=== PATIENT | female | born 1935 | race Caucasian/White ===

== ENCOUNTER 2024-04-14 11:00 | Outpatient (REF) | payer MEDICARE, OTHER, SELFPAY ==
--- NOTE | ~2024-04-14 | XR_ITS ---
EXAMINATION: XR CHEST CLINICAL INFORMATION: Cough evaluate for infiltrate COMPARISON: None available. TECHNIQUE: 2 views of the chest were obtained. FINDINGS: Slight bibasilar atelectasis. Slight interstitial prominence. No pneumothorax. Trachea is midline. Cardiomediastinal silhouette is not enlarged. Aorta demonstrates atherosclerotic calcifications. No large pleural effusion. Levocurvature of the thoracolumbar spine with multilevel degenerative changes. Soft tissues are unremarkable. XR/XR chest 2V IMPRESSION: 1. Slight bibasilar atelectasis. 2. Slight interstitial prominence.
== END 2024-04-14 11:01 | disposition home or self-care (01) ==
LOC: HO.XRAY 11:00
PROVIDERS: PCP Internal Medicine; Visit Provider Internal Medicine
DX: R05.9 Cough, unspecified (principal)
CPT/HCPCS: 71046

== ENCOUNTER 2024-06-01 09:00 | Outpatient (RCR) | payer MEDICARE, OTHER, SELFPAY | END 2024-08-02 08:38 | disposition home or self-care (01) | LOC: HO.PT 09:00 | PROVIDERS: PCP Nurse Practitioner Family; Visit Provider Internal Medicine | DX: R26.9 Unspecified abnormalities of gait and mobility (principal) | CPT/HCPCS: 97110; 97112; 97162 ==

== ENCOUNTER 2024-07-27 11:12 | Emergency (ER) | payer MEDICARE, OTHER, SELFPAY ==
--- NOTE | ~2024-07-27 | XR_ITS ---
EXAMINATION: XR SACRUM AND COCCYX CLINICAL INFORMATION: pain s/p fall, Pt states she fell out of a chair at her independent living home today. COMPARISON: None available. TECHNIQUE: AP and lateral views of the sacrum and coccyx, 3 images. FINDINGS: There are no fractures. No bone, joint or soft tissue abnormality is demonstrated. No radiopaque foreign body. XR/XR sacrum coccyx min 2V IMPRESSION: No radiographic evidence of acute fracture or malalignment of the sacrum and coccyx. Electronically signed by: Christin Quinn DO 07/27/2024 01:53 PM EDT
--- NOTE | ~2024-07-27 | CT_ITS ---
EXAMINATION: CT head/brain wo IV con (accession [id number]) CT cervical spine wo IV con (accession [id number]) CLINICAL INFORMATION: head strike, fall, neck pain s/p fall COMPARISON: None TECHNIQUE: Separate noncontrast CT examinations of the head and cervical spine were performed. Coronal and sagittal reformats were obtained at the acquisition workstation. This CT examination was performed using dose optimization techniques as appropriate, variously including the following: * Automated exposure control * Adjustment of mA and/or kV according to patient size (this includes techniques or standardized protocols for targeted exams where dose is matched to indication/reason for exam; i.e. extremities or head) * Use of iterative reconstruction technique DLP: 945 mGy-cm FINDINGS: HEAD: There is no evidence of acute intracranial hemorrhage or territorial infarction. Castillo to white matter differentiation is well preserved. No abnormal mass effect or midline shift is seen. No extra-axial fluid collections are identified. No hydrocephalus. Mineralization of the bilateral basal ganglia. Proportional prominence of the ventricles and sulcal spaces is consistent with mild volume loss. Patchy periventricular and deep white matter hypoattenuation is consistent with moderate small vessel ischemic changes. The cerebellar tonsils are well positioned. No acute osseous or soft tissue abnormality. Bilateral lens extraction. Small mucous retention cyst in the posterior right maxillary sinus. The remaining visualized paranasal sinuses and mastoid air cells are well aerated. CERVICAL SPINE: There is loss of the normal cervical lordosis at C5. Multilevel mild anterolisthesis of C2-C3, C3-C4, C4-C5, C7-T1. No evidence of acute fracture or traumatic subluxation of the cervical spine. Vertebral body heights are maintained. There is multilevel degenerative disc disease from C4 to C7 with intervertebral disc space narrowing and endplate osteophyte formation. Moderate atlantodental spondylosis. The atlantoaxial and atlantooccipital articulations are intact. Mild bilateral C6-C7 neural foraminal stenosis. No canal stenosis. No prevertebral soft tissue swelling. There is no cervical lymphadenopathy. The visualized thyroid gland is unremarkable. Diffuse central lobular emphysema in the visualized bilateral lung apices. CT/CT cervical spine wo IV con IMPRESSION: 1. No acute intracranial pathology. Chronic microangiopathy and generalized volume loss. 2. No acute osseous abnormality within the cervical spine. Mild multilevel degenerative changes as described above. Electronically signed by: Christin Quinn DO 07/27/2024 02:09 PM EDT RP
--- NOTE | ~2024-07-27 | US_ITS ---
EXAMINATION: US TRIPLEX LOWER EXTREMITY, RIGHT CLINICAL INFORMATION: Calf pain COMPARISON: None available. TECHNIQUE: Color-flow triplex imaging with spectral analysis and compression Doppler were performed on the right lower extremity. FINDINGS: Respiratory variation, normal compression and augmented flow are noted throughout the right lower extremity. The visualized common femoral vein, superficial femoral vein, profunda femoral vein, popliteal vein and midcalf peroneal and posterior tibial venous segments show no evidence of deep venous thrombosis. There is no Haque's cyst. US/US venous duplex LE RT IMPRESSION: No evidence of deep venous thrombosis involving the right lower extremity. Electronically signed by: Vivian King MD 07/27/2024 12:54 PM EDT
--- NOTE | ~2024-07-27 | CT_ITS ---
EXAMINATION: CT head/brain wo IV con (accession [id number]) CT cervical spine wo IV con (accession [id number]) CLINICAL INFORMATION: head strike, fall, neck pain s/p fall COMPARISON: None TECHNIQUE: Separate noncontrast CT examinations of the head and cervical spine were performed. Coronal and sagittal reformats were obtained at the acquisition workstation. This CT examination was performed using dose optimization techniques as appropriate, variously including the following: * Automated exposure control * Adjustment of mA and/or kV according to patient size (this includes techniques or standardized protocols for targeted exams where dose is matched to indication/reason for exam; i.e. extremities or head) * Use of iterative reconstruction technique DLP: 945 mGy-cm FINDINGS: HEAD: There is no evidence of acute intracranial hemorrhage or territorial infarction. Castillo to white matter differentiation is well preserved. No abnormal mass effect or midline shift is seen. No extra-axial fluid collections are identified. No hydrocephalus. Mineralization of the bilateral basal ganglia. Proportional prominence of the ventricles and sulcal spaces is consistent with mild volume loss. Patchy periventricular and deep white matter hypoattenuation is consistent with moderate small vessel ischemic changes. The cerebellar tonsils are well positioned. No acute osseous or soft tissue abnormality. Bilateral lens extraction. Small mucous retention cyst in the posterior right maxillary sinus. The remaining visualized paranasal sinuses and mastoid air cells are well aerated. CERVICAL SPINE: There is loss of the normal cervical lordosis at C5. Multilevel mild anterolisthesis of C2-C3, C3-C4, C4-C5, C7-T1. No evidence of acute fracture or traumatic subluxation of the cervical spine. Vertebral body heights are maintained. There is multilevel degenerative disc disease from C4 to C7 with intervertebral disc space narrowing and endplate osteophyte formation. Moderate atlantodental spondylosis. The atlantoaxial and atlantooccipital articulations are intact. Mild bilateral C6-C7 neural foraminal stenosis. No canal stenosis. No prevertebral soft tissue swelling. There is no cervical lymphadenopathy. The visualized thyroid gland is unremarkable. Diffuse central lobular emphysema in the visualized bilateral lung apices. CT/CT head/brain wo IV con IMPRESSION: 1. No acute intracranial pathology. Chronic microangiopathy and generalized volume loss. 2. No acute osseous abnormality within the cervical spine. Mild multilevel degenerative changes as described above. Electronically signed by: Christin Quinn DO 07/27/2024 02:09 PM EDT RP
--- NOTE | ~2024-07-27 | XR_ITS ---
EXAMINATION: XR CHEST CLINICAL INFORMATION: chest pain, Pt states she fell out of a chair at her independent living home today. COMPARISON: Chest radiograph 04/14/2024 TECHNIQUE: PA and lateral views of the chest were obtained. FINDINGS: The lungs are well expanded. No focal consolidation, effusion, edema, or pneumothorax. The cardiomediastinal silhouette is within normal limits for technique and unchanged. No acute osseous abnormality. XR/XR chest 2V IMPRESSION: No acute pulmonary disease. Electronically signed by: Christin Quinn DO 07/27/2024 01:56 PM EDT
--- NOTE | 2024-07-27 11:38 | ED_ITS ---
HPI - Fall General Chief Complaint: General Medical Stated Complaint: fall Time Seen by Provider: 07/27/24 12:39 Source: patient Mode of arrival: ambulatory Limitations: no limitations History of Present Illness ED Provider: Aileen ELLIS HPI Narrative: This is a 88-year-old female x htn, hld, hypothyroidism presenting to the emergency department with complaints of body aches and pains particularly to the buttocks, back of head, she reports that she was sitting in a chair, the chair collapsed and she landed on her buttocks, she reports that her buttocks her as well as the back of her head. She reports when she fell the back of the chair hit her in the head. No LOC. She is not on blood thinners. Patient also reports earlier today she had a sharp episode of substernal nonradiating chest pain lasted a few seconds and then went away. Patient also reports right calf pain since yesterday. No shortness of breath, fevers, chills, vision changes, dizziness, weakness, nausea, vomiting abdominal pain Related Data Allergies Allergy/AdvReac Type Severity Reaction Status Date / Time cefuroxime [From Ceftin] Allergy Diarrhea Verified 07/27/24 11:41 Review of Systems 2 Review of Systems: Yes all other systems are reviewed and are negative PMFSH Past Medical History Attestation statement: The following information was validated with the patient. Source: old records reviewed and nursing notes reviewed Medical History Hypothyroid Anxiety, generalized HLD (hyperlipidemia) HTN (hypertension) Dry eye Social History Social History Smoked in Last 30 Days: No Use of substances other than those prescribed or required for medical reasons: No Advance Directives: No Advance Directives Information Provided: No Physical Exam 2 Vital Signs: Vital Signs: Last Vital Signs Temp 98.3 F 07/27/24 12:50 Pulse 62 07/27/24 12:50 Resp 12 07/27/24 12:50 BP 151/55 H 07/27/24 12:50 Pulse Ox 98 07/27/24 12:50 O2 Del Method Room Air 07/27/24 12:50 BMI result Body Mass Index 28.5 vss Appearance: Alert.? Oriented X3.? No acute distress.? Head: Normocephalic, atraumatic, no step-offs or deformities Eyes: Pupils equal, round and reactive to light.? CVS: Normal heart rate and rhythm.? Pulses normal.? Respiratory: No respiratory distress.? Breath sounds normal.? Abdomen: Soft and nontender.? Skin: Skin warm and dry.? Normal skin color.? Normal skin turgor.? Extremities: No lower extremity edema.? No calf ttp. 5/5 strength to bilateral upper and lower extremities 2+ DP, AT pulses equal and b/l. Normal distal sensation Neuro: Oriented X 3.? No motor deficit.? No sensory deficit. CN 2-12 intact Course Course Course Narrative: This is an RME: Additional HPI, ROS, PE not included below will be deferred to primary provider. RME assessment and note performed by: oRberta Lopez PA-C This is a 89-zzlv-[id number]-female, with a hx of HTN, can't think of any others , who presents to the ER with complaints of body aches. Patient states that she was sitting in a chair when suddenly the chair broke from beneath her and landed onto her buttocks. She states that her buttocks hurts as well as the back of her head. She states that she struck the posterior aspect of her head on part of the chair. No LOC. Patient also reports that she had an episode of chest pain, sharp in nature lasted for several seconds and resolved on its own. She had another episode later on yesterday. She also reports some right calf pain which started yesterday. She has no midline spine tenderness. She is not on blood thinners. Plan: Labs, EKG, CT head and neck, chest and sacrum/coccyx xray ordered. Reevaluation(s) Reevaluation #1: CBC no acute findings needing intervention. Sodium 130 will give IV fluids at this time. Troponin negative, EKG nonischemic. Coags unremarkable. UA with no infection. Patient's DVT steady with no clot noted. X-ray of chest, sacrum and coccyx pending. CT head and neck pending. Time: 13:04 Reevaluation #2: X-ray of chest, sacrum and coccyx normal. CT head and neck pending. As long as this is normal patient to be discharged home. Time: 14:05 Reevaluation #3: CT head and neck normal. Educated patient on diagnosis and treatment plan, answered all question, patient verbalizes understanding. At this time patient will be discharged home, advised to return with new or worsening symptoms. Educated on worrisome signs and symptoms and when to return. At this time I feel comfortable discharge home. Time: 14:16 Medical Decision Making Medical Decision Making MDM Narrative: 88-year-old female presents status post fall off chair today. Reporting pain to buttocks, head. Also earlier had episode of chest pain now resolved. Physical examination benign. No midline tenderness to spine. NIH stroke scale 0. Cerebellar intact. History and physical exam concerning for contusion vs bruising to sacrum/ coccyx region and concussion w/o LOC. I do not suspect intracranial hemorrhage, stroke, posterior stroke. Right calf pain likely musculoskeletal, unlikely arterial or venous occlusion no signs of acute threat to limb. No signs of trauma to chest, abdomen or cervical spine. Chest pain likely noncardiac related unlikely ACS, PE, acute respiratory distress. Plan labs, imaging, Differential Diagnosis Differential Diagnoses: The differential diagnosis associated with the presentation includes History and physical exam concerning for contusion vs bruising to sacrum/ coccyx region and concussion w/o LOC. I do not suspect intracranial hemorrhage, stroke, posterior stroke. Right calf pain likely musculoskeletal, unlikely arterial or venous occlusion no signs of acute threat to limb. No signs of trauma to chest, abdomen or cervical spine. Chest pain likely noncardiac related unlikely ACS, PE, acute respiratory distress. Admission/Observation Consideration of admission/observation: Escalation of care including admission/observation considered Possible Lab Data MDM Lab Attestation statement: I reviewed the patient's lab results. 07/27/24 12:17 07/27/24 12:17 Labs: Lab Results 07/27/24 07/27/24 Range/Units 12:17 12:53 WBC 5.4 (4.8-10.8) X10*3/uL RBC 4.01 L (4.20-5.50) X10*6/uL Hgb 12.6 (12.0-16.0) g/dl Hct 36.9 L (37.0-47.0) % MCV 92.0 (80.0-98.0) fL MCH 31.4 (27.0-33.0) pg MCHC 34.1 (31.0-35.0) g/dl RDW 12.8 (11.0-16.0) % Plt Count 258 (160-400) X10*3/uL MPV 9.1 L (9.4-12.3) fL Immature Gran % (Auto) 0.4 (0.0-0.4) % Neut % (Auto) 54.3 (45-73) % Lymph % (Auto) 25.5 (20-40) % Gates % (Auto) 16.1 H (2-11) % Eos % (Auto) 2.4 (0-4) % Baso % (Auto) 1.3 (0-2) % Lymph # (Auto) 1.4 (1.2-4.9) X10*3/uL Gates # (Auto) 0.9 (0.1-1.2) X10*3/uL Eos # (Auto) 0.1 (0.0-0.4) X10*3/uL Baso # (Auto) 0.1 (0.0-0.2) X10*3/uL Abs Immat Gran (auto) 0.02 (0.00-0.03) X10*3/uL Absolute Neuts (auto) 2.9 (2.0-8.3) x10*3/uL Absolute Nucleated RBC 0.000 (0.0-0.012) X10*3/uL Nucleated RBC % (auto) 0.0 (0.0-0.2) /100WBC PT 10.5 L (11.1-13.3) SEC INR 0.9 (0.9-1.1) Sodium 130 L (135-145) mmol/L Potassium 4.3 (3.3-5.1) mmol/L Chloride 97 (96-108) mmol/L Carbon Dioxide 27 (22-29) mmol/L Anion Gap 10 L (12-20) BUN 13 (9-16) mg/dL Creatinine 0.78 (0.5-1.4) mg/dL Estim Creat Clear Calc 45.1 Estimated GFR > 60 Random Glucose 105 (60-115) mg/dL Calcium 8.9 (8.4-10.2) mg/dL Total Bilirubin 0.4 (0.0-1.0) mg/dL Direct Bilirubin 0.2 (0.0-0.5) mg/dL AST 22 (5-31) U/L ALT 26 (0-31) U/L Alkaline Phosphatase 82 (39-117) U/L Troponin I High Sens < 2.7 (<3.5-17.0) ng/L Total Protein 7.0 (6.5-8.0) g/dL Albumin 4.0 (3.5-5.0) g/dL Urine Color Yellow Urine Appearance Clear Urine pH 7.0 (5.0-9.0) Ur Specific [place] <= 1.005 (1.005-1.025) Urine Protein Negative (Neg-Trace) mg/dL Urine Glucose (UA) Negative (Negative) mg/dL Urine Ketones Negative (Negative) mg/dL Urine Blood Negative (Negative) Urine Nitrite Negative (Negative) Ur Leukocyte Esterase Trace H (Negative) Urine RBC 0-2 (0-2) /HPF Urine WBC 0-5 (0-5) /HPF Ur Squamous Epith Cells 0-2 (0-2) /HPF Urine Bacteria None Seen (None Seen) Hyaline Casts 0-2 (0-2) /LPF Independent Interpretation I performed an independent interpretation of an: EKG (Vent. Rate : 061 BPM Atrial Rate : 061 BPM P-R Int : 208 ms QRS Dur : 138 ms QT Int : 466 ms P-R-T Axes : 070 -56 095 degrees QTc Int : 469 ms Normal sinus rhythm Left axis deviation Left bundle branch block Abnormal ECG No previous ECGs available ), Plain X-Ray (XR/XR sacrum coccyx min 2V IMPRESSION: No radiographic evidence of acute fracture or malalignment of the sacrum and coccyx.XR/XR chest 2V IMPRESSION: No acute pulmonary disease.) and Ultrasound ( US/US venous duplex LE RT IMPRESSION: No evidence of deep venous thrombosis involving the right lower extremity.) Radiology Impression Discussion of test interpretation with radiology: I have reviewed the radiologist's reading. External Record Review External record reviewed: Inpatient record, Office record, Outpatient record, Prior outpatient labs, Prior outpatient radiology, Primary care record and Outside ED record Chronic Conditions Patient?s care impacted by: Hypertension and Other (hld, hypothyroids. ) Discharge Plan Discharge Clinical Impression: Fall from chair, Buttock pain, Calf pain, Chest pain Patient Disposition: Home, Self-Care Instructions: Chest Pain (ED), Fall Prevention for Older Adults (ED), Leg Cramps (ED), Fall Prevention (ED), Leg Pain (ED) Additional Instructions: Take your medications as prescribed. If you were prescribed antibiotics today, it is important that you take your medication to their entirety, do not skip any doses, do not finish them early. Follow-up with your primary care provider this week. Return to the emergency department with new or worsening symptoms. Such as fevers, chills, chest pain, shortness of breath, nausea, vomiting, dizziness, headache, vision changes, lethargy In case of emergency call 911 US/US venous duplex LE RT IMPRESSION: No evidence of deep venous thrombosis involving the right lower extremity. XR/XR sacrum coccyx min 2V IMPRESSION: No radiographic evidence of acute fracture or malalignment of the sacrum and coccyx. XR/XR chest 2V IMPRESSION: 1. Slight bibasilar atelectasis. 2. Slight interstitial prominence. CT/CT head/brain wo IV con IMPRESSION: 1. No acute intracranial pathology. Chronic microangiopathy and generalized volume loss. 2. No acute osseous abnormality within the cervical spine. Mild multilevel degenerative changes as described above. Referrals: ED Physician,Generic [Physician] - 2 days Print Language: Estonian
[2024-07-27 11:39] VITALS: BP 101/59; PULSE 60; RESP 18; TEMP 36.6; O2SAT 100; BMI 28.5
--- NOTE | 2024-07-27 11:44 | ECG_ITS ---
Test Reason : chest pain Blood Pressure : / mmHG Vent. Rate : 061 BPM Atrial Rate : 061 BPM P-R Int : 208 ms QRS Dur : 138 ms QT Int : 466 ms P-R-T Axes : 070 -56 095 degrees QTc Int : 469 ms Normal sinus rhythm Left axis deviation Left bundle branch block Abnormal ECG No previous ECGs available Referred By: Roberta Lopez Electronically Signed By:SARAH OATES
--- OUTSIDE RECORDS SUMMARY | 2024-07-27 11:49 | XMS_ITS | Continuity of Care Document ---
Author Organization [facility] Medicine Address [address] [place] [address]- Care Team Providers Care Electrician Substation Name Role Phone Christiano VIDES, Nick Primary Care Physician [place] [facility] [place] - 07/01/[address] [address]- Allergies, Adverse Reactions, Alerts Substance Reaction Severity Status Ceftin ? Active Cleocin T BLOODY DIARRHEA Active Immunizations Given and Recorded Vaccine Date Status Refusal Reason SARS-CoV-2(COVID-19)mRNA-LNP vac([id number]) 01/08/24 Given pneumococcal 20-valent conjugate vaccine 01/08/24 Given influenza virus vaccine, inactivated 09/12/22 Michael rded influenza virus vaccine, inactivated 08/08/21 Michael rded influenza virus vaccine, inactivated 1 11/21/20 Gi cris influenza virus vaccine, inactivated 2 08/22/20 Re corded [id number] 12y+ bivalent booster vax 08/31/22 Recorded SARS-CoV-2 mRNA ([id number]) vax 03/16/22 Recorded SARS-CoV-2 (COVID-19) mRNA BNT-162b2 vac 08/15/21 Recorded SARS-CoV-2 (COVID-19) mRNA BNT-162b2 vac 01/16/21 Given SARS-CoV-2 (COVID-19) mRNA BNT-162b2 vac 12/26/20 Recorded Influenza Virus Vaccine (oldterm) 10/12/19 Recorde d zoster vaccine, inactivated 06/07/19 Recorded zoster vaccine, inactivated 03/14/19 Recorded tetanus-diphtheria toxoids (Td) 3 12/18/17 Recorde d pneumococcal 13-valent vaccine 4 10/02/16 Recorded tetanus/diphtheria/pertussis, acel(Tdap) 03/11/16 Given Zoster Vaccine Live 01/15/09 Recorded pneumococcal 23-valent vaccine 08/20/07 Recorded diphtheria-tetanus toxoids (DT) 02/22/00 Given 1Result Comment: [id number] 2Result Comment: sarabjit SANDHU [facility] primary care 3Result Comment: Unit: Unknown Strategic Alliances Manager: Serveron 4Result Comment: Unit: Unknown Strategic Alliances Manager: Zulahoo Injectables Medications atorvastatin 20 mg oral tablet 1 tablet = 20 mg, By Mouth, Daily, # 30 tablet, 0 Refills, Maintenance, 04/05/24 5:36:00 EDT, Tablet, Partial fill upon patient request if the prescription is for a schedule II opioid drug. Start Date: 04/05/24 Status: Ordered escitalopram 5 mg oral tablet 1 tablet, By Mouth, Daily, # 90 tablet, 1 Refills, Maintenance, 06/01/24 11:03:00 EDT, [facility], 158, cm, 05/19/24 9:35:00 EDT, Height, 73.2, kg, 04/05/24 2:07:00 EDT, Dry Weight Start Date: 06/01/24 Status: Ordered famotidine 20 mg oral tablet 40 mg, 2, tablet, By Mouth, Daily, # 30 tablet, Refills 0, Maintenance, 04/05/24 5:36:00 EDT, Partial fill upon patient request if the prescription is for a schedule II opioid drug. Start Date: 04/05/24 Status: Ordered HydrOXYzine Per patient, taking 12.5mg QD, 0 Refills, Maintenance, 05/19/24 9:39:00 EDT, Partial fill upon patient request if the prescription is for a schedule II opioid drug. Start Date: 05/19/24 Status: Ordered levothyroxine 0.05 mg oral tablet 0.5 tablet, By Mouth, Daily, # 45 tablet, 1 Refills, Maintenance, 06/01/24 11:03:00 EDT, [facility], 158, cm, 05/19/24 9:35:00 EDT, Height, 73.2, kg, 04/05/24 2:07:00 EDT, Dry Weight Start Date: 06/01/24 Status: Ordered metoprolol 50 mg oral tablet 50 mg, By Mouth, 2 times a day, Refills 0, Maintenance, 04/05/24 11:11:00 EDT, Partial fill upon patient request if the prescription is for a schedule II opioid drug. Start Date: 04/05/24 Status: Ordered MiraLax = 17 Gm, By Mouth, Daily, 0 Refills, Maintenance, 05/19/24 9:40:00 EDT, Partial fill upon patient request if the prescription is for a schedule II opioid drug. Start Date: 05/19/24 Status: Ordered Oculin Oculin, Refills 0, Maintenance, 05/19/24 9:41:00 EDT, Supply Start Date: 05/19/24 Status: Ordered olmesartan 20 mg oral tablet 1 tablet, By Mouth, Daily, # 90 tablet, 1 Refills, Maintenance, 06/01/24 11:03:00 EDT, [facility], 158, cm, 05/19/24 9:35:00 EDT, Height, 73.2, kg, 04/05/24 2:07:00 EDT, Dry Weight Start Date: 06/01/24 Status: Ordered PreserVision AREDS 0 Refills, Maintenance, 05/19/24 9:40:00 EDT, Partial fill upon patient request if the prescriptionis for a schedule II opioid drug. Start Date: 05/19/24 Status: Ordered Probiotic Formula By Mouth, Daily, 0 Refills, Maintenance, 05/19/24 9:40:00 EDT, Partial fill upon patient request ifthe prescription is for a schedule II opioid drug. Start Date: 05/19/24 Status: Ordered Restasis Every 12 hours, 0 Refills, Maintenance, 05/19/24 9:41:00 EDT, Partial fill upon patient request if the prescription is for a schedule II opioid drug. Start Date: 05/19/24 Status: Ordered Problem List Condition Confirmation Course Effective Dates Status H ealth Status Informant Acute left-sided thoracic back pain Confirmed Active Adenomatous polyp of colon Confirmed Active Change in bowel movement Confirmed Active Anxiety Confirmed Active Aortic insufficiency Confirmed Active Aortic regurgitation Confirmed Active Atrial tachycardia Confirmed Active BPV (benign positional vertigo) Confirmed Active Bilateral calf pain Confirmed Active Cough variant asthma Confirmed Active Osteoarthritis, generalized Confirmed Active Dental prophylaxis, adult - needed Confirmed Active Difficulty sleeping Confirmed Active Dizziness Confirmed Active Nonspecific dizziness Confirmed Active Elevated blood pressure reading with diagnosis of hypertension Confirmed Active Excessive cerumen in both ear canals Confirmed Active GERD (gastroesophageal reflux disease) Confirmed Active Hx of blood clots Confirmed Active Hx of varicose veins of lower extremity Confirmed Active Headache Confirmed Active Hearing impairment Confirmed Active Hyperlipidemia Confirmed Active Hypertension Confirmed Active Hypothyroidism Confirmed Active Impaired fasting glucose Confirmed Active Irritable bowel syndrome characterized by constipation Confirmed Active Lactose intolerance Confirmed Active Left bundle branch block Confirmed Active Migraine Confirmed Active Mitral valve stenosis Confirmed Active Obstructive sleep apnea Confirmed Active BONNIE on CPAP Confirmed Active Oral phase dysphagia Confirmed Active Osteoporosis Confirmed Active Breast pain, left Confirmed Active Cardiac risk counseling Confirmed Active Peptic ulcer disease Confirmed 1970 Active Peripheral venous insufficiency Confirmed Active Primary insomnia Confirmed Active Prolapse of female pelvic organs Confirmed Active Recurrent varicose veins of leg - h/o procedure Confirmed Active Hearing loss, sensorineural Confirmed Active Social problem Confirmed Active TMJ syndrome Confirmed Active Vaginal discharge Confirmed Active Social History Social History Type Response Tobacco Total pack years: 35 . Started at age: 14 Years. Stopped at age: 49 Years. Sex Patient Care team information Care Team Personnel Name: Pam Floyd RN Position: [facility] RN Member Role: Primary Care Nurse Name: Nick Alvarado NP Position: [facility] PCO Associate Professional Member Role: PCP Address: Address: [address] [place] [id number]- Name: Carrol Ta RN Position: [facility] RN Member Role: Primary Care Nurse Name: Crystal Ceron RN Position: S RN Member Role: Primary Care Nurse Care Team Related Persons Name: RADHA MONTOYA Address: [place], [place] Name: BRANDIE MONTOYA Address: [place] [address] Name: TREASURE MONTOYA Address: [address] [place] [address] Name: JAI REED Address: [address] [place] [address]
--- OUTSIDE RECORDS SUMMARY | 2024-07-27 11:49 | XMS_ITS | Continuity of Care Document ---
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 Active Cleocin T BLOODY DIARRHEA Active Immunizations Given and Recorded Vaccine Date Status Refusal Reason SARS-CoV-2 (COVID-19) mRNA BNT-162b2 vac 08/15/21 Recorded SARS-CoV-2 (COVID-19) mRNA BNT-162b2 vac 01/16/21 Given SARS-CoV-2 (COVID-19) mRNA BNT-162b2 vac 12/26/20 Recorded influenza virus vaccine, inactivated 08/08/21 Michael rded influenza virus vaccine, inactivated 1 11/21/20 Gi cris influenza virus vaccine, inactivated 2 08/22/20 Re corded Influenza Virus Vaccine (oldterm) 10/12/19 Recorde d zoster vaccine, inactivated 06/07/19 Recorded zoster vaccine, inactivated 03/14/19 Recorded tetanus-diphtheria toxoids (Td) 3 11/09/17 Recorde d pneumococcal 13-valent vaccine 4 10/02/16 Recorded tetanus/diphtheria/pertussis, acel(Tdap) 03/11/16 Given Zoster Vaccine Live 01/15/09 Recorded pneumococcal 23-valent vaccine 08/20/07 Recorded diphtheria-tetanus toxoids (DT) 02/22/00 Given 1Result Comment: [id number] 2Result Comment: sarabjit SANDHU [facility] 3Result Comment: Unit: Unknown 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 Start Date: 11/05/20 Status: Ordered Clotrimazole 1% Topical 1 application, Topically, 2 times a day, Toenails, 0 Refills, Maintenance, Cream Start Date: 09/15/22 Status: Ordered Estrace Vaginal Cream 0.1 mg/g = 1 Gm, Vaginally, Every Thursday and , Physician requests stefan lange, # 30 Gm, 1 Refills, Maintenance, 12/18/21 15:56:00 EST[facility] Partial fill upon patient request if the prescription is for a schedule II opioid... Start Date: 12/18/21 Status: Ordered ICaps AREDS 2 0 Refills, Maintenance, 02/06/22 11:05:00 EDT, Partial fill upon patient request if the prescription is for a schedule II opioid drug. Start Date: 02/06/22 Status: Ordered levothyroxine 0.05 mg oral tablet See Instructions, TAKE 1/2 TABLET BY MOUTH EVERY DAY, # 45 tablet, 1 Refills, Maintenance, 09/01/2219:01:00 EDT, [facility], 158, cm, 06/27/22 10:16:00 EDT, Height, 71.9, kg, 06/19/22 18:46:00 EDT, Dry Weight Start Date: 09/01/22 Status: Ordered Losartan 25 mg, Tablet, By Mouth, 09/15/22 9:00:00 EDT Start Date: 09/15/22 Stop Date: 09/15/22 Status: Completed magnesium oxide 500 mg oral tablet 1 tablet = 500 mg, By Mouth, Daily, for 7 days, # 7 tablet, 0 Refills, Acute 09/22/22 12:26:00 EDT,09/15/22 12:26:00 EDT, Tablet, [facility], Partial fill upon patient request if the prescription is for a schedule II opioid drug., 157,... Start Date: 09/15/22 Stop Date: 09/22/22 Status: Ordered Metoprolol IR Tablet 12.5 mg, Tablet, By Mouth, 09/15/22 9:00:00 EDT Start Date: 09/15/22 Stop Date: 09/15/22 Status: Completed Metoprolol Tartrate 25 mg oral tablet 1 tablet, By Mouth, 2 times a day, # 180 tablet, 3 Refills, Maintenance, 12/02/21 11:49:00 EST, [facility] #[id number], 157.48, cm, 11/27/21 12:51:00 EST, Height, 68.8, kg, 09/03/21 11:11:00 EDT, Dry Weight Start Date: 12/02/21 Status: Ordered MiraLax oral powder for reconstitution = 17 Gm, By Mouth, Daily, dissolve in water before taking, # 255 Gm, 0 Refills, Maintenance, 05/09/21 14:12:00 EDT, [facility], Partial fill upon patient request if the prescription is for a scheduleII opioid drug. Start Date: 05/09/21 Status: Ordered Seaforth Tears ophthalmic solution 1 drops, Eyes, Both, 2 times a day, PRN for dry eyes, # 30 each, 0 Refills, Maintenance, 09/15/22 1:54:00 EDT, Solution, Partial fill upon patient request if the prescription is for a schedule II opioid drug. Start Date: 09/15/22 Status: Ordered Seaforth Tears ophthalmic solution 1 drops, Eyes, Both, 3 times a day, PRN for dry eyes, Maintenance, 09/15/22 10:43:00 EDT, Solution,Partial fill upon patient request if the prescription is for a schedule II opioid drug. Start Date: 09/15/22 Status: Ordered olmesartan 20 mg oral tablet 1 tablet, By Mouth, Daily, # 90 tablet, 3 Refills, Maintenance, 12/20/21 13:54:00 EST, [id number], 157.48, cm, 12/19/21 11:37:00 EST, Height, 68.8, kg, 09/03/21 11:11:00 EDT, Dry Weight Start Date: 12/20/21 Status: Ordered Probiotic Formula By Mouth, Daily, 0 Refills, Maintenance, 11/08/21 8:50:00 EST, Partial fill upon patient request ifthe prescription is for a schedule II opioid drug. Start Date: 11/08/21 Status: Ordered Restasis 0.05% ophthalmic emulsion 1 drops, Every 12 hours, 0 Refills, Maintenance, 09/15/22 1:54:00 EDT, Partial fill upon patient request if the prescription is for a schedule II opioid drug. Start Date: 09/15/22 Status: Ordered Restasis 0.05% ophthalmic emulsion 1 drops, Eyes, Both, Every 12 hours, Maintenance, 09/15/22 10:42:00 EDT, Partial fill upon patient request if the prescription is for a schedule II opioid drug. Start Date: 09/15/22 Status: Ordered Problem List Condition Confirmation Course Effective Dates Status H ealth Status Informant Adenomatous polyp of colon Confirmed Active Anxiety Confirmed Active Aortic insufficiency Confirmed Active Atrial tachycardia Confirmed Active Cough variant asthma Confirmed Active Osteoarthritis, generalized Confirmed Active Dental prophylaxis, adult - needed Confirmed Active Difficulty sleeping Confirmed Active Dizziness Confirmed Active Excessive cerumen in both ear canals Confirmed Active Headache Confirmed Active Hyperlipidemia Confirmed Active Hypertension Confirmed Active Hypothyroidism Confirmed Active Impaired fasting glucose Confirmed Active Irritable bowel syndrome characterized by constipation Confirmed Active Lactose intolerance Confirmed Active Left bundle branch block Confirmed Active Migraine Confirmed Active Mitral valve stenosis Confirmed Active Obstructive sleep apnea Confirmed Active BONNIE on CPAP Confirmed Active Oral phase dysphagia Confirmed Active Osteoporosis Confirmed Active Peptic ulcer disease Confirmed 1970 Active Peripheral venous insufficiency Confirmed Active Primary insomnia Confirmed Active Recurrent varicose veins of leg - h/o procedure Confirmed Active Hearing loss, sensorineural Confirmed Active TMJ syndrome Confirmed Active Results Radiology Reports * Exam Date Time Procedure Performing Provider Status 09/14/22 9:29 PM Chest Portable Katty Durbin (Verified) Notes: (Chest Portable) Reason For Exam: Shortness of Breath RESULT: Chest Portable Chest Portable Hx of Present Illness: Pt comes in ED via EMS c o intermittent Afib for a week with increased episodes today with some Chest pain, dizziness and weakness. Pt on Metoprolol; Reason: Shortness of Breath; Clinical Question(s): CHF COMPARISON: 06/19/2022 FINDINGS: LINES AND TUBES: None. LUNGS AND PLEURA: Clear lungs. Normal pulmonary vascularity. No pleural effusion. No pneumothorax. HEART, MEDIASTINUM AND YONAS: Heart is normal in size. Normal mediastinal and hilar contour. BONES AND SOFT TISSUES: No acute abnormality. IMPRESSION: No acute abnormality. WSN: [id number] Ordering Physician: Trevor Perla Dictated By: Hilario Solano MD Dictated Date/Time: 09/14/22 9:40 pm Reviewed By: Hilario Solano MD Signed By: Hilario Solano MD Signed Date/Time: 09/14/22 9:40 pm Transcribed By: [place] Transcribed Date/Time: 09/14/22 9:39 pm Vital Signs Most recent to oldest [Reference Range]: 1 2 3 Height 157 cm (09/15/22 7:19 AM) 157 cm (09/15/22 5:45 AM) 157 cm (09/15/22 1:22 AM) Weight 71.6 kg (09/15/22 1:22 AM) 71 kg (09/14/22 8:54 PM) Oxygen Saturation [94-100 %] 98 % (09/15/22 7:19 AM) 99 % (09/15/22 5:45 AM) 99 % (09/15/22 1:22 AM) Pulse Rate [55-90 bpm] 62 bpm (09/15/22 10:37 AM) 62 bpm (09/15/22 7:19 AM) 61 bpm (09/15/22 5:45 AM) Body Mass Index [18.5-24.99 kg/m2] 29.05 kg/m2 *H* (09/15/22 1:22 AM) Blood Pressure [90-138/55-84 mm Hg] 153/67mm Hg *H* (09/15/22 10:38 AM) 157/63mm Hg *H* (09/15/22 10:37 AM) 157/63mm Hg *H* (09/15/22 7:19 AM) Respiratory Rate [16-30 br/min] 17 br/min (09/15/22 7:19 AM) 18 br/min (09/15/22 5:45 AM) 16 br/min (09/15/22 1:22 AM) Temperature [96.8-100.4 DegF] 97.6 DegF (09/15/22 7:19 AM) 97.6 DegF (09/15/22 5:45 AM) 98.3 DegF (09/15/22:22 AM) Mode of Delivery (Oxygen) Room air (09/15/22 7:19 AM) Room air (09/15/22 5:45 AM) Room air (09/15/22:22 AM) Blood pressure sites Arm, left (09/15/22:19 AM) Arm, left (09/15/22 5:45 AM) Arm, right (09/15/22:22 AM) Temperature Route Oral (09/15/22:19 AM) Oral (09/15/22 5:45 AM) Oral (09/15/22:22 AM) Dry Weight 71.6 kg (09/15/22:22 AM) 71 kg (09/14/22 8:54 PM) Social History Social History Type Response Tobacco Total pack years: 35 . Started at age: 14 Years. Stopped at age: 49 Years. Sex Portable XR Chest Views * BHSPowerscribe , CIS S: TRANSCRIBE Xiomara WEBER, Hilario S: VERIFY Event Display: Result: Authored Date: [id number] Chest Portable Hx of Present Illness: Pt comes in ED via EMS c o intermittent Afib for a week with increased episodes today with some Chest pain, dizziness and weakness. Pt on Metoprolol; Reason: Shortness of Breath; Clinical Question(s): CHF COMPARISON: 06/19/2022 FINDINGS: LINES AND TUBES: None. LUNGS AND PLEURA: Clear lungs. Normal pulmonary vascularity. No pleural effusion. No pneumothorax. HEART, MEDIASTINUM AND YONAS: Heart is normal in size. Normal mediastinal and hilar contour. BONES AND SOFT TISSUES: No acute abnormality. IMPRESSION: No acute abnormality. WSN: [id number] Ordering Physician: Trevor Perla Dictated By: Hilario Solano MD Dictated Date/Time: 09/14/22 9:40 pm Reviewed By: Hilario Solano MD Signed By: Hilario Solano MD Signed Date/Time: 09/14/22 9:40 pm Transcribed By: [place] Transcribed Date/Time: 09/14/22 9:39 pm Patient Care team information Personnel Name: Nick Alvarado NP Address: Address: [address] [place] [id number]
--- OUTSIDE RECORDS SUMMARY | 2024-07-27 11:50 | XMS_ITS | Continuity of Care Document ---
Author Organization [facility] Address [address] [place] [address]- Care Team Providers Care Director Enterprise Systems Name Role Phone Sam WEBER, Zara Jensen Primary Care Physician [phone] Encounter [facility] [place] Date(s): 08/21/20 - 08/28/[address] [address]- [facility] Attending Physician: Sofia Chacon MD Admitting Physician: Sofia Chacon MD Allergies, Adverse Reactions, Alerts Substance Reaction Severity Status clindamycin Active Ceftin ? Active Cipro Active Keflex ? 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: [employer] Injectables Medications Aspirin = 81 mg, By Mouth, Daily, 0 Refills, Maintenance Start Date: 01/09/11 Status: Ordered atorvastatin 20 mg oral tablet 1 tablet = 20 mg, By Mouth, Daily at bedtime, # 30 tablet, 6 Refills, Maintenance, 06/05/20 15:31:00 EDT, Tablet, [id number], 158, cm, 06/05/20 14:54:00 EDT, Height, 70, kg, 05/22/20 13:54:00EDT, Dry Weight Start Date: 06/05/20 Stop Date: 01/01/21 Status: Ordered Caltrate 600 with D 1 tab, By Mouth, 2 times a day, tablet, 0 Refills, Maintenance Start Date: 01/09/11 Status: Ordered Compression Stockings See Instructions, # 1 pair, Maintenance, surgical, calf length 20-30 mm Hg, 02/14/19 15:47:38 EDT, Compound Start Date: 02/14/19 Status: Ordered CPAP Machine See Instructions, # 1 each, Maintenance, Please change to C PAP auto titrate 10- 16 cm H2O dx BONNIE, 08/26/11 15:30:42 Start Date: 08/26/11 Status: Ordered CPAP Machine See Instructions, # 1 each, Maintenance, CPAP 7 cm H2O dx [place]NIE [facility] 3 ramp prn mask and suppliesas needed, 05/27/11 14:05:41 Start Date: 05/27/11 Status: Ordered CPAP Equipment See Instructions, # 1 each, Refills 11, Tot. Refills 11, Maintenance, [facility]:All Pap Supplies: Tubing, Headgear, Chin Strap, CC Line, Full Face/Nasal Mask, Heated Humidifier, Water Chamber, and Filters. DX: BONNIE G47.33Length of Need 99 months ACCESS... Start Date: 09/15/17 Status: Ordered Diflucan 150 mg oral tablet 1 tablet = 150 mg, By Mouth, Every 72 hours, # 2 tablet, 0 Refills, Soft Stop, 08/21/20 11:44:00 EDT, Tablet, [facility] #1095, 158, cm, 08/21/20 11:15:00 EDT, Height, 70, kg, 05/22/20 13:54:00 EDT, Dry Weight Start Date: 08/21/20 Status: Ordered doxycycline hyclate 100 mg oral capsule 1 capsule = 100 mg, By Mouth, 2 times a day, 0 Refills, Maintenance, 08/17/20 9:26:00 EDT Start Date: 08/17/20 Status: Ordered Hydrochlorothiazide = 12.5 mg, By Mouth, Daily, 0 Refills, Maintenance, 08/25/14 15:08:35 Start Date: 08/25/14 Status: Ordered ketoconazole 2% topical cream Topically, Daily, 0 Refills, Maintenance, 05/19/20 22:50:00 EDT Start Date: 05/19/20 Status: Ordered metoprolol 25 mg oral tablet 25 mg, 1, tablet, By Mouth, 2 times a day, # 180 tablet, Refills 0, Maintenance, 08/17/20 9:27:00 EDT Start Date: 08/17/20 Status: Ordered Multivitamin 1, tablet, By Mouth, Daily, 0, 0, 02/21/06 7:36:57, Print CAMILO Number, [id number], Constant Indicator Start Date: 02/21/06 Status: Ordered polyethylene glycol 3350 oral powder for reconstitution = 17 Gm, By Mouth, Daily, 0 Refills, Maintenance, 08/17/20 9:27:00 EDT Start Date: 08/17/20 Status: Ordered Probiotic Formula 1 capsule, By Mouth, Daily, 0 Refills, Maintenance, 12/20/15 15:58:11 Start Date: 12/20/15 Status: Ordered Trimo-Mcclure 0.025% vaginal gel with applicator 0 Refills, Maintenance, 08/17/20 9:26:00 EDT Start Date: 08/17/20 Status: Ordered Problem List Condition Effective Dates Status Health Status Inform ant Adenomatous polyp of colon(Confirmed) Active Aortic insufficiency(Confirmed) Active Atrial tachycardia(Confirmed) Active Cough variant asthma(Confirmed) Active Osteoarthritis, generalized(Confirmed) Active Dental prophylaxis, adult - needed(Confirmed) Active Difficulty sleeping(Confirmed) Active Dizziness(Confirmed) Active Excessive cerumen in both ea r canals(Confirmed) Active Caregiver burden(Confirmed) Active Headache(Confirmed) Active Hypertension(Confirmed) Active Hypothyroidism(Confirmed) Active Hypothyroidism(Confirmed) Active Irritable bowel syndrome rebecca racterized by constipation(Confirmed) Active Lactose intolerance(Confirmed) Active Left bundle branch block(Confirmed) Active Migraine(Confirmed) Active Mitral valve stenosis(Confirmed) Active Obstructive sleep apnea(Confirmed) Active BONNIE on CPAP(Confirmed) Active Oral phase dysphagia(Confirmed) Active Osteoporosis(Confirmed) Active Peptic ulcer disease(Confirmed) 1970 Active Peripheral venous insufficiency(Confirmed) Active Primary insomnia(Confirmed) Active Recurrent varicose veins of leg - h/o procedure(Confirmed) Active TMJ syndrome(Confirmed) Active Vital Signs Most recent to oldest [Reference Range]: 1 Height 158 cm (08/21/20 11:15 AM) Blood Pressure [90-138/55-84 mm Hg] 122/ 60mm Hg (08/21/20 11:15 AM) Blood pressure sites Arm, left (08/21/20 11:15 AM) Weight Obtained Via Standing scale (08/21/20 11:15 AM) Social History Social History Type Response Smoking Status Former smoker; Other : Smoked 1PPD from age 14. Quit 33Y ago.; entered on: 09/15/17 Sex
--- OUTSIDE RECORDS SUMMARY | 2024-07-27 11:50 | XMS_ITS | Continuity of Care Document ---
Author Organization [facility] Address [address] [place] [address]- Care Team Providers Care Ramp Service Man Name Role Phone Christiano VIDES, Nick Primary Care Physician Encounter [facility] [place] Date(s): 01/08/24 - 02/07/[address] [address]- Attending Physician: Silas Duncan Admitting Physician: Silas Duncan Referring Physician: Silas Duncan Allergies, Adverse Reactions, Alerts Substance Reaction Severity Status Ceftin ? Active Cleocin T BLOODY DIARRHEA Active Immunizations Given and Recorded Vaccine Date Status Refusal Reason SARS-CoV-2(COVID-19)mRNA-LNP vac([id number]) 01/08/24 Given pneumococcal 20-valent conjugate vaccine 01/08/24 Given influenza virus vaccine, inactivated 09/12/22 Michael rded influenza virus vaccine, inactivated 08/08/21 Michael rded influenza virus vaccine, inactivated 1 11/21/20 Gi cris influenza virus vaccine, inactivated 2 08/22/20 Re corded [id number] 12y+ bivalent booster vax 08/31/22 Recorded SARS-CoV-2 mRNA ([id number]) vax 03/16/22 Recorded SARS-CoV-2 (COVID-19) mRNA BNT-162b2 [...] diphtheria-tetanus toxoids (DT) 02/22/00 Given 1Result Comment: [id number] 2Result Comment: sarabjit SANDHU 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 Refills 0, Maintenance, surgical, knee high 20-30 mm HgDx: varicose veins with pain, swelling, history of GSV ablation, sclerotherapy, bilateral, 06/26/2311:22:00 EDT, Supply Start Date: 06/26/23 Status: Ordered escitalopram 5 mg oral tablet 1 tablet, By Mouth, Daily, # 90 tablet, 1 Refills, Maintenance, 11/19/23 14:47:00 EST, [facility], 158, cm, 10/20/23 13:46:00 EST, Height, 70, kg, 04/02/23 19:36:00 EDT, Dry Weight Start Date: 11/19/23 Stop Date: 05/17/24 Status: Ordered Estrace Vaginal Cream 0.1 mg/g = 1 Gm, Vaginally, Every Thursday and , Physician requests stefan lange, # 30 Gm, 1 Refills, Maintenance, 02/05/23 15:29:00 EDT, [facility], Partial fill upon patient request if the prescription is for a schedule II opioid drug., 1... Start Date: 02/05/23 Status: Ordered famotidine 20 mg oral tablet 1, tablet, By Mouth, 2 times a day, PRN, # 60 tablet, Refills 5, Maintenance, NEEDED, 08/27/23 21:16:00 EDT, Route to Pharmacy Electronically, [facility], 158, cm, 05/06/23 11:17:00 EDT, Height, 70, kg, 04/02/23 19:36:00 EDT, Dry Weight Start Date: 08/27/23 Status: Ordered fluticasone 50 mcg/inh nasal spray 1 sprays = 50 mcg, Nares, Both, 2 times a day, # 16 Gm, 0 Refills, Maintenance, 01/08/24 11:22:00 EST, [place], [facility], Partial fill upon patient request if the prescription is for a schedule II opioid drug., 1 sprays Nares, Both 2 cam[place]... Start Date: 01/08/24 Status: Ordered hydrocortisone 1% topical cream 1 application, Topically, 2 times a day, # 15 Gm, 0 Refills, Maintenance, 01/08/24 11:30:00 EST, Cream, [facility], Partial fill upon patient request if the prescription is for a schedule II opioid drug., 1 application Topically 2 times... Start Date: 01/08/24 Status: Ordered hydrOXYzine hydrochloride 25 mg oral tablet 1 tablet, By Mouth, Daily at bedtime, # 30 tablet, 0 Refills, Maintenance, 07/21/23 11:20:00 EDT, [facility], 158, cm, 05/06/23 11:17:00 EDT, Height, 70, kg, 04/02/23 19:36:00 EDT, Dry Weight Start Date: 07/21/23 Status: Ordered ICaps AREDS 2 0 Refills, Maintenance, 02/06/22 11:05:00 EDT, Partial fill upon patient request if the prescription is for a schedule II opioid drug. Start Date: 02/06/22 Status: Ordered ipratropium nasal 21 mcg/inh spray 1 sprays = 21 mcg, Nares, Both, Daily at bedtime, # 30 mL, 0 Refills, Maintenance, 10/28/23 17:05:00 EST, [facility], Partial fill upon patient request if the prescription is for a schedule II opioid drug., 1 sprays Nares, Both Daily at... Start Date: 10/28/23 Status: Ordered levothyroxine 0.05 mg oral tablet 0.5 tablet, By Mouth, Daily, # 45 tablet, 1 Refills, Maintenance, 08/27/23 21:17:00 EDT, [facility], 158, cm, 05/06/23 11:17:00 EDT, Height, 70, kg, 04/02/23 19:36:00 EDT, Dry Weight Start Date: 08/27/23 Status: Ordered Metoprolol Tartrate 25 mg oral tablet 2 tablet = 50 mg, By Mouth, 2 times a day, # 360 tablet, 3 Refills, Maintenance, 12/14/23 15:43:00 EST, [facility], 158, cm, 11/24/23 11:30:00 EST, Height, 70, kg, 04/02/23 19:36:00 EDT, Dry Weight Start Date: 12/14/23 Status: Ordered MiraLax oral powder for reconstitution = 17 Gm, By Mouth, Daily, dissolve in water before taking, # 255 Gm, 0 Refills, Maintenance, 05/09/21 14:12:00 EDT, REC Powder, Partial fill upon patient request if the prescription is for a scheduleII opioid drug. Start Date: 05/09/21 Status: Ordered [place] Tears ophthalmic solution 1 drops, Eyes, Both, 3 times a day, PRN for dry eyes, Maintenance, 09/15/22 10:43:00 EDT, Solution,Partial fill upon patient request if the prescription is for a schedule II opioid drug. Start Date: 09/15/22 Status: Ordered olmesartan 20 mg oral tablet 1 tablet, By Mouth, Daily, # 90 tablet, 1 Refills, Maintenance, 11/25/23 6:31:00 EST, [facility], 158, cm, 11/24/23 11:30:00 EST, Height, 70, kg, 04/02/23 19:36:00 EDT, Dry Weight Start Date: 11/25/23 Status: Ordered Probiotic Formula By Mouth, Daily, [...] opioid drug. Start Date: 09/15/22 Status: Ordered spironolactone 25 mg oral tablet 12.5 mg, 0.5, tablet, By Mouth, Daily, # 45 tablet, Refills 3, Tot. Refills 3, Maintenance, 12/09/23 11:40:00 EST, Route to Pharmacy Electronically, [facility], Partial fill upon patient request if the prescription is for a schedule II op... Start Date: 12/09/23 Status: Ordered Problem List Condition Confirmation Course [...] phase dysphagia Confirmed Active Osteoporosis Confirmed Active Cardiac risk counseling Confirmed Active Peptic ulcer disease Confirmed 1970 Active Peripheral venous insufficiency Confirmed Active Primary insomnia Confirmed Active Recurrent varicose veins of leg - h/o procedure Confirmed Active Hearing loss, sensorineural Confirmed Active Social problem Confirmed Active TMJ syndrome Confirmed Active Social History Social History Type Response Tobacco Total pack years: 35 . Started at age: 14 Years. Stopped at age: 49 Years. Sex Patient Care team information Care Team Personnel Name: Nick Alvarado NP Position: [facility] Associate Professional Member Role: PCP Address: Address: [address] [place] [id number]- Name: Carrol Ta RN Position: [facility] SN RN Member Role: Primary Care Nurse Name: Crystal Ceron RN Position: [facility] RN Member Role: Primary Care Nurse Care Team Related Persons Name: RADHA MONTOYA Address: [place], [place] Name: BRANDIE MONTOYA Address: [place] [address] Name: TREASURE MONTOYA Address: home [address] [place] [address] Name: JAI REED Address: home [address] [place] [address]
--- OUTSIDE RECORDS SUMMARY | 2024-07-27 11:50 | XMS_ITS | Continuity of Care Document ---
Author Organization [facility] Medicine Address [address] [place] [address]- Care Team Providers Care Exec. Creative Director Name Role Phone Christiano VIDES, Nick Primary Care Physician [place] [facility] [place] 02/04/23 [facility] Medicine [address] [place] [id number]- Allergies, Adverse Reactions, Alerts Substance Reaction Severity Status Ceftin ? Active Cleocin T BLOODY DIARRHEA Active Immunizations Given and Recorded Vaccine Date Status Refusal Reason influenza virus vaccine, inactivated 09/12/22 Michael rded influenza virus vaccine, inactivated 08/08/21 Michael rded influenza virus vaccine, inactivated 1 11/21/20 Gi cris influenza virus vaccine, inactivated 2 08/22/20 Re corded [id number] 12y+ bivalent booster vax 08/31/22 Recorded SARS-CoV-2 mRNA (eyengof-[id number]) vax 03/16/22 Recorded SARS-CoV-2 (COVID-19) mRNA BNT-162b2 [...] diphtheria-tetanus toxoids (DT) 02/22/00 Given 1Result Comment: [id number] 2Result Comment: sarabjit SANDHU [facility] 3Result Comment: Unit: Unknown 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: [employer] 4Result Comment: Unit: Unknown 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: Pfizer Injectables Medications atorvastatin 20 mg oral tablet 1 tablet, By Mouth, Daily at bedtime, # 90 tablet, 3 Refills, Maintenance, 12/16/22 13:42:00 EST, [facility], 158, cm, 12/11/22 15:03:00 EST, Height, 71, kg, 12/11/22 15:03:00 EST, Dry Weight Start Date: 12/16/22 Status: Ordered Clotrimazole 1% Topical 1 application, Topically, 2 times a day, Toenails, 0 Refills, Maintenance, Cream Start Date: 09/15/22 Status: Ordered escitalopram 5 mg oral tablet 1 tablet = 5 mg, By Mouth, Daily, # 30 tablet, 1 Refills, Maintenance, 12/18/22 10:32:00 EST, Tablet, [facility], Partial fill upon patient request if the prescription is for a schedule II opioid drug., 158, cm, 12/18/22 10:17:00 EST, He... Start Date: 12/18/22 Status: Ordered Estrace Vaginal Cream 0.1 mg/g = 1 Gm, Vaginally, Every Thursday and , Physician requests stefan lange, # 30 Gm, 1 Refills, Maintenance, 12/18/21 15:56:00 EST[facility] Partial fill upon patient request if the prescription is for a schedule II opioid... Start Date: 12/18/21 Status: Ordered famotidine 20 mg oral tablet 20 mg, 1, tablet, By Mouth, 2 times a day, PRN, # 30 tablet, Refills 2, Tot. Refills 2, Maintenance, Pain , Moderate, 01/30/23 10:13:00 EST, Route to Pharmacy Electronically, [facility], Partial fill upon patient request if the prescript... Start Date: 01/30/23 Status: Ordered hydrOXYzine hydrochloride 25 mg oral tablet 1 tablet = 25 mg, By Mouth, Daily at bedtime, for 30 days, # 30 tablet, 0 Refills, Acute 02/20/23 13:53:00 EDT, 01/21/23 13:53:00 EST, Tablet, [facility], Partial fill upon patient request if the prescription is for a schedule II opioid... Start Date: 01/21/23 Stop Date: 02/20/23 Status: Ordered ICaps AREDS 2 0 Refills, [...] Dry Weight Start Date: 09/01/22 Status: Ordered meclizine 25 mg oral tablet 1 tablet = 25 mg, By Mouth, 3 times a day, PRN for dizziness, # 30 tablet, 0 Refills, Maintenance, 11/11/22 11:29:00 EST, Tablet, [facility], Partial fill upon patient request if the prescription is for a schedule II opioid drug., 157, c... Start Date: 11/11/22 Status: Ordered Metoprolol Tartrate 25 mg oral tablet 2 tablet = 50 mg, By Mouth, 2 times a day, # 360 tablet, 3 Refills, Maintenance, 12/16/22 13:42:00 EST, [facility], 158, cm, 12/11/22 15:03:00 EST, Height, 71, kg, 12/11/22 15:03:00EST, Dry Weight Start Date: 12/16/22 Status: Ordered MiraLax oral powder for reconstitution = 17 Gm, By Mouth, Daily, dissolve in water before taking, # 255 Gm, 0 Refills, Maintenance, 05/09/21 14:12:00 EDT, REC Powder, Partial fill upon patient request if the prescription is for a scheduleII opioid drug. Start Date: 05/09/21 Status: Ordered [place] Tears ophthalmic solution 1 drops, Eyes, Both, 2 times a day, PRN for dry eyes, # 30 each, 0 Refills, Maintenance, 09/15/22 1:54:00 EDT, Solution, Partial fill upon patient request if the prescription is for a schedule II opioid drug. Start Date: 09/15/22 Status: Ordered [place] Tears ophthalmic solution 1 drops, Eyes, Both, 3 times a day, PRN for dry eyes, Maintenance, 09/15/22 10:43:00 EDT, Solution,Partial fill upon patient request if the prescription is for a schedule II opioid drug. Start Date: 09/15/22 Status: Ordered olmesartan 20 mg oral tablet 1 tablet, By Mouth, Daily, # 90 tablet, 3 Refills, Maintenance, 12/22/22 11:40:00 EST, [facility], 158, cm, 12/18/22 10:17:00 EST, Height, 71, kg, 12/11/22 15:03:00 EST, Dry Weight Start Date: 12/22/22 Status: Ordered Probiotic Formula By Mouth, Daily, [...] regurgitation Confirmed Active Atrial tachycardia Confirmed Active Cough variant asthma Confirmed Active Osteoarthritis, generalized Confirmed Active Dental prophylaxis, adult - needed Confirmed Active Difficulty sleeping Confirmed Active Dizziness Confirmed Active Nonspecific dizziness Confirmed Active Elevated blood pressure reading with diagnosis of hypertension Confirmed Active Excessive cerumen in both ear canals Confirmed Active GERD (gastroesophageal reflux disease) Confirmed Active Headache Confirmed Active Hearing impairment [...] Team Personnel Name: Nick Alvarado NP Position: [facility] PCO Associate Professional Member Role: PCP Address: Address: [address] [place] [id number] Name: Elvia METZ, Trinh Position: S RN Member Role: Primary Care Nurse Name: Keyon METZ, Carrol Marie Position: S RN Member Role: Primary Care Nurse Name: Crystal Ceron RN Position: S RN Member Role: Primary Care Nurse Care Team Related Persons Name: RADHA MONTOYA Name: BRANDIE MONTOYA Address: [place] [address] Name: TREASURE MONTOYA Address: home [address] [place] [address] Name: JAI REED Address: home [address] [place] [address]
--- OUTSIDE RECORDS SUMMARY | 2024-07-27 11:50 | XMS_ITS | Continuity of Care Document ---
Author Organization [facility] Address [address] [place] [address]- Care Team Providers Care Tip Inserter Name Role Phone Zara Vargas MD Primary Care Physician En[place] [facility] [place] Date(s): 09/18/20 - 09/25/20 [facility] [place] [address] [place] [address]- [place] Encounter Diagnosis Dizziness(Discharge Diagnosis) - 09/19/20 Hypertension(Discharge Diagnosis) - 09/19/20 Chest pain(Discharge Diagnosis) - 09/19/20 Attending Physician: Not on Staff, Attending MD Referring Physician: Zara Vargas MD Allergies, Adverse Reactions, Alerts Substance Reaction [...] (DT) 02/22/00 Given 1Result Comment: Unit: Unknown 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: [employer] 2Result Comment: Unit: Unknown 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: [employer] Injectables Medications Aspirin = 81 mg, By Mouth, Daily before lunch, 0 Refills, Maintenance, 01/09/11 5:04:09 EST Start Date: 01/09/11 Status: Ordered atorvastatin 20 mg oral tablet 1 tablet = 20 mg, By Mouth, Daily at bedtime, # 30 tablet, 6 Refills, Maintenance, 07/14/20 15:31:00 EDT, Tablet, [facility]/pharmacy #[id number], 158, cm, 06/05/20 14:54:00 EDT, Height, 70, kg, 05/22/20 13:54:00EDT, Dry Weight Start Date: 06/05/20 Stop Date: 01/01/21 Status: Ordered Caltrate 600 with D 1 tab, By Mouth, 2 times a day, tablet, 0 Refills, Maintenance Start Date: 01/09/11 Status: Ordered Hydrochlorothiazide = 12.5 mg, By Mouth, Daily, 0 Refills, Maintenance, 08/25/14 15:08:35 Start Date: 08/25/14 Status: Ordered Ketoconazole = 200 mg, Intradermal, Daily, 0 Refills, Maintenance, 09/18/20 15:51:00 EDT Start Date: 09/18/20 Status: Ordered metoprolol 25 mg oral tablet 12.5 mg, 0.5, tablet, By Mouth, 2 times a day, dose change advised by PCP 09-11-20, # 180 tablet, Refills 0, Maintenance, 08/17/20 9:27:00 EDT Start Date: 08/17/20 Status: Ordered Multivitamin 1, tablet, By Mouth, Daily, 0, 0, 02/21/06 7:36:57, Print CAMILO Number, [id number], Constant Indicator Start Date: 02/21/06 Status: Ordered olmesartan 20 mg oral tablet 1 tablet = 20 mg, By Mouth, Daily, Dosage has been reduced to 20mg / day, # 30 tablet, 5 Refills, Maintenance, 09/19/20 14:11:00 EDT, Tablet, [facility]/pharmacy #[id number], 158, cm, 09/18/20 15:50:00 EDT, Height, 69, kg, 09/13/20 5:27:00 EDT, Dry Weight Start Date: 09/19/20 Status: Ordered polyethylene glycol 3350 oral powder for reconstitution = 17 Gm, By Mouth, Daily at bedtime, 0 Refills, Maintenance, 08/17/20 9:27:00 EDT Start Date: 08/17/20 Status: Ordered Trimo-Mcclure 0.025% vaginal gel with applicator Every Thursday, 0 Refills, Maintenance, 08/17/20 9:26:00 EDT Start [...] - h/o procedure(Confirmed) Active TMJ syndrome(Confirmed) Active Diagnosis Diagnosis Type Effective Dates Health Status Cl inical Service Informant Dizziness Discharge Diagnosis 09/19/20 Hypertension Discharge Diagnosis 09/19/20 Chest pain Discharge Diagnosis 09/19/20 Vital Signs Most recent to oldest [Reference Range]: 1 Height 158 cm (09/18/20 3:50 PM) Weight 69 kg (09/18/20 3:50 PM) Oxygen Saturation [94-100 %] 98 % (09/18/20 3:50 PM) Pulse Rate [55-90 bpm] 72 bpm (09/18/20 3:50 PM) Body Mass Index [18.5-24.99] 27.64 *H* (09/18/20 3:50 PM) Blood Pressure [90-138/55-84 mm Hg] 120/ 64mm Hg (09/18/20 3:50 PM) Mode of Delivery (Oxygen) Room air (09/18/20 3:50 PM) Blood pressure sites Arm, left (09/18/20 3:50 PM) Weight Obtained Via Standing scale (09/18/20 3:50 PM) Social History Social History Type Response Smoking Status Former smoker; Other : Smoked 1PPD from age 14. Quit 33Y ago.; entered on: 09/15/17 Sex
--- OUTSIDE RECORDS SUMMARY | 2024-07-27 11:50 | XMS_ITS | Continuity of Care Document ---
Author Organization [facility] Address [address] [place] [address]- Care Team Providers Care Emotional Disabilities Teacher Name Role Phone Christiano VIDES, Nick Primary Care Physician [phone] Encounter [facility] [place] Date(s): 04/14/23 - 05/14/23 [facility] [place] [address] [place] [address]- Attending Physician: Admtr, Silas Admitting Physician: AdmtrSilas Referring Physician: Admtr, Ar8 Allergies, Adverse Reactions, Alerts Substance Reaction Severity Status Ceftin ? Active Cleocin T BLOODY DIARRHEA Active Immunizations Given and Recorded Vaccine Date Status Refusal Reason influenza virus vaccine, inactivated 09/12/22 Michael rded influenza virus vaccine, inactivated 08/08/21 Michael rded influenza virus vaccine, inactivated 1 11/21/20 Gi cris influenza virus vaccine, inactivated 2 08/22/20 Re corded [id number] 12y+ bivalent booster vax 08/31/22 Recorded SARS-CoV-2 mRNA (wekiagb-ugfo-jwktk) vax 03/16/22 Recorded SARS-CoV-2 (COVID-19) mRNA BNT-162b2 vac 08/15/21 Recorded SARS-CoV-2 (COVID-19) mRNA BNT-162b2 vac 01/16/21 Given SARS-CoV-2 (COVID-19) mRNA BNT-162b2 vac 12/26/20 Recorded Influenza Virus Vaccine (oldterm) 10/12/19 Recorde d zoster vaccine, inactivated 06/07/19 Recorded zoster vaccine, inactivated 03/14/19 Recorded tetanus-diphtheria toxoids (Td) 3 11/09/17 Recorde d pneumococcal 13-valent vaccine 4 11/10/16 Recorded tetanus/diphtheria/pertussis, acel(Tdap) 03/11/16 Given Zoster Vaccine Live 01/15/09 Recorded pneumococcal 23-valent vaccine 08/20/07 Recorded diphtheria-tetanus toxoids (DT) 02/22/00 Given 1Result Comment: [id number] 2Result Comment: sarabjit SANDHU [facility] primary care 3Result Comment: Unit: Unknown 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: [employer] 4Result Comment: Unit: Unknown 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: [employer] Injectables Medications atorvastatin 20 mg oral tablet 1 tablet, By Mouth, Daily at bedtime, # 90 tablet, 3 Refills, Maintenance, 12/16/22 13:42:00 EST, [facility], 158, cm, 12/11/22 15:03:00 EST, Height, 71, kg, 12/11/22 15:03:00 EST, Dry Weight Start Date: 12/16/22 Status: Ordered escitalopram 5 mg oral tablet 1 tablet, By Mouth, Daily, # 30 tablet, 2 Refills, Maintenance, 04/28/23 21:41:00 EDT, [facility], 158, cm, 04/15/23 15:03:00 EDT, Height, 70, kg, 04/02/23 19:36:00 EDT, Dry Weight Start Date: 04/28/23 Status: Ordered Estrace Vaginal Cream 0.1 mg/g = 1 Gm, Vaginally, Every Thursday and , Physician requests paraben free, # 30 Gm, 1 Refills, Maintenance, 02/05/23 15:29:00 EDT, [facility], Partial fill upon patient request if the prescription is for a schedule II opioid drug., 1... Start Date: 02/05/23 Status: Ordered famotidine 20 mg oral tablet 20 mg, 1, tablet, By Mouth, 2 times a day, PRN, # 60 tablet, Refills 5, Tot. Refills 5, Maintenance, Pain , Moderate, 03/03/23 15:46:00 EDT, Route to Pharmacy Electronically, [facility], Partial fill upon patient request if the prescript... Start Date: 03/03/23 Status: Ordered hydrOXYzine hydrochloride 25 mg oral tablet 1 tablet, By Mouth, Daily at bedtime, # 30 tablet, 0 Refills, Maintenance, 04/07/23 7:44:00 EDT, [facility], 158, cm, 04/02/23 19:36:00 EDT, Height, 70, kg, 04/02/23 19:36:00 EDT, Dry Weight Start Date: 04/07/23 Status: Ordered ICaps AREDS 2 0 Refills, Maintenance, 02/06/22 11:05:00 EDT, Partial fill upon patient request if the prescription is for a schedule II opioid drug. Start Date: 02/06/22 Status: Ordered levothyroxine 0.05 mg oral tablet See Instructions, TAKE 1/2 TABLET BY MOUTH EVERY DAY, # 45 tablet, 0 Refills, Maintenance, :05:00 EDT, [facility], 157, cm, 03/11/23 16:01:00 EDT, Height, 73, kg, 01/07/2315:13:00 EST, Dry Weight Start Date: 03/12/23 Status: Ordered Metoprolol Tartrate 25 mg oral [...] opioid drug. Start Date: 05/09/21 Status: Ordered [place] Tears ophthalmic solution 1 drops, Eyes, Both, 2 times a day, PRN for dry eyes, # 30 each, 0 Refills, Maintenance, 09/15/22 1:54:00 EDT, Solution, Partial fill upon patient request if the prescription is for a schedule II opioid drug. Start Date: 09/15/22 Status: Ordered [place] Tears ophthalmic solution 1 drops, Eyes, Both, [...] Team Personnel Name: Nick Alvarado NP Position: [facility] PCO Associate Professional Member Role: PCP Address: Address: [address] [place] [address]- Name: Trinh aGn RN Position: [facility] RN Member Role: Primary Care Nurse Name: Carrol Ta RN Position: [facility] RN Member Role: Primary Care Nurse Name: Crystal Ceron RN Position: [facility] RN Member Role: Primary Care Nurse Care Team Related Persons Name: RADHA MONTOYA Address: [place], [place] Name: BRANDIE MONTOYA Address: [place] [address] Name: TREASURE MONTOYA Address: home [address] [place] [id number] Name: JAI REED Address: home [address] [place] [id number]
--- OUTSIDE RECORDS SUMMARY | 2024-07-27 11:50 | XMS_ITS | Continuity of Care Document ---
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 Refills 11, Maintenance, Regional:All Pap Supplies: Tubing, Headgear, Chin Strap, CC Line, Full Face/Nasal Mask, Heated Humidifier, Water Chamber, and Filters. DX: BONNIE G47.33Length of Need 99 months ACCESS... Start Date: 09/15/17 Status: Ordered Hydrochlorothiazide = 12.5 mg, By Mouth, Daily, 0 Refills, Maintenance, 08/25/14 15:08:35 Start Date: 08/25/14 Status: Ordered metoprolol 25 mg oral tablet 12.5 mg, 0.5, tablet, By Mouth, 2 times a day, dose change advised by PCP 09-11-20, # 180 tablet, Refills 0, Maintenance, 08/17/20 9:27:00 EDT Start Date: 08/17/20 Status: Ordered Multivitamin 1, tablet, By Mouth, Daily, 0, 0, 02/21/06 7:36:57, Print CAMILO Number, [id number], Constant Indicator Start Date: 02/21/06 Status: Ordered [...] - h/o procedure(Confirmed) Active TMJ syndrome(Confirmed) Active Results Radiology Reports * Exam Date Time Procedure Performing Provider Status 09/12/20 10:35 AM Chest 2 Views Frontal and Lat Sofia Kahn; Auth (Verified) Notes: (Chest 2 Views Frontal and Lat) Reason For Exam: Angina, chest pressure X2 days, X1 week dull pain throughout chest area RESULT: Chest 2 Views Frontal and Lat Chest 2 Views Frontal and Lat Hx of Present Illness: back pain, chest pressure off and on x 2 days, sharp jabs of pain x 1 week move all around chest area x 1 week, hiccups belching off and on but not now, lightheaded 09-09-20; Reason: Angina, chest pressure X2 days, X1 week dull pain throughout chest area; Clinical Question(s): CHF COMPARISON: 05/19/2020. FINDINGS: LINES AND TUBES: None. LUNGS AND PLEURA: Clear lungs. Normal pulmonary vascularity. No pleural effusion. No pneumothorax. HEART, MEDIASTINUM AND YONAS: Heart is normal in size. Normal mediastinal and hilar contour. BONES AND SOFT TISSUES: Compound thoracolumbar scoliosis. IMPRESSION: No acute cardiopulmonary abnormality. I have personally reviewed the images and I agree with this report. WSN: [id number] Ordering Physician: Whitney Lomax Dictated By: Sangeeta Partida MD Dictated Date/Time: 09/12/20 10:40 a Reviewed By: Nickolas Cruz MD Signed By: Nickolas Cruz MD Signed Date/Time: 09/12/20 10:45 am Transcribed By: [place] Transcribed Date/Time: 09/12/20 10:38 am Vital Signs Most recent to oldest [Reference Range]: 1 2 3 Height 158 cm (09/12/20 9:48 AM) Weight 69.2 kg (09/12/20 9:48 AM) Oxygen Saturation [94-100 %] 98 % (09/12/20 3:16 PM) 99 % (09/12/20 12:09 PM) 100 % (09/12/20 11:11 AM) Pulse Rate [55-90 bpm] 74 bpm (09/12/20 3:16 PM) 70 bpm (09/12/20 1:02 PM) 71 bpm (09/12/20 12:09 PM) Blood Pressure [90-138/55-84 mm Hg] 139/53mm Hg *H* (09/12/20 3:16 PM) 139/89mm Hg *H* (09/12/20 12:09 PM) 158/66mm Hg *H* (09/12/20 11:11 AM) Respiratory Rate [16-30 br/min] 17 br/min (09/12/20 3:16 PM) 17 br/min (09/12/20 12:09 PM) 20 br/min (09/12/20 11:11 AM) Temperature [96.8-100.4 DegF] 97.9 DegF (09/12/20 3:16 PM) 97.3 DegF (09/12/20 12:09 PM) 97.9 DegF (09/12/20 9:48 AM) Mode of Delivery (Oxygen) Room air (09/12/20 3:16 PM) Room air (09/12/20 12:09 PM) Room air (09/12/20 11:11 AM) Temperature Route Oral (09/12/20 3:16 PM) Oral (09/12/20 12:09 PM) Oral (09/12/20 9:48 AM) Dry Weight 69.2 kg (09/12/20 9:48 AM) Social History Social History Type Response Smoking Status Former smoker; Other : Smoked 1PPD from age 14. Quit 33Y ago.; entered on: 09/15/17 Sex
--- OUTSIDE RECORDS SUMMARY | 2024-07-27 11:50 | XMS_ITS | Continuity of Care Document ---
Author Organization [facility] Address [address] [place] [address]- Care Team Providers Care Implementation Lead Name Role Phone Zara Vargas MD Primary Care Physician [phone] [place] [facility] [place] 04[place] [facility] [address] [place] [address]- Attending Physician: Kay Lewis DO Admitting Physician: Kay Lewis DO Allergies, Adverse Reactions, Alerts Substance Reaction Severity Status Ceftin ? Active Cleocin T BLOODY DIARRHEA Active Immunizations Given and Recorded Vaccine Date Status Refusal Reason SARS-CoV-2 (COVID-19) mRNA BNT-162b2 vac 01/16/21 Given influenza virus vaccine, inactivated 1 11/21/20 Gi cris influenza virus vaccine, inactivated 2 08/22/20 Re corded Influenza Virus Vaccine (oldterm) 10/12/19 Recorde d tetanus-diphtheria toxoids (Td) 3 11/09/17 Recorde d pneumococcal 13-valent vaccine 4 10/02/16 Recorded tetanus/diphtheria/pertussis, acel(Tdap) 03/11/16 Given Zoster Vaccine Live 01/15/09 Recorded pneumococcal 23-valent vaccine 08/20/07 Recorded diphtheria-tetanus toxoids (DT) 02/22/00 Given 1Result Comment: [id number] 2Result Comment: asrabjit SANDHU [facility] primary care 3Result Comment: Unit: Unknown Belly Roller: [employer] 4Result Comment: Unit: Unknown Belly Roller: Pfizer Injectables Medications Aspirin = 81 mg, By Mouth, Daily before lunch, 0 Refills, Maintenance, 01/09/11 5:04:09 EST Start Date: 01/09/11 Status: Ordered atorvastatin 20 mg oral tablet 1 tablet = 20 mg, By Mouth, Daily at bedtime, # 90 tablet, 3 Refills, Maintenance, 12/12/20 15:31:00 EST, Tablet, [facility]/pharmacy #[id number], 158, cm, 11/21/20 11:06:00 EST, Height, 69, kg, 09/13/20 5:27:00 EDT, Dry Weight Start Date: 12/12/20 Status: Ordered Caltrate 600 + D By Mouth, 2 times a day, 0 Refills, Maintenance, 11/05/20 10:19:00 EST, Partial fill upon patient request if the prescription is for a schedule II opioid drug. Start Date: 11/05/20 Status: Ordered metoprolol 25 mg oral tablet 25 mg, 1, tablet, By Mouth, 2 times a day, Dose is now 25mg BID, # 180 tablet, Refills 3, Tot. Refills 3, Maintenance, 12/05/20 14:30:00 EST, Route to Pharmacy Electronically, [facility]/pharmacy #[id number], Partial fill upon patient request if the prescription i... Start Date: 12/05/20 Stop Date: 11/30/21 Status: Ordered olmesartan 20 mg oral tablet 1 tablet = 20 mg, By Mouth, Daily, Dosage has been reduced to 20mg / day, # 30 tablet, 5 Refills, Maintenance, 09/19/20 14:11:00 EDT, Tablet, [facility]/pharmacy #1095, 158, cm, 09/18/20 15:50:00 EDT, Height, 69, kg, 09/13/20 5:27:00 EDT, Dry Weight Start Date: 09/19/20 Status: Ordered Problem List Condition Effective Dates Status Health Status Inform ant Adenomatous polyp of colon(Confirmed) Active Anxiety(Confirmed) Active Aortic insufficiency(Confirmed) Active Atrial tachycardia(Confirmed) Active Cough variant asthma(Confirmed) Active Osteoarthritis, generalized(Confirmed) Active Dental prophylaxis, adult - needed(Confirmed) Active Difficulty sleeping(Confirmed) Active Dizziness(Confirmed) Active Excessive cerumen in both ea r canals(Confirmed) Active Headache(Confirmed) Active Hyperlipidemia(Confirmed) Active Hypertension(Confirmed) Active Hypothyroidism(Confirmed) Active Impaired fasting glucose(Confirmed) Active Irritable bowel syndrome rebecca racterized by constipation(Confirmed) Active Lactose intolerance(Confirmed) Active Left bundle branch block(Confirmed) Active Migraine(Confirmed) Active Mitral valve stenosis(Confirmed) Active Obstructive sleep apnea(Confirmed) Active BONNIE on CPAP(Confirmed) Active Oral phase dysphagia(Confirmed) Active Osteoporosis(Confirmed) Active Peptic ulcer disease(Confirmed) 1970 Active Peripheral venous insufficiency(Confirmed) Active Primary insomnia(Confirmed) Active 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 Started at age: 14 Years. Stopped at age: 49 Years. Sex
--- OUTSIDE RECORDS SUMMARY | 2024-07-27 11:50 | XMS_ITS | Continuity of Care Document ---
Author Organization [facility] Address [address] [place] [address]- Care Team Providers Care Financial Institution Vice President Name Role Phone Zara Vargas MD Primary Care Physician Encounter [facility] [place](s): 01/11/21 - 02/10/[address] [address] Attending Physician: Admtr, Ar8 Admitting Physician: Admtr, Ar8 Referring Physician: Admtr, Ar8 Allergies, Adverse Reactions, [...] diphtheria-tetanus toxoids (DT) 02/22/00 Given 1Result Comment: [id number] 2Result Comment: sarabjit SANDHU [facility] primary care 3Result Comment: Unit: Unknown 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: [employer] 4Result Comment: Unit: Unknown 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: [employer] Injectables Medications Aspirin = 81 mg, By Mouth, Daily before lunch, 0 Refills, Maintenance, 01/09/11 5:04:09 EST Start Date: 01/09/11 Status: Ordered atorvastatin 20 mg oral tablet 1 tablet = 20 mg, By Mouth, Daily at bedtime, # 90 tablet, 3 Refills, Maintenance, 12/12/20 15:31:00 EST, Tablet, [id number], 158, cm, 11/21/20 11:06:00 EST, Height, 69, kg, 09/13/20 5:27:00 EDT, Dry Weight Start Date: 12/12/20 Status: Ordered Caltrate 600 + D By Mouth, 2 times a day, 0 Refills, Maintenance, 11/05/20 10:19:00 EST, Partial fill upon patient request if the prescription is for a schedule II opioid drug. Start Date: 11/05/20 Status: Ordered Diflucan 150 mg oral tablet 1 tablet = 150 mg, By Mouth, Every 72 hours, # 2 tablet, 0 Refills, Soft Stop, 12/18/20 16:17:00 EST, [id number], Partial fill upon patient request if the prescription is for a schedule II opioid drug., 158, cm, 11/05/20 10:09:00 EST, Height,... Start Date: 12/18/20 Status: Ordered metoprolol 25 mg oral tablet 25 mg, 1, tablet, By Mouth, 2 times a day, Dose is now 25mg BID, # 180 tablet, Refills 3, Tot. Refills 3, Maintenance, 12/05/20 14:30:00 EST, Route to Pharmacy Electronically, [id number], Partial fill upon patient request if the prescription i... Start Date: 12/05/20 Stop Date: 11/30/21 Status: Ordered olmesartan 20 mg oral tablet 1 tablet = 20 mg, By Mouth, Daily, Dosage has been reduced to 20mg / day, # 30 tablet, 5 Refills, Maintenance, 09/19/20 14:11:00 EDT, Tablet, [id number], 158, cm, 09/18/20 15:50:00 EDT, Height, [...] canals(Confirmed) Active Caregiver burden(Confirmed) Active Headache(Confirmed) Active Hyperlipidemia(Confirmed) Active Hypertension(Confirmed) Active [...] Hearing loss, sensorineural(Confirmed) Active TMJ syndrome(Confirmed) Active Social History Social History Type Response Tobacco Total pack years: 35 . Started at age: 14 Years. Stopped at age: 49 Years. Sex
--- OUTSIDE RECORDS SUMMARY | 2024-07-27 11:50 | XMS_ITS | Continuity of Care Document ---
Author Organization [facility] Address [address] [place] [address]- Care Team Providers Care Instructional Assistant Name Role Phone Christiano VIDES, Nick Primary Care Physician [phone] [place] [facility] [place](s): 06/11/23 - 07/11/23 [facility] [address] [place] [address]- Attending Physician: Silas Duncan Admitting Physician: AdmSilas pierce Referring Physician: AdmtrSilas Allergies, Adverse Reactions, Alerts Substance Reaction Severity Status Ceftin ? Active Cleocin T BLOODY DIARRHEA Active Immunizations Given and Recorded Vaccine Date Status Refusal Reason influenza virus vaccine, inactivated 09/12/22 Michael rded influenza virus vaccine, inactivated 08/08/21 Michael rded influenza virus vaccine, inactivated 1 11/21/20 Gi cris influenza virus vaccine, inactivated 2 08/22/20 Re corded [id number] 12y+ bivalent booster vax 08/31/22 Recorded SARS-CoV-2 mRNA ([id number]) vax 03/16/22 Recorded SARS-CoV-2 (COVID-19) mRNA BNT-162b2 [...] diphtheria-tetanus toxoids (DT) 02/22/00 Given 1Result Comment: [id number] 2Result Comment: sarabjit SANDHU [facility] primary care 3Result Comment: Unit: Unknown 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 Refills 0, Maintenance, surgical, knee high 20-30 mm HgDx: varicose veins with pain, swelling, history of GSV ablation, sclerotherapy, bilateral, 06/26/2311:22:00 EDT, Supply Start Date: 06/26/23 Status: Ordered escitalopram 5 mg oral tablet 1 tablet, By Mouth, Daily, # 30 tablet, 2 Refills, Maintenance, 04/28/23 21:41:00 EDT, [facility], 158, cm, 04/15/23 15:03:00 EDT, [...] 03/03/23 15:46:00 EDT, Route to Pharmacy Electronically, [facility], Partial fill upon patient request if the prescript... Start Date: 03/03/23 Status: Ordered hydrOXYzine hydrochloride 25 mg oral tablet 1 tablet, By Mouth, Daily at bedtime, # 30 tablet, 0 Refills, Maintenance, 04/07/23 7:44:00 EDT, [facility], 158, cm, 04/02/23 19:36:00 EDT, Height, 70, kg, 04/02/23 19:36:00 EDT, Dry Weight Start Date: 04/07/23 Status: Ordered ICaps AREDS 2 0 Refills, Maintenance, 02/06/22 11:05:00 EDT, Partial fill upon patient request if the prescription is for a schedule II opioid drug. Start Date: 02/06/22 Status: Ordered levothyroxine 0.05 mg oral tablet See Instructions, TAKE 1/2 (HALF) A TABLET BY MOUTH ONCE DAILY, # 45 tablet, 1 Refills, Maintenance, 05/29/23 15:49:00 EDT, [facility], 158, cm, 05/06/23 11:17:00 EDT, Height, 70, kg, 04/02/23 19:36:00 EDT, Dry Weight Start Date: 05/29/23 Status: Ordered Metoprolol Tartrate 25 mg oral tablet 2 tablet = 50 mg, By Mouth, 2 times a day, # 360 tablet, 3 Refills, Maintenance, 12/16/22 13:42:00 EST, [facility], 158, cm, 12/11/22 [...] opioid drug. Start Date: 05/09/21 Status: Ordered [place] Tears ophthalmic solution 1 drops, Eyes, Both, 2 times a day, PRN for dry eyes, # 30 each, 0 Refills, Maintenance, 09/15/22 1:54:00 EDT, Solution, Partial fill upon patient request if the prescription is for a schedule II opioid drug. Start Date: 09/15/22 Status: Ordered [place] Tears ophthalmic solution 1 drops, Eyes, Both, [...] By Mouth, Daily, # 45 tablet, Refills 1, Tot. Refills 1, Maintenance, 06/09/23 16:52:00 EDT, Route to Pharmacy Electronically, [facility], Partial fill upon patient request if the prescription is for a schedule II o... Start Date: 06/09/23 Status: Ordered Problem List Condition Confirmation Course [...] Team Personnel Name: Nick Alvarado NP Position: [facility] Associate Professional Member Role: PCP Address: Address: [address] [place] [id number]- Name: Elvia METZ, Trinh Position: [facility] RN Member Role: Primary Care Nurse Name: Carrol Ta RN Position: [facility] RN Member Role: Primary Care Nurse Name: Crystal Ceron RN Position: [facility] RN Member Role: Primary Care Nurse Care Team Related Persons Name: RADHA MONTOYA Address: [place], [place] Name: BRANDIE MONTOYA Address: [place] [address] Name: TREASURE MONTOYA Address: home [address] [place] [id number] Name: JAI REED Address: home [address] [place] [address]
--- OUTSIDE RECORDS SUMMARY | 2024-07-27 11:50 | XMS_ITS | Continuity of Care Document ---
Author Organization [facility] Address [address] [place] [address]- Care Team Providers Care Training And Documentation Specialist Name Role Phone Christiano VIDES, Nick Primary Care Physician [phone] Encounter [facility] [place] Date(s): 01/08/23 - 02/07/23 [facility] [address] [place] [id number]- Allergies, Adverse Reactions, Alerts Substance Reaction Severity Status Ceftin ? Active Cleocin T BLOODY DIARRHEA Active Immunizations Given and Recorded Vaccine Date Status Refusal Reason influenza virus vaccine, inactivated 09/12/22 Michael rded influenza virus vaccine, inactivated 08/08/21 Michael rded influenza virus vaccine, inactivated 1 11/21/20 Gi cris influenza virus vaccine, inactivated 2 08/22/20 Re corded [id number] 12y+ bivalent booster vax 08/31/22 Recorded SARS-CoV-2 mRNA ([id number]) vax 03/16/22 Recorded SARS-CoV-2 (COVID-19) mRNA BNT-162b2 [...] diphtheria-tetanus toxoids (DT) 02/22/00 Given 1Result Comment: [id number] 2Result Comment: sarabjit SANDHU [facility] primary care 3Result Comment: Unit: Unknown Manager Market: [employer] 4Result Comment: Unit: Unknown Manager Market: [employer] Injectables Medications atorvastatin 20 mg oral [...] opioid drug. Start Date: 05/09/21 Status: Ordered [place] Tears ophthalmic solution 1 drops, Eyes, Both, 2 times a day, PRN for dry eyes, # 30 each, 0 Refills, Maintenance, 09/15/22 1:54:00 EDT, Solution, Partial fill upon patient request if the prescription is for a schedule II opioid drug. Start Date: 09/15/22 Status: Ordered [place] Tears ophthalmic solution 1 drops, Eyes, Both, [...] Team Personnel Name: Nick Alvarado NP Position: [facility] Associate Professional Member Role: PCP Address: Address: [address] [place] [id number] Name: Elvia METZ, Trinh Position: S RN Member Role: Primary Care Nurse Name: Keyon METZ, Carrol Marie Position: S RN Member Role: Primary Care Nurse Name: Crystal Ceron RN Position: S RN Member Role: Primary Care Nurse Care Team Related Persons Name: RADHA MONTOYA Name: BRANDIE MONTOYA Address: [place] [address] Name: TREASURE MONTOYA Address: home [address] [place] [address] Name: JAI REED Address: home [address] [place] [id number]
--- OUTSIDE RECORDS SUMMARY | 2024-07-27 11:50 | XMS_ITS | Continuity of Care Document ---
Author Organization [facility] [address] [place] [address]- Care Team Providers Care Field Handyman Name Role Phone Sam WEBER, Zara Jensen Primary Care Physician Encounter [facility] [place] Date(s): 11/06/20 - 12/06/[address] [address]- Allergies, Adverse Reactions, Alerts Substance Reaction Severity Status Ceftin ? Active Cleocin T BLOODY DIARRHEA Active Immunizations Given and Recorded Vaccine Date Status Refusal Reason influenza virus vaccine, inactivated 1 11/21/20 Gi cris influenza virus vaccine, inactivated 2 08/22/20 Re corded Influenza Virus Vaccine (oldterm) 10/12/19 Recorde d tetanus-diphtheria toxoids (Td) 3 11/09/17 Recorde d pneumococcal 13-valent vaccine 4 10/02/16 Recorded tetanus/diphtheria/pertussis, acel(Tdap) 03/11/16 Given Zoster Vaccine Live 01/15/09 Recorded pneumococcal 23-valent vaccine 08/20/07 Recorded diphtheria-tetanus toxoids (DT) 02/22/00 Given 1Result Comment: [id number] 2Result Comment: sarabjit SANDHU [facility] primary care 3Result Comment: Unit: Unknown 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: [employer] 4Result Comment: Unit: Unknown 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: [employer] Injectables Medications Aspirin = 81 mg, By Mouth, Daily before lunch, 0 Refills, Maintenance, 01/09/11 5:04:09 EST Start Date: 01/09/11 Status: Ordered atorvastatin 20 mg oral tablet 1 tablet = 20 mg, By Mouth, Daily at bedtime, # 30 tablet, 6 Refills, Maintenance, 06/05/20 15:31:00 EDT, Tablet, [facility] #1095, 158, cm, 06/05/20 14:54:00 EDT, Height, 70, kg, 05/22/20 13:54:00EDT, Dry Weight Start Date: 06/05/20 Stop Date: 01/01/21 Status: Ordered Caltrate 600 + D By Mouth, 2 times a day, 0 Refills, Maintenance, 11/05/20 10:19:00 EST, Partial fill upon patient request if the prescription is for a schedule II opioid drug. Start Date: 11/05/20 Status: Ordered Hydrochlorothiazide = 12.5 mg, By Mouth, Daily, 0 Refills, Maintenance, 08/25/14 15:08:35 Start Date: 08/25/14 Status: Ordered metoprolol 25 mg oral tablet 25 mg, 1, tablet, By Mouth, 2 times a day, Dose is now 25mg BID, # 180 tablet, Refills 3, Tot. Refills 3, Maintenance, 12/05/20 14:30:00 EST, Route to Pharmacy Electronically, [facility]/pharmacy #[id number], Partial fill upon patient request if the prescription i... Start Date: 12/05/20 Stop Date: 11/30/21 Status: Ordered olmesartan 20 mg oral tablet 1 tablet = 20 mg, By Mouth, Daily, Dosage has been reduced to 20mg / day, # 30 tablet, 5 Refills, Maintenance, 09/19/20 14:11:00 EDT, Tablet, [facility]/pharmacy #1095, 158, cm, 09/18/20 15:50:00 EDT, Height, [...]
--- OUTSIDE RECORDS SUMMARY | 2024-07-27 11:50 | XMS_ITS | Continuity of Care Document ---
Author Organization [facility] Address [address] [place] [address]- Care Team Providers Care Maintenance Job Titles Name Role Phone Christiano VIDES, Nick Primary Care Physician Encounter [facility] [place] Date(s): 11/08/21 - 12/08/21 [facility] [address] [place] [address]- [place] Allergies, Adverse Reactions, Alerts Substance Reaction Severity [...] diphtheria-tetanus toxoids (DT) 02/22/00 Given 1Result Comment: [id number] 2Result Comment: sarabjit SANDHU [facility] primary care 3Result Comment: Unit: Unknown 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: [employer] 4Result Comment: Unit: Unknown 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: [employer] Injectables Medications Aspirin = 81 mg, By Mouth, Daily before lunch, 0 Refills, Maintenance, 01/09/11 5:04:09 EST Start Date: 01/09/11 Status: Ordered atorvastatin 20 mg oral tablet 1 tablet = 20 mg, By Mouth, Daily at bedtime, # 90 tablet, 3 Refills, Maintenance, 12/12/20 15:31:00 EST, Tablet, [facility]/pharm[facility] #1095, 158, cm, 11/21/20 11:06:00 EST, Height, 69, kg, 09/13/20 5:27:00 EDT, Dry Weight Start Date: 12/12/20 Status: Ordered atorvastatin 20 mg oral tablet 1 tablet, By Mouth, Daily at bedtime, # 90 tablet, 3 Refills, Maintenance, 12/02/21 11:48:00 EST, [facility]/pharm[facility] #1095, 157.48, cm, 11/27/21 12:51:00 EST, Height, 68.8, kg, 09/03/21 11:11:00 EDT, Dry Weight Start Date: 12/02/21 Status: Ordered Caltrate 600 + D By Mouth, 2 times a day, 0 Refills, Maintenance, 11/05/20 10:19:00 EST, Partial fill upon patient request if the prescription is for a schedule II opioid drug. Start Date: 11/05/20 Status: Ordered Clotrimazole = 10 mg, By Mouth, 5 times a day, 0 Refills, Maintenance, 11/08/21 8:49:00 EST, Partial fill upon patient request if the prescription is for a schedule II opioid drug. Start Date: 11/08/21 Status: Ordered Estrace Vaginal Cream 0.1 mg/g = 1 Gm, Vaginally, Daily at bedtime, until symptoms improve monitor for first 2 weeks and if no difference, stop medication and call office, # 30 Gm, 0 Refills, Maintenance, 07/24/21 12:46:00 EDT, [facility], Partial fill upon p... Start Date: 07/24/21 Status: Ordered metoprolol 25 mg oral tablet 25 mg, 1, tablet, By Mouth, 2 times a day, Dose is now 25mg BID, # 180 tablet, Refills 3, Tot. Refills 3, Maintenance, 12/05/20 14:30:00 EST, Route to Pharmacy Electronically, [facility]/pharmacy #[id number], Partial fill upon patient request if the prescription i... Start Date: 12/05/20 Stop Date: 11/30/21 Status: Ordered Metoprolol Tartrate 25 mg oral tablet 1 tablet, By Mouth, 2 times a day, # 180 tablet, 3 Refills, Maintenance, 12/02/21 11:49:00 EST, [facility]/pharmacy #1095, 157.48, cm, 11/27/21 12:51:00 EST, Height, 68.8, kg, 09/03/21 11:11:00 EDT, Dry Weight Start Date: 12/02/21 Status: Ordered Misc Rx Refills 0, Maintenance, 11/08/21 8:50:00 EST, Supply Start Date: 11/08/21 Status: Ordered Misc Rx Refills 0, Maintenance, 11/08/21 8:51:00 EST, Supply Start Date: 11/08/21 Status: Ordered Multivitamin Daily, 0 Refills, Maintenance, 11/08/21 8:50:00 EST, Partial fill upon patient request if the prescription is for a schedule II opioid drug. Start Date: 11/08/21 Status: Ordered olmesartan 20 mg oral tablet 1 tablet = 20 mg, By Mouth, Daily, Dosage has been reduced to 20mg / day, # 30 tablet, 5 Refills, Maintenance, 09/19/20 14:11:00 EDT, Tablet, [facility]/pharm[facility] #1095, 158, cm, 09/18/20 15:50:00 EDT, Height, 69, kg, 09/13/20 5:27:00 EDT, Dry Weight Start Date: 09/19/20 Status: Ordered Probiotic Formula By Mouth, Daily, 0 Refills, Maintenance, 11/08/21 8:50:00 EST, Partial fill upon patient request ifthe prescription is for a schedule II opioid drug. Start Date: 11/08/21 Status: Ordered Problem List Condition Effective Dates [...]
--- OUTSIDE RECORDS SUMMARY | 2024-07-27 11:50 | XMS_ITS | Continuity of Care Document ---
Author Organization [facility] Address [address] [place] [address]- Care Team Providers Care Cafeteria Aide Name Role Phone Sam WEBER, Zara Jensen Primary Care Physician Encounter [facility] [place] Date(s): 09/03/21 - 09/03/[address] [address]- Discharge Disposition: A-D/C Home Attending Physician: Justyn Singh MD Admitting Physician: Justyn Singh MD Referring Physician: Justyn Singh MD Allergies, Adverse Reactions, Alerts Substance Reaction [...] diphtheria-tetanus toxoids (DT) 02/22/00 Given 1Result Comment: [id number] 2Result Comment: sarabjit SANDHU [facility] primary care 3Result Comment: Unit: Unknown 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 Start Date: 11/05/20 Status: Ordered Clenpiq oral solution See Instructions, 160 mL By Mouth night before colonoscopy and 160 mL morning of colonoscopy, # 1 each, 0 Refills, Maintenance, 08/30/21 14:16:00 EDT, [facility], Apply Clenpiq Coupon: RxBIN [id number]; RxPCN: [id number]; RxGrp: [id number]; RxID: [id number]... Start Date: 08/30/21 Status: Ordered Estrace Vaginal Cream 0.1 mg/g = 1 Gm, Vaginally, Daily at bedtime, until symptoms improve monitor for first 2 weeks and if no difference, stop medication and call office, # 30 Gm, 0 Refills, Maintenance, 07/24/21 12:46:00 EDT, [facility], Partial fill upon p... Start Date: 07/24/21 Status: Ordered metoprolol 25 mg oral tablet 25 mg, 1, tablet, By Mouth, 2 times a day, Dose is now 25mg BID, # 180 tablet, Refills 3, Tot. Refills 3, Maintenance, 12/05/20 14:30:00 EST, [id number] Partial fill upon patient request if the prescription i... Start Date: 12/05/20 Stop Date: 11/30/21 Status: Ordered olmesartan 20 mg oral tablet 1 tablet = 20 mg, By Mouth, Daily, Dosage has been reduced to 20mg / day, # 30 tablet, 5 Refills, Maintenance, 09/19/20 14:11:00 EDT, Tablet, [facility] #1095, 158, cm, 09/18/20 15:50:00 EDT, Height, 69, kg, 09/13/20 5:27:00 EDT, Dry Weight Start Date: 09/19/20 Status: Ordered Trimo-Mcclure 0.025% vaginal gel with applicator See Instructions, USE DIRECTED, # 113.4 Gm, 3 Refills, Maintenance, [id number], [facility], USE DIRECTED, 158, cm, 05/09/21 14:04:00 EDT, Height, 69, kg, 09/13/20 5:27:00 EDT, Dry Weight Start Date: 06/05/21 Status: Ordered Problem List Condition Effective Dates [...] oldest [Reference Range]: 1 2 3 Height 157.48 cm (09/03/21 11:11 AM) Weight 68.8 kg (09/03/21 11:11 AM) Oxygen Saturation [94-100 %] 99 % (09/03/21 2:30 PM) 99 % (09/03/21 2:15 PM) 100 % (09/03/21 2:05 PM) Pulse Rate [55-90 bpm] 60 bpm (09/03/21 11:11 AM) Body Mass Index [18.5-24.99] 27.74 *H* (09/03/21 11:11 AM) Blood Pressure [90-138/55-84 mm Hg] 135/59mm Hg (09/03/21 2:30 PM) 145/56mm Hg *H* (09/03/21 2:15 PM) 149/69mm Hg *H* (09/03/21 2:05 PM) Respiratory Rate [16-30 br/min] 14 br/min *L* (09/03/21 2:30 PM) 12 br/min *L* (09/03/21 2:15 PM) 14 br/min *L* (09/03/21 2:05 PM) Temperature [96.8-100.4 DegF] 97.6 DegF (09/03/21 11:11 AM) Liters per Minute 6 L/min (09/03/21 2:05 PM) 6 L/min (09/03/21 2:00 PM) Mode of Delivery (Oxygen) Room air (09/03/21 2:30 PM) Room air (09/03/21 2:15 PM) Simple face mask (09/03/21 2:05 PM) Blood pressure sites Arm, right (09/03/21 2:30 PM) Arm, right (09/03/21 2:15 PM) Arm, right (09/03/21 2:05 PM) Temperature Route Temporal (09/03/21 11:11 AM) Dry Weight 68.8 kg (09/03/21 11:11 AM) Weight Obtained Via Standing scale (09/03/21 11:11 AM) Dry Weight Obtained Via Standing scale (09/03/21 11:11 AM) Social History Social History Type Response Tobacco Total pack years: 35 . Started at age: 14 Years. Stopped at age: 49 Years. Sex
--- OUTSIDE RECORDS SUMMARY | 2024-07-27 11:50 | XMS_ITS | Continuity of Care Document ---
Author Organization [facility] Address [address] [place] [address]- Care Team Providers Care Sleeve Sewer Name Role Phone Christiano VIDES, Nick Primary Care Physician [phone] Encounter [facility] [place] Date(s): 03/04/24 - 04/03/[address] [address] Attending Physician: Silas Duncan Admitting Physician: Silas Duncan Referring Physician: AdmtrSilas Allergies, Adverse Reactions, Alerts Substance Reaction Severity Status Ceftin ? Active Cleocin T BLOODY DIARRHEA Active Immunizations Given and Recorded Vaccine Date Status Refusal Reason SARS-CoV-2(COVID-19)mRNA-LNP vac([id number]) 01/08/24 Given pneumococcal 20-valent conjugate vaccine 01/08/24 Given influenza virus vaccine, inactivated 09/12/22 Michael rded influenza virus vaccine, inactivated 08/08/21 Michael rded influenza virus vaccine, inactivated 1 11/21/20 Gi cris influenza virus vaccine, inactivated 2 08/22/20 Re corded [id number] 12y+ bivalent booster vax 08/31/22 Recorded SARS-CoV-2 mRNA ([id number]) vax 03/16/22 Recorded SARS-CoV-2 (COVID-19) mRNA BNT-162b2 [...] diphtheria-tetanus toxoids (DT) 02/22/00 Given 1Result Comment: [id number] 2Result Comment: sarabjit SANDHU [facility] 3Result Comment: Unit: Unknown Curator Zoological Museum: [facility] 4Result Comment: Unit: Unknown Curator Zoological Museum: [employer] Injectables Medications atorvastatin 20 mg oral tablet 1 tablet, By Mouth, Daily at bedtime, # 90 tablet, 3 Refills, Maintenance, 01/05/24 11:50:00 EST, [facility], 158, cm, 11/24/23 11:30:00 EST, [...] Refills, Maintenance, 11/19/23 14:47:00 EST, [facility], 158, cm, 10/20/23 13:46:00 EST, [...] Status: Ordered famotidine 20 mg oral tablet See Instructions, TAKE ONE TABLET BY MOUTH TWICE A DAY NEEDED, # 60 tablet, Refills 5, Maintenance, 04/01/24 10:58:00 EDT, Instructions Replace Required Details, Route to Pharmacy Electronically, [facility], 158, cm, 03/16/24 15:33:00... Start Date: 04/01/24 Status: Ordered fluticasone 50 mcg/inh nasal spray 1 sprays = 50 mcg, Nares, Both, 2 times a day, # 16 Gm, 0 Refills, Maintenance, 01/08/24 11:22:00 EST, Minter, [facility], Partial fill upon patient request if the prescription is for a schedule II opioid drug., 1 sprays Nares, Both 2 [place]... Start Date: 01/08/24 Status: Ordered hydrocortisone 1% topical cream 1 application, Topically, 2 times a day, # 15 Gm, 0 Refills, Maintenance, 01/08/24 11:30:00 EST, Cream, [facility], Partial fill upon patient request if the prescription is for a schedule II opioid drug., 1 application Topically 2 times... Start Date: 01/08/24 Status: Ordered hydrOXYzine hydrochloride 25 mg oral tablet 1 tablet, By Mouth, Daily at bedtime, # 30 tablet, 0 Refills, Maintenance, 07/21/23 11:20:00 EDT, [facility], 158, cm, 05/06/23 11:17:00 EDT, [...] 360 tablet, 3 Refills, Maintenance, 12/14/23 15:43:00 [facility], [facility], 158, cm, 11/24/23 11:30:00 EST, [...] opioid drug. Start Date: 05/09/21 Status: Ordered Brenda Tears ophthalmic solution 1 drops, Eyes, Both, 3 times a day, PRN for dry eyes, Maintenance, 09/15/22 10:43:00 EDT, Solution,Partial fill upon patient request if the prescription is for a schedule II opioid drug. Start Date: 09/15/22 Status: Ordered olmesartan 20 mg oral tablet 1 tablet, By Mouth, Daily, # 90 tablet, 1 Refills, Maintenance, 11/25/23 6:31:00 [facility], [facility], 158, cm, 11/24/23 11:30:00 EST, Height, 70, kg, 04/02/23 19:36:00 EDT, Dry Weight Start Date: 11/25/23 Status: Ordered pelvic floor physical therapy pelvic floor physical therapy, See Instructions, # 1 Unknown, Refills 0, Tot. Refills 0, Maintenance, pelvic floor physical therapy, 03/16/24 15:52:00 EDT, Supply Start Date: 03/16/24 Status: Ordered Probiotic Formula By Mouth, Daily, [...] Team Personnel Name: Nick Alvarado NP Position: [facility] PCO Associate Professional Member Role: PCP Address: Address: [address] [place] [id number]- Name: Keyon METZ, Carrol Marie Position: [facility] SN RN Member Role: Primary Care Nurse Name: Crystal Ceron RN Position: [facility] RN Member Role: Primary Care Nurse Care Team Related Persons Name: RADHA MONTOYA Address: [place], [place] Name: BRANDIE MONTOYA Address: [place] [address] Name: TREASURE MONTOYA Address: [address] [place] [address] Name: JAI REED Address: [address] [place] [address]
--- OUTSIDE RECORDS SUMMARY | 2024-07-27 11:51 | XMS_ITS | Continuity of Care Document ---
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: [email or web address] 4Result Comment: Unit: Unknown 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: [employer] Injectables Medications Aspirin = 81 mg, By Mouth, Daily before lunch, 0 Refills, Maintenance, 01/09/11 5:04:09 EST Start Date: 01/09/11 Status: Ordered atorvastatin 20 mg oral tablet 1 tablet = 20 mg, By Mouth, Daily at bedtime, # 90 tablet, 3 Refills, Maintenance, 12/12/20 15:31:00 EST, Tablet, [facility] #[id number], 158, cm, 11/21/20 11:06:00 EST, Height, 69, kg, 09/13/20 5:27:00 EDT, Dry Weight Start Date: 12/12/20 Status: Ordered atorvastatin 20 mg oral tablet 1 tablet = 20 mg, By Mouth, Daily at bedtime, for 30 days, # 30 tablet, 6 Refills, Hard Stop 01/01/21 15:31:00 EST, 06/05/20 15:31:00 EDT, Tablet, [facility] #[id number], 158, cm, 06/05/20 14:54:00 EDT, Height, 70, kg, 05/22/20 13:54:00 EDT, Dry Weight Start Date: 06/05/20 Stop Date: [...] 12/05/20 14:30:00 EST, Route to Pharmacy Electronically, [facility]/pharmacy #[id number], Partial fill upon patient request if the prescription i... Start Date: 12/05/20 Stop Date: 11/30/21 Status: Ordered olmesartan 20 mg oral tablet 1 tablet = 20 mg, By Mouth, Daily, Dosage has been reduced to 20mg / day, # 30 tablet, 5 Refills, Maintenance, 09/19/20 14:11:00 EDT, Tablet, [facility]/pharmacy #[id number], 158, cm, 09/18/20 15:50:00 EDT, [...]
--- OUTSIDE RECORDS SUMMARY | 2024-07-27 11:51 | XMS_ITS | Continuity of Care Document ---
Author Organization [facility] Address [address] [place] [address]- Care Team Providers Care Personal Development Coach Name Role Phone Zara Vargas MD Primary Care Physician Encounter [facility] Date(s): 11/09/20 - 12/14/[address] [address] [phone] Attending Physician: Kay Lewis DO Admitting Physician: Kay Lewis DO Referring Physician: Kay Lewis DO Allergies, Adverse Reactions, [...] diphtheria-tetanus toxoids (DT) 02/22/00 Given 1Result Comment: [id number] 2Result Comment: sarabjit SANDHU [facility] primary [facility] 3Result Comment: Unit: Unknown 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: [employer] 4Result Comment: Unit: Unknown 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: [employer] Injectables Medications Aspirin = 81 mg, By Mouth, Daily before lunch, 0 Refills, Maintenance, 01/09/11 5:04:09 EST Start Date: 01/09/11 Status: Ordered atorvastatin 20 mg oral tablet 1 tablet = 20 mg, By Mouth, Daily at bedtime, # 90 tablet, 3 Refills, Maintenance, 12/12/20 15:31:00 EST, Tablet, [facility]/pharmacy #[id number], 158, cm, 11/21/20 11:06:00 EST, Height, 69, kg, 09/13/20 5:27:00 EDT, Dry Weight Start Date: 12/12/20 Status: Ordered atorvastatin 20 mg oral tablet 1 tablet = 20 mg, By Mouth, Daily at bedtime, for 30 days, # 30 tablet, 6 Refills, Hard Stop 01/01/21 15:31:00 EST, 06/05/20 15:31:00 EDT, Tablet, [facility]/pharmacy #[id number], 158, cm, 06/05/20 14:54:00 EDT, Height, [...] 12/05/20 14:30:00 EST, Route to Pharmacy Electronically, [facility]/pharmacy #[id number], Partial fill upon patient request if the prescription i... Start Date: 12/05/20 Stop Date: 11/30/21 Status: Ordered olmesartan 20 mg oral tablet 1 tablet = 20 mg, By Mouth, Daily, Dosage has been reduced to 20mg / day, # 30 tablet, 5 Refills, Maintenance, 09/19/20 14:11:00 EDT, Tablet, [facility]/pharmacy #[id number], 158, cm, 09/18/20 15:50:00 [...]
--- OUTSIDE RECORDS SUMMARY | 2024-07-27 11:51 | XMS_ITS | Continuity of Care Document ---
Author Organization [facility] Address [address] [place] [address]- Care Team Providers Care Gis Coordinator Name Role Phone Christiano DISCHARGING MACHINE OPERATOR, Nick Primary Care Physician Encounter [facility] Date(s): 03/04/23 - 04/08/23 [facility] [address] [place] [address]- Attending Physician: Ramila VIDES, Holden Nunez Admitting Physician: Ramila VIDES, Holden Nunez Allergies, Adverse Reactions, Alerts Substance Reaction Severity Status Ceftin ? Active Cleocin T BLOODY DIARRHEA Active Immunizations Given and Recorded Vaccine Date Status Refusal Reason influenza virus vaccine, inactivated 09/12/22 Michael rded influenza virus vaccine, inactivated 08/08/21 Michael rded influenza virus vaccine, inactivated 1 11/21/20 Gi cris influenza virus vaccine, inactivated 2 08/22/20 Re corded [id number] 12y+ bivalent booster vax 08/31/22 Recorded SARS-CoV-2 mRNA (lsshnie-[id number]) vax 03/16/22 Recorded SARS-CoV-2 (COVID-19) mRNA BNT-162b2 [...] diphtheria-tetanus toxoids (DT) 02/22/00 Given 1Result Comment: [id number] 2Result Comment: sarabjit SANDHU [facility] primary [facility] 3Result Comment: Unit: Unknown 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: [employer] 4Result Comment: Unit: Unknown 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: [employer] Injectables Medications atorvastatin 20 mg oral tablet 1 tablet, By Mouth, Daily at bedtime, # 90 tablet, 3 Refills, Maintenance, 12/16/22 13:42:00 EST, [facility], 158, cm, 12/11/22 15:03:00 EST, Height, 71, kg, 12/11/22 15:03:00 EST, Dry Weight Start Date: 12/16/22 Status: Ordered escitalopram 5 mg oral tablet 1 tablet, By Mouth, Daily, # 30 tablet, 2 Refills, Maintenance, 02/11/23 6:37:00 EDT, [facility], 157, cm, 02/05/23 15:27:00 EDT, Height, 73, kg, 01/07/23 15:13:00 EST, Dry Weight Start Date: 02/11/23 Status: Ordered Estrace Vaginal Cream 0.1 mg/g [...] EDT, Route to Pharmacy Electronically, [facility], Partial fill upon patient request if [...] 0 Refills, Maintenance, :05:00 EDT, [facility], 157, cm, 03/11/23 16:01:00 EDT, Height, 73, kg, 01/07/2315:13:00 EST, Dry Weight Start Date: 03/12/23 Status: Ordered meclizine 25 mg oral tablet [...] opioid drug. Start Date: 05/09/21 Status: Ordered [place] Tears ophthalmic solution 1 drops, Eyes, Both, 2 times a day, PRN for dry eyes, # 30 each, 0 Refills, Maintenance, 09/15/22 1:54:00 EDT, Solution, Partial fill upon patient request if the prescription is for a schedule II opioid drug. Start Date: 09/15/22 Status: Ordered [place] Tears ophthalmic solution 1 drops, Eyes, Both, [...] Team Personnel Name: Nick Alvarado NP Position: [facility] PCO Associate Professional Member Role: PCP Address: Address: [address] [place] [address]- Name: Elvia METZ, Trinh Position: S RN Member Role: Primary Care Nurse Name: Carrol Ta RN Position: S RN Member Role: Primary Care Nurse Name: Crystal Ceron RN Position: S RN Member Role: Primary Care Nurse Care Team Related Persons Name: RADHA MONTOYA Name: BRANDIE MONTOYA Address: [place] [address] Name: TREASURE MONTOYA Address: [address] [place] [address] Name: JAI REED Address: [address] [address]
--- OUTSIDE RECORDS SUMMARY | 2024-07-27 11:51 | XMS_ITS | Continuity of Care Document ---
Author Organization [facility] Address [address] [place] [address]- Care Team Providers Care Whipped Topping Finisher Name Role Phone Christiano VIDES, Nick Primary Care Physician [phone] Encounter [place] Date(s): 12/16/22 - 01/15/23 [facility] [address] [place] [address]- [place] Encounter Diagnosis Hypertension(Discharge Diagnosis) - 12/16/22 Atrial tachycardia(Discharge Diagnosis) - 12/16/22 Allergies, Adverse Reactions, Alerts Substance Reaction Severity Status Ceftin ? Active Cleocin T BLOODY DIARRHEA Active Immunizations Given and Recorded Vaccine Date Status Refusal Reason influenza virus vaccine, inactivated 09/12/22 Michael rded influenza virus vaccine, inactivated 08/08/21 Michael rded influenza virus vaccine, inactivated 1 11/21/20 Gi cris influenza virus vaccine, inactivated 2 08/22/20 Re corded [id number] 12y+ bivalent booster vax 08/31/22 Recorded SARS-CoV-2 mRNA (zdbtnyf-bipn-oxksl) vax 03/16/22 Recorded SARS-CoV-2 (COVID-19) mRNA BNT-162b2 [...] diphtheria-tetanus toxoids (DT) 02/22/00 Given 1Result Comment: [id number] 2Result Comment: sarabjit SANDHU [facility] primary care 3Result Comment: Unit: Unknown 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 Start Date: 12/18/21 Status: Ordered famotidine 20 mg oral tablet 20 mg, 1, tablet, By Mouth, 2 times a day, PRN, # 30 tablet, Refills 0, Tot. Refills 0, Maintenance, Pain , Moderate, 12/11/22 18:18:00 EST, Route to Pharmacy Electronically, [facility], Partial fill upon patient request if the prescript... Start Date: 12/11/22 Status: Ordered ICaps AREDS 2 0 Refills, [...] opioid drug. Start Date: 05/09/21 Status: Ordered [place] Tears ophthalmic solution 1 drops, Eyes, Both, 2 times a day, PRN for dry eyes, # 30 each, 0 Refills, Maintenance, 09/15/22 1:54:00 EDT, Solution, Partial fill upon patient request if the prescription is for a schedule II opioid drug. Start Date: 09/15/22 Status: Ordered [place] Tears ophthalmic solution 1 drops, Eyes, Both, [...] Active Adenomatous polyp of colon Confirmed Active Anxiety [...] sensorineural Confirmed Active TMJ syndrome Confirmed Active Diagnosis Diagnosis Type Effective Dates Health Status Clinical Service Informant Hypertension Discharge Diagnosis 12/16/22 Non-Specified Atrial tachycardia Discharge Diagnosis 12/16/22 Non-Specified Social History Social History Type Response Tobacco Total pack years: 35 . Started at age: 14 Years. Stopped at age: 49 Years. Sex Patient Care team information Care Team Personnel Name: Nick Alvarado NP Position: [facility] PCO Associate Professional Member Role: PCP Address: Address: [address] [place] [address] Name: Elvia METZ, Trinh Position: [facility] RN Member Role: Primary Care Nurse Name: Keyon METZ, Carrol Marie Position: [facility] RN Member Role: Primary Care Nurse Name: Crystal Ceron RN Position: S RN Member Role: Primary Care Nurse Care Team Related Persons Name: RADHA MONTOYA Name: BRANDIE MONTOYA Address: [place] [address] Name: TREASURE MONTOYA Address: [address] [place] [address] Name: JAI REED Address: [address] [place] [address]
--- OUTSIDE RECORDS SUMMARY | 2024-07-27 11:51 | XMS_ITS | Continuity of Care Document ---
Author Organization [facility] Address [address] [place] [address]- Care Team Providers Care Restaurant Hospitality Manager Name Role Phone Sam WEBER, Zara Jensen Primary Care Physician [place] [facility] [place] - 09[place]20 [facility] [address] [place] [address]- [facility] Attending Physician: Aureliano Tiwari MD Admitting Physician: Aureliano Tiwari MD Referring Physician: Aureliano Tiwari MD Allergies, Adverse Reactions, Alerts Substance Reaction [...] (DT) 02/22/00 Given 1Result Comment: Unit: Unknown 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: [employer] 2Result Comment: Unit: Unknown 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: [employer] Injectables Medications Aspirin = 81 mg, By Mouth, Daily, 0 Refills, Maintenance Start Date: 01/09/11 Status: Ordered atorvastatin 20 mg oral tablet 1 tablet = 20 mg, By Mouth, Daily at bedtime, # 30 tablet, 6 Refills, Maintenance, 06/05/20 15:31:00 EDT, Tablet, [id number], 158, cm, 07/14/20 14:54:00 EDT, Height, 70, kg, 05/22/20 13:54:00EDT, [...] Maintenance, CPAP 7 cm H2O dx [facility] e[facility] 3 ramp prn mask and suppliesas [...] Refills, Soft Stop, 08/21/20 11:44:00 EDT, Tablet, [facility], 158, cm, 08/21/20 11:15:00 EDT, Height, [...] 0, 0, 02/21/06 7:36:57, Print CAMILO Number, [id number], Constant Indicator Start Date: 02/21/06 Status: Ordered [...] - h/o procedure(Confirmed) Active TMJ syndrome(Confirmed) Active Social History Social History Type Response Smoking Status Former smoker; Other : Smoked 1PPD from age 14. Quit 33Y ago.; entered on: 09/15/17 Sex
--- OUTSIDE RECORDS SUMMARY | 2024-07-27 11:51 | XMS_ITS | Continuity of Care Document ---
Author Organization [facility] Address [address] [place] [address]- Care Team Providers Care Director Integrated Name Role Phone Sam WEBER, Zara Jensen Primary Care Physician [place] [facility] [place](s): 01/30/20 - 04/04/20 [facility] [address] [place] [address]- [place] Attending Physician: Aureliano Tiwari MD Admitting Physician: Aureliano Tiwari MD Referring Physician: Zara Vargas MD Allergies, Adverse Reactions, Alerts Substance Reaction Severity Status clindamycin Active Ceftin ? Active Cipro Active Keflex ? Active Cleocin T BLOODY DIARRHEA Active Immunizations Given and Recorded Vaccine Date Status Refusal Reason tetanus/diphtheria/pertussis, acel(Tdap) 03/11/16 Given diphtheria-tetanus toxoids (DT) 02/22/00 Given Medications Aspirin = 81 mg, By Mouth, Daily, 0 Refills, Maintenance Start Date: 01/09/11 Status: Ordered Caltrate 600 with D 1 [...] Maintenance, CPAP 7 cm H2O dx [facility] e[facility] 3 ramp prn mask and suppliesas needed, 05/27/11 14:05:41 Start Date: 05/27/11 Status: Ordered CPAP Equipment See Instructions, # 1 each, Refills 11, Tot. Refills 11, Maintenance, [facility]:All Pap Supplies: Tubing, Headgear, Chin Strap, CC Line, Full Face/Nasal Mask, Heated Humidifier, Water Chamber, and Filters. DX: [facility] G47.33Length of Need 99 months ACCESS... Start Date: 09/15/17 Status: Ordered Estrace Vaginal Cream 0.1 mg/g Vaginally, Daily at bedtime, 0 Refills, Maintenance, 01/06/17 8:59:59 Start Date: 01/06/17 Status: Ordered Hydrochlorothiazide = 12.5 mg, By Mouth, Daily, 0 Refills, Maintenance, 08/25/14 15:08:35 Start Date: 08/25/14 Status: Ordered Levothroid 0.025 mg oral tablet 0.5 tab, By Mouth, Daily, # 30 tablet, 0 Refills, Maintenance, Tablet Start Date: 01/09/11 Status: Ordered Losartan = 100 mg, By Mouth, Daily, 0 Refills, Maintenance, 01/14/19 10:04:54 EST Start Date: 01/14/19 Status: Ordered Multivitamin 1, tablet, By Mouth, Daily, 0, 0, 02/21/06 7:36:57, Print CAMILO Number, [id number], Constant Indicator Start Date: 02/21/06 Status: Ordered nystatin topical [id number] u/gm powder 1 applicator, Topically, Daily in AM, apply to feet daily, # 60 Gm, 0 Refills, Acute 10/10/20 12:18:00 EST, 10/10/19 12:16:36 EST, 1 applicator Topically Daily in AM,Instr:apply to feet daily Start Date: 10/10/19 Stop Date: 10/10/20 Status: Ordered Probiotic Formula 1 capsule, By Mouth, Daily, 0 Refills, Maintenance, 12/20/15 15:58:11 Start Date: 12/20/15 Status: Ordered Trimo-Mcclure 0.025% vaginal gel with applicator Every Thursday, 0 Refills, Maintenance, 05/09/19 9:53:02 EDT Start Date: 05/09/19 Status: Ordered vaginal estradiol .1mg/gm vaginal estradiol .1mg/gm, 1 Gm, Vaginally, Every Thursday and , # 30 Gm, Refills 3, Tot. Refills 3, Maintenance, pt needs to avoid parabens, 10/29/18 9:13:32 EST, Compound Start Date: 10/29/18 Status: Ordered Problem List Condition Effective Dates Status Health Status Inform ant Adie's pupil(Confirmed) Active Aortic insufficiency(Confirmed) Active Appendectomy(Confirmed) Active Dental prophylaxis, adult - needed(Confirmed) Active H/O: hysterectomy(Confirmed) Active , 3, sab 1(Confirmed) Active Lactose intolerance(Confirmed) Active Migraine(Confirmed) Active Osteopenia(Confirmed) Active Peptic ulcer disease(Confirmed) 1970 Active Recurrent varicose veins of leg - h/o procedure(Confirmed) Active TMJ syndrome(Confirmed) Active Social History Social History Type Response Smoking Status Former smoker; Other : Smoked 1PPD from age 14. Quit 33Y ago.; entered on: 09/15/17 Sex
--- OUTSIDE RECORDS SUMMARY | 2024-07-27 11:51 | XMS_ITS | Continuity of Care Document ---
Author Organization [facility] Address [address] [place] [address]- Care Team Providers Care Information Technology Director Name Role Phone Christiano VIDES, Nick Primary Care Physician [phone] Encounter [facility] [place] Date(s): 08/27/23 - 09/26/23 [facility] [address] [place] [address]- [place] Allergies, Adverse Reactions, Alerts Substance Reaction Severity Status Ceftin ? Active Cleocin T BLOODY DIARRHEA Active Immunizations Given and Recorded Vaccine Date Status Refusal Reason influenza virus vaccine, inactivated 09/12/22 Michael rded influenza virus vaccine, inactivated 08/08/21 Michael rded influenza virus vaccine, inactivated 1 11/21/20 Gi cris influenza virus vaccine, inactivated 2 08/22/20 Re corded [id number] 12y+ bivalent booster vax 08/31/22 Recorded SARS-CoV-2 mRNA (vuodlik-psup-ngyvz) vax 03/16/22 Recorded SARS-CoV-2 (COVID-19) mRNA BNT-162b2 [...] diphtheria-tetanus toxoids (DT) 02/22/00 Given 1Result Comment: [id number] 2Result Comment: sarabjit SANDHU [facility] 3Result Comment: Unit: Unknown 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: [employer] 4Result Comment: Unit: Unknown 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: Pfizer Injectables Medications atorvastatin 20 mg oral [...] Daily, # 30 tablet, 2 Refills, Maintenance, 07/28/23 13:44:00 EDT, [facility], 158, cm, 05/06/23 11:17:00 EDT, Height, 70, kg, 04/02/23 19:36:00 EDT, Dry Weight Start Date: 07/28/23 Status: Ordered Estrace Vaginal Cream 0.1 mg/g [...] 08/27/23 21:16:00 EDT, Route to Pharmacy Electronically, [facility], 158, cm, 05/06/23 11:17:00 EDT, Height, 70, kg, 04/02/23 19:36:00 EDT, Dry Weight Start Date: 08/27/23 Status: Ordered hydrOXYzine hydrochloride 25 mg oral tablet 1 tablet, By Mouth, Daily at bedtime, # 30 tablet, 0 Refills, Maintenance, 07/21/23 11:20:00 EDT, [facility], 158, cm, 05/06/23 11:17:00 EDT, [...] tablet, 1 Refills, Maintenance, 08/27/23 21:17:00 EDT, [facility], 158, cm, 05/06/23 11:17:00 EDT, Height, 70, kg, 04/02/23 19:36:00 EDT, Dry Weight Start Date: 08/27/23 Status: Ordered Metoprolol Tartrate 25 mg oral tablet 2 tablet = 50 mg, By Mouth, 2 times a day, # 360 tablet, 3 Refills, Maintenance, 12/16/22 13:42:00 EST, [facility], 158, cm, 12/11/22 15:03:00 EST, [...] opioid drug. Start Date: 05/09/21 Status: Ordered [place] Tears ophthalmic solution 1 drops, Eyes, Both, 2 times a day, PRN for dry eyes, # 30 each, 0 Refills, Maintenance, 09/15/22 1:54:00 EDT, Solution, Partial fill upon patient request if the prescription is for a schedule II opioid drug. Start Date: 09/15/22 Status: Ordered [place] Tears ophthalmic solution 1 drops, Eyes, Both, [...] Team Personnel Name: Nick Alvarado NP Position: [facility] PCO Associate Professional Member Role: PCP Address: Address: [address] [place] [address] Name: Elvia METZ, Trinh Position: S RN Member Role: Primary Care Nurse Name: Keyon METZ, Carrol Marie Position: [facility] RN Member Role: Primary Care Nurse Name: Crystal Ceron RN Position: S RN Member Role: Primary Care Nurse Care Team Related Persons Name: RADHA MONTOYA Address: [place], [place] Name: BRANDIE MONTOYA Address: [place] [address] Name: TREASURE MONTOYA Address: home [address] [place] [id number] Name: JAI REED Address: home [address] [place] [address]
--- OUTSIDE RECORDS SUMMARY | 2024-07-27 11:51 | XMS_ITS | Continuity of Care Document ---
Author Organization [facility] Address [address] [place] [address]- Care Team Providers Care Supervisor Water Treatment Plant Name Role Phone Christiano VIDES, Nick Primary Care Physician [place] [facility] [place] - 11/06/[address] [address]- Attending Physician: Isamar Sibley MD Admitting Physician: Isamar Sibley MD Allergies, Adverse Reactions, Alerts Substance Reaction [...] diphtheria-tetanus toxoids (DT) 02/22/00 Given 1Result Comment: [id number] 2Result Comment: sarabjit SANDHU [facility] primary [facility] 3Result Comment: Unit: Unknown Insulation Power Unit Tender: [employer] 4Result Comment: Unit: Unknown Insulation Power Unit Tender: Pfizer Injectables Medications Aspirin = 81 mg, [...] EDT, [id number], Apply Clenpiq Coupon: RxBIN [id number]; RxPCN: [id number]; RxGrp: [id number]; RxID: [id number]... Start Date: 08/30/21 Status: Ordered Estrace Vaginal Cream 0.1 mg/g = 1 Gm, Vaginally, Daily at bedtime, until symptoms improve monitor for first 2 weeks and if no difference, stop medication and call office, # 30 Gm, 0 Refills, Maintenance, 07/24/21 12:46:00 EDT, [facility], Partial fill upon p... Start Date: 07/24/21 Status: Ordered metoprolol 25 mg oral tablet 25 mg, 1, tablet, By Mouth, 2 times a day, Dose is now 25mg BID, # 180 tablet, Refills 3, Tot. Refills 3, Maintenance, 12/05/20 14:30:00 EST, Route to Pharmacy Electronically, [facility], Partial fill upon patient request if the prescription i... Start Date: 12/05/20 Stop Date: 11/30/21 Status: Ordered metroNIDAZOLE 500 mg oral tablet 1 tablet = 500 mg, By Mouth, Every 12 hours, for 7 days, do not drink alcohol, # 14 tablet, 0 Refills, Acute 11/08/21 16:36:00 EST, 11/01/21 16:36:00 EST, Tablet[facility], Partial fill upon patient request if the prescription is for a sched... Start Date: 11/01/21 Stop Date: 11/08/21 Status: Ordered olmesartan 20 mg oral tablet 1 tablet = 20 mg, By Mouth, Daily, Dosage has been reduced to 20mg / day, # 30 tablet, 5 Refills, Maintenance, 09/19/20 14:11:00 EDT, Tablet, [facility]1095, 158, cm, 09/18/20 15:50:00 EDT, Height, 69, kg, 09/13/20 5:27:00 EDT, Dry Weight Start Date: 09/19/20 Status: Ordered Trimo-Mcclure 0.025% vaginal gel with applicator See Instructions, USE DIRECTED, # 113.4 Gm, 3 Refills, Maintenance, [id number], [facility], USE DIRECTED, 158, cm, 05/09/21 14:04:00 [...] recent to oldest [Reference Range]: 1 Height 157.48 cm (10/30/21 1:05 PM) Social History Social History Type Response Tobacco Total pack years: 35 . Started at age: 14 Years. Stopped at age: 49 Years. Sex
--- OUTSIDE RECORDS SUMMARY | 2024-07-27 11:51 | XMS_ITS | Continuity of Care Document ---
Author Organization [facility] Address [address] [place] [address]- Care Team Providers Care Asset Protection Detective Name Role Phone Christiano VIDES, Nick Primary Care Physician Encounter [facility] [place] Date(s): 05/31/23 - 07/11/23 [facility] [address] [place] [address]- Attending Physician: Nick Alvarado NP Admitting Physician: Nick Alvarado NP Referring Physician: Nick Alvarado NP Allergies, Adverse Reactions, Alerts Substance Reaction Severity Status Ceftin ? Active Cleocin T BLOODY DIARRHEA Active Immunizations Given and Recorded Vaccine Date Status Refusal Reason influenza virus vaccine, inactivated 09/12/22 Michael rded influenza virus vaccine, inactivated 08/08/21 Michael rded influenza virus vaccine, inactivated 1 11/21/20 Gi cris influenza virus vaccine, inactivated 2 08/22/20 Re corded [id number] 12y+ bivalent booster vax 08/31/22 Recorded SARS-CoV-2 mRNA (yzvazsq-ttrx-ozwzy) vax 03/16/22 Recorded SARS-CoV-2 (COVID-19) mRNA BNT-162b2 [...] diphtheria-tetanus toxoids (DT) 02/22/00 Given 1Result Comment: [id number] 2Result Comment: sarabjit SANDHU [facility] primary care 3Result Comment: Unit: Unknown Semiconductor Wafer Inspector: Zazzy 4Result Comment: Unit: Unknown Semiconductor Wafer Inspector: BrandMaker Injectables Medications atorvastatin 20 mg oral tablet [...] 03/03/23 15:46:00 EDT, Route to Pharmacy Electronically, [facility], Partial fill upon patient request if the prescript... Start Date: 03/03/23 Status: Ordered hydrOXYzine hydrochloride 25 mg oral tablet 1 tablet, By Mouth, Daily at bedtime, # 30 tablet, 0 Refills, Maintenance, 04/07/23 7:44:00 EDT, [facility], 158, cm, 04/02/23 19:36:00 EDT, [...] tablet, 1 Refills, Maintenance, 05/29/23 15:49:00 EDT, [facility], 158, cm, 05/06/23 11:17:00 EDT, Height, 70, kg, 04/02/23 19:36:00 EDT, Dry Weight Start Date: 05/29/23 Status: Ordered Metoprolol Tartrate 25 mg oral tablet 2 tablet = 50 mg, By Mouth, 2 times a day, # 360 tablet, 3 Refills, Maintenance, 12/16/22 13:42:00 EST, [facility], 158, cm, 12/11/22 15:03:00 EST, [...] opioid drug. Start Date: 05/09/21 Status: Ordered [place] Tears ophthalmic solution 1 drops, Eyes, Both, 2 times a day, PRN for dry eyes, # 30 each, 0 Refills, Maintenance, 09/15/22 1:54:00 EDT, Solution, Partial fill upon patient request if the prescription is for a schedule II opioid drug. Start Date: 09/15/22 Status: Ordered [place] Tears ophthalmic solution 1 drops, Eyes, Both, [...] EDT, Route to Pharmacy Electronically, [facility], Partial fill upon patient request [...] Team Personnel Name: Nick Alvarado NP Position: [facility] PCO Associate Professional Member Role: PCP Address: Address: [address] [place] [address]- Name: Elvia METZ, Trinh Position: [facility] RN Member Role: Primary Care Nurse Name: Carrol Ta RN Position: S RN Member Role: Primary Care Nurse Name: Crystal Ceron RN Position: S RN Member Role: Primary Care Nurse Care Team Related Persons Name: RADHA MONTOYA Address: [place], [place] Name: BRANDIE MONTOYA Address: [place] [address] Name: TREASURE MONTOYA Address: home [address] [place] [address] Name: JAI REED Address: home [address] [place] [address]
--- OUTSIDE RECORDS SUMMARY | 2024-07-27 11:51 | XMS_ITS | Continuity of Care Document ---
Author Organization [facility] Address [address] [place] [address]- Care Team Providers Care Control Director Name Role Phone Zara Vargas MD Primary Care Physician [phone] Encounter [facility] [place] Date(s): 07/03/21 - 07/10/[address] [address] Attending Physician: Isamar Sibley MD Admitting Physician: [...] diphtheria-tetanus toxoids (DT) 02/22/00 Given 1Result Comment: [id number] 2Result Comment: sarabjit SANDHU [facility] primary care 3Result Comment: Unit: Unknown Senior Research Manager: [employer] 4Result Comment: Unit: Unknown Senior Research Manager: Pfizer Injectables Medications Aspirin = 81 mg, By Mouth, Daily before lunch, 0 Refills, Maintenance, 01/09/11 5:04:09 EST Start Date: 01/09/11 Status: Ordered atorvastatin 20 mg oral tablet 1 tablet = 20 mg, By Mouth, Daily at bedtime, # 90 tablet, 3 Refills, Maintenance, 12/12/20 15:31:00 EST, Tablet, [facility] #1095, 158, cm, 11/21/20 11:06:00 EST, Height, [...] 72 hours, # 2 tablet, 0 Refills, Maintenance, 06/26/21 10:14:00 EDT, [facility], Partial fill upon patient request if the prescription is for aschedule II opioid drug., 158, cm, 06/10/21 14:04:00 ED... Start Date: 06/26/21 Status: Ordered metoprolol 25 mg oral tablet 25 mg, 1, tablet, By Mouth, 2 times a day, Dose is now 25mg BID, # 180 tablet, Refills 3, Tot. Refills 3, Maintenance, 12/05/20 14:30:00 EST, Route to Pharmacy Electronically, [facility] #1095, Partial fill upon patient request if the prescription i... Start Date: 12/05/20 Stop Date: 11/30/21 Status: Ordered olmesartan 20 mg oral tablet 1 tablet = 20 mg, By Mouth, Daily, Dosage has been reduced to 20mg / day, # 30 tablet, 5 Refills, Maintenance, 09/19/20 14:11:00 EDT, Tablet, [facility] #1095, 158, cm, 09/18/20 15:50:00 EDT, Height, 69, kg, 09/13/20 5:27:00 EDT, Dry Weight Start Date: 09/19/20 Status: Ordered Trimo-Mcclure 0.025% vaginal gel with applicator See Instructions, USE DIRECTED, # 113.4 Gm, 3 Refills, Maintenance, [facility], 30, USE DIRECTED, 158, cm, 05/09/21 14:04:00 [...] oldest [Reference Range]: 1 Height 158 cm (07/03/21 2:00 PM) Weight 71.7 kg (07/03/21 2:00 PM) Body Mass Index [18.5-24.99] 28.72 *H* (07/03/21 2:00 PM) Blood Pressure [90-138/55-84 mm Hg] 110/ 64mm Hg (07/03/21 2:00 PM) Social History Social History Type Response Tobacco Total pack years: 35 . Started at age: 14 Years. Stopped at age: 49 Years. Sex
--- OUTSIDE RECORDS SUMMARY | 2024-07-27 11:51 | XMS_ITS | Continuity of Care Document ---
Author Organization [facility] Address [address] [place] [address]- Care Team Providers Care Manager Field Investigations Name Role Phone Christiano VIDES, Nick Primary Care Physician [phone] Encounter [facility] [place] Date(s): 12/03/21 - 01/02/22 [facility] [address] [place] [address]- Allergies, Adverse Reactions, Alerts Substance Reaction Severity [...] diphtheria-tetanus toxoids (DT) 02/22/00 Given 1Result Comment: [id number] 2Result Comment: sarabjit SANDHU [facility] primary care 3Result Comment: Unit: Unknown Sprayer Insecticide: iFlexMe 4Result Comment: Unit: Unknown Sprayer Insecticide: Pfizer Injectables Medications Aspirin = 81 mg, By Mouth, Daily before lunch, 0 Refills, Maintenance, 01/09/11 5:04:09 EST Start Date: 01/09/11 Status: Ordered atorvastatin 20 mg oral tablet 1 tablet, By Mouth, Daily at bedtime, # 90 tablet, 3 Refills, Maintenance, 12/02/21 11:48:00 EST, [facility]1095, 157.48, cm, 11/27/21 [...] Refills, Maintenance, 12/18/21 15:56:00 EST, [facility], Partial fill upon patient request if the prescription is for a schedule II opioid... Start Date: 12/18/21 Status: Ordered Metoprolol Tartrate 25 mg oral tablet 1 tablet, By Mouth, 2 times a day, # 180 tablet, 3 Refills, Maintenance, 12/02/21 11:49:00 EST, [facility], 157.48, cm, 11/27/21 12:51:00 EST, Height, [...]
--- OUTSIDE RECORDS SUMMARY | 2024-07-27 11:51 | XMS_ITS | Continuity of Care Document ---
Author Organization [facility] Address [address] [address]- Care Team Providers Care Used Car Salesperson Name Role Phone Christiano VIDES, Nick Primary Care Physician Encounter [facility] Date(s): 09/30/23 - 10/30/23 [facility] [address] [address]- Attending Physician: Silas Duncan Admitting Physician: AdmSilas pierce Referring Physician: Admtr ArMo Allergies, Adverse Reactions, Alerts Substance Reaction Severity Status Ceftin ? Active Cleocin T BLOODY DIARRHEA Active Immunizations Given and Recorded Vaccine Date Status Refusal Reason influenza virus vaccine, inactivated 09/12/22 Michael rded influenza virus vaccine, inactivated 08/08/21 Michael rded influenza virus vaccine, inactivated 1 11/21/20 Gi cris influenza virus vaccine, inactivated 2 08/22/20 Re corded [id number] 12y+ bivalent booster vax 08/31/22 Recorded SARS-CoV-2 mRNA (porasmf-hdeg-psbhz) vax 03/16/22 Recorded SARS-CoV-2 (COVID-19) mRNA BNT-162b2 [...] diphtheria-tetanus toxoids (DT) 02/22/00 Given 1Result Comment: [id number] 2Result Comment: sarabjit SANDHU [facility] primary care 3Result Comment: Unit: Unknown 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: [employer] 4Result Comment: Unit: Unknown 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: [email or web address] Injectables Medications atorvastatin 20 mg oral tablet [...] Refills, Maintenance, 07/28/23 13:44:00 EDT, [facility], 158, cm, 05/06/23 11:17:00 EDT, [...] # 60 tablet, Refills 5, Maintenance, NEEDED, 10/05/23 21:16:00 EDT, Route to Pharmacy Electronically, [facility], 158, cm, 05/06/23 11:17:00 EDT, Height, 70, kg, 04/02/23 19:36:00 EDT, Dry Weight Start Date: 08/27/23 Status: Ordered hydrOXYzine hydrochloride 25 mg oral tablet 1 tablet, By Mouth, Daily at bedtime, # 30 tablet, 0 Refills, Maintenance, 07/21/23 11:20:00 EDT, [facility], 158, cm, 05/06/23 11:17:00 EDT, [...] mL, 0 Refills, Maintenance, 10/28/23 17:05:00 EST, [facility], Partial fill upon patient request if the prescription is for a schedule II opioid drug., 1 sprays Nares, Both Daily at... Start Date: 10/28/23 Status: Ordered levothyroxine 0.05 mg oral tablet 0.5 tablet, By Mouth, Daily, # 45 tablet, 1 Refills, Maintenance, 08/27/23 21:17:00 EDT, [facility], 158, cm, 05/06/23 11:17:00 EDT, Height, 70, kg, 04/02/23 19:36:00 EDT, Dry Weight Start Date: 08/27/23 Status: Ordered Metoprolol Tartrate 25 mg oral tablet 2 tablet = 50 mg, By Mouth, 2 times a day, # 360 tablet, 3 Refills, Maintenance, 12/16/22 13:42:00 EST, [facility], 158, cm, 12/11/22 15:03:00 EST, [...] opioid drug. Start Date: 05/09/21 Status: Ordered [place] Tears ophthalmic solution 1 drops, Eyes, Both, 2 times a day, PRN for dry eyes, # 30 each, 0 Refills, Maintenance, 09/15/22 1:54:00 EDT, Solution, Partial fill upon patient request if the prescription is for a schedule II opioid drug. Start Date: 09/15/22 Status: Ordered [place] Tears ophthalmic solution 1 drops, Eyes, Both, [...] Team Personnel Name: Nick Alvarado NP Position: [facility] PCO Associate Professional Member Role: PCP Address: Address: [address] [place] [id number] Name: Elvia METZ, Trinh Position: S RN Member Role: Primary Care Nurse Name: Carrol Ta RN Position: [facility] RN Member Role: Primary Care Nurse Name: Crystal Ceron RN Position: S RN Member Role: Primary Care Nurse Care Team Related Persons Name: RADHA MONTOYA Address: [place], [place] Name: BRANDIE MONTOYA Address: [place] [address] Name: TREASURE MONTOYA Address: home [address] [place] [address] Name: JAI REED Address: [address] [place] [address]
--- OUTSIDE RECORDS SUMMARY | 2024-07-27 11:51 | XMS_ITS | Continuity of Care Document ---
Author Organization [facility] Address [address] [place] [id number]- Care Team Providers Care Export Manager Name Role Phone Christiano VIDES, Nick Primary Care Physician Encounter [facility] Date(s): 12/11/22 - 12/11/[address] [address]- Encounter Diagnosis Chest pain(Final) - 12/11/22 Discharge Disposition: A-D/C Home Attending Physician: Lara Stevens MD Admitting Physician: Lara Stevens MD Referring Physician: Not on Staff, Referring MD Allergies, Adverse Reactions, Alerts Substance Reaction Severity Status Ceftin ? Active Cleocin T BLOODY DIARRHEA Active Immunizations Given and Recorded Vaccine Date Status Refusal Reason influenza virus vaccine, inactivated 09/12/22 Michael rded influenza virus vaccine, inactivated 08/08/21 Michael rded influenza virus vaccine, inactivated 1 11/21/20 Gi cris influenza virus vaccine, inactivated 2 08/22/20 Re corded [id number] 12y+ bivalent booster vax 08/31/22 Recorded SARS-CoV-2 mRNA (jnggwyh-kzod-olqzj) vax 03/16/22 Recorded SARS-CoV-2 (COVID-19) mRNA BNT-162b2 [...] diphtheria-tetanus toxoids (DT) 02/22/00 Given 1Result Comment: [id number] 2Result Comment: sarabjit SANDHU [facility] 3Result Comment: Unit: Unknown Medical Sociologist: CarFin 4Result Comment: Unit: Unknown Medical Sociologist: [employer] Injectables Medications atorvastatin 20 mg oral tablet 1 tablet, By Mouth, Daily at bedtime, # 90 tablet, 3 Refills, Maintenance, 06/09/22 11:18:00 EDT, [facility]/pharmacy #[id number], 157.48, cm, 02/21/22 10:37:00 EDT, Height, [...] Refills, Maintenance, 12/18/21 15:56:00 EST, [facility], Partial fill upon patient request if the [...] By Mouth, 2 times a day, # 120 tablet, 3 Refills, Maintenance, 11/11/22 10:37:00 EST, [facility] #[facility], 157, cm, 11/11/22 9:59:00 EST, Height, 71.1, kg, 10/09/22 11:14:00 EST, Dry Weight Start Date: 11/11/22 Stop Date: 03/11/23 Status: Ordered MiraLax oral powder for reconstitution = 17 Gm, By Mouth, Daily, dissolve in water before taking, # 255 Gm, 0 Refills, Maintenance, 05/09/21 14:12:00 EDT, REC Powder, Partial fill upon patient request if the prescription is for a scheduleII opioid drug. Start Date: 05/09/21 Status: Ordered Big [place] Tears ophthalmic solution 1 drops, Eyes, Both, 2 times a day, PRN for dry eyes, # 30 each, 0 Refills, Maintenance, 09/15/22 1:54:00 EDT, Solution, Partial fill upon patient request if the prescription is for a schedule II opioid drug. Start Date: 09/15/22 Status: Ordered Big [place] Tears ophthalmic solution 1 drops, Eyes, Both, 3 times a day, PRN for dry eyes, Maintenance, 09/15/22 10:43:00 EDT, Solution,Partial fill upon patient request if the prescription is for a schedule II opioid drug. Start Date: 09/15/22 Status: Ordered olmesartan 20 mg oral tablet 1 tablet, By Mouth, Daily, # 90 tablet, 3 Refills, Maintenance, 12/20/21 13:54:00 EST, [facility]/pharmacy#[id number], 157.48, cm, 12/19/21 11:37:00 EST, Height, 68.8, [...] Exam Date Time Procedure Performing Provider Status 12/11/22 4:26 PM Chest 2 Views Frontal and Lat Sol Burroughs Brandi; Auth (Verified) Notes: (Chest 2 Views Frontal and Lat) Reason For Exam: Chest Pain;Other: RESULT: Chest 2 Views Frontal and Lat Chest 2 Views Frontal and Lat HX OF PRESENT ILLNESS: Chest pain x 2 days 5 10 during day (left chest, sometimes radiated to back,made worse w palpation). Resolves at night. Today called pcp to discuss symptoms and was recommended to come here. COMPARISON: 09/14/2022 and multiple priors. Chest CT 09/12/2020. FINDINGS: LINES AND TUBES: None. LUNGS AND PLEURA: Clear lungs. Normal pulmonary vascularity. No pleural effusion. No pneumothorax. HEART, MEDIASTINUM AND YONAS: Heart is normal in size. Aorta is calcified. BONES AND SOFT TISSUES: No acute abnormality. Moderate degenerative changes of the bilateral glenohumeral joints. IMPRESSION: No acute cardiopulmonary process. I have personally reviewed the images and I agree with this report. WSN: [id number] Ordering Physician: Lara Stevens Dictated By: Zunilda Schneider MD Dictated Date/Time: 12/11/22 4:48 pm Reviewed By: Maged Cabello MD Signed By: Maged Cabello MD Signed Date/Time: 12/11/22 4:53 pm Transcribed By: [place] Transcribed Date/Time: 12/11/22 4:29 pm Vital Signs Most recent to oldest [Reference Range]: 1 2 Height 158 cm (12/11/22 3:03 PM) 158 cm (12/11/22 3:00 PM) Weight 71 kg (12/11/22 3:03 PM) 71 kg (12/11/22 3:00 PM) Oxygen Saturation [94-100 %] 100 % (12/11/22 5:07 PM) 100 % (12/11/22 3:00 PM) Pulse Rate [55-90 bpm] 61 bpm (12/11/22 3:00 PM) Body Mass Index [18.5-24.99 kg/m2] 28.44 kg/m2 *H* (12/11/22 3:00 PM) Blood Pressure [90-138/55-84 mm Hg] 144/ 84mm Hg *H* (12/11/22 5:07 PM) 140/64mm Hg *H* (12/11/22 3:00 PM) Respiratory Rate [16-30 br/min] 18 br/mi n (12/11/22 5:07 PM) 16 br/min (12/11/22 3:00 PM) Temperature [96.8-100.4 DegF] 98.7 DegF (12/11/22 3:00 PM) Mode of Delivery (Oxygen) Room air (12/11/22 5:07 PM) Room air (12/11/22 3:00 PM) Blood pressure sites Arm, right (12/11/22 5:07 PM) Arm, right (12/11/22 3:00 PM) Temperature Route Oral (12/11/22 3:00 PM) Dry Weight 71 kg (12/11/22 3:03 PM) 71 kg (12/11/22 3:00 PM) Weight Obtained Via Patient/family state d (12/11/22 3:00 PM) Dry Weight Obtained Via Patient/family s tated (12/11/22 3:00 PM) Social History Social History Type Response Tobacco Total pack years: 35 . Started at age: 14 Years. Stopped at age: 49 Years. Sex EKG study * Event Display: ECG 12-Lead Authored Date: Please click on pdf link to open report * Event Display: ECG 12-Lead Authored Date: Ventricular Rate: 58 BPM Atrial Rate: 58 BPM P-R Interval: 196 ms QRS Duration: 94 ms Q-T Interval: 444 ms QTC Calculation(Bazett): 435 ms P Edgerton: 57 degrees R Edgerton: -8 degrees T Edgerton: 44 degrees Sinus bradycardia Otherwise normal ECG When compared with ECG of 14-SEP-2022 21:07, No significant change was found Confirmed by FLORENCE GARDNER ([id number]) on 12/11/2022 5:27:29 PM Gully: FLORENCE GARDNER Note * Hilda WEBER, Lara E: PERFORM Event Display: Patient Education Leaflets Authored Date: [id number] Noncardiac Chest Pain ?? [id number] Noncardiac Chest Pain In most cases, people who come to the emergency room with chest pain don???t have a problem with their heart. Instead, the pain is caused by other conditions. It's important for the healthcare team to be sure you are not having a life-threatening cause for chest pain such as: ??? Heart attack ??? Blood clot in the lungs ??? Collapsed lung ??? Ruptured esophagus ??? Tearing of the aorta Once these major causes have been ruled out, you may have further evaluation for other causes of chest pain. These may be problems with the lungs, muscles, bones, digestive tract, nerves, or mental health. They include: ??? Inflammation around the lungs (pleurisy) ??? Collapsed lung (pneumothorax) ??? Lung inflammation (pleuritis or pneumonitis) ??? Fluid around the lung (pleural effusion) ??? Lung cancer (rare cause of chest pain) ??? Inflamed cartilage between the ribs (costochondritis) ??? Fibromyalgia ??? Rheumatoid arthritis ??? Chest wall strain ??? Reflux ??? Stomach ulcer ??? Spasms of the esophagus ??? Gall stones ??? Gallbladder inflammation ??? Panic or anxiety attacks ??? Emotional distress Your pain doesn???t seem to be coming from your heart. But sometimes the signs of a serious problemtake more time to appear. Continue to watch for the warning signs listed below. Home care Follow these guidelines when caring for yourself at home: ??? Rest today and don't do any strenuousactivity. ??? Take any prescribed medicine as directed. ?? Follow-up care Follow up with your healthcare provider as advised. ?? Call 911 Call 911 if any of these occur: ??? A change in the type of pain: if it feels different, becomes more severe, lasts longer, or begins to spread into your shoulder, arm, neck, jaw or back ??? Shortness of breath or increased pain with breathing ??? Weakness, dizziness, or fainting ??? Rapid heart beat ??? Crushing sensation in your chest ?? When to seek medical advice Call your healthcare provider right away if any of these occur: ??? Cough with dark colored sputum (phlegm) or blood ??? Fever of 100.4??F (38??C) or higher, or as directed by your healthcare provider ??? Swelling, pain or redness in one leg ?? Last Reviewed Date: 2021 ?? 4386-0475 [employer]. All rights reserved. This information is not intended as a substitute for professional medical care. Always follow your healthcare professional's instructions. ?? * Hilda WEBER, Lara Jensen: PERFORM Event Display: Patient Education Leaflets Authored Date: [id number] Acid Reflux and Gastroesophageal Reflux Disease in Adults ?? 686 Acid Reflux and Gastroesophageal Reflux Disease in Adults ?You must carefully read the ConsumerInformation Use and Disclaimer below in order to understand and correctly use this information??The BasicsWritten by the doctors and editors at [facility] is acid reflux?Acid reflux is whenthe acid that is normally in your stomach backs up into the esophagus. The esophagus is the tube that carries food from your mouth to your stomach (figure 1).When acid reflux causes bothersome symptoms or damage, doctors call it gastroesophageal reflux disease or GERD. ??What are the symptoms ofacid reflux?The most common symptoms are:? Heartburn, which is a burning feeling in thechest ??? Regurgitation, which is when acid and undigested food flow back into your throat or mouth ??Other symptoms might include:? Stomach or chest pain ??? Trouble swallowing ??? Having a raspy voice or a sore throat ??? Unexplained cough ??? Nausea or vomiting ??Is there anything I can do on my own to feel better?Yes. You might feel better if you:? Lose weight (if you are overweight) ??? Raise the head of your bed by 6 to 8 inches ??? You can do this by putting blocks of wood or rubber under 2 legs of the bed or a foam wedge under the mattress. ??? Avoid foods that make your symptoms worse ??? For some people these include coffee, chocolate, alcohol, peppermint, and fatty foods. ??? Stop smoking if you smoke ??? Avoid late meals ??? Lyingdown with a full stomach can make reflux worse. Try to plan meals for at least 2 to 3 hours before bedtime. ??? Avoid tight clothing ??? Some people feel better if they wear comfortable clothing thatdoes not squeeze the stomach area. ??How is acid reflux treated?There are a few main types of medicines that can help with the symptoms of acid reflux. The most common are antacids, histamine blockers, and proton pump inhibitors (table 1). All of these medicines work by reducing or blocking stomach acid. But they each do thatin a different way.? For mild symptoms, antacids can help, but they work only for a short time. Histamine blockers are stronger and last longer than antacids. You can buy antacids and most histamine blockers without a prescription. ??? For frequent and more severe symptoms, proton pump inhibitors are the most effective medicines. Some of these medicines are sold without a prescription. But there are other versions that your doctor can prescribe. ??Sometimes, medicines cost less if you get them with a doctor's prescription. Other times, non-prescription medicines cost less. If you are worried about cost, ask your pharmacist about ways to pay less for your medicines.??Should I see a doctor or nurse about my acid reflux?Some people canmanage their acid reflux on their own by changing their habits or taking non-prescription medicines. But you should see a doctor or nurse if:? Your symptoms are severe or last a long time ??? You cannot seem to control your symptoms ??? You have had symptoms for many years ??You should also see a doctor or nurse??right away??if you:? Have trouble swallowing, or feelas though food gets stuck on the way down ??? Lose weight when you are not trying to ??? Have chest pain ??? Choke when you eat ??? Vomit blood or have bowel movements that are red, black, or look like tar ??What if my child or teenager has acid reflux?If your child or teenager has acid ref lux, take them to see a doctor or nurse. Do not give your child medicines to treat acid reflux without talking to a doctor or nurse.In children, acid reflux can be caused by a number of problems. It's important to have a doctor or nurse check for these problems before trying any treatments.All topics are updated as new evidence becomes available and our??peer review process??is complete.This topic retrieved from [employer] on:??Apr 28, 2022.Topic 58492 Version 12.0Release: 30.2.4 - C30.156?2021??[employer] and/or its affiliates.??All rights reserved.Consumer Information Use and Disclaimer:This generalized information is a limited summary of diagnosis, treatment, and/or medication information. It is not meant to be comprehensive and should be used as a tool to help the user understandand/or assess potential diagnostic and treatment options. It does NOT include all information aboutconditions, treatments, medications, side effects, or risks that may apply to a specific patient. It is not intended to be medical advice or a substitute for the medical advice, diagnosis, or treatment of a health care provider based on the health care provider's examination and assessment of a patient's specific and unique circumstances. Patients must speak with a health care provider for complete information about their health, medical questions, and treatment options, including any risks or benefits regarding use of medications. This information does not endorse any treatments or medications as safe, effective, or approved for treating a specific patient. [employer] and its affiliates disclaim any warranty or liability relating to this information or the use thereof.The use of thisinformation is governed by the Terms of Use, available at??https://www.[employer].com/en/know/cli slazc-pqkzliwesnopj-zmbth?2021 [employer] and its affiliates and/or licensors. All rights reserved.Last Updated 04/30/22? * Hilda WEBER, Lara Jensen: PERFORM Event Display: Patient Education Leaflets Authored Date: [id number] Famotidine Oral Tablet ?? Famotidine Oral Tablet Brands: Pepcid Uses This medicine is used for the following purposes: ??? heartburn ??? inflammation of stomach ??? prevent heartburn ??? prevent indigestion ??? stomach acid ??? stomach acid reflux ??? ulcers in stomach or intestines ??? ulcers in stomach or intestines ?? Instructions This medicine may be taken with or without food. Swallow with a full glass (8 oz) of water unless your doctor gives you different instructions. Keep the medicine at room temperature. Avoid heat and direct light. Keep the medicine away from heat and light. This medicine can reduce the absorption of other medicines. Talk to your doctor or pharmacist aboutthe best times to use this product. It is important that you keep taking each dose of this medicine on time even if you are feeling well. If you forget to take a dose on time, take it as soon as you remember. If it is almost time for thenext dose, do not take the missed dose. Return to your normal dosing schedule. Do not take 2 doses of this medicine at one time. Drug interactions can change how medicines work or increase risk for side effects. Tell your healthcare providers about all medicines taken. Include prescription and gwjy-cwe-gmowlie medicines, vitamins, and herbal medicines. Speak with your doctor or pharmacist before starting or stopping any medicine. Tell your doctor if symptoms do not get better or if they get worse. ?? Cautions Tell your doctor and pharmacist if you ever had an allergic reaction to a medicine. Do not use the medication any more than instructed. Tell the doctor or pharmacist if you are , planning to be , or . Do not share this medicine with anyone who has not been prescribed this medicine. ?? Side Effects The following is a list of some common side effects from this medicine. Please speak with your doctor about what you should do if you experience these or other side effects. ??? constipation or diarrhea ??? headaches Call your doctor or get medical help right away if you notice any of these more serious side effects: ??? bleeding or bruising ??? chest pain ??? confusion ??? dizziness ??? fainting ??? fast or irregular heart beats ??? seizures ??? shortness of breath A few people may have an allergic reaction to this medicine. Symptoms can include difficulty breathing, skin rash, itching, swelling, or severe dizziness. If you notice any of these symptoms, seek medical help quickly. ?? Extra Please speak with your doctor, nurse, or pharmacist if you have any questions about this medicine. ?? https://api.Bizak.[employer]/V2.0/fdbpem/2032 IMPORTANT NOTE: This document tells you briefly how to take your medicine, but it does not tell youall there is to know about it. Your doctor or pharmacist may give you other documents about your medicine. Please talk to them if you have any questions. Always follow their advice. There is a more complete description of this medicine available in Omani. Scan this code on your smartphone or tablet or use the web address below. You can also ask your pharmacist for a printout. If you have any questions, please ask your pharmacist. The display and use of this drug information is subject to Terms of Use. Copyright(c) 2021 [employer]. ?? [employer]. All rights reserved. This information is not intended as a substitute for professional medical care. Always follow your healthcare professional's instructions. ?? * BHSPowerscribe , CIS S: TRANSCRIBE Maged Cabello MD: VERIFY Zunilda Schneider MD: SIGN Event Display: Result: Authored Date: [id number] Chest 2 Views Frontal and Lat HX OF PRESENT ILLNESS: Chest pain x 2 days 5 10 during day (left chest, sometimes radiated to back,made worse w palpation). Resolves at night. Today called pcp to discuss symptoms and was recommended to come here. COMPARISON: 09/14/2022 and multiple priors. Chest CT 09/12/2020. FINDINGS: LINES AND TUBES: None. LUNGS AND PLEURA: Clear lungs. Normal pulmonary vascularity. No pleural effusion. No pneumothorax. HEART, MEDIASTINUM AND YONAS: Heart is normal in size. Aorta is calcified. BONES AND SOFT TISSUES: No acute abnormality. Moderate degenerative changes of the bilateral glenohumeral joints. IMPRESSION: No acute cardiopulmonary process. I have personally reviewed the images and I agree with this report. WSN: [id number] Ordering Physician: Lara Stevens Dictated By: Zunilda Schneider MD Dictated Date/Time: 12/11/22 4:48 pm Reviewed By: Maged Cabello MD Signed By: Maged Cabello MD Signed Date/Time: 12/11/22 4:53 pm Transcribed By: [place] Transcribed Date/Time: 12/11/22 4:29 pm Patient Care team information Care Team Personnel Name: Nick Alvarado NP Position: [facility] PCO Associate Professional Member Role: PCP Address: Address: [address] [place] [address]- Name: Trinh Gan RN Position: [facility] RN Member Role: Primary Care Nurse Name: Keyon RN, Carrol Marie Position: [facility] RN Member Role: Primary Care Nurse Name: Crystal Ceron RN Position: [facility] RN Member Role: Primary Care Nurse Name: Lara Stevens MD Position: [facility] ED Medicine MD Member Role: Admitting Physician Address: Address: [address] [place] [id number]- Name: Angelita Beltran RN Position: [facility] ED RN W/OE and Tasks Member Role: Patient Care Provider Care Team Related Persons Name: RADHA MONTOYA Name: BRANDIE MONTOYA Address: [place] [address] Name: TREASURE MONTOYA Address: home [address] [place] [address] Name: JAI REED Address: [address] [place] [address]
--- OUTSIDE RECORDS SUMMARY | 2024-07-27 11:52 | XMS_ITS | Continuity of Care Document ---
Author Organization [facility] Address [address] [place] [id number]- Care Team Providers Care Long Term Care Administrator Name Role Phone Sam WEBER, Zara Jensen Primary Care Physician [phone] Encounter [facility] R [id number] Date(s): 03/01/20 - 03/08/20 [facility] [address] [place] [address]- [facility] Attending Physician: Aureliano Tiwari MD Admitting Physician: [...] Maintenance, CPAP 7 cm H2O dx [facility] epr 3 ramp prn mask and suppliesas [...] 0, 0, 02/21/06 7:36:57, Print CAMILO Number, [id number], Constant Indicator Start Date: 02/21/06 Status: Ordered nystatin topical [id number] u/gm powder 1 applicator, Topically, Daily in [...]
--- OUTSIDE RECORDS SUMMARY | 2024-07-27 11:52 | XMS_ITS | Continuity of Care Document ---
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 Date(s): 04/04/24 - 04/05/[address] [id number]- Encounter Diagnosis Chest pain(Final) - 04/04/24 Left bundle branch block(Final) - 04/04/24 Discharge Disposition: A-D/C Home Attending Physician: Adry WEBER, [place] Admitting Physician: Mckenna WEBER, [place] Referring Physician: Not on Staff, Referring MD Allergies, Adverse Reactions, Alerts Substance Reaction Severity Status Ceftin ? Active Cleocin T BLOODY DIARRHEA Active Immunizations Given and Recorded Vaccine Date Status Refusal Reason SARS-CoV-2(COVID-19)mRNA-LNP vac([id number]) 01/08/24 Given pneumococcal 20-valent conjugate vaccine 01/08/24 Given influenza virus vaccine, inactivated 09/12/22 Michael rded influenza virus vaccine, inactivated 08/08/21 Michael rded influenza virus vaccine, inactivated 1 11/21/20 Gi cris influenza virus vaccine, inactivated 2 08/22/20 Re corded [id number] 12y+ bivalent booster vax 08/31/22 Recorded SARS-CoV-2 mRNA ([id number]) vax 03/16/22 Recorded SARS-CoV-2 (COVID-19) mRNA BNT-162b2 [...] diphtheria-tetanus toxoids (DT) 02/22/00 Given 1Result Comment: [id number] 2Result Comment: sarabjit SANDHU 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 Start Date: 04/05/24 Status: Ordered famotidine 20 mg oral tablet 20 mg, 1, tablet, By Mouth, Daily, # 30 tablet, Refills 0, Maintenance, 04/05/24 5:36:00 EDT, Partial fill upon patient request if the prescription is for a schedule II opioid drug. Start Date: 04/05/24 Status: Ordered fluticasone 50 mcg/inh nasal spray 1 sprays = 50 mcg, Nares, Both, 2 times a day, # 16 Gm, 0 Refills, Maintenance, 04/05/24 5:37:00 EDT, [place], Partial fill upon patient request if the prescription is for a schedule II opioid drug. Start Date: 04/05/24 Status: Ordered levothyroxine 0.05 mg oral tablet 0.5 tablet = 25 mcg, By Mouth, Daily, # 30 tablet, 0 Refills, Maintenance, 04/05/24 5:36:00 EDT, Tablet, Partial fill upon patient request if the prescription is for a schedule II opioid drug. Start Date: 04/05/24 Status: Ordered metoprolol 50 mg oral tablet 50 mg, By Mouth, 2 times a day, Refills 0, Maintenance, 04/05/24 11:11:00 EDT, Partial fill upon patient request if the prescription is for a schedule II opioid drug. Start Date: 04/05/24 Status: Ordered METOPROLOL TARTRATE 25MG TABS METOPROLOL TARTRATE 25MG TABS, TAKE TWO TABLETS BY MOUTH TWICE A DAY Start Date: 04/05/24 Status: Ordered olmesartan 20 mg oral tablet 1 tablet = 20 mg, By Mouth, Daily, # 30 tablet, 0 Refills, Maintenance, 04/05/24 5:36:00 EDT, Tablet, Partial fill upon patient request if the prescription is for a schedule II opioid drug. Start Date: 04/05/24 Status: Ordered spironolactone 25 mg oral tablet 12.5 mg, 0.5, tablet, By Mouth, Daily, # 15 tablet, Refills 0, Maintenance, 04/05/24 5:36:00 EDT, Partial fill upon patient request if the prescription is for a schedule II opioid drug. Start Date: 04/05/24 Status: Ordered Problem List Condition Confirmation Course [...] problem Confirmed Active TMJ syndrome Confirmed Active Results Radiology Reports * Exam Date Time Procedure Performing Provider Status 04/05/24 12:40 AM Chest 2 Views Frontal and Lat Nicolette Roberts; Neida (Verified) Notes: (Chest 2 Views Frontal and Lat) Reason For Exam: Shortness of Breath RESULT: Chest 2 Views Frontal and Lat Chest 2 Views Frontal and Lat Hx of Present Illness: reportts awoke with left sided upper chest stabbbing burning pain rad to left shoulder off and on all day, called ems as pt constant for 1 hour, relieved w. asa and ntg by ems,no sob, nausea, feve, chills, chest is normal now; Reason: Shortness of Breath; Clinical Question(s): CHF COMPARISON: 12/11/2022 FINDINGS: LINES AND TUBES: None. LUNGS AND PLEURA: Clear lungs. Normal pulmonary vascularity. No pleural effusion. Similar minimal asymmetric juxtaphrenic peaking at the right hemidiaphragm. No pneumothorax. HEART, MEDIASTINUM AND YONAS: Heart is normal in size. Aorta is mildly calcified. BONES AND SOFT TISSUES: No acute abnormality. Diffuse osteopenia. Mild rotary scoliotic curvature of the thoracolumbar spine, as before. IMPRESSION: No acute abnormality. WSN: [id number] Ordering Physician: Usman Rooney Dictated By: Ragini Dumont MD Dictated Date/Time: 04/05/24 6:44 am Reviewed By: Ragini Dumont MD Signed By: Ragini Dumont MD Signed Date/Time: 04/05/24 6:44 am Transcribed By: [place] Transcribed Date/Time: 04/05/24 6:43 am Vital Signs Most recent to oldest [Reference Range]: 1 2 3 Height 158 cm (04/05/24 11:16 AM) 158 cm (04/05/24 7:19 AM) 158 cm (04/05/24 2:07 AM) Weight 73.2 kg (04/05/24 2:07 AM) 73.2 kg (04/05/24 2:04 AM) 73.2 kg (04/05/24 1:35 AM) Oxygen Saturation [94-100 %] 100 % (04/05/24 11:16 AM) 100 % (04/05/24 7:19 AM) 100 % (04/05/24 2:07 AM) Pulse Rate [55-90 bpm] 55 bpm (04/05/24 11:16 AM) 61 bpm (04/05/24 9:04 AM) 55 bpm (04/05/24 7:19 AM) Body Mass Index [18.5-24.99 kg/m2] 29.32 kg/m2 *H* (04/05/24 2:07 AM) 29.32 kg/m2 *H* (04/05/24 2:04 AM) 29.32 kg/m2 *H* (04/05/24 1:35 AM) Blood Pressure [90-138/55-84 mm Hg] 143/56mm Hg *H* (04/05/24 11:16 AM) 146/58mm Hg *H* (04/05/24 9:04 AM) 147/54mm Hg *H* (04/05/24 7:19 AM) Respiratory Rate [16-30 br/min] 16 br/min (04/05/24 11:16 AM) 16 br/min (04/05/24 10:15 AM) 16 br/min (04/05/24 7:19 AM) Temperature [96.8-100.4 DegF] 97.2 DegF (04/05/24 11:16 AM) 97.0 DegF (04/05/24 7:19 AM) 97.4 DegF (04/05/24 2:07 AM) Mode of Delivery (Oxygen) Room air (04/05/24 11:16 AM) Room air (04/05/24 7:19 AM) Room air (04/05/24 2:07 AM) Blood pressure sites Arm, left (04/05/24 11:16 AM) Arm, left (04/05/24 7:19 AM) Arm, left (04/05/24 2:07 AM) Temperature Route Temporal (04/05/24 11:16 AM) Temporal (04/05/24 7:19 AM) Oral (04/05/24 2:07 AM) Dry Weight 73.2 kg (04/05/24 2:07 AM) 73.2 kg (04/05/24 1:35 AM) 73.2 kg (04/04/24 9:54 PM) Weight Obtained Via Bed scale (04/05/24 2:07 AM) Bed scale (04/05/24 2:04 AM) Standing scale (04/04/24 9:54 PM) Dry Weight Obtained Via Standing scale (04/04/24 9:54 PM) Social History Social History Type Response Tobacco Total pack years: 35 . Started at age: 14 Years. Stopped at age: 49 Years. Sex Admission evaluation note * Mckenna WEBER, Collette: PERFORM, MODIFY Event Display: Admission Note Authored Date: [id number] Patient: ??TREASURE REED ? Age:??88 Years?Sex:??Female?:??1935?? Chief Complaint/Reason for Consultation Chest pain ongoing all day - comes and goes when it is present it is a 6/10. describes as a high mid axaillary burning sensation deep in the chest. nothing makes it worse, nothing makes it better. 324 asa. IV20 R ac, 1 tab nitro. immediate relief w nitro. History of Present Illness This is an 88-year-old female with past medical history of hypertension, hyperlipidemia, BONNIE, labile hypertension, SVT/atrial tachycardia, mild AR coming in today with episodes of chest pain. ?? According the patient she has been having intermittent left-sided chest pain which she describes asa sharp stabbing sensation intermittently ongoing for few days.?? He usually comes and goes randomly?? and has no association with physical activity.?? She denies any associated shortness of breath, nausea, diaphoresis, presyncopal symptoms.?? The pain got worse in the evening today which prompted her to come to the ED. ?? EMS did give a nitroglycerin which improved the pain immediately and by the time she arrived to theED she was chest pain-free. ?? On presentation to ED afebrile hemodynamically stable and saturating properly on room air.?? Labworkup showing no leukocytosis, stable electrolytes normal creatinine, troponin not elevated x 2.??EKG showing a left bundle branch block, no acute ischemia.?? Compared to prior EKGs this bundle branch appears new however cardiology note states that she has had a bundle branch block from prior. Review of Systems Full review of systems conducted, negative unless mentioned in the HPI Objective Vital Signs?? Temperature: 97.4 DegF (04/05/24 02:07:00) Temperature Route: Oral (04/05/24 02:07:00) Pulse Rate: 57 bpm (04/05/24 02:07:00) Respiratory Rate: 22 br/min (04/05/24 02:07:00) Systolic Blood Pressure:??141 mm Hg??High (04/05/24 02:07:00) Diastolic Blood Pressure:??48 mm Hg??Low (04/05/24 02:07:00) Blood pressure sites: Arm, left (04/05/24 02:07:00) Mean Arterial Pressure: 79 mm Hg (04/05/24 02:07:00) Pulse Pressure: 93 mm Hg (04/05/24 02:07:00) Oxygen Saturation: 100 % (04/05/24 02:07:00) Mode of Delivery (Oxygen): Room air (04/05/24 02:07:00) Early Warning Score: 5 (04/05/24 02:51:50) ? Physical Exam General Appearance: no acute distress Eyes: BELLA. No scleral icterus. ENT:?? MM moist. Cardiovascular: RRR S1 and S2 heard with no M/R/G. Respiratory: Clear to auscultation, no wheeze or crackles GI: Soft. Nontender and nondistended. Normal bowel sounds present. no guarding, rigidity MSK:?? No edema or erythema in the lower extremities. Skin: No rashes seen?? Neuro:?? No slurred speech. Moving upper and lower extremities independently Psych: oriented x3. Lines: Peripheral IV in place. Assessment/Plan ?? This is an 88-year-old female with past medical history of hypertension, hyperlipidemia, BONNIE, labile hypertension, SVT/atrial tachycardia, mild AR coming in today with episodes of chest pain.?? Resolved??on presentation to ED, EKG with left bundle branch block, troponin??not elevated x 2. ?? Chest pain (R07.9):?? Left bundle branch block (I44.7):?? Coming in with intermittent??sharp/burning chest pain on the left side of the chest. ??Sometimes radiating to her arm. No association with exertion, comes and goes randomly.?? EMS gave nitro and chest pain resolved.?? No chest pain since being in the ED EKG nonischemic however does show a left bundle branch block.?? Looking following her prior EKGs inour system there was no left bundle branch block seen however??per cardiology notes she does have ahistory of left bundle branch block ?? Plan ?No need to further trend troponin unless recurrent symptoms ??? 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 Obtain echocardiogram ? Hypertension (I10):??She has a history of labile hypertension Current medications are metoprolol, spironolactone, olmesartan plan ??? Continue metoprolol ??? Continue spironolactone ??? Olmesartan nonformulary ?? Hyperlipidemia (E78.5):??Continue home atorvastatin ? Atrial tachycardia (I47.19):?has a history of atrial tachycardia Continue home Toprol ?? Hypothyroidism (E03.9):??Continue levothyroxine ? Quality Measures CODE: full DIET:cardiac DVT:low risk, ambulating , hold chemoprophylaxis ?? [place] Andres [id number] ? Histories Allergies Allergies ?(Active and Proposed Allergies Only) Cleocin T? (Severity: Unknown severity, Onset: Unknown) ?Reactions: BLOODY DIARRHEA Ceftin? (Severity: Unknown severity, Onset: Unknown) ?Reactions: ? Past Medical History/Problem List Active Problems(43) Acute left-sided thoracic back pain Adenomatous polyp of colon Anxiety Aortic insufficiency Aortic regurgitation Atrial tachycardia Bilateral calf pain BPV (benign positional vertigo) Cardiac risk counseling Change in bowel movement Cough variant asthma Dental prophylaxis, adult - needed Difficulty sleeping Dizziness Elevated blood pressure reading with diagnosis of hypertension Excessive cerumen in both ear canals GERD (gastroesophageal reflux disease) Headache Hearing impairment Hearing loss, sensorineural Hx of blood clots Hx of varicose veins of lower extremity Hyperlipidemia Hypertension Hypothyroidism Impaired fasting glucose Irritable bowel syndrome characterized by constipation Lactose intolerance Left bundle branch block Migraine Mitral valve stenosis Nonspecific dizziness Obstructive sleep apnea Oral phase dysphagia BONNIE on CPAP Osteoarthritis, generalized Osteoporosis Peptic ulcer disease Peripheral venous insufficiency Primary insomnia Recurrent varicose veins of leg - h/o procedure Social problem TMJ syndrome ? Past Surgical History Varicose vein operation/sclerotherapy, left le01/2020 Colonoscopy: 01/07/17 Colonoscopy: 08/08/09 Cataract extraction, bilateral: 2007 Ligation of varicose vein: 1959 TOÑITO - Total abdominal hysterectomy Appendectomy ? Social History Alcohol Details:??Other: No alcohol since 09/14/22. Employment/School Details:??Status: Retired. Exercise Details:??Other: limited time due to caregiving. ??Regular exercise: No. Home/Environment Details:??Living situation: Home/Independent. Nutrition/Health Details:??Diet: Regular. Sexual Details:??Sexually involved in last 6 months: No. Substance Abuse Details:??Use: Never. Tobacco Details:??Total pack years: 35. ??Started at age: 14 Years. ??Stopped at age: 49 Years. ? Family History Mother??(): Heart attack Brother??(maternal half-brother): Coronary artery disease Mat. Grandfather??(): Heart attack ? Medications Home Medications Atorvastatin (atorvastatin 20 mg oral tablet)?1?tab(s)?20?Milligram?By Mouth?Daily Escitalopram (escitalopram 5 mg oral tablet)?1?tab(s)?5?Milligram?By Mouth?Daily Famotidine (famotidine 20 mg oral tablet)?20?Milligram?1?tablet?By Mouth?Daily Fluticasone Nasal (fluticasone 50 mcg/inh nasal spray)?1?spray(s)?50?Microgram?Nares, Both?2 times a day Levothyroxine (levothyroxine 0.05 mg oral tablet)?0.5?tab(s)?25?Microgram?By Mouth?Daily Miscellaneous Rx (METOPROLOL TARTRATE 25MG TABS)?TAKE TWO TABLETS BY MOUTH TWICE A DAY Olmesartan (olmesartan 20 mg oral tablet)?1?tab(s)?20?Milligram?By Mouth?Daily Spironolactone (spironolactone 25 mg oral tablet)?12.5?Milligram?0.5?tablet?By Mouth?Daily ? Results Recent Labs BLOOD COUNT & DIFF WBC 7.4 k/mm3 ()?? 04/04/2024 22:31 RBC 3.87 m/mm3 (Low)?? 04/04/2024 22:31 Hgb 11.9 Gm/dL ()?? 04/04/2024 22:31 Hct 36.1 % ()?? 04/04/2024 22:31 MCV 93.3 femtoliters ()?? 04/04/2024 22:31 MCH 30.7 pg ()?? 04/04/2024 22:31 MCHC 33.0 g/dL ()?? 04/04/2024 22:31 Platelet Count 217 k/mm3 ()?? 04/04/2024 22:31 RDW-SD 43.9 femtoliters ()?? 04/04/2024 22:31 MPV 9.6 femtoliters ()?? 04/04/2024 22:31 Nucleated RBC (Automated) 0.0 #/100 WBC'S ()?? 04/04/2024 22:31 Abs. NRBC 0.0 k/mm3 ()?? 04/04/2024 22:31 Abs. Neut 3.6 k/mm3 ()?? 04/04/2024 22:31 Abs. Lymph 2.8 k/mm3 ()?? 04/04/2024 22:31 Abs. Ware 0.9 k/mm3 ()?? 04/04/2024 22:31 Abs. Eo 0.1 k/mm3 ()?? 04/04/2024 22:31 Abs. Baso 0.0 k/mm3 ()?? 04/04/2024 22:31 Neut % 48.1 % ()?? 04/04/2024 22:31 Lymph % 37.8 % ()?? 04/04/2024 22:31 Ware % 11.6 % (High)?? 04/04/2024 22:31 Eos % 1.7 % ()?? 04/04/2024 22:31 Baso % 0.4 % ()?? 04/04/2024 22:31 Imm Gran 0.4 % ()?? 04/04/2024 22:31 Abs. Imm Gran 0.0 k/mm3 ()?? 04/04/2024 22:31 ?? CARDIAC High Sensitivity Troponin (HSTnT) 8 ng/L ()?? 04/05/2024 04:10 ?? CHEM GENERAL Sodium 133 mmol/L ()?? 04/04/2024 22:31 Potassium 4.4 mmol/L ()?? 04/04/2024 22:31 Chloride 99 mmol/L ()?? 04/04/2024 22:31 Bicarbonate Level 22 mmol/L ()?? 04/04/2024 22:31 Anion Gap 12 ()?? 04/04/2024 22:31 Glucose Level 103 mg/dL (High)?? 04/04/2024 22:31 BUN 15 mg/dL ()?? 04/04/2024 22:31 Creatinine-Blood 0.75 mg/dL ()?? 04/04/2024 22:31 Estimated GFR Creatinine 76 ML/MIN/1.73 M2 ()?? 04/04/2024 22:31 Calcium 8.7 mg/dL ()?? 04/04/2024 22:31 Protein, Total 6.2 Gm/dL ()?? 04/04/2024 22:31 Albumin 3.9 Gm/dL ()?? 04/04/2024 22:31 AG Ratio 1.7 ()?? 04/04/2024 22:31 Alkaline Phosphatase 119 units/L (High)?? 04/04/2024 22:31 AST (SGOT) 18 units/L ()?? 04/04/2024 22:31 ALT (SGPT) 16 units/L ()?? 04/04/2024 22:31 Bilirubin, Total 0.2 mg/dL ()?? 04/04/2024 22:31 ?? MISC. CHEMISTRY Hold Gel Top SPECIMEN DISCARDED AFTER 1 WEEK ()?? 04/05/2024 04:10 ?? URINE OTHER Est Creatinine Clearance 40.60 mL/min ()?? 04/04/2024 23:21 ? EKG study * Event Display: ECG 12-Lead Authored Date: Please click on pdf link to open report * Event Display: ECG 12-Lead Authored Date: Ventricular Rate: 54 BPM Atrial Rate: 54 BPM P-R Interval: 204 ms QRS Duration: 138 ms Q-T Interval: 512 ms QTC Calculation(Bazett): 485 ms P O[place]phant: 78 degrees R Olyphant: -53 degrees T [place]phant: 78 degrees Sinus bradycardia Left axis deviation Left bundle branch block Abnormal ECG When compared with ECG of 07-JAN-2023 15:32, Left bundle branch block is now Present Confirmed by RAMIN RAYO MD ([id number]) on 04/05/2024 8:09:09 AM [place]: RAMIN RAYO MD US Heart * Event Display: Echocardiogram - Complete Authored Date: [id number] Transthoracic Echocardiography Report (TTE) Patient Demographics Patient Name TREASURE REED Date of Study 04/05/2024 Corporate Gender Female Facility Race Ethnicity Date of 1935 Height: 62.2 inches Age 88 year(s) Weight: 160.94 pounds Accession Number [id number] BSA: 1.75 m2 Room Number [id number] BMI: 29.24 kg/m2 Referring Physician Mckenna Murdock MD Interpreting Ramin Rayo MD Physician Supervisor Stage Carpentry Edwar HERNANDEZ Jackie Indications Chest pain. Clinical History LBBB HTN HLD BONNIE aortic insuffiencey Study Data Type of Study TTE procedure:Echo Complete-(Doppler, Colorflow) with Contrast. Procedure Information:Definity was administered by Installer Molding [employer] Trim . Study Date04/05/2024 Start Time: 07:50 AM Study Location: [facility] Adult Echo Study Status: Bedside Patient Status: Routine Technical Quality: Good Blood Pressure:141/48 mmHg EKG: Normal sinus rhythm HR: 57 bpm Contrast Medium: Definity. Amount - 2 ml 2D Measurements LV Diastolic Dimension: 4.5 cm LV Systolic Dimension: 3 cm LV Septum Diastolic: 1.2 cm LV PW Diastolic: 1.1 cm AO Root Dimension: 3 cm LA Dimension: 4.1 cm LA ESV (BP):46.5 ml LVOT Stroke Volume: 49.98 ml LA ESV Index: 27 ml/m2 Stroke Volume Index28.56 ml/m2 LVOT: 1.5 cm Cardiac Index:1.63 l/min/m2 Ascending Aorta:3.1 cm Doppler Measurements AV Peak Velocity: 144 cm/s MV Peak E-Wave: 74.9 cm/s AV Peak Gradient: 8.29 mmHg MV Peak A-Wave: 83.1 cm/s AV Mean Gradient: 5 mmHg MV E/A Ratio: 0.9 AV VTI:40.9 cm MV P1/2t: 77 msec LVOT Peak Velocity: 101 cm/s LVOT VTI28.3 cm MV Deceleration Time: 262 msec AV Area (Continuity):1.22 cm2 MV Area (PHT): 2.86 cm2 AV P1/2t: 617 msec TR Velocity:195 cm/s TR Gradient:15.21 mmHg Estimated RAP:5 mmHg Estimated RVSP: 20.2 mmHg E' Septal Velocity: 6.42 cm/s E' Lateral Velocity: 5.33 cm/s E/Med E':11.28660 E/Lat E':14.08137 Cardiac Anatomy Left Ventricle/Interventricular Septum The left ventricular size is normal. The left ventricular wall thickness is mildly increased. The LV systolic function is normal. The left ventricular ejection fraction is 55-60%. There is abnormal septal motion consistent with LBBB. There is no doppler evidence of increased filling pressures. Left Atrium/Interatrial Septum The left atrium is mildly dilated. Aortic Valve The aortic valve is probably trileaflet. The aortic valve appears mildly calcified. There is no aortic stenosis. There is mild aortic regurgitation. Mitral Valve There is mild mitral annular calcification. There is trace mitral regurgitation. Aorta The ascending aorta and aortic root are normal in size. Right Ventricle The right ventricle is normal in size and function. Right Atrium The right atrium is normal in size. Pulmonic Valve The pulmonic valve is poorly visualized. There is trace pulmonic regurgitation. Tricuspid Valve The tricuspid valve is grossly normal. There is trace tricuspid valve regurgitation. Pumonary Artery An accurate pulmonary artery pressure could not be obtained. Venous Structures The inferior vena cava appears grossly normal. Pericardium/Extracardiac There is no significant pericardial effusion. Summary 1) The LV systolic function is normal. The left ventricular ejection fraction is 55-60%. There is abnormal septal motion consistent with LBBB. 2) The left ventricular wall thickness is mildly increased. 3) The right ventricle is normal in size and function. 4) The aortic valve is probably trileaflet. The aortic valve appears mildly calcified. There is no aortic stenosis. There is mild aortic regurgitation. 5) The left atrium is mildly dilated. Comparison Comparison is made to the report of the study of September 13, 2020. There is no significant change. Signature * Event Display: Echocardiogram - Complete Authored Date: Hospital Progress note * Yumiko Gaston RN: PERFORM, SIGN, VERIFY Event Display: Progress Note Hospital Authored Date: Patient: TREASURE REED Age: 88 years Sex: Female : 1935 Associated Diagnoses: None Author: Yumiko Gaston RN Findings Problem Related to Alteration in Cardiac Function (new) : Alteration in Cardiac Function/new 04/05/2024 10:00 EDT Alteration in Cardiac Status Related to Other: ACS rule out Goals & Outcomes, Cardiac Status Pt will resume/maintain adequate cardiac output Cardiac Interventions Implemented Assess/monitor cardiac status BH Goals/Interventions, Cardiac Yes Cardiac, Problem Start 04/04/2024 10:17 Reviewed Plan with, Cardiac Status Patient Patient Progression, Cardiac Status Patient progressing according to plan . Evaluation Pt alert and oriented. NSR to sinus myles with LBBB on tele. RA. Independently ambulating. Awaitingresults on ECHO. Pt denies any chest pain. Call mahoney and personal belongings within reach.. Note * Yumiko Gaston RN: PERFORM Event Display: Discharge/Transfer Note Hospital Authored Date: [id number] Nursing Discharge Note Entered On: 04/05/2024 12:34 EDT Performed On: 04/05/2024 12:10 EDT by Yumiko Gaston RN Nursing Discharge Note 2 Discharge Time : 04/05/2024 12:10 EDT Discharge Level of Care at Discharge : Home/[facility] Patient Left Unit Via : Wheelchair Patient Accompanied Off Unit with : Responsible adult DC Instructions Provided & Signed by Pt : Yes Patient Understands D/C Instructions : Yes Patient Instructions Discharge Signed : Yes Did Pt have Specialty Bed or Wound Vac : No Yumiko Gaston RN - 04/05/2024 12:34 EDT * Adry WEBER, [place]: PERFORM Event Display: Discharge/Transfer Note Hospital Authored Date: [id number] Patient: ??TREASURE REED ? Age:??88 Years?Sex:??Female?:??1935?? Patient Information Discharge Location: B Primary Care Physician: Nick Alvarado NP Admit Date/Time: 04/04/24 21:35 Discharge Disposition Discharge Disposition: Home: No Services Discharge Diagnosis Chest pain (R07.9) Left bundle branch block (I44.7) Hypertension (I10) Atrial tachycardia (I47.19) Hyperlipidemia (E78.5) Hypothyroidism (E03.9) _ Discharge Medications Atorvastatin (atorvastatin 20 mg oral tablet)?1?tab(s)?20?Milligram?By Mouth?Daily Escitalopram (escitalopram 5 mg oral tablet)?1?tab(s)?5?Milligram?By Mouth?Daily Famotidine (famotidine 20 mg oral tablet)?20?Milligram?1?tablet?By Mouth?Daily Fluticasone Nasal (fluticasone 50 mcg/inh nasal spray)?1?spray(s)?50?Microgram?Nares, Both?2 times a day Levothyroxine (levothyroxine 0.05 mg oral tablet)?0.5?tab(s)?25?Microgram?By Mouth?Daily Metoprolol (metoprolol 50 mg oral tablet)?50?Milligram?By Mouth?2 times a day Miscellaneous Rx (METOPROLOL TARTRATE 25MG TABS)?TAKE TWO TABLETS BY MOUTH TWICE A DAY Olmesartan (olmesartan 20 mg oral tablet)?1?tab(s)?20?Milligram?By Mouth?Daily Spironolactone (spironolactone 25 mg oral tablet)?12.5?Milligram?0.5?tablet?By Mouth?Daily ? Allergies Allergies ?(Active and Proposed Allergies Only) Cleocin T? (Severity: Unknown severity, Onset: Unknown) ?Reactions: BLOODY DIARRHEA Ceftin? (Severity: Unknown severity, Onset: Unknown) ?Reactions: ? PCP Follow-Up/Heads-Up Please f/u for chest pain, resolved - needs cardiology follow up with Dr. Lima Objective Assessment and Plan This is an 88-year-old female with past medical history of hypertension, hyperlipidemia, BONNIE, labile hypertension, SVT/atrial tachycardia, mild AR coming in today with episodes of chest pain.?? Resolved??on presentation to ED, EKG with left bundle branch block, troponin??not elevated x 2. ?? Chest pain (R07.9):?? Left bundle branch block (I44.7):?? Coming in with intermittent??sharp/burning chest pain on the left side of the chest. ??Sometimes radiating to her arm. No association with exertion, comes and goes randomly.?? EMS gave nitro and chest pain resolved.?? No chest pain since being in the ED, troponins flat EKG nonischemic however does show a left bundle branch block.?? Looking following her prior EKGs inour system there was no left bundle branch block seen however??per cardiology notes she does have ahistory of left bundle branch block ?? Plan ?No need to further trend troponin unless recurrent symptoms 1) The LV systolic function is normal. The left ventricular ejection ??fraction is 55-60%. There is abnormal septal motion consistent with LBBB. ??2) The left ventricular wall thickness is mildly increased. ??3) The right ventricle is normal in size and function. ??4) The aortic valve is probably trileaflet. The aortic valve appears mildly ??calcified. There is no aortic stenosis. There is mild aortic regurgitation. ??5) The left atrium is mildly dilated. ?? She is due for 6 month follow up with Dr. Lima from cardiology, advised that she make an appointment No arrhythmias noted on telemetry PCP follow up after discharge ? Hypertension (I10):??Continue??home medications on discharge ?? Hyperlipidemia (E78.5):??Continue home atorvastatin ? Atrial tachycardia (I47.19):?has a history of atrial tachycardia Continue home Toprol ?? Hypothyroidism (E03.9):??Continue levothyroxine ? Vital Signs?? Temperature: 97 DegF (04/05/24 07:19:00) Temperature Route: Temporal (04/05/24 07:19:00) Pulse Rate: 61 bpm (04/05/24 09:04:00) Respiratory Rate: 16 br/min (04/05/24 10:15:00) Systolic Blood Pressure:??146 mm Hg??High (04/05/24 09:04:00) Diastolic Blood Pressure: 58 mm Hg (04/05/24 09:04:00) Blood pressure sites: Arm, left (04/05/24 07:19:00) Mean Arterial Pressure: 85 mm Hg (04/05/24 07:19:00) Pulse Pressure: 93 mm Hg (04/05/24 07:19:00) Oxygen Saturation: 100 % (04/05/24 07:19:00) Mode of Delivery (Oxygen): Room air (04/05/24 07:19:00) Early Warning Score: 3 (04/05/24 10:16:03) ? Mobility & Ambulation Level Mobility & Ambulation Level?? No qualifying data available. ?? Therapeutic Activity Therapeutic Activities/Mobility/Balance?? No qualifying data available. ?? . Physical Exam Constitutional: Alert, in no distress. Mental Status: Oriented to person, place and time. Head: Normocephalic. Eyes: Pupils are equal, round and reactive to light. Extraocular muscles intact. Ear, Nose and Throat: Oropharynx clear, mucous membranes moist. Ears and nose without masses, lesions or deformities. Trachea midline. Neck: Supple, Full range of motion. Respiratory: Clear to auscultation. No wheezing, rales or rhonchi. Cardiovascular: S1 S2 regular. No murmurs, rubs or gallops. Gastrointestinal: Abdomen soft, non-tender, non-distended. Normal bowel sounds. No pulsatile mass. No hepatosplenomegaly. Genitourinary: No costovertebral angle tenderness. Neurologic: Cranial nerves II-XII grossly intact. No focal neurological deficits. Flexor plantar response. Moves all extremities spontaneously. Sensation intact bilaterally. Skin: No rashes or lesions. No petechiae or purpura.?? Musculoskeletal: No cyanosis or clubbing. No gross deformities. Normal range of motion. Heme/Lymphatics/Immun: Palpation of neck reveals no swelling or tenderness of neck nodes. Palpationof groin reveals no swelling or tenderness of groin nodes. Psychiatric: Normal mood and affect Pending Results No Pending Results Follow-Up Appointments Added Follow Up ?Time Frame ?Comments Christiano VIDES, Nick?1 week: call to discuss follow up visit?hospital follow up with pcp?? Patient Instructions Your echo revealed changes consistent with left bundle branch block as we already discussed You do not need any further inpatient cardiac workup at this time Please follow up with Dr. Lima and your PCP after discharge Post Discharge Care Discharge ?04/05/24 11:10:00 EDT Discharge Prescriptions ?ePrescribed, 04/05/24 11:10:00 EDT Home Health Face to Face ^HomeHealthFTF Results Discharge Labs BLOOD COUNT & DIFF WBC 7.4 k/mm3 ()?? 04/04/2024 22:31 RBC 3.87 m/mm3 (Low)?? 04/04/2024 22:31 Hgb 11.9 Gm/dL ()?? 04/04/2024 22:31 Hct 36.1 % ()?? 04/04/2024 22:31 MCV 93.3 femtoliters ()?? 04/04/2024 22:31 MCH 30.7 pg ()?? 04/04/2024 22:31 MCHC 33.0 g/dL ()?? 04/04/2024 22:31 Platelet Count 217 k/mm3 ()?? 04/04/2024 22:31 RDW-SD 43.9 femtoliters ()?? 04/04/2024 22:31 MPV 9.6 femtoliters ()?? 04/04/2024 22:31 Nucleated RBC (Automated) 0.0 #/100 WBC'S ()?? 04/04/2024 22:31 Abs. NRBC 0.0 k/mm3 ()?? 04/04/2024 22:31 Abs. Neut 3.6 k/mm3 ()?? 04/04/2024 22:31 Abs. Lymph 2.8 k/mm3 ()?? 04/04/2024 22:31 Abs. Ware 0.9 k/mm3 ()?? 04/04/2024 22:31 Abs. Eo 0.1 k/mm3 ()?? 04/04/2024 22:31 Abs. Baso 0.0 k/mm3 ()?? 04/04/2024 22:31 Neut % 48.1 % ()?? 04/04/2024 22:31 Lymph % 37.8 % ()?? 04/04/2024 22:31 Ware % 11.6 % (High)?? 04/04/2024 22:31 Eos % 1.7 % ()?? 04/04/2024 22:31 Baso % 0.4 % ()?? 04/04/2024 22:31 Imm Gran 0.4 % ()?? 04/04/2024 22:31 Abs. Imm Gran 0.0 k/mm3 ()?? 04/04/2024 22:31 ?? CARDIAC High Sensitivity Troponin (HSTnT) 8 ng/L ()?? 04/05/2024 04:10 ? CHEM GENERAL Sodium 133 mmol/L ()?? 04/04/2024 22:31 Potassium 4.4 mmol/L ()?? 04/04/2024 22:31 Chloride 99 mmol/L ()?? 04/04/2024 22:31 Bicarbonate Level 22 mmol/L ()?? 04/04/2024 22:31 Anion Gap 12 ()?? 04/04/2024 22:31 Glucose Level 103 mg/dL (High)?? 04/04/2024 22:31 BUN 15 mg/dL ()?? 04/04/2024 22:31 Creatinine-Blood 0.75 mg/dL ()?? 04/04/2024 22:31 Estimated GFR Creatinine 76 ML/MIN/1.73 M2 ()?? 04/04/2024 22:31 Calcium 8.7 mg/dL ()?? 04/04/2024 22:31 Protein, Total 6.2 Gm/dL ()?? 04/04/2024 22:31 Albumin 3.9 Gm/dL ()?? 04/04/2024 22:31 AG Ratio 1.7 ()?? 04/04/2024 22:31 Alkaline Phosphatase 119 units/L (High)?? 04/04/2024 22:31 AST (SGOT) 18 units/L ()?? 04/04/2024 22:31 ALT (SGPT) 16 units/L ()?? 04/04/2024 22:31 Bilirubin, Total 0.2 mg/dL ()?? 04/04/2024 22:31 ? HEME OTHER Hold Lavender Top SPECIMEN DISCARDED AFTER 24 HOURS. ()?? 04/05/2024 04:10 ? MISC. CHEMISTRY Hold Gel Top SPECIMEN DISCARDED AFTER 1 WEEK ()?? 04/05/2024 04:10 ? URINE OTHER Est Creatinine Clearance 40.60 mL/min ()?? 04/04/2024 23:21 ? Blood Glucose Trend Glucose Level:??103 mg/dL??High (04/04/24 22:31:00) ? 40??minutes spent on discharge * LASHAY Ross , Gia: PERFORM Event Display: Patient Education/Instruction Authored Date: Inpatient Adult Discharge Instructions. [place] [id number] Name: TREASURE REED : 1935?? Visit: 04/04/2024 21:35?? Current Date: 04/05/2024 11:18 ?? Account: [id number]?? Inpatient Adult Discharge Instructions We would like to thank you for allowing us to assist you with your healthcare needs. The following includes patient education materials and information regarding your injury/illness. Our entire staffstrives to provide an excellent experience for our patients and their families. PLEASE ENSURE YOU FOLLOW-UP PER THE INSTRUCTIONS BELOW! ?? YOUR OPINION IS IMPORTANT TO US! Please complete the survey you may receive by mail or email. Your feedback will be used to make improvements to the healthcare experiences of our patients and their families. Surveys are administered by [employer] ?? If further treatment with your primary care physician or another doctor is recommended, it is important for you to keep the appointment. Call your primary care physician or return to the Emergency Department immediately if your condition worsens, fails to improve, or new symptoms develop. If you need to find a doctor, you can call [facility] Link for a referral at [phone] or toll free at [phone] or log in to [email or web address].. ?? [facility], in keeping with [facility] guidance, no longer requires face masks for staff, patientsor visitors in most situations. Similiar to time spent indoors at other locations, there is the chance that you were exposed to repiratory viruses during your time with us (such as flu or COVID-19). If you develop symptoms concerning for a viral respiratory infection, please seek testing (and treatment if indicated) from your medical provider or home test kit. ?? You can view and manage your care through the patient portal or by using a health care yaima of your choosing. [employer] is a website that allows you to securely view your medical information including your hospital discharge summary, office visit summaries, medications and follow-up visits. You can also request appointments, renew medications, and request access to your medical information using a health care yaima of your choosing, or just ask a question. You can enroll at [email or web address] or register during your next office visit. You have been discharged from [facility], Patient Care Unit: D3B??. If you have any questions regarding these instructions, including results of studies pending, afteryou leave, please call us and we will be happy to assist you 15/06. [facility] Your Care Team Attending Physician Gilmar Rider MD?? Consulting Providers Gilmar Rider MD?? Discharging Providers Gilmar Rider MD Reason for Your Visit Chest pain ongoing all day - comes and goes when it is present it is a 6/10. describes as a high mid axaillary burning sensation deep in the chest. nothing makes it worse, nothing makes it better. 324 asa. IV20 R ac, 1 tab nitro. immediate relief w nitro.?? Your Diagnosis Atrial tachycardia General medical Hyperlipidemia Hypertension Hypothyroidism Tests Performed Below is a partial list of the tests performed during your hospitalization. You may have had other tests and procedures not included in this list. Please discuss all test results with your provider. CBC w/ Differential Comprehensive Metabolic Panel High??Sensitivity??Troponin T HOLD GEL TUBE HOLD LAVENDER TUBE Troponin T, High Sensitivity XR Chest 2 Views Frontal and Lat No tests performed during this visit.?? Primary Care Provider Nick Alvarado NP? Advance Directive Health Care Proxy on File Yes - Health Care Proxy Yes - MOLST Discharge Vitals Temperature: 97 DegF Height: 158 cm Pulse Rate: 61 bpm Weight: 73.2 kg Respiratory Rate: 16 br/min Body Mass Index:??29.32 kg/m2??High Systolic Blood Pressure:??146 mm Hg??High Body surface area: 1.79 Diastolic Blood Pressure: 58 mm Hg ?? Oxygen Saturation: 100 % ?? Studies Pending All studies ordered during this hospital stay have been completed unless listed below. Please discuss all pending results with your provider listed above in these instructions. ?? No incomplete studies found?? What to do next Instructions From Your Doctor Your echo revealed changes consistent with left bundle branch block as we already discussed You do not need any further inpatient cardiac workup at this time Please follow up with Dr. Lima and your PCP after discharge ?? Orders? 04/05/24 11:10:00 EDT?? Prescriptions??, ??04/05/24 11:10:00 EDT?? You Need to Schedule the Following Appointments Follow Up with??Nick Alvarado NP When:??Within 1 week: call to discuss follow up visit Why: hospital follow up with pcp?? Where: [address] [place] [phone]- Discharge Medications TREASURE REED :1935 Visit Date:04/04/2024 Medications: Please continue your medications until treatment is completed or stopped by your provider. Medications not listed below should be discontinued. Discuss any questions related to medications with your provider. What How Much When Instructions Next Dose Changed Atorvastatin (atorvastatin 20 mg oral tablet) 1 tab(s) Oral Daily 04/06?? 8 am Changed Escitalopram (escitalopram 5 mg oral tablet) 1 tab(s) Oral Daily 04/06 8 am Changed Famotidine (famotidine 20 mg oral tablet) 1 tab(s) Oral Daily 04/06?? 8 am Changed Fluticasone Nasal (fluticasone 50 mcg/ inh nasal spray) 1 spray(s) Nares, Both Twice a day 04/05 8pm Changed Levothyroxine (levothyroxine 0.05 mg oral tablet) 0.5 tab(s) Oral Daily 04/06 7am Changed Metoprolol (metoprolol 50 mg oral tablet) 50 Milligram Oral Twice a day 04/05 8pm Changed Miscellaneous Rx (METOPROLOL TARTRATE 25MG TABS) TAKE TWO TABLETS BY MOUTH TWICE A DAY ?? Changed Olmesartan (olmesartan 20 mg oral tablet) 1 tab(s) Oral Daily 04/06 8am Changed Spironolactone (spironolactone 25 mg oral tablet) 0.5 tab(s) Oral Daily 04/06 8am ?? What How Much When Comments Stop Taking bifidobacterium-lactobacillus (Probiotic Formula) Oral Daily Stop Taking Cyclosporine Ophthalmic (Restasis 0.05% ophthalmic emulsion) 1 Drops Both eyes Every 12 hours Stop Taking Durable Medical Equipment (Compression Stockings) See instructions surgical, knee high 20-30 mm Hg Dx: varicose veins with pain, swelling, history of GSV ablation, sclerotherapy, bilateral ?? Stop Taking Estradiol Topical (Estrace Vaginal Cream 0.1 mg/ g) 1 gram Vaginally Every Thursday and Physician requests paraben free ?? Stop Taking Hydrocortisone Topical (hydrocortisone 1% topical cream) 1 yaima Topically Twice a day Stop Taking HydrOXYzine (hydrOXYzine hydrochloride 25 mg oral tablet) 1 tab(s) Oral Daily at Bedtime Stop Taking Ipratropium Nasal (ipratropium nasal 21 mcg/ inh spray) 1 spray(s) Nares, Both Daily at Bedtime Stop Taking Multivitamin With Minerals (ICaps AREDS 2) Stop Taking Ocular Lubricant ([place] Tears ophthalmic solution) 1 Drops Both eyes 3 times a day as needed for for dry eyes Stop Taking Polyethylene Glycol 3350 (MiraLax oral powder for reconstitution) 17 gram Oral Daily dissolve in water before taking ?? Prescription Given During Visit No new medications prescribed at time of discharge.?? Laboratory Results Below is a partial list of the most recent Laboratory test results done prior to this discharge. You may have had other tests and procedures not included in this list. Please discuss all test resultswith your provider. Est Creatinine Clearance - 40.60 mL/min (04/04/2024) CBC w/ Differential (04/04/2024) ???WBC - 7.4 k/mm3???RBC - 3.87 m/mm3???Hgb - 11.9 Gm/dL???Hct - 36.1 %???MCV - 93.3 femtoliters???MCH - 30.7 pg???MCHC - 33.0 g/dL???Platelet Count - 217 k/mm3???RDW-SD - 43.9 femtoliters???MPV - 9.6 femtoliters???Nucleated RBC (Automated) - 0.0 #/100 WBC'S???Abs. NRBC - 0.0 k/mm3???Abs. Neut - 3.6 k/mm3???Abs. Lymph - 2.8 k/mm3???Abs. Ware - 0.9 k/mm3???Abs. Eo - 0.1 k/mm3???Abs. Baso - 0.0 k/mm3???Neut % - 48.1 %???Lymph % - 37.8 %???Ware % - 11.6 %???Eos % - 1.7 %???Baso % - 0.4 %???Imm Gran - 0.4 %???Abs. Imm Gran - 0.0 k/mm3 Comprehensive Metabolic Panel (04/04/2024) ???Sodium - 133 mmol/L???Potassium - 4.4 mmol/L???Chloride - 99 mmol/L???Bicarbonate Level - 22 mmol/L???Anion Gap - 12???Glucose Level - 103 mg/dL???BUN - 15 mg/dL???Creatinine-Blood - 0.75 mg/dL???Estimated GFR Creatinine - 76 ML/MIN/1.73 M2???Calcium - 8.7 mg/dL???Protein, Total - 6.2 Gm/dL???Albumin - 3.9 Gm/dL???AG Ratio - 1.7???Alkaline Phosphatase - 119 units/L???AST (SGOT) - 18 units/L???ALT (SGPT) - 16 units/L???Bilirubin, Total - 0.2 mg/dL High??Sensitivity??Troponin T (04/05/2024) ???High Sensitivity Troponin (HSTnT) - 8 ng/L HOLD GEL TUBE (04/05/2024) ???Hold Gel Top - SPECIMEN DISCARDED AFTER 1 WEEK HOLD LAVENDER TUBE (04/05/2024) ???Hold Lavender Top - SPECIMEN DISCARDED AFTER 24 HOURS. Troponin T, High Sensitivity (04/05/2024) ???High Sensitivity Troponin (HSTnT) - 8 ng/L Allergies (NKA means No Known Allergies) Ceftin??(?) Cleocin T??(BLOODY DIARRHEA) Problems Active Problems??(45) Acute left-sided thoracic back pain?? Adenomatous polyp of colon?? Anxiety?? Aortic insufficiency?? Aortic regurgitation?? Apnea, sleep?? Atrial tachycardia?? Bilateral calf pain?? BPV (benign positional vertigo)?? Cardiac risk counseling?? Change in bowel movement?? Cough variant asthma?? Dental prophylaxis, adult - needed?? Difficulty sleeping?? Dizziness?? Elevated blood pressure reading with diagnosis of hypertension?? Excessive cerumen in both ear canals?? GERD (gastroesophageal reflux disease)?? Headache?? Hearing impairment?? Hearing loss, sensorineural?? Hx of blood clots?? Hx of varicose veins of lower extremity?? Hyperlipidemia?? Hypertension?? Hypothyroidism?? Impaired fasting glucose?? Irritable bowel syndrome characterized by constipation?? Lactose intolerance?? Left bundle branch block?? Migraine?? Mitral valve stenosis?? Nonspecific dizziness?? Obstructive sleep apnea?? Oral phase dysphagia?? BONNIE on CPAP?? Osteoarthritis, generalized?? Osteoporosis?? Peptic ulcer disease?? Peripheral venous insufficiency?? Primary insomnia?? Recurrent varicose veins of leg - h/o procedure?? Social history?? Social problem?? TMJ syndrome?? Education Materials Below is the list of Educational Leaflet Providered with your Discharge Instructions. [employer] Patient Education - Uncertain Causes of Chest Pain?? Valuables and Belongings I fully understand and agree that [facility] accepts no responsibility for all my personal property including clothing, toilet articles, radios, jewelry, dentures, hearing aids, rings, money, or any other property that is in my possession or is brought to me after admission. I understand certain valuables may be placed in a hospital safe for a short period of time. I understand that the hospital is not liable for loss or damage due to accident, fire, or other natural occurrence while said property is in the safe. I accept full responsibility for any personal property that I keep with me, and will not hold the hospital responsible in case of loss or disappearance. I acknowledge that i have been encouraged to send valuables and belongings home. ?? Review of Valuable and Belonging List: With patient Date for Pt to Sign Valuables/Belongings: 04/05/24 02:09:00 ?? Other Discharge Information ? Pulmonary Rehab Status?? Pulmonary Rehab Discharge Status?? Respiratory Rate: 16 br/min ? Common Emergency Awareness Tips IS IT A STROKE? Act FAST and Check for these signs: FACE Does the face look uneven? ARM Does one arm drift down? SPEECH Does their speech sound strange? TIME Call at any sign of stroke ?? Heart Attack Signs Chest discomfort: Most heart attacks involve discomfort in the center of the chest and lasts more than a few minutes, or goes away and comes back. It can feel like uncomfortable pressure, squeezing, fullness or pain. Discomfort in upper body: Symptoms can include pain or discomfort in one or both arms, back, neck, jaw or stomach. Shortness of breath: With or without discomfort. Other signs: Breaking out in a cold sweat, nausea, or lightheaded. Remember, MINUTES DO MATTER. If you experience any of these heart attack warning signs, call to get immediate medical attention! ?? Smoking can increase your chances of developing chronic health problems and can cause harmful effects to other family members in your house. If you smoke, you are strongly encouraged to quit. Please call [facility] at [phone] or [phone] ([phone]) or log in to [email or web address] for referrals to smoking cessation programs. ?? 357 Suicide & Crisis Lifeline is available 15/06 if you or someone you know needs to find a reason to keep living. By calling 766 you'll be connected to a skilled, trained counselor at a crisis center in your area. INPATIENT DISCHARGE INSTRUCTIONS SIGNATURE PAGE TREASURE REED Location:[facility] Registration Date and Time:04/04/2024 21:35 EDT Primary Care Physician: Nick Alvarado NP, Attending Physician: Gilmar Rider MD, I TREASURE REED, have received the above patient education materials/instructions and have verbalized understanding. If ambulance or transport services are being used I further acknowledge being given a choice of service. ?? If you need to contact me, please call me at this number: . Patient/Property Appraiser Name: Patient/Property Appraiser Signature: Relationship to Patient: Witness Name/Signature: Date: * LASHAY Ross Sara: PERFORM Event Display: Patient Education Leaflets Authored Date: [id number] Uncertain Causes of Chest Pain ?? [id number] Uncertain Causes of Chest Pain Chest pain can happen for a number of reasons. Sometimes the cause can't be determined. If your??condition does not seem serious, and your pain does not appear to be coming from your heart, your healthcare provider may recommend watching it closely. Sometimes the signs of a serious problem take more time to appear. Many problems not related to your heart can cause chest pain. These include: ??? Musculoskeletal. Costochondritis is an inflammation of the tissues around the ribs that can occur from trauma or overuse injuries, or a strain of the muscles of the chest wall. ??? Respiratory. Pneumonia, collapsed lung (pneumothorax), or inflammation of the lining of the chest and lungs (pleurisy). ??? Gastrointestinal. Esophageal reflux, heartburn, ulcers, or gallbladder disease. ??? Anxiety and panic disorders ??? Nerve compression and inflammation ??? Rare problems such as aortic aneurysm or aortic dissection (a swelling of the large artery coming out of the heart or a tear in the wall of the artery), or pulmonary embolism (a blood clot in the lungs). Home care After your visit, follow these recommendations: ??? Rest today and avoid strenuous activity. ??? Take any prescribed medicine as directed. ??? Be aware of any recurrent chest pain and notice any changes ?? Follow-up care Follow up with your healthcare provider if you don't start to feel better within 24 hours, or as advised. ?? Call 911 Call 911 if any of these occur: ??? A change in the type of pain: if it feels different, becomes more severe, lasts longer, or begins to spread into your shoulder, arm, neck, jaw or back ??? Shortness of breath or increased pain with breathing ??? Weakness, dizziness, or fainting ??? Rapid heartbeat ??? Crushing sensation in your chest ??? Coughing up more than a small amount of blood. ?? When to seek medical advice Call your healthcare provider right away if any of the following occur: ??? Cough with dark coloredsputum (phlegm) or small amount of blood ??? Fever of 100.4??F??(38??C) or higher, or as directed by your healthcare provider ??? Swelling, pain or redness in one leg ?? Last Reviewed Date: 2021 ?? The [employer]. All rights reserved. This information is not intended as a substitute for professional medical care. Always follow your healthcare professional's instructions. ?? Patient Care team information Care Team Personnel Name: Pam Floyd RN Position: [facility] RN Member Role: Primary Care Nurse Name: Nick Alvarado NP Position: [facility] PCO Associate Professional Member Role: PCP Address: Address: [address] [place] [id number] Name: Carrol Ta RN Position: [facility] SN RN Member Role: Primary Care Nurse Name: Crystal Ceron RN Position: [facility] RN Member Role: Primary Care Nurse Care Team Related Persons Name: RADHA MONTOYA Address: [place], [place] Name: BRANDIE MONTOYA Address: [place] [address] Name: TREASURE MONTOYA Address: home [address] [place] [id number] Name: JAI REED Address: home [address] [place] [id number]
--- OUTSIDE RECORDS SUMMARY | 2024-07-27 11:52 | XMS_ITS | Continuity of Care Document ---
Author Organization [facility] Address [address] [place] [address]- Care Team Providers Care Retail Sales Associate Seasonal Name Role Phone Sam WEBER, Zara Jensen Primary Care Physician [phone] Encounter [facility] [place] Date(s): 08/27/21 - 09/26/21 [facility] [address] [place] [address]- Allergies, Adverse Reactions, Alerts Substance Reaction Severity [...] diphtheria-tetanus toxoids (DT) 02/22/00 Given 1Result Comment: [id number] 2Result Comment: sarabjit SANDHU [facility] primary care 3Result Comment: Unit: Unknown Carpet Installer: Mr. Number 4Result Comment: Unit: Unknown Carpet Installer: Pfizer Injectables Medications Aspirin = 81 mg, [...] EDT, [id number], Apply Clenpiq Coupon: RxBIN [id number]; RxPCN: [id number]; RxGrp: [id number]; RxID: [id number]... Start Date: 08/30/21 Status: Ordered Estrace Vaginal Cream 0.1 mg/g = 1 Gm, Vaginally, Daily at bedtime, until symptoms improve monitor for first 2 weeks and if no difference, stop medication and call office, # 30 Gm, 0 Refills, Maintenance, 07/24/21 12:46:00 EDT, [facility], Partial fill upon p... Start Date: 07/24/21 Status: Ordered metoprolol 25 mg oral tablet 25 mg, 1, tablet, By Mouth, 2 times a day, Dose is now 25mg BID, # 180 tablet, Refills 3, Tot. Refills 3, Maintenance, 12/05/20 14:30:00 EST, Route to Pharmacy Electronically, [facility] #[id number], Partial fill upon patient request [...] 113.4 Gm, 3 Refills, Maintenance, [id number], 30, USE DIRECTED, 158, cm, 05/09/21 14:04:00 [...]
--- OUTSIDE RECORDS SUMMARY | 2024-07-27 11:52 | XMS_ITS | Continuity of Care Document ---
Author Organization [facility] Address [address] [place] [address]- Care Team Providers Care Wood Preserving Plant Laborer Name Role Phone Christiano VIDES, Nick Primary Care Physician [phone] Encounter [facility] [place] Date(s): 05/26/23 - 07/01/23 [facility] [address] [place] [address]- Attending Physician: Dionicio Gates MD Admitting Physician: Dionicio Gates MD Referring Physician: Dionicio Gates MD Allergies, Adverse Reactions, Alerts Substance Reaction Severity Status Ceftin ? Active Cleocin T BLOODY DIARRHEA Active Immunizations Given and Recorded Vaccine Date Status Refusal Reason influenza virus vaccine, inactivated 09/12/22 Michael rded influenza virus vaccine, inactivated 08/08/21 Michael rded influenza virus vaccine, inactivated 1 11/21/20 Gi cris influenza virus vaccine, inactivated 2 08/22/20 Re corded [id number] 12y+ bivalent booster vax 08/31/22 Recorded SARS-CoV-2 mRNA ([id number]-zmxb-pxhzt) vax 03/16/22 Recorded SARS-CoV-2 (COVID-19) mRNA BNT-162b2 [...] diphtheria-tetanus toxoids (DT) 02/22/00 Given 1Result Comment: [id number] 2Result Comment: sarabjit SANDHU [facility] primary care 3Result Comment: Unit: Unknown Sports Centre Manager: Chrysallis 4Result Comment: Unit: Unknown Sports Centre Manager: M2G Injectables Medications atorvastatin 20 mg oral tablet [...] Refills, Maintenance, 04/28/23 21:41:00 EDT, [facility], 158, cm, 04/15/23 15:03:00 EDT, [...] 03/03/23 15:46:00 EDT, Route to Pharmacy Electronically, [facility], Partial fill upon patient request if the prescript... Start Date: 03/03/23 Status: Ordered hydrOXYzine hydrochloride 25 mg oral tablet 1 tablet, By Mouth, Daily at bedtime, # 30 tablet, 0 Refills, Maintenance, 04/07/23 7:44:00 EDT, [facility], 158, cm, 04/02/23 [...] tablet, 1 Refills, Maintenance, 05/29/23 15:49:00 EDT, [facility], 158, cm, 05/06/23 11:17:00 EDT, Height, 70, kg, 04/02/23 19:36:00 EDT, Dry Weight Start Date: 05/29/23 Status: Ordered Metoprolol Tartrate 25 mg oral tablet 2 tablet = 50 mg, By Mouth, 2 times a day, # 360 tablet, 3 Refills, Maintenance, 12/16/22 13:42:00 EST, [facility], 158, cm, 12/11/22 15:03:00 EST, [...] opioid drug. Start Date: 05/09/21 Status: Ordered [place] Tears ophthalmic solution 1 drops, Eyes, Both, 2 times a day, PRN for dry eyes, # 30 each, 0 Refills, Maintenance, 09/15/22 1:54:00 EDT, Solution, Partial fill upon patient request if the prescription is for a schedule II opioid drug. Start Date: 09/15/22 Status: Ordered [place] Tears ophthalmic solution 1 drops, Eyes, Both, 3 times a day, PRN for dry eyes, Maintenance, 09/15/22 10:43:00 EDT, Solution,Partial fill upon patient request if the prescription is for a schedule II opioid drug. Start Date: 09/15/22 Status: Ordered olmesartan 20 mg oral tablet 1 tablet, By Mouth, Daily, # 90 tablet, 3 Refills, Maintenance, 12/22/22 11:40:00 EST, [facility], 158, cm, 12/18/22 10:17:00 EST, [...] EDT, Route to Pharmacy Electronically, [facility], Partial fill upon patient request [...] Confirmed Active Obstructive sleep apnea Confirmed Active OBNNIE on CPAP Confirmed Active Oral phase dysphagia [...] Team Personnel Name: Nick Alvarado NP Position: [facility] PCO Associate Professional Member Role: PCP Address: Address: [address] [place] [id number] Name: Elvia METZ, Trinh Position: S RN Member Role: Primary Care Nurse Name: Carrol Ta RN Position: [facility] RN Member Role: Primary Care Nurse Name: Crystal Ceron RN Position: S RN Member Role: Primary Care Nurse Care Team Related Persons Name: RADHA MONTOYA Address: [place], [place] Name: BRANDIE MONTOYA Address: [place] [address] Name: TREASURE MONTOYA Address: home [address] [place] [id number] Name: JAI REED Address: home [address] [place] [address]
--- OUTSIDE RECORDS SUMMARY | 2024-07-27 11:52 | XMS_ITS | Continuity of Care Document ---
Author Organization [facility] Address [address] [place] [address]- Care Team Providers Care Podiatrist Orthopedic Name Role Phone Christiano VIDES, Nick Primary Care Physician Encounter [facility] Date(s): 06/25/23 - 07/25/23 [facility] [address] [place], [place] [address] Attending Physician: Silas Duncan Admitting Physician: [...] virus vaccine, inactivated 2 08/22/20 Re corded [id number] 12y+ bivalent booster vax 08/31/22 Recorded SARS-CoV-2 mRNA (hicelqd-njgw-sexzt) vax 03/16/22 Recorded SARS-CoV-2 (COVID-19) mRNA BNT-162b2 [...] diphtheria-tetanus toxoids (DT) 02/22/00 Given 1Result Comment: [id number] 2Result Comment: sarabjit SANDHU [facility] primary care 3Result Comment: Unit: Unknown Candy Department Manager: Athe[employer]Nova 4Result Comment: Unit: Unknown Candy Department Manager: SafeTacMag Injectables Medications atorvastatin 20 mg oral tablet [...] 03/03/23 15:46:00 EDT, Route to Pharmacy Electronically, [facility], Partial fill upon patient request if the prescript... Start Date: 03/03/23 Status: Ordered hydrOXYzine hydrochloride 25 mg oral tablet 1 tablet, By Mouth, Daily at bedtime, # 30 tablet, 0 Refills, Maintenance, 07/21/23 11:20:00 EDT, [facility], 158, cm, 05/06/23 11:17:00 [...] tablet, 1 Refills, Maintenance, 05/29/23 15:49:00 EDT, [facility], 158, cm, 05/06/23 11:17:00 EDT, Height, 70, kg, 04/02/23 19:36:00 EDT, Dry Weight Start Date: 05/29/23 Status: Ordered Metoprolol Tartrate 25 mg oral tablet 2 tablet = 50 mg, By Mouth, 2 times a day, # 360 tablet, 3 Refills, Maintenance, 12/16/22 13:42:00 EST, [facility], 158, cm, 12/11/22 15:03:00 [...] opioid drug. Start Date: 05/09/21 Status: Ordered [place] Tears ophthalmic solution 1 drops, Eyes, Both, 2 times a day, PRN for dry eyes, # 30 each, 0 Refills, Maintenance, 09/15/22 1:54:00 EDT, Solution, Partial fill upon patient request if the prescription is for a schedule II opioid drug. Start Date: 09/15/22 Status: Ordered [place] Tears ophthalmic solution 1 drops, Eyes, Both, [...] Team Personnel Name: Nick Alvarado NP Position: [facility] PCO Associate Professional Member Role: PCP Address: Address: [address] [place] [address]- Name: Elvia METZ, Trinh Position: [facility] RN Member Role: Primary Care Nurse Name: Carrol Ta RN Position: [facility] RN Member Role: Primary Care Nurse Name: Crystal Ceron RN Position: [facility] RN Member Role: Primary Care Nurse Care Team Related Persons Name: RADHA MONTOYA Address: [place], [place] Name: BRANDIE MONTOYA Address: [place] [address] Name: TREASURE MONTOYA Address: home [address] [place] [address] Name: JAI REED Address: home [address] [place] [address]
--- OUTSIDE RECORDS SUMMARY | 2024-07-27 11:52 | XMS_ITS | Continuity of Care Document ---
Author Organization [facility] Address [address] [place] [address]- Care Team Providers Care Clock And Watch Hands Painter Name Role Phone Christiano VIDES, Nick Primary Care Physician Encounter [facility] Date(s): 08/11/23 - 09/10/23 [facility] [address] [place] [address]- Allergies, Adverse Reactions, Alerts Substance Reaction Severity Status Ceftin ? Active Cleocin T BLOODY DIARRHEA Active Immunizations Given and Recorded Vaccine Date Status Refusal Reason influenza virus vaccine, inactivated 09/12/22 Michael rded influenza virus vaccine, inactivated 08/08/21 Michael rded influenza virus vaccine, inactivated 1 11/21/20 Gi cris influenza virus vaccine, inactivated 2 08/22/20 Re corded [id number] 12y+ bivalent booster vax 08/31/22 Recorded SARS-CoV-2 mRNA (btjskfa-kaoo-otuog) vax 03/16/22 Recorded SARS-CoV-2 (COVID-19) mRNA BNT-162b2 [...] diphtheria-tetanus toxoids (DT) 02/22/00 Given 1Result Comment: [id number] 2Result Comment: sarabjit SANDHU [facility] primary care 3Result Comment: Unit: Unknown Radio Frequency Technician: GlaxoSmithKline 4Result Comment: Unit: Unknown Radio Frequency Technician: Pfizer Injectables Medications atorvastatin 20 mg oral [...] Refills, Maintenance, 07/28/23 13:44:00 EDT, [facility], 158, cm, 05/06/23 11:17:00 EDT, [...] Refills, Maintenance, 07/21/23 11:20:00 EDT, [facility], 158, cm, 05/06/23 11:17:00 EDT, [...] 1 Refills, Maintenance, 08/27/23 21:17:00 EDT, [facility], 158, cm, 05/06/23 11:17:00 EDT, [...] opioid drug. Start Date: 05/09/21 Status: Ordered [place] Tears ophthalmic solution 1 drops, Eyes, Both, 2 times a day, PRN for dry eyes, # 30 each, 0 Refills, Maintenance, 09/15/22 1:54:00 EDT, Solution, Partial fill upon patient request if the prescription is for a schedule II opioid drug. Start Date: 09/15/22 Status: Ordered [place] Tears ophthalmic solution 1 drops, Eyes, Both, 3 times a day, PRN for dry eyes, Maintenance, 09/15/22 10:43:00 EDT, Solution,Partial fill upon patient request if the prescription is for a schedule II opioid drug. Start Date: 09/15/22 Status: Ordered olmesartan 20 mg oral tablet 1 tablet, By Mouth, Daily, # 90 tablet, 3 Refills, Maintenance, 12/22/22 11:40:00 EST, [facility], 158, cm, 12/18/22 10:17:00 EST, [...] EDT, Route to Pharmacy Electronically, [facility], Partial fill upon patient request [...] Team Personnel Name: Nick Alvarado NP Position: [facility] PCO Associate Professional Member Role: PCP Address: Address: [address] [place] [id number] Name: Elvia METZ, Trinh Position: [facility] RN Member Role: Primary Care Nurse Name: Carrol Ta RN Position: [facility] RN Member Role: Primary Care Nurse Name: Crystal Ceron RN Position: [facility] RN Member Role: Primary Care Nurse Care Team Related Persons Name: RADHA MONTOYA Address: [place], [place] Name: BRANDIE MONTOYA Address: [place] [address] Name: TREASURE MONTOYA Address: home [address] [place] [address] Name: JAI REED Address: home [address] [place] [address]
--- OUTSIDE RECORDS SUMMARY | 2024-07-27 11:52 | XMS_ITS | Continuity of Care Document ---
Author Organization [facility] [address] [place] [address]- Care Team Providers Care Tagman Name Role Phone Sam WEBER, Zara Jensen Primary Care Physician [place] [facility] [place] 11/05/20 - 12/05/[address] [address]- Allergies, Adverse Reactions, Alerts Substance Reaction Severity [...] diphtheria-tetanus toxoids (DT) 02/22/00 Given 1Result Comment: [id number] 2Result Comment: sarabjit SANDHU [facility] primary care 3Result Comment: Unit: Unknown Cbx Operator: Veebeam 4Result Comment: Unit: Unknown Cbx Operator: Pfizer Injectables Medications Aspirin = 81 mg, By Mouth, Daily before lunch, 0 Refills, Maintenance, 01/09/11 5:04:09 EST Start Date: 01/09/11 Status: Ordered atorvastatin 20 mg oral tablet 1 tablet = 20 mg, By Mouth, Daily at bedtime, # 30 tablet, 6 Refills, Maintenance, 06/05/20 15:31:00 EDT, Tablet, [facility]/pharmacy #1095, 158, cm, 06/05/20 14:54:00 EDT, Height, [...] 12/05/20 14:30:00 EST, Route to Pharmacy Electronically, [facility]/pharmacy #1095, Partial fill upon patient request if the prescription i... Start Date: 12/05/20 Stop Date: 11/30/21 Status: Ordered olmesartan 20 mg oral tablet 1 tablet = 20 mg, By Mouth, Daily, Dosage has been reduced to 20mg / day, # 30 tablet, 5 Refills, Maintenance, 09/19/20 14:11:00 EDT, Tablet, [facility]/pharmacy #1095, 158, cm, 09/18/20 15:50:00 EDT, Height, [...]
--- OUTSIDE RECORDS SUMMARY | 2024-07-27 11:52 | XMS_ITS | Continuity of Care Document ---
Author Organization [facility] Address [address] [place] [address]- Care Team Providers Care Tin Stacker Name Role Phone Christiano VIDES, Nick Primary Care Physician [phone] Encounter [facility] [place] Date(s): 03/12/23 - 04/11/23 [facility] [address] [place] [address]- Allergies, Adverse Reactions, Alerts Substance Reaction Severity Status Ceftin ? Active Cleocin T BLOODY DIARRHEA Active Immunizations Given and Recorded Vaccine Date Status Refusal Reason influenza virus vaccine, inactivated 09/12/22 Michael rded influenza virus vaccine, inactivated 08/08/21 Michael rded influenza virus vaccine, inactivated 1 11/21/20 Gi cris influenza virus vaccine, inactivated 2 08/22/20 Re corded [id number] 12y+ bivalent booster vax 08/31/22 Recorded SARS-CoV-2 mRNA (rldrhjw-uycx-lbuwz) vax 03/16/22 Recorded SARS-CoV-2 (COVID-19) mRNA BNT-162b2 [...] diphtheria-tetanus toxoids (DT) 02/22/00 Given 1Result Comment: [id number] 2Result Comment: sarabjit SANDHU [facility] primary care 3Result Comment: Unit: Unknown Visual Coordinator: GlaxoSmithKline 4Result Comment: Unit: Unknown Visual Coordinator: Pfizer Injectables Medications atorvastatin 20 mg oral [...] Every Thursday and , Physician requests stefan free, # 30 Gm, 1 Refills, Maintenance, 02/05/23 15:29:00 EDT, [facility], Partial fill upon patient request if the prescription is for a schedule II opioid drug., 1... Start Date: 02/05/23 Status: Ordered famotidine 20 mg oral tablet 20 mg, 1, tablet, By Mouth, 2 times a day, PRN, # 60 tablet, Refills 5, Tot. Refills 5, Maintenance, Pain , Moderate, 03/03/23 15:46:00 EDT, Route to Pharmacy Electronically, [facility], Partial fill upon patient request if [...] opioid drug. Start Date: 05/09/21 Status: Ordered [place] Tears ophthalmic solution 1 drops, Eyes, Both, 2 times a day, PRN for dry eyes, # 30 each, 0 Refills, Maintenance, 09/15/22 1:54:00 EDT, Solution, Partial fill upon patient request if the prescription is for a schedule II opioid drug. Start Date: 09/15/22 Status: Ordered [place] Tears ophthalmic solution 1 drops, Eyes, Both, [...] Team Personnel Name: Nick Alvarado NP Position: [facility] PCO Associate Professional Member Role: PCP Address: Address: [address] [place] [id number] Name: Elvia METZ, Trinh Position: [facility] RN Member Role: Primary Care Nurse Name: Carrol Ta RN Position: S RN Member Role: Primary Care Nurse Name: Crystal Ceron RN Position: [facility] RN Member Role: Primary Care Nurse Care Team Related Persons Name: RADHA MONTOYA Name: BRANDIE MONTOYA Address: [place] [address] Name: TREASURE MONTOYA Address: home [address] [place] [address] Name: JAI REED Address: home [address] [place] [address]
--- OUTSIDE RECORDS SUMMARY | 2024-07-27 11:52 | XMS_ITS | Continuity of Care Document ---
Author Organization [facility] Address [address] [place] [address]- Care Team Providers Care Ios Developer Name Role Phone Zara Vargas MD Primary Care Physician [place] [facility] [place] 07/14/21 [facility] [address] [place] [address]- Allergies, Adverse Reactions, Alerts Substance Reaction Severity [...] diphtheria-tetanus toxoids (DT) 02/22/00 Given 1Result Comment: [id number] 2Result Comment: sarabjit SANDHU [facility] primary care 3Result Comment: Unit: Unknown Bull Rider: [employer] 4Result Comment: Unit: Unknown Bull Rider: Pfizer Injectables Medications Aspirin = 81 mg, By Mouth, Daily before lunch, 0 Refills, Maintenance, 01/09/11 5:04:09 EST Start Date: 01/09/11 Status: Ordered atorvastatin 20 mg oral tablet 1 tablet = 20 mg, By Mouth, Daily at bedtime, # 90 tablet, 3 Refills, Maintenance, 12/12/20 15:31:00 EST, Tablet, [facility] #1095, 158, cm, 11/21/20 11:06:00 EST, [...] tablet, 0 Refills, Maintenance, 06/26/21 10:14:00 EDT, [facility], Partial fill upon [...] 12/05/20 14:30:00 EST, Route to Pharmacy Electronically, [facility]/pharmacy #1095, Partial fill upon patient request if the prescription i... Start Date: 12/05/20 Stop Date: 11/30/21 Status: Ordered olmesartan 20 mg oral tablet 1 tablet = 20 mg, By Mouth, Daily, Dosage has been reduced to 20mg / day, # 30 tablet, 5 Refills, Maintenance, 09/19/20 14:11:00 EDT, Tablet, [facility]/pharm[facility] #1095, 158, cm, 09/18/20 15:50:00 EDT, Height, 69, kg, 09/13/20 5:27:00 EDT, Dry Weight Start Date: 09/19/20 Status: Ordered [place]cl[place] 0.025% vaginal gel with applicator See Instructions, USE DIRECTED, # 113.4 Gm, 3 Refills, Maintenance, [facility], 30, USE DIRECTED, 158, cm, 05/09/21 14:04:00 [...]
--- OUTSIDE RECORDS SUMMARY | 2024-07-27 11:52 | XMS_ITS | Continuity of Care Document ---
Author Organization [facility] Address [address] [place] [address]- Care Team Providers Care Tool And Gauge Inspector Name Role Phone Christiano VIDES, Nick Primary Care Physician Encounter [facility] [place] Date(s): 10/27/23 - 11/26/[address] [address]- Allergies, Adverse Reactions, Alerts Substance Reaction Severity Status Ceftin ? Active Cleocin T BLOODY DIARRHEA Active Immunizations Given and Recorded Vaccine Date Status Refusal Reason influenza virus vaccine, inactivated 09/12/22 Michael rded influenza virus vaccine, inactivated 08/08/21 Michael rded influenza virus vaccine, inactivated 1 11/21/20 Gi cris influenza virus vaccine, inactivated 2 08/22/20 Re corded [id number] 12y+ bivalent booster vax 08/31/22 Recorded SARS-CoV-2 mRNA (pkporpz-ftlb-vjadu) vax 03/16/22 Recorded SARS-CoV-2 (COVID-19) mRNA BNT-162b2 [...] diphtheria-tetanus toxoids (DT) 02/22/00 Given 1Result Comment: [id number] 2Result Comment: sarabjit SANDHU [facility] primary care 3Result Comment: Unit: Unknown Speed Runner: [employer] 4Result Comment: Unit: Unknown Speed Runner: [employer] Injectables Medications atorvastatin 20 mg oral tablet [...] Refills, Maintenance, 11/19/23 14:47:00 EST, [facility], 158, cm, 10/20/23 13:46:00 EST, [...] 08/27/23 21:16:00 EDT, Route to Pharmacy Electronically, [facility], 158, cm, 05/06/23 11:17:00 EDT, Height, 70, kg, 04/02/23 19:36:00 EDT, Dry Weight Start Date: 08/27/23 Status: Ordered hydrOXYzine hydrochloride 25 mg oral tablet 1 tablet, By Mouth, Daily at bedtime, # 30 tablet, 0 Refills, Maintenance, 07/21/23 11:20:00 EDT, [facility], 158, cm, 05/06/23 11:17:00 EDT, [...] mL, 0 Refills, Maintenance, 10/28/23 17:05:00 EST, [facility], Partial fill upon patient request if the prescription is for a schedule II opioid drug., 1 sprays Nares, Both Daily at... Start Date: 10/28/23 Status: Ordered levothyroxine 0.05 mg oral tablet 0.5 tablet, By Mouth, Daily, # 45 tablet, 1 Refills, Maintenance, 08/27/23 21:17:00 EDT, [facility], 158, cm, 05/06/23 11:17:00 EDT, Height, 70, kg, 04/02/23 19:36:00 EDT, Dry Weight Start Date: 08/27/23 Status: Ordered Metoprolol Tartrate 25 mg oral tablet 2 tablet = 50 mg, By Mouth, 2 times a day, # 360 tablet, 3 Refills, Maintenance, 12/16/22 13:42:00 EST, [facility], 158, cm, 12/11/22 15:03:00 EST, [...] opioid drug. Start Date: 05/09/21 Status: Ordered [place] Tears ophthalmic solution 1 drops, Eyes, Both, 2 times a day, PRN for dry eyes, # 30 each, 0 Refills, Maintenance, 09/15/22 1:54:00 EDT, Solution, Partial fill upon patient request if the prescription is for a schedule II opioid drug. Start Date: 09/15/22 Status: Ordered [place] Tears ophthalmic solution 1 drops, Eyes, Both, [...] Team Personnel Name: Nick Alvarado NP Position: [facility] PCO Associate Professional Member Role: PCP Address: Address: [address] [place] [id number] Name: Elvia METZ, Trinh Position: S RN Member Role: Primary Care Nurse Name: Keyon METZ, Carrol Marie Position: [facility] RN Member Role: Primary Care Nurse Name: Crystal Ceron RN Position: S RN Member Role: Primary Care Nurse Care Team Related Persons Name: RADHA MONTOYA Address: [place], [place] Name: BRANDIE MONTOYA Address: [place] [address] Name: TREASURE MONTOYA Address: home [address] [place] [address] Name: JAI REED Address: home [address] [place] [address]
--- OUTSIDE RECORDS SUMMARY | 2024-07-27 11:52 | XMS_ITS | Continuity of Care Document ---
Author Organization [facility] Address [address] [place] [address]- Care Team Providers Care Promotional Marketing Agent Name Role Phone Christiano VIDES, Nick Primary Care Physician [phone] Encounter [facility] Date(s): 11/05/23 - 12/05/[address] [address]- Allergies, Adverse Reactions, Alerts Substance Reaction Severity Status Ceftin ? Active Cleocin T BLOODY DIARRHEA Active Immunizations Given and Recorded Vaccine Date Status Refusal Reason influenza virus vaccine, inactivated 09/12/22 Michael rded influenza virus vaccine, inactivated 08/08/21 Michael rded influenza virus vaccine, inactivated 1 11/21/20 Gi cris influenza virus vaccine, inactivated 2 08/22/20 Re corded [id number] 12y+ bivalent booster vax 08/31/22 Recorded SARS-CoV-2 mRNA (vbumwuo-[id number]-aterj) vax 03/16/22 Recorded SARS-CoV-2 (COVID-19) mRNA BNT-162b2 [...] diphtheria-tetanus toxoids (DT) 02/22/00 Given 1Result Comment: [id number] 2Result Comment: sarabjit SANDHU [facility] primary care 3Result Comment: Unit: Unknown Retail Greeter: Jeeran 4Result Comment: Unit: Unknown Retail Greeter: Kior Injectables Medications atorvastatin 20 mg oral tablet [...] 08/27/23 21:16:00 EDT, Route to Pharmacy Electronically, [facility], 158, cm, 05/06/23 11:17:00 EDT, Height, 70, kg, 04/02/23 19:36:00 EDT, Dry Weight Start Date: 08/27/23 Status: Ordered hydrOXYzine hydrochloride 25 mg oral tablet 1 tablet, By Mouth, Daily at bedtime, # 30 tablet, 0 Refills, Maintenance, 07/21/23 11:20:00 EDT, [facility], 158, cm, 05/06/23 11:17:00 EDT, [...] mL, 0 Refills, Maintenance, 10/28/23 17:05:00 EST, [facility], Partial fill upon patient request if the prescription is for a schedule II opioid drug., 1 sprays Nares, Both Daily at... Start Date: 10/28/23 Status: Ordered levothyroxine 0.05 mg oral tablet 0.5 tablet, By Mouth, Daily, # 45 tablet, 1 Refills, Maintenance, 08/27/23 21:17:00 EDT, [facility], 158, cm, 05/06/23 11:17:00 EDT, Height, 70, kg, 04/02/23 19:36:00 EDT, Dry Weight Start Date: 08/27/23 Status: Ordered Metoprolol Tartrate 25 mg oral tablet 2 tablet = 50 mg, By Mouth, 2 times a day, # 360 tablet, 3 Refills, Maintenance, 12/16/22 13:42:00 EST, [facility], 158, cm, 12/11/22 15:03:00 EST, Height, 71, kg, 01/19/23 15:03:00EST, Dry Weight Start Date: 12/16/22 Status: Ordered MiraLax oral powder for reconstitution = 17 Gm, By Mouth, Daily, dissolve in water before taking, # 255 Gm, 0 Refills, Maintenance, 05/09/21 14:12:00 EDT, REC Powder, Partial fill upon patient request if the prescription is for a scheduleII opioid drug. Start Date: 05/09/21 Status: Ordered [place] Tears ophthalmic solution 1 drops, Eyes, Both, 2 times a day, PRN for dry eyes, # 30 each, 0 Refills, Maintenance, 09/15/22 1:54:00 EDT, Solution, Partial fill upon patient request if the prescription is for a schedule II opioid drug. Start Date: 09/15/22 Status: Ordered [place] Tears ophthalmic solution 1 drops, Eyes, Both, [...] Team Personnel Name: Nick Alvarado NP Position: [facility] PCO Associate Professional Member Role: PCP Address: Address: [address] [place] [id number] Name: Elvia METZ, Trinh Position: S RN Member Role: Primary Care Nurse Name: Carrol Ta RN Position: [facility] RN Member Role: Primary Care Nurse Name: Crystal Ceron RN Position: S RN Member Role: Primary Care Nurse Care Team Related Persons Name: RADHA MONTOYA Address: [place], [place] Name: BRANDIE MONTOYA Address: [place] [address] Name: TREASURE MONTOYA Address: home [address] [place] [id number] Name: JAI REED Address: [address] [place] [address]
--- OUTSIDE RECORDS SUMMARY | 2024-07-27 11:53 | XMS_ITS | Continuity of Care Document ---
Author Organization [facility] Address [address] [place] [address]- Care Team Providers Care Security Rover Name Role Phone Christiano VIDES, Nick Primary Care Physician Encounter [facility] Date(s): 11/28/21 - 12/05/[address] [address]- Attending Physician: Rogelio Nelson MD Admitting Physician: Rogelio Nelson MD Referring Physician: Zara Vargas MD Allergies, [...] diphtheria-tetanus toxoids (DT) 02/22/00 Given 1Result Comment: [id number] 2Result Comment: sarabjit SANDHU [facility] primary care 3Result Comment: Unit: Unknown 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: [employer] Home[employer] 4Result Comment: Unit: Unknown 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: Pfizer Injectables Medications Aspirin = 81 mg, By Mouth, Daily before lunch, 0 Refills, Maintenance, 01/09/11 5:04:09 EST Start Date: 01/09/11 Status: Ordered atorvastatin 20 mg oral tablet 1 tablet = 20 mg, By Mouth, Daily at bedtime, # 90 tablet, 3 Refills, Maintenance, 12/12/20 15:31:00 EST, Tablet, [facility]/pharmacy #[id number], 158, cm, 11/21/20 11:06:00 EST, Height, 69, kg, 09/13/20 5:27:00 EDT, Dry Weight Start Date: 12/12/20 Status: Ordered atorvastatin 20 mg oral tablet 1 tablet, By Mouth, Daily at bedtime, # 90 tablet, 3 Refills, Maintenance, 12/02/21 11:48:00 EST, [facility]/pharmacy #1095, 157.48, cm, 11/27/21 12:51:00 EST, Height, [...] Refills, Maintenance, 07/24/21 12:46:00 EDT, [facility], Partial fill upon p... Start Date: 07/24/21 Status: Ordered metoprolol 25 mg oral tablet 25 mg, 1, tablet, By Mouth, 2 times a day, Dose is now 25mg BID, # 180 tablet, Refills 3, Tot. Refills 3, Maintenance, 12/05/20 14:30:00 EST, Route to Pharmacy Electronically, [facility]/pharmacy #[id number], Partial fill upon patient request if the prescription i... Start Date: 12/05/20 Stop Date: 11/30/21 Status: Ordered Metoprolol Tartrate 25 mg oral tablet 1 tablet, By Mouth, 2 times a day, # 180 tablet, 3 Refills, Maintenance, 12/02/21 11:49:00 EST, [facility]/pharmacy #1095, 157.48, cm, 11/27/21 12:51:00 EST, Height, [...] 5 Refills, Maintenance, 09/19/20 14:11:00 EDT, Tablet, [facility]/pharmacy #1095, 158, cm, 09/18/20 15:50:00 [...]
--- OUTSIDE RECORDS SUMMARY | 2024-07-27 11:53 | XMS_ITS | Continuity of Care Document ---
Author Organization [facility] Address [address], [address] [place] [address]- Care Team Providers Care Vascular Physician Name Role Phone Christiano VIDES, Nick Primary Care Physician [phone] Encounter [facility] Date(s): 07/31/21 - 08/30/21 [facility] [facility] [address], [address] [place] [address]- Allergies, Adverse Reactions, Alerts Substance Reaction Severity [...] diphtheria-tetanus toxoids (DT) 02/22/00 Given 1Result Comment: [id number] 2Result Comment: sarabjit SANDHU [facility] primary care 3Result Comment: Unit: Unknown Yardmaster: [employer] 4Result Comment: Unit: Unknown Yardmaster: Pfizer Injectables Medications Aspirin = 81 mg, [...] EDT, [id number], Apply Clenpiq Coupon: RxBIN [id number]; RxPCN: [id number]; RxGrp: [id number]; RxID: [id number]... Start Date: 08/30/21 Status: Ordered [place] Vaginal Cream 0.1 mg/g = 1 Gm, Vaginally, Daily at bedtime, until symptoms improve monitor for first 2 weeks and if no difference, stop medication and call office, # 30 Gm, 0 Refills, Maintenance, 07/24/21 12:46:00 EDT, [facility], Partial fill upon p... Start Date: 07/24/21 [...] 113.4 Gm, 3 Refills, Maintenance, [id number], 30, USE DIRECTED, 158, cm, 05/09/21 14:04:00 [...]
--- OUTSIDE RECORDS SUMMARY | 2024-07-27 11:53 | XMS_ITS | Continuity of Care Document ---
Author Organization [facility] Address [address] [place] [address]- Care Team Providers Care Pattern Illustrator Name Role Phone Zara Vargas MD Primary Care Physician [phone] Encounter [facility] Date(s): 05/02/21 - 05/09/21 [facility] [address] [place] [address]- Attending Physician: Marisol Hernandez NP Admitting Physician: David VIDES, Marisol Referring Physician: Zara Vargas MD Allergies, Adverse [...] diphtheria-tetanus toxoids (DT) 02/22/00 Given 1Result Comment: [id number] 2Result Comment: sarabjit SANDHU [facility] primary care 3Result Comment: Unit: Unknown Milk Bottler: Arcariosine 4Result Comment: Unit: Unknown Milk Bottler: Pfizer Injectables Medications Aspirin = 81 mg, By Mouth, Daily before lunch, 0 Refills, Maintenance, 01/09/11 5:04:09 EST Start Date: 01/09/11 Status: Ordered atorvastatin 20 mg oral tablet 1 tablet = 20 mg, By Mouth, Daily at bedtime, # 90 tablet, 3 Refills, Maintenance, 12/12/20 15:31:00 EST, Tablet, [facility]/pharmacy #[id number], 158, cm, 11/21/20 11:06:00 EST, [...] 12/05/20 14:30:00 EST, Route to Pharmacy Electronically, [facility]/pharmacy #[id number], Partial fill upon patient request if the prescription i... Start Date: 12/05/20 Stop Date: 11/30/21 Status: Ordered olmesartan 20 mg oral tablet 1 tablet = 20 mg, By Mouth, Daily, Dosage has been reduced to 20mg / day, # 30 tablet, 5 Refills, Maintenance, 09/19/20 14:11:00 EDT, Tablet, [facility]/pharmacy #[id number], 158, cm, 09/18/20 15:50:00 EDT, [...] oldest [Reference Range]: 1 Height 158 cm (05/02/21 2:02 PM) Weight 71.5 kg (05/02/21 2:02 PM) Oxygen Saturation [94-100 %] 97 % (05/02/21 2:02 PM) Pulse Rate [55-90 bpm] 84 bpm (05/02/21 2:02 PM) Body Mass Index [18.5-24.99] 28.64 *H* (05/02/21 2:02 PM) Blood Pressure [90-138/55-84 mm Hg] 98/7 2mm Hg (05/02/21 2:02 PM) Blood pressure sites Arm, left (05/02/21 2:02 PM) Weight Obtained Via Standing scale (05/02/21 2:02 PM) Social History Social History Type Response Tobacco Total pack years: 35 . Started at age: 14 Years. Stopped at age: 49 Years. Sex
--- OUTSIDE RECORDS SUMMARY | 2024-07-27 11:53 | XMS_ITS | Continuity of Care Document ---
Author Organization [facility] [address] [place] [address]- Care Team Providers Care Lead Data Architect Name Role Phone Sam WEBER, Zara Jensen Primary Care Physician Encounter [facility] Date(s): 11/12/20 - 12/12/[address] [address]- Allergies, Adverse Reactions, Alerts Substance Reaction Severity [...] diphtheria-tetanus toxoids (DT) 02/22/00 Given 1Result Comment: [id number] 2Result Comment: sarabjit SANDHU [facility] primary care 3Result Comment: Unit: Unknown Mud Analysis Supervisor: Yuppics 4Result Comment: Unit: Unknown Mud Analysis Supervisor: Pfizer Injectables Medications Aspirin = 81 mg, By Mouth, Daily before lunch, 0 Refills, Maintenance, 01/09/11 5:04:09 EST Start Date: 01/09/11 Status: Ordered atorvastatin 20 mg oral tablet 1 tablet = 20 mg, By Mouth, Daily at bedtime, # 90 tablet, 3 Refills, Maintenance, 12/12/20 15:31:00 EST, Tablet, [facility]/pharmacy #[id number], 158, cm, 11/21/20 11:06:00 EST, Height, 69, kg, 09/13/20 5:27:00 EDT, Dry Weight Start Date: 12/12/20 Status: Ordered atorvastatin 20 mg oral tablet 1 tablet = 20 mg, By Mouth, Daily at bedtime, for 30 days, # 30 tablet, 6 Refills, Hard Stop 01/01/21 15:31:00 EST, 06/05/20 15:31:00 EDT, Tablet, [facility], 158, [...]
--- OUTSIDE RECORDS SUMMARY | 2024-07-27 11:53 | XMS_ITS | Continuity of Care Document ---
Author Organization [facility] Address [address] [place] [address]- Care Team Providers Care Retail Business Development Manager Name Role Phone Christiano VIDES, Nick Primary Care Physician [phone] Encounter [facility] Date(s): 11/10/22 - 12/10/22 [facility] [address] [place] [address]- [place] Allergies, Adverse Reactions, Alerts Substance Reaction Severity Status Ceftin ? Active Cleocin T BLOODY DIARRHEA Active Immunizations Given and Recorded Vaccine Date Status Refusal Reason influenza virus vaccine, inactivated 09/12/22 Michael rded influenza virus vaccine, inactivated 08/08/21 Michael rded influenza virus vaccine, inactivated 1 11/21/20 Gi cris influenza virus vaccine, inactivated 2 08/22/20 Re corded [id number] 12y+ bivalent booster vax 08/31/22 Recorded SARS-CoV-2 mRNA ([id number]-leuc-sbrdb) vax 03/16/22 Recorded SARS-CoV-2 (COVID-19) mRNA BNT-162b2 [...] diphtheria-tetanus toxoids (DT) 02/22/00 Given 1Result Comment: [id number] 2Result Comment: sarabjit SANDHU [facility] primary care 3Result Comment: Unit: Unknown No Bake Molder: Novastine 4Result Comment: Unit: Unknown No Bake Molder: [employer] Injectables Medications atorvastatin 20 mg oral tablet 1 tablet, By Mouth, Daily at bedtime, # 90 tablet, 3 Refills, Maintenance, 06/09/22 11:18:00 EDT, [facility]/pharm[facility] #1095, 157.48, cm, 02/21/22 10:37:00 EDT, Height, [...] Refills, Maintenance, 12/18/21 15:56:00 EST, [facility] Partial fill upon patient request if the [...] opioid drug. Start Date: 05/09/21 Status: Ordered [place] Tears ophthalmic solution 1 drops, Eyes, Both, 2 times a day, PRN for dry eyes, # 30 each, 0 Refills, Maintenance, 09/15/22 1:54:00 EDT, Solution, Partial fill upon patient request if the prescription is for a schedule II opioid drug. Start Date: 09/15/22 Status: Ordered [place] Tears ophthalmic solution 1 drops, Eyes, Both, 3 times a day, PRN for dry eyes, Maintenance, 09/15/22 10:43:00 EDT, Solution,Partial fill upon patient request if the prescription is for a schedule II opioid drug. Start Date: 09/15/22 Status: Ordered olmesartan 20 mg oral tablet 1 tablet, By Mouth, Daily, # 90 tablet, 3 Refills, Maintenance, 12/20/21 13:54:00 EST, [facility]/pharm[facility]#1095, 157.48, cm, 12/19/21 11:37:00 EST, Height, 68.8, [...] sensorineural Confirmed Active TMJ syndrome Confirmed Active Social History Social History Type Response Tobacco Total pack years: 35 . Started at age: 14 Years. Stopped at age: 49 Years. Sex Patient Care team information Care Team Personnel Name: Nick Alvarado NP Position: [facility] PCO Associate Professional Member Role: PCP Address: Address: [address] [place] [id number] Name: Elvia METZTrinh Position: [facility] RN Member Role: Primary Care Nurse Name: Keyon RN, Carrol Marie Position: S RN Member Role: Primary Care Nurse Name: Crystal Ceron RN Position: S RN Member Role: Primary Care Nurse Care Team Related Persons Name: RADHA MONTOYA Name: BRANDIE MONTOYA Address: [place] [address] Name: TREASURE MONTOYA Address: home [address] [place] [address] Name: JAI REED Address: [address] [place] [address]
--- OUTSIDE RECORDS SUMMARY | 2024-07-27 11:53 | XMS_ITS | Continuity of Care Document ---
Author Organization [facility] Address [address] [place] [address]- Care Team Providers Care Bender Machine Operator Name Role Phone Christiano VIDES, Nick Primary Care Physician [facility]counter [facility] Date(s): 05/[facility]/24 - [facility]/18/24 [facility] [address] [place], [place] [address] Attending Physician: Silas Duncan Admitting Physician: Silas Duncan Referring Physician: Silas Duncan Allergies, Adverse Reactions, Alerts Substance Reaction Severity Status Ceftin ? Active Cleocin T BLOODY DIARRHEA Active Immunizations Given and Recorded Vaccine Date Status Refusal Reason SARS-CoV-2(COVID-19)mRNA-LNP vac([id number]) 01/08/24 Given pneumococcal 20-valent conjugate vaccine 01/08/24 Given influenza virus vaccine, inactivated 09/12/22 Michael rded influenza virus vaccine, inactivated 08/08/21 Michael rded influenza virus vaccine, inactivated 1 11/21/20 Gi cris influenza virus vaccine, inactivated 2 08/22/20 Re corded [id number] 12y+ bivalent booster vax 08/31/22 Recorded SARS-CoV-2 mRNA ([id number]) vax 03/16/22 Recorded SARS-CoV-2 (COVID-19) mRNA BNT-162b2 [...] diphtheria-tetanus toxoids (DT) 02/22/00 Given 1Result Comment: [id number] 2Result Comment: sarabjit SANDHU [facility] primary care 3Result Comment: Unit: Unknown Harpooner: [employer] 4Result Comment: Unit: Unknown Harpooner: [employer] Injectables Medications atorvastatin 20 mg oral tablet [...] tablet, 1 Refills, Maintenance, 06/01/24 11:03:00 EDT, [facility], 158, cm, 05/19/24 9:35:00 EDT, [...] tablet, 1 Refills, Maintenance, 06/01/24 11:03:00 EDT, [facility], 158, cm, 05/19/24 9:35:00 EDT, [...] Team Personnel Name: Pam Floyd RN Position: [facility] RN Member Role: Primary Care Nurse Name: Nick Alvarado NP Position: [facility] PCO Associate Professional Member Role: PCP Address: Address: [address] [place] [address]- Name: Carrol Ta RN Position: [facility] RN Member Role: Primary Care Nurse Name: Crystal Ceron RN Position: S RN Member Role: Primary Care Nurse Care Team Related Persons Name: RADHA MONTOYA Address: [place], [place] Name: BRANDIE MONTOYA Address: [place] [address] Name: TREASURE MONTOYA Address: [address] [place] [address] Name: JAI REED Address: [address] [place] [address]
--- OUTSIDE RECORDS SUMMARY | 2024-07-27 11:53 | XMS_ITS | Continuity of Care Document ---
Author Organization [facility] Address [address] [place] [address]- Care Team Providers Care Behavioral Health Clinician Name Role Phone Christiano VIDES, Nick Primary Care Physician [phone] Encounter [facility] Date(s): 04/02/23 - 04/03/[address] [address]- Encounter Diagnosis Floaters(Final) - 04/03/23 Discharge Disposition: A-D/C Home Attending Physician: Zack Gaston MD Admitting Physician: Zack Gaston MD Referring Physician: Not on Staff, Referring MD Allergies, Adverse Reactions, Alerts Substance Reaction Severity Status Ceftin ? Active Cleocin T BLOODY DIARRHEA Active Immunizations Given and Recorded Vaccine Date Status Refusal Reason influenza virus vaccine, inactivated 09/12/22 Michael rded influenza virus vaccine, inactivated 08/08/21 Michael rded influenza virus vaccine, inactivated 1 11/21/20 Gi cris influenza virus vaccine, inactivated 2 08/22/20 Re corded [id number] 12y+ bivalent booster vax 08/31/22 Recorded SARS-CoV-2 mRNA (ieredyg-qacy-rwszv) vax 03/16/22 Recorded SARS-CoV-2 (COVID-19) mRNA BNT-162b2 [...] diphtheria-tetanus toxoids (DT) 02/22/00 Given 1Result Comment: [id number] 2Result Comment: sarabjit SANDHU [facility] 3Result Comment: Unit: Unknown Tablet Coater: [facility] 4Result Comment: Unit: Unknown Tablet Coater: Lookery Injectables Medications atorvastatin 20 mg oral tablet 1 tablet, By Mouth, Daily at bedtime, # 90 tablet, 3 Refills, Maintenance, 12/16/22 13:42:00 EST, [facility], 158, cm, 12/11/22 15:03:00 EST, Height, 71, kg, 12/11/22 15:03:00 EST, Dry Weight Start Date: 12/16/22 Status: Ordered escitalopram 5 mg oral tablet 1 tablet, By Mouth, Daily, # 30 tablet, 2 Refills, Maintenance, 02/11/23 6:37:00 EDT, [facility], 157, cm, 02/05/23 15:27:00 EDT, Height, 73, kg, 01/07/23 15:13:00 EST, Dry Weight Start Date: 02/11/23 Status: Ordered Estrace Vaginal Cream 0.1 mg/g = 1 Gm, Vaginally, Every Thursday and , Physician requests stefan lange, # 30 Gm, 1 Refills, Maintenance, 02/05/23 15:29:00 EDT, [facility], Partial fill upon patient request if the prescription is for a schedule II opioid drug., 1... Start Date: 02/05/23 Status: Ordered famotidine 20 mg oral tablet 20 mg, 1, tablet, By Mouth, 2 times a day, PRN, # 60 tablet, Refills 5, Tot. Refills 5, Maintenance, Pain , Moderate, 03/03/23 15:46:00 EDT, Route to Pharmacy Electronically, [facility], Partial fill upon patient request if the prescript... Start Date: 03/03/23 Status: Ordered hydrOXYzine hydrochloride 25 mg oral tablet 1 tablet, By Mouth, Daily at bedtime, # 30 tablet, 0 Refills, Maintenance, 03/09/23 10:47:00 EDT, [facility], 157, cm, 02/05/23 15:27:00 EDT, Height, 73, kg, 01/07/23 15:13:00 EST, Dry Weight Start Date: 03/09/23 Status: Ordered ICaps AREDS 2 0 Refills, [...] opioid drug. Start Date: 05/09/21 Status: Ordered [place] Tears ophthalmic solution 1 drops, Eyes, Both, 2 times a day, PRN for dry eyes, # 30 each, 0 Refills, Maintenance, 09/15/22 1:54:00 EDT, Solution, Partial fill upon patient request if the prescription is for a schedule II opioid drug. Start Date: 09/15/22 Status: Ordered [place] Tears ophthalmic solution 1 drops, Eyes, Both, [...] Exam Date Time Procedure Performing Provider Status 04/02/23 10:[address] Orbits W/O Contrast Сергей Valerie jagdeep; Auth (Verified) Notes: (CT Orbits W/O Contrast) Reason For Exam: Other: RESULT: CT Orbits W/O Contrast CT Head/Brain W/O Contrast, CT Orbits W/O Contrast INDICATION: Hx of Present Illness: normally with right eye floater. today had sudden onset of multiple floaters which went away and then came back . at present she has no floaters. she has no eye pain or other visual disturbances. no headaches. no extrmity issues; Reason: Headache(s); Clinical Question(s): Hematoma TECHNIQUE: Noncontrast head CT using axial technique was reconstructed in axial and coronal planes.Noncontrast spiral CT through the orbits was formatted in 3 planes. Automatic tube modulation was used to optimize scan parameters and image quality. CTDIvol Head: 32.70 mGy, DLP Head: 1072 mGy*cm. COMPARISON: Head CT 05/20/2020. FINDINGS: Robotics Engineer View Findings, Lines and Tubes: None. BRAIN AND EXTRA-AXIAL SPACES: No parenchymal hemorrhage, midline shift, or mass effect. Castillo-white matter differentiation is wellpreserved. No acute infarct. Negative insular ribbon sign. Atherosclerotic vascular calcification of the carotid arteries but negative hyperdense vessel sign. Mild prominence of the ventricles and sulci consistent with parenchymal volume loss. Mild low-density white matter changes. No subarachnoid hemorrhage. No subdural or epidural collection. CALVARIUM, SKULL BASE, AND SOFT TISSUES: No fractures or suspicious bony lesions. The paranasal sinuses and mastoid air cells are clear. Status-post bilateral lens extraction. The extracranial soft tissues are unremarkable. ORBITS: Orbital soft tissues: No intraorbital mass, hematoma or fluid collection. Status post bilateral lens extractions. Otherwise unremarkable globes. Periorbital soft tissues: Unremarkable. Orbits and orbital pedraza: No fracture of the orbital pedraza. No intraorbital hematoma. Facial soft tissues: No hematoma or swelling. Nasal bones: No fracture. Nasal cavity: Focus of polypoid mucosal thickening along the right inferior nasal cavity. Maxilla and alveolus: No fracture. Pterygoid plates: No fracture. Visualized parapharyngeal spaces: Symmetric without suspicious or acute abnormality. Zygomatic arches: No fracture. Mandible: The portions included on the exam are normal. No fracture or dislocation. IMPRESSION: No acute intracranial hemorrhage or mass effect. No orbital mass or edema. Status post bilateral lens extraction similar to prior study. No explanation for reported clinical complaint of eye floaters. Final report is in agreement with plant taxonomy teacher teleradiology report. WSN: [id number] Ordering Physician: Adilson Navarro Dictated By: Felipe Mott MD Dictated Date/Time: 04/03/23 8:00 am Reviewed By: Felipe Mott MD Signed By: Felipe Mott MD Signed Date/Time: 04/03/23 8:00 am Transcribed By: [place] Transcribed Date/Time: 04/03/23 7:56 am * Exam Date Time Procedure Performing Provider Status 04/02/23 10:[address] Head/Brain W/O Contrast Sangeeta Rushing; Auth (Verified) Notes: (CT Head/Brain W/O Contrast) Reason For Exam: Headache(s) RESULT: CT Head/Brain W/O Contrast CT Head/Brain W/O Contrast, CT Orbits W/O Contrast INDICATION: Hx of Present Illness: normally with right eye floater. today had sudden onset of multiple floaters which went away and then came back . at present she has no floaters. she has no eye pain or other visual disturbances. no headaches. no extrmity issues; Reason: Headache(s); Clinical Question(s): Hematoma TECHNIQUE: Noncontrast head CT using axial technique was reconstructed in axial and coronal planes.Noncontrast spiral CT through the orbits was formatted in 3 planes. Automatic tube modulation was used to optimize scan parameters and image quality. CTDIvol Head: 32.70 mGy, DLP Head: 1072 mGy*cm. COMPARISON: Head CT 05/20/2020. FINDINGS: Robotics Engineer View Findings, Lines and Tubes: None. BRAIN AND EXTRA-AXIAL SPACES: No parenchymal hemorrhage, midline shift, or mass effect. Castillo-white matter differentiation is wellpreserved. No acute infarct. Negative insular ribbon sign. Atherosclerotic vascular calcification of the carotid arteries but negative hyperdense vessel sign. Mild prominence of the ventricles and sulci consistent with parenchymal volume loss. Mild low-density white matter changes. No subarachnoid hemorrhage. No subdural or epidural collection. CALVARIUM, SKULL BASE, AND SOFT TISSUES: No fractures or suspicious bony lesions. The paranasal sinuses and mastoid air cells are clear. Status-post bilateral lens extraction. The extracranial soft tissues are unremarkable. ORBITS: Orbital soft tissues: No intraorbital mass, hematoma or fluid collection. Status post bilateral lens extractions. Otherwise unremarkable globes. Periorbital soft tissues: Unremarkable. Orbits and orbital pedraza: No fracture of the orbital pedraza. No intraorbital hematoma. Facial soft tissues: No hematoma or swelling. Nasal bones: No fracture. Nasal cavity: Focus of polypoid mucosal thickening along the right inferior nasal cavity. Maxilla and alveolus: No fracture. Pterygoid plates: No fracture. Visualized parapharyngeal spaces: Symmetric without suspicious or acute abnormality. Zygomatic arches: No fracture. Mandible: The portions included on the exam are normal. No fracture or dislocation. IMPRESSION: No acute intracranial hemorrhage or mass effect. No orbital mass or edema. Status post bilateral lens extraction similar to prior study. No explanation for reported clinical complaint of eye floaters. Final report is in agreement with plant taxonomy teacher teleradiology report. WSN: [id number] Ordering Physician: Adilson Navarro Dictated By: Felipe Mott MD Dictated Date/Time: 04/03/23 8:00 am Reviewed By: Felipe Mott MD Signed By: Felipe Mott MD Signed Date/Time: 04/03/23 8:00 am Transcribed By: [place] Transcribed Date/Time: 04/03/23 7:56 am Vital Signs Most recent to oldest [Reference Range]: 1 2 Height 158 cm (04/02/23 7:36 PM) 158 cm (04/02/23 7:34 PM) Weight 70 kg (04/02/23 7:36 PM) 70 kg (04/02/23 7:34 PM) Oxygen Saturation [94-100 %] 98 % (04/02/23 11:29 PM) 96 % (04/02/23 7:34 PM) Pulse Rate [55-90 bpm] 56 bpm (04/02/23 11:29 PM) 75 bpm (04/02/23 7:34 PM) Body Mass Index [18.5-24.99 kg/m2] 28.04 kg/m2 *H* (04/02/23 7:34 PM) Blood Pressure [90-138/55-84 mm Hg] 157/ 80mm Hg *H* (04/02/23 11:29 PM) 156/78mm Hg *H* (04/02/23 7:36 PM) Respiratory Rate [16-30 br/min] 14 br/mi n *L* (04/02/23 11:29 PM) 16 br/min (04/02/23 7:34 PM) Temperature [96.8-100.4 DegF] 97.0 DegF (04/02/23 11:29 PM) 98.4 DegF (04/02/23 7:34 PM) Mode of Delivery (Oxygen) Room air (04/02/23 11:29 PM) Room air (04/02/23 7:34 PM) Temperature Route Temporal (04/02/23 11:29 PM) Dry Weight 70 kg (04/02/23 7:36 PM) 70 kg (04/02/23 7:34 PM) Social History Social History Type Response Tobacco Total pack years: 35 . Started at age: 14 Years. Stopped at age: 49 Years. Sex Note * Zack Gaston MD T: PERFORM Event Display: Patient Education Leaflets Authored Date: [id number] Blurred Vision ?? [id number] Blurred Vision Blurred vision is when your vision is no longer sharp and you can???t see small details. Any changes in your vision, whether sudden or over time, should be examined by an eyeletter. Vision changes can be caused by many things. These include eye diseases, side effects of some medicines, or a condition such as diabetes. Never ignore vision changes. People often think that vision changes occur because they need a change in their glasses. Many people then delay seeing their healthcare provider about their vision changes. But it???s risky to delay care. If left untreated, some eye problems can lead to lasting (permanent) vision loss that can???t be corrected with glasses. This can significantly reduce quality of life. Home care Make changes in your home to reduce the risk of falling: ??? Keep walkways clear of objects you maytrip over. Use nonslip pads under rugs. ??? Brighter lighting in your home may help you see better.??? Don???t walk in poorly lit areas. ??? Be careful when stepping up and down from curbs and walking on uneven sidewalks. ?? Follow-up care Follow up with an eyeletter or as advised. There are 2 types of eye care providers you can consult: ??? Visiting Professor. This is a licensed healthcare provider of optometry. Optometrists go to school for 4 years post-college to specialize in primary eye care. They do routine eye exams and can alsodiagnose and treat certain eye diseases. They also prescribe glasses and contact lenses. ??? Strategy Director. This is a medical doctor who went to medical school and then specialized in eye care and surgery. Ophthalmologists can diagnose and treat all eye diseases, prescribe medicines, and do eye surgery. They may also prescribe glasses and contact lenses. ?? When to get medical care Call your healthcare provider right away if any of these occur: ??? Sudden change in your vision ??? Eye pain, redness, or discharge from your eyelid ??? Blurriness doesn???t get better, or it gets worse ??? Dark spots in your field of vision ??? Halos around lights ??? Dots or strings (called floaters) moving across your field of vision ??? Sudden flash of light inside your eye ??? Vision dims ??? Part or full vision loss ?? Last Reviewed Date: 2022 ?? [id number] [employer]. All rights reserved. This information is not intended as a substitute for professional medical care. Always follow your healthcare professional's instructions. ?? CT Orbit WO contrast * BHSPowerscribe , CIS S: TRANSCRIBE Pantera WEBER, Felipe Cason: VERIFY Event Display: Result: Authored Date: [id number] CT Head/Brain W/O Contrast, CT Orbits W/O Contrast INDICATION: Hx of Present Illness: normally with right eye floater. today had sudden onset of multiple floaters which went away and then came back . at present she has no floaters. she has no eye pain or other visual disturbances. no headaches. no extrmity issues; Reason: Headache(s); Clinical Question(s): Hematoma TECHNIQUE: Noncontrast head CT using axial technique was reconstructed in axial and coronal planes.Noncontrast spiral CT through the orbits was formatted in 3 planes. Automatic tube modulation was used to optimize scan parameters and image quality. CTDIvol Head: 32.70 mGy, DLP Head: 1072 mGy*cm. COMPARISON: Head CT 05/20/2020. FINDINGS: Robotics Engineer View Findings, Lines and Tubes: None. BRAIN AND EXTRA-AXIAL SPACES: No parenchymal hemorrhage, midline shift, or mass effect. Castillo-white matter differentiation is wellpreserved. No acute infarct. Negative insular ribbon sign. Atherosclerotic vascular calcification of the carotid arteries but negative hyperdense vessel sign. Mild prominence of the ventricles and sulci consistent with parenchymal volume loss. Mild low-density white matter changes. No subarachnoid hemorrhage. No subdural or epidural collection. CALVARIUM, SKULL BASE, AND SOFT TISSUES: No fractures or suspicious bony lesions. The paranasal sinuses and mastoid air cells are clear. Status-post bilateral lens extraction. The extracranial soft tissues are unremarkable. ORBITS: Orbital soft tissues: No intraorbital mass, hematoma or fluid collection. Status post bilateral lens extractions. Otherwise unremarkable globes. Periorbital soft tissues: Unremarkable. Orbits and orbital pedraza: No fracture of the orbital pedraza. No intraorbital hematoma. Facial soft tissues: No hematoma or swelling. Nasal bones: No fracture. Nasal cavity: Focus of polypoid mucosal thickening along the right inferior nasal cavity. Maxilla and alveolus: No fracture. Pterygoid plates: No fracture. Visualized parapharyngeal spaces: Symmetric without suspicious or acute abnormality. Zygomatic arches: No fracture. Mandible: The portions included on the exam are normal. No fracture or dislocation. IMPRESSION: No acute intracranial hemorrhage or mass effect. No orbital mass or edema. Status post bilateral lens extraction similar to prior study. No explanation for reported clinical complaint of eye floaters. Final report is in agreement with plant taxonomy teacher teleradiology report. WSN: [id number] Ordering Physician: Adilson Navarro Dictated By: Felipe Mott MD Dictated Date/Time: 04/03/23 8:00 am Reviewed By: Felipe Mott MD Signed By: Felipe Mott MD Signed Date/Time: 04/03/23 8:00 am Transcribed By: CSBabatunde Transcribed Date/Time: 04/03/23 7:[address] Head WO contrast * BHSPowerscribe , CIS S: TRANSCRIBE Felipe Mott MD: VERIFY Event Display: Result: Authored Date: [id number] CT Head/Brain W/O Contrast, CT Orbits W/O Contrast INDICATION: Hx of Present Illness: normally with right eye floater. today had sudden onset of multiple floaters which went away and then came back . at present she has no floaters. she has no eye pain or other visual disturbances. no headaches. no extrmity issues; Reason: Headache(s); Clinical Question(s): Hematoma TECHNIQUE: Noncontrast head CT using axial technique was reconstructed in axial and coronal planes.Noncontrast spiral CT through the orbits was formatted in 3 planes. Automatic tube modulation was used to optimize scan parameters and image quality. CTDIvol Head: 32.70 mGy, DLP Head: 1072 mGy*cm. COMPARISON: Head CT 05/20/2020. FINDINGS: Robotics Engineer View Findings, Lines and Tubes: None. BRAIN AND EXTRA-AXIAL SPACES: No parenchymal hemorrhage, midline shift, or mass effect. Castillo-white matter differentiation is wellpreserved. No acute infarct. Negative insular ribbon sign. Atherosclerotic vascular calcification of the carotid arteries but negative hyperdense vessel sign. Mild prominence of the ventricles and sulci consistent with parenchymal volume loss. Mild low-density white matter changes. No subarachnoid hemorrhage. No subdural or epidural collection. CALVARIUM, SKULL BASE, AND SOFT TISSUES: No fractures or suspicious bony lesions. The paranasal sinuses and mastoid air cells are clear. Status-post bilateral lens extraction. The extracranial soft tissues are unremarkable. ORBITS: Orbital soft tissues: No intraorbital mass, hematoma or fluid collection. Status post bilateral lens extractions. Otherwise unremarkable globes. Periorbital soft tissues: Unremarkable. Orbits and orbital pedraza: No fracture of the orbital pedraza. No intraorbital hematoma. Facial soft tissues: No hematoma or swelling. Nasal bones: No fracture. Nasal cavity: Focus of polypoid mucosal thickening along the right inferior nasal cavity. Maxilla and alveolus: No fracture. Pterygoid plates: No fracture. Visualized parapharyngeal spaces: Symmetric without suspicious or acute abnormality. Zygomatic arches: No fracture. Mandible: The portions included on the exam are normal. No fracture or dislocation. IMPRESSION: No acute intracranial hemorrhage or mass effect. No orbital mass or edema. Status post bilateral lens extraction similar to prior study. No explanation for reported clinical complaint of eye floaters. Final report is in agreement with plant taxonomy teacher teleradiology report. WSN: [id number] Ordering Physician: Adilson Navarro Dictated By: Felipe Mott MD Dictated Date/Time: 04/03/23 8:00 am Reviewed By: Felipe Mott MD Signed By: Felipe Mott MD Signed Date/Time: 04/03/23 8:00 am Transcribed By: [place] Transcribed Date/Time: 04/03/23 7:56 am Patient Care team information Care Team Personnel Name: Nick Alvarado NP Position: [facility] PCO Associate Professional Member Role: PCP Address: Address: [address] [place] [id number]- Name: Trinh Gan RN Position: [facility] RN Member Role: Primary Care Nurse Name: Carrol Ta RN Position: [facility] RN Member Role: Primary Care Nurse Name: Crystal Ceron RN Position: [facility] RN Member Role: Primary Care Nurse Name: Nya Yee RN Position: [facility] ED RN W/OE and Tasks Member Role: Patient Care Provider Name: Zack Gaston MD Position: [facility] ED Medicine MD Member Role: ED Attending Physician Address: Address: [address] [place] [address] [place] [address]- Care Team Related Persons Name: RADHA MONTOYA Name: BRANDIE MONTOYA Address: [place] [address] Name: TREASURE MONTOYA Address: home [address] [place] [address] Name: JAI REED Address: [address] [place] [address]
--- OUTSIDE RECORDS SUMMARY | 2024-07-27 11:53 | XMS_ITS | Continuity of Care Document ---
Author Organization [facility] Address [address] [place] [id number]- Care Team Providers Care Canvass Manager Name Role Phone Christiano VIDES, Nick Primary Care Physician Encounter [facility] Date(s): 07/17/23 - 07/24/23 [facility] [address] [place] [id number]- Attending Physician: Rogelio Schwab MD Referring Physician: Nick Alvarado NP Allergies, Adverse Reactions, Alerts Substance Reaction Severity Status Ceftin ? Active Cleocin T BLOODY DIARRHEA Active Immunizations Given and Recorded Vaccine Date Status Refusal Reason influenza virus vaccine, inactivated 09/12/22 Michael rded influenza virus vaccine, inactivated 08/08/21 Michael rded influenza virus vaccine, inactivated 1 11/21/20 Gi cris influenza virus vaccine, inactivated 2 08/22/20 Re corded [id number] 12y+ bivalent booster vax 08/31/22 Recorded SARS-CoV-2 mRNA (uwbibfi-[id number]-pbtyv) vax 03/16/22 Recorded SARS-CoV-2 (COVID-19) mRNA BNT-162b2 [...] diphtheria-tetanus toxoids (DT) 02/22/00 Given 1Result Comment: [id number] 2Result Comment: sarabjit SANDHU [facility] 3Result Comment: Unit: Unknown Hand Method Lasting Machine Operator: [employer] 4Result Comment: Unit: Unknown Hand Method Lasting Machine Operator: Toutpost Injectables Medications atorvastatin 20 mg oral tablet [...] 03/03/23 15:46:00 EDT, Route to Pharmacy Electronically, [facility], Partial fill upon patient request if the prescript... Start Date: 03/03/23 Status: Ordered hydrOXYzine hydrochloride 25 mg oral tablet 1 tablet, By Mouth, Daily at bedtime, # 30 tablet, 0 Refills, Maintenance, 07/21/23 11:20:00 EDT, [facility], 158, cm, 05/06/23 [...] tablet, 1 Refills, Maintenance, 05/29/23 15:49:00 EDT, [facility], 158, cm, 05/06/23 11:17:00 EDT, Height, 70, kg, 04/02/23 19:36:00 EDT, Dry Weight Start Date: 05/29/23 Status: Ordered Metoprolol Tartrate 25 mg oral tablet 2 tablet = 50 mg, By Mouth, 2 times a day, # 360 tablet, 3 Refills, Maintenance, 12/16/22 13:42:00 EST, [facility], 158, cm, 12/11/22 15:03:00 [...] opioid drug. Start Date: 05/09/21 Status: Ordered [place] Tears ophthalmic solution 1 drops, Eyes, Both, 2 times a day, PRN for dry eyes, # 30 each, 0 Refills, Maintenance, 09/15/22 1:54:00 EDT, Solution, Partial fill upon patient request if the prescription is for a schedule II opioid drug. Start Date: 09/15/22 Status: Ordered [place] Tears ophthalmic solution 1 drops, Eyes, Both, 3 times a day, PRN for dry eyes, Maintenance, 09/15/22 10:43:00 EDT, Solution,Partial fill upon patient request if the prescription is for a schedule II opioid drug. Start Date: 09/15/22 Status: Ordered olmesartan 20 mg oral tablet 1 tablet, By Mouth, Daily, # 90 tablet, 3 Refills, Maintenance, 12/22/22 11:40:00 EST, [facility], 158, cm, 12/18/22 10:17:00 EST, [...] EDT, Route to Pharmacy Electronically, [facility], Partial fill upon patient request [...] Professional Member Role: PCP Address: Address: [address] [place] [id number] Name: Elvia METZ, Trinh Position: [facility] RN Member Role: Primary Care Nurse Name: Carrol Ta RN Position: [facility] RN Member Role: Primary Care Nurse Name: Crystal Ceron RN Position: S RN Member Role: Primary Care Nurse Care Team Related Persons Name: RADHA MONTOYA Address: [place], [place] Name: BRANDIE MONTOYA Address: [place] [address] Name: TREASURE MONTOYA Address: home [address] [place] [id number] Name: JAI REED Address: home [address] [place] [id number]
--- OUTSIDE RECORDS SUMMARY | 2024-07-27 11:53 | XMS_ITS | Continuity of Care Document ---
Author Organization [address] [address]- Care Team Providers Care Muck Hauler Name Role Phone Zara Vargas MD Primary Care Physician Encounter [facility] Date(s): 01/07/21 - 02/06/[address] [address]- Allergies, Adverse Reactions, Alerts Substance Reaction Severity [...] diphtheria-tetanus toxoids (DT) 02/22/00 Given 1Result Comment: [id number] 2Result Comment: sarabjit SANDHU [facility] 3Result Comment: Unit: Unknown Industrial Equipment Wirer: [employer] 4Result Comment: Unit: Unknown Industrial Equipment Wirer: Pfizer Injectables Medications Aspirin = 81 mg, By Mouth, Daily before lunch, 0 Refills, Maintenance, 01/09/11 5:04:09 EST Start Date: 01/09/11 Status: Ordered atorvastatin 20 mg oral tablet 1 tablet = 20 mg, By Mouth, Daily at bedtime, # 90 tablet, 3 Refills, Maintenance, 12/12/20 15:31:00 EST, Tablet, [facility]/pharmacy #1095, 158, cm, 11/21/20 11:06:00 [...] 0 Refills, Soft Stop, 12/18/20 16:17:00 EST, [facility]/pharmacy #1095, Partial fill upon patient [...] 12/05/20 14:30:00 EST, Route to Pharmacy Electronically, [facility]/pharmacy #1095, Partial fill upon patient request if the prescription i... Start Date: 12/05/20 Stop Date: 11/30/21 Status: Ordered olmesartan 20 mg oral tablet 1 tablet = 20 mg, By Mouth, Daily, Dosage has been reduced to 20mg / day, # 30 tablet, 5 Refills, Maintenance, 09/19/20 14:11:00 EDT, Tablet, [facility]/pharmacy #1095, 158, cm, 09/18/20 15:50:00 [...]
--- OUTSIDE RECORDS SUMMARY | 2024-07-27 11:53 | XMS_ITS | Continuity of Care Document ---
Author Organization [facility] Address [address] [place] [address]- Care Team Providers Care Cabin Supervisor Name Role Phone Christiano VIDES, Nick Primary Care Physician [phone] Encounter [facility] Date(s): 06/26/23 - 07/03/23 [facility] [address] [place], [place] [address] Attending Physician: Hilton VIDES, Sol Abraham Admitting Physician: Hilton VIDES, Sol Abraham Referring Physician: Nick Alvarado NP Allergies, Adverse Reactions, Alerts Substance Reaction Severity Status Ceftin ? Active Cleocin T BLOODY DIARRHEA Active Immunizations Given and Recorded Vaccine Date Status Refusal Reason influenza virus vaccine, inactivated 09/12/22 Michael rded influenza virus vaccine, inactivated 08/08/21 Michael rded influenza virus vaccine, inactivated 1 11/21/20 Gi cris influenza virus vaccine, inactivated 2 08/22/20 Re corded [id number] 12y+ bivalent booster vax 08/31/22 Recorded SARS-CoV-2 mRNA (rjrmhrd-rtod-ynwgf) vax 03/16/22 Recorded SARS-CoV-2 (COVID-19) mRNA BNT-162b2 [...] diphtheria-tetanus toxoids (DT) 02/22/00 Given 1Result Comment: [id number] 2Result Comment: sarabjit SANDHU [facility] primary care 3Result Comment: Unit: Unknown Wedger Machine: [employer] 4Result Comment: Unit: Unknown Wedger Machine: [employer] Injectables Medications atorvastatin 20 mg oral [...] 03/03/23 15:46:00 EDT, Route to Pharmacy Electronically, [facility], Partial fill upon patient request if the prescript... Start Date: 03/03/23 Status: Ordered hydrOXYzine hydrochloride 25 mg oral tablet 1 tablet, By Mouth, Daily at bedtime, # 30 tablet, 0 Refills, Maintenance, 04/07/23 7:44:00 EDT, [facility], 158, cm, 04/02/23 19:36:00 [...] tablet, 1 Refills, Maintenance, 05/29/23 15:49:00 EDT, [facility], 158, cm, 05/06/23 11:17:00 EDT, Height, 70, kg, 04/02/23 19:36:00 EDT, Dry Weight Start Date: 05/29/23 Status: Ordered Metoprolol Tartrate 25 mg oral tablet 2 tablet = 50 mg, By Mouth, 2 times a day, # 360 tablet, 3 Refills, Maintenance, 12/16/22 13:42:00 EST, [facility], 158, cm, 12/11/22 [...] opioid drug. Start Date: 05/09/21 Status: Ordered [place] Tears ophthalmic solution 1 drops, Eyes, Both, 2 times a day, PRN for dry eyes, # 30 each, 0 Refills, Maintenance, 09/15/22 1:54:00 EDT, Solution, Partial fill upon patient request if the prescription is for a schedule II opioid drug. Start Date: 09/15/22 Status: Ordered [place] Tears ophthalmic solution 1 drops, Eyes, Both, [...] Team Personnel Name: Nick Alvarado NP Position: [facility] PCO Associate Professional Member Role: PCP Address: Address: [address] [place] [address]- Name: Elvia METZ, Trinh Position: S RN Member Role: Primary Care Nurse Name: Carrol Ta RN Position: S RN Member Role: Primary Care Nurse Name: Crystal Ceron RN Position: S RN Member Role: Primary Care Nurse Care Team Related Persons Name: RADHA MONTOYA Address: [place], [place] Name: BRANDIE MONTOYA Address: [place] [address] Name: TREASURE MONTOYA Address: home [address] [place] [address] Name: JAI REED Address: home [address] [place] [address]
--- OUTSIDE RECORDS SUMMARY | 2024-07-27 11:53 | XMS_ITS | Continuity of Care Document ---
Author Organization [facility] Address [address] [facility] [place] [address]- Care Team Providers Care Decorating Inspector Name Role Phone Christiano VIDES, Nick Primary Care Physician [phone] Encounter [facility] Date(s): 02/03/24 - 04/01/24 [facility] [address] [place], [place] [address] Attending Physician: Tyler Wang MD Admitting Physician: Tyler Wang MD Allergies, Adverse Reactions, Alerts Substance Reaction Severity Status Ceftin ? Active Cleocin T BLOODY DIARRHEA Active Immunizations Given and Recorded Vaccine Date Status Refusal Reason SARS-CoV-2(COVID-19)mRNA-LNP vac([id number]) 01/08/24 Given pneumococcal 20-valent conjugate vaccine 01/08/24 Given influenza virus vaccine, inactivated 09/12/22 Michael rded influenza virus vaccine, inactivated 08/08/21 Michael rded influenza virus vaccine, inactivated 1 11/21/20 Gi cris influenza virus vaccine, inactivated 2 08/22/20 Re corded [id number] 12y+ bivalent booster vax 08/31/22 Recorded SARS-CoV-2 mRNA (rmxempb-eihn-rltdc) vax 03/16/22 Recorded SARS-CoV-2 (COVID-19) mRNA BNT-162b2 [...] diphtheria-tetanus toxoids (DT) 02/22/00 Given 1Result Comment: [id number] 2Result Comment: sarabjit SANDHU [facility] primary care 3Result Comment: Unit: Unknown Cook Helper Meat: [employer] 4Result Comment: Unit: Unknown Cook Helper Meat: [employer] Injectables Medications atorvastatin 20 mg oral tablet 1 tablet, By Mouth, Daily at bedtime, # 90 tablet, 3 Refills, Maintenance, 01/05/24 11:50:00 EST, [facility], 158, cm, 11/24/23 11:30:00 EST, [...] tablet, 1 Refills, Maintenance, 11/19/23 14:47:00 EST, [facility], 158, cm, 10/20/23 13:46:00 EST, [...] Replace Required Details, Route to Pharmacy Electronically, [facility], 158, cm, 03/16/24 15:33:00... Start Date: 04/01/24 Status: Ordered fluticasone 50 mcg/inh nasal spray 1 sprays = 50 mcg, Nares, Both, 2 times a day, # 16 Gm, 0 Refills, Maintenance, 01/08/24 11:22:00 EST, [place], [facility], Partial fill upon patient request if the prescription is for a schedule II opioid drug., 1 sprays Nares, Both 2 camden... Start Date: 01/08/24 Status: Ordered hydrocortisone 1% topical cream 1 application, Topically, 2 times a day, # 15 Gm, 0 Refills, Maintenance, 01/08/24 11:30:00 EST, Cream, [facility], Partial fill upon patient request [...] 1 Refills, Maintenance, 08/27/23 21:17:00 EDT, [facility], 158, cm, 05/06/23 11:17:00 EDT, Height, 70, kg, 04/02/23 19:36:00 EDT, Dry Weight Start Date: 08/27/23 Status: Ordered Metoprolol Tartrate 25 mg oral tablet 2 tablet = 50 mg, By Mouth, 2 times a day, # 360 tablet, 3 Refills, Maintenance, 12/14/23 15:43:00 EST, [facility], 158, cm, 11/24/23 11:30:00 EST, [...] opioid drug. Start Date: 05/09/21 Status: Ordered [place] Tears ophthalmic solution 1 drops, Eyes, Both, 3 times a day, PRN for dry eyes, Maintenance, 09/15/22 10:43:00 EDT, Solution,Partial fill upon patient request if the prescription is for a schedule II opioid drug. Start Date: 09/15/22 Status: Ordered olmesartan 20 mg oral tablet 1 tablet, By Mouth, Daily, # 90 tablet, 1 Refills, Maintenance, 11/25/23 6:31:00 EST, [facility], 158, cm, 11/24/23 11:30:00 EST, [...] Team Personnel Name: Nick Alvarado NP Position: [facility] PCO Associate Professional Member Role: PCP Address: Address: [address] [place] [address]- Name: Keyon METZ, Carrol Marie Position: [facility] SN RN Member Role: Primary Care Nurse Name: Crystal Ceron RN Position: [facility] RN Member Role: Primary Care Nurse Care Team Related Persons Name: RADHA MONTOYA Address: [place], [place] Name: BRANDIE MONTOYA Address: [place] [address] Name: TREASURE MONTOYA Address: home [address] [place] [address] Name: JAI REED Address: home [address] [place] [address]
--- OUTSIDE RECORDS SUMMARY | 2024-07-27 11:53 | XMS_ITS | Continuity of Care Document ---
Author Organization [facility] Address [address] [place] [address]- Care Team Providers Care Commercial Real Estate Manager Name Role Phone Christiano VIDES, Nick Primary Care Physician Encounter [facility] Date(s): 12/14/23 - 01/13/[address] [address] Allergies, Adverse Reactions, Alerts Substance Reaction Severity Status Ceftin ? Active Cleocin T BLOODY DIARRHEA Active Immunizations Given and Recorded Vaccine Date Status Refusal Reason SARS-CoV-2(COVID-19)mRNA-LNP vac([id number]) 01/08/24 Given pneumococcal 20-valent conjugate vaccine 01/08/24 Given influenza virus vaccine, inactivated 09/12/22 Michael rded influenza virus vaccine, inactivated 08/08/21 Michael rded influenza virus vaccine, inactivated 1 11/21/20 Gi cris influenza virus vaccine, inactivated 2 08/22/20 Re corded [id number] 12y+ bivalent booster vax 08/31/22 Recorded SARS-CoV-2 mRNA (blzaghb-lfop-uouhi) vax 03/16/22 Recorded SARS-CoV-2 (COVID-19) mRNA BNT-162b2 [...] diphtheria-tetanus toxoids (DT) 02/22/00 Given 1Result Comment: [id number] 2Result Comment: sarabjit SANDHU [facility] primary care 3Result Comment: Unit: Unknown Unit Manager: [employer] 4Result Comment: Unit: Unknown Unit Manager: [employer] Injectables Medications atorvastatin 20 mg oral tablet 1 tablet, By Mouth, Daily at bedtime, # 90 tablet, 3 Refills, Maintenance, 01/05/24 11:50:00 EST, [facility], 158, cm, 11/24/23 11:30:00 EST, Height, 70, kg, 04/02/23 19:36:00 EDT, Dry Weight Start Date: 01/05/24 Status: Ordered benzonatate 100 mg oral capsule 1 capsule = 100 mg, By Mouth, 3 times a day, PRN Cough, for 14 days, # 42 capsule, 0 Refills, Acute01/22/24 11:22:00 EST, 01/08/24 11:22:00 EST, [place], [facility], Partial fill upon patient request if the prescription is for a schedul... Start Date: 01/08/24 Stop Date: 01/22/24 Status: Ordered Compression Stockings See Instructions, # [...] Gm, 0 Refills, Maintenance, 01/08/24 11:22:00 EST, [place], [facility], Partial fill upon patient request if the prescription is for a schedule II opioid drug., 1 sprays Nares, Both 2 camden... Start Date: 01/08/24 Status: Ordered hydrocortisone 1% topical cream 1 application, Topically, 2 times a day, # 15 Gm, 0 Refills, Maintenance, 01/08/24 11:30:00 EST, [place], [facility], Partial fill upon [...] Refills, Maintenance, 10/28/23 17:05:00 EST, [facility], Partial fill upon patient request if the prescription is for a schedule II opioid drug., 1 sprays Nares, Both Daily at... Start Date: 10/28/23 Status: Ordered levothyroxine 0.05 mg oral tablet 0.5 tablet, By Mouth, Daily, # 45 tablet, 1 Refills, Maintenance, 08/27/23 21:17:00 EDT, [facility], 158, cm, 05/06/23 11:17:00 EDT, Height, 70, kg, 04/02/23 19:36:00 EDT, Dry Weight Start Date: 08/27/23 Status: Ordered Metoprolol Tartrate 25 mg oral tablet 2 tablet = 50 mg, By Mouth, 2 times a day, # 360 tablet, 3 Refills, Maintenance, 12/14/23 15:43:00 EST, [facility], 158, cm, 11/24/23 11:30:00 EST, [...] opioid drug. Start Date: 05/09/21 Status: Ordered [place] Tears ophthalmic solution 1 drops, Eyes, Both, 3 times a day, PRN for dry eyes, Maintenance, 09/15/22 10:43:00 EDT, Solution,Partial fill upon patient request if the prescription is for a schedule II opioid drug. Start Date: 09/15/22 Status: Ordered olmesartan 20 mg oral tablet 1 tablet, By Mouth, Daily, # 90 tablet, 1 Refills, Maintenance, 11/25/23 6:31:00 EST, [facility], 158, cm, 11/24/23 11:30:00 EST, [...] 11:40:00 EST, Route to Pharmacy Electronically, [facility], Partial fill upon patient request [...] Team Personnel Name: Nick Alvarado NP Position: [facility] PCO Associate Professional Member Role: PCP Address: Address: [address] [place] [id number] Name: Keyon METZ, Carrol Marie Position: [facility] SN RN Member Role: Primary Care Nurse Name: Crystal Ceron RN Position: S RN Member Role: Primary Care Nurse Care Team Related Persons Name: RADHA MONTOYA Address: [place], [place] Name: BRANDIE MONTOYA Address: [place] [address] Name: TREASURE MONTOYA Address: home [address] [place] [address] Name: JAI REED Address: home [address] [place] [address]
--- OUTSIDE RECORDS SUMMARY | 2024-07-27 11:54 | XMS_ITS | Continuity of Care Document ---
Author Organization [facility] Address [address] [place] [address]- Care Team Providers Care Fundraising Sale Representative Name Role Phone Zara Vargas MD Primary Care Physician Encounter [facility] Date(s): 04/03/21 - 05/03/21 [facility] [address] [place] [address]- Allergies, Adverse Reactions, Alerts Substance Reaction Severity [...] diphtheria-tetanus toxoids (DT) 02/22/00 Given 1Result Comment: [id number] 2Result Comment: sarabjit SANDHU [facility] primary care 3Result Comment: Unit: Unknown Pediatric Registered Nurse: [employer] 4Result Comment: Unit: Unknown Pediatric Registered Nurse: Pfizer Injectables Medications Aspirin = 81 mg, By Mouth, Daily before lunch, 0 Refills, Maintenance, 01/09/11 5:04:09 EST Start Date: 01/09/11 Status: Ordered atorvastatin 20 mg oral tablet 1 tablet = 20 mg, By Mouth, Daily at bedtime, # 90 tablet, 3 Refills, Maintenance, 12/12/20 15:31:00 EST, Tablet, [facility]/pharmacy #1095, 158, cm, 11/21/20 11:06:00 [...] 12/05/20 14:30:00 EST, Route to Pharmacy Electronically, [facility]/pharm[facility] #1095, Partial fill upon patient request if the prescription i... Start Date: 12/05/20 Stop Date: 11/30/21 Status: Ordered olmesartan 20 mg oral tablet 1 tablet = 20 mg, By Mouth, Daily, Dosage has been reduced to 20mg / day, # 30 tablet, 5 Refills, Maintenance, 09/19/20 14:11:00 EDT, Tablet, [facility]/pharm[facility] #1095, 158, cm, 09/18/20 15:50:00 [...]
--- OUTSIDE RECORDS SUMMARY | 2024-07-27 11:54 | XMS_ITS | Continuity of Care Document ---
Author Organization [facility] Address [address] [place] [address]- Care Team Providers Care Channel Cementer Name Role Phone Christiano VIDES, Nick Primary Care Physician Encounter [facility] Date(s): 12/15/23 - 01/14/[address] [address]- Allergies, Adverse Reactions, Alerts Substance Reaction Severity Status Ceftin ? Active Cleocin T BLOODY DIARRHEA Active Immunizations Given and Recorded Vaccine Date Status Refusal Reason SARS-CoV-2(COVID-19)mRNA-LNP vac([id number]) 01/08/24 Given pneumococcal 20-valent conjugate vaccine 01/08/24 Given influenza virus vaccine, inactivated 09/12/22 Michael rded influenza virus vaccine, inactivated 08/08/21 Michael rded influenza virus vaccine, inactivated 1 11/21/20 Gi cris influenza virus vaccine, inactivated 2 08/22/20 Re corded [id number] 12y+ bivalent booster vax 08/31/22 Recorded SARS-CoV-2 mRNA (clolmhd-kjnm-zshom) vax 03/16/22 Recorded SARS-CoV-2 (COVID-19) mRNA BNT-162b2 [...] diphtheria-tetanus toxoids (DT) 02/22/00 Given 1Result Comment: [id number] 2Result Comment: sarabjit SANDHU [facility] primary care 3Result Comment: Unit: Unknown 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 Start Date: 01/08/24 Status: Ordered hydrocortisone 1% topical cream 1 application, Topically, 2 times a day, # 15 Gm, 0 Refills, Maintenance, 01/08/24 11:30:00 EST, [place], [facility], Partial fill upon [...] Refills, Maintenance, 12/14/23 15:43:00 EST, [facility], 158, cm, 11/24/23 11:30:00 EST, [...] opioid drug. Start Date: 05/09/21 Status: Ordered [place] Tears ophthalmic solution 1 drops, Eyes, Both, 3 times a day, PRN for dry eyes, Maintenance, 09/15/22 10:43:00 EDT, Solution,Partial fill upon patient request if the prescription is for a schedule II opioid drug. Start Date: 09/15/22 Status: Ordered olmesartan 20 mg oral tablet 1 tablet, By Mouth, Daily, # 90 tablet, 1 Refills, Maintenance, 11/25/23 6:31:00 EST, [facility], 158, cm, 11/24/23 11:30:00 EST, [...] EST, Route to Pharmacy Electronically, [facility], Partial fill upon patient request [...] Professional Member Role: PCP Address: Address: [address] [place] [address] Name: Keyon RN, Carrol Marie Position: [facility] SN RN Member Role: Primary Care Nurse Name: Crystal Ceron RN Position: [facility] RN Member Role: Primary Care Nurse Care Team Related Persons Name: RADHA MONTOYA Address: [place], [place] Name: BRANDIE MONTOYA Address: [place] [address] Name: TREASURE MONTOYA Address: home [address] [place] [id number] Name: JAI REED Address: home [address] [place] [address]
--- OUTSIDE RECORDS SUMMARY | 2024-07-27 11:54 | XMS_ITS | Continuity of Care Document ---
Author Organization [facility] Address [address] [place] [address]- Care Team Providers Care End Packer Name Role Phone Christiano VIDES, Nick Primary Care Physician [phone] [place] [facility] Date(s): 01/12/23 - 02/11/23 [facility] [address] [place] [address]- Allergies, Adverse Reactions, Alerts Substance Reaction Severity Status Ceftin ? Active Cleocin T BLOODY DIARRHEA Active Immunizations Given and Recorded Vaccine Date Status Refusal Reason influenza virus vaccine, inactivated 09/12/22 Michael rded influenza virus vaccine, inactivated 08/08/21 Michael rded influenza virus vaccine, inactivated 1 11/21/20 Gi cris influenza virus vaccine, inactivated 2 08/22/20 Re corded [id number] 12y+ bivalent booster vax 08/31/22 Recorded SARS-CoV-2 mRNA (tvewumc-fmuf-cykrw) vax 03/16/22 Recorded SARS-CoV-2 (COVID-19) mRNA BNT-162b2 [...] diphtheria-tetanus toxoids (DT) 02/22/00 Given 1Result Comment: [id number] 2Result Comment: sarabjit SANDHU [facility] primary care 3Result Comment: Unit: Unknown Business Development Manager: [employer] 4Result Comment: Unit: Unknown Business Development Manager: Pfizer Injectables Medications atorvastatin 20 mg oral [...] Refills, Maintenance, 02/11/23 6:37:00 EDT, [facility], 157, cm, 02/05/23 15:27:00 EDT, Height, 73, kg, 01/07/23 15:13:00 EST, Dry Weight Start Date: 02/11/23 Status: Ordered Estrace Vaginal Cream 0.1 mg/g = 1 Gm, Vaginally, Every Thursday and , Physician requests stefan lange, # 30 Gm, 1 Refills, Maintenance, 02/05/23 15:29:00 EDT, [facility], Partial fill upon patient request if the prescription is for a schedule II opioid drug., 1... Start Date: 02/05/23 Status: Ordered famotidine 20 mg oral tablet 20 mg, 1, tablet, By Mouth, 2 times a day, PRN, # 30 tablet, Refills 2, Tot. Refills 2, Maintenance, Pain , Moderate, 01/30/23 10:13:00 EST, Route to Pharmacy Electronically, [facility], Partial fill upon patient request if the prescript... Start Date: 01/30/23 Status: Ordered hydrOXYzine hydrochloride 25 mg oral tablet 1 tablet, By Mouth, Daily at bedtime, # 30 tablet, 0 Refills, Maintenance, 02/10/23 10:59:00 EDT, [facility], 157, cm, 02/05/23 15:27:00 EDT, Height, 73, kg, 01/07/23 15:13:00 EST, Dry Weight Start Date: 02/10/23 Status: Ordered ICaps AREDS 2 0 Refills, [...] opioid drug. Start Date: 05/09/21 Status: Ordered [place] Tears ophthalmic solution 1 drops, Eyes, Both, 2 times a day, PRN for dry eyes, # 30 each, 0 Refills, Maintenance, 09/15/22 1:54:00 EDT, Solution, Partial fill upon patient request if the prescription is for a schedule II opioid drug. Start Date: 09/15/22 Status: Ordered [place] Tears ophthalmic solution 1 drops, Eyes, Both, [...] Associate Professional Member Role: PCP Address: Address: [address] [place] [address] Name: Elvia METZ, Trinh Position: S RN Member Role: Primary Care Nurse Name: Carrol Ta RN Position: S RN Member Role: Primary Care Nurse Name: Crystal Ceron RN Position: S RN Member Role: Primary Care Nurse Care Team Related Persons Name: RADHA MONTOYA Name: BRANDIE MONTOYA Address: [place] [address] Name: TREASURE MONTOYA Address: home [address] [place] [address] Name: JAI REED Address: home [address] [place] [address]
--- OUTSIDE RECORDS SUMMARY | 2024-07-27 11:54 | XMS_ITS | Continuity of Care Document ---
Author Organization [facility] Address Unknown Care Team Providers Care Police Detention Attendant Name Role Phone Zara Vargas MD Primary Care Physician [phone] Encounter [facility] Date(s): 08/12/21 - 09/11/21 [facility] Attending Physician: Admtr, Ar8 Admitting Physician: Admtr, [...] diphtheria-tetanus toxoids (DT) 02/22/00 Given 1Result Comment: [id number] 2Result Comment: sarabjit SANDHU [facility] primary care 3Result Comment: Unit: Unknown Motion Picture Commentator: [employer] 4Result Comment: Unit: Unknown Motion Picture Commentator: Pfizer Injectables Medications Aspirin = 81 mg, [...] EDT, [facility], Apply Clenpiq Coupon: RxBIN [id number]; RxPCN: [id number]; RxGrp: [id number]; RxID: [id number]... Start Date: 08/30/21 Status: Ordered Estrace Vaginal Cream 0.1 mg/g = 1 Gm, Vaginally, Daily at bedtime, until symptoms improve monitor for first 2 weeks and if no difference, stop medication and call office, # 30 Gm, 0 Refills, Maintenance, 07/24/21 12:46:00 EDT, [facility], Partial fill upon p... Start Date: 07/24/21 [...] 113.4 Gm, 3 Refills, Maintenance, [facility], [facility], USE DIRECTED, 158, cm, 05/09/21 14:04:00 [...]
--- OUTSIDE RECORDS SUMMARY | 2024-07-27 11:54 | XMS_ITS | Continuity of Care Document ---
Author Organization [facility] Medicine Address [address] [place] [address]- Care Team Providers Care Appliance Service Supervisor Name Role Phone Christiano VIDES, Nick Primary Care Physician En[place] [facility] [place] Date(s): 05/06/23 - 06/05/[address] [address]- Attending Physician: Silas Duncan Admitting Physician: Silas [...] virus vaccine, inactivated 2 08/22/20 Re corded [id number] 12y+ bivalent booster vax 08/31/22 Recorded SARS-CoV-2 mRNA (vvcjakv-mxcx-iqgey) vax 03/16/22 Recorded SARS-CoV-2 (COVID-19) mRNA BNT-162b2 [...] diphtheria-tetanus toxoids (DT) 02/22/00 Given 1Result Comment: [id number] 2Result Comment: sarabjit SANDHU [facility] primary care 3Result Comment: Unit: Unknown Qc Lab Technician: [employer] 4Result Comment: Unit: Unknown Qc Lab Technician: [employer] Injectables Medications atorvastatin 20 mg oral tablet [...] EDT, Route to Pharmacy Electronically, [facility], Partial fill upon patient request if the prescript... Start Date: 03/03/23 Status: Ordered hydrOXYzine hydrochloride 25 mg oral tablet 1 tablet, By Mouth, Daily at bedtime, # 30 tablet, 0 Refills, Maintenance, 04/07/23 7:44:00 EDT, [facility], 158, cm, 04/02/23 19:36:00 EDT, [...] tablet, 1 Refills, Maintenance, 05/29/23 15:49:00 EDT, [facility], 158, cm, 05/06/23 11:17:00 EDT, [...] opioid drug. Start Date: 05/09/21 Status: Ordered [place] Tears ophthalmic solution 1 drops, Eyes, Both, 2 times a day, PRN for dry eyes, # 30 each, 0 Refills, Maintenance, 09/15/22 1:54:00 EDT, Solution, Partial fill upon patient request if the prescription is for a schedule II opioid drug. Start Date: 09/15/22 Status: Ordered [place] Tears ophthalmic solution 1 drops, Eyes, Both, [...] Team Personnel Name: Nick Alvarado NP Position: [facility] Associate Professional Member Role: PCP Address: Address: [address] [place] [id number] Name: Elvia METZ, Trinh Position: S RN Member Role: Primary Care Nurse Name: Carrol Ta RN Position: S RN Member Role: Primary Care Nurse Name: Crystal Ceron RN Position: [facility] RN Member Role: Primary Care Nurse Care Team Related Persons Name: RADHA MONTOYA Address: [place], [place] Name: BRANDIE MONTOYA Address: [place] [address] Name: TREASURE MONTOYA Address: home [address] [place] [address] Name: JAI REED Address: home [address] [place] [id number]
--- OUTSIDE RECORDS SUMMARY | 2024-07-27 11:54 | XMS_ITS | Continuity of Care Document ---
Author Organization [facility] Medicine Address [address] [place] [address]- Care Team Providers Care Lab Clerk Name Role Phone Christiano VIDES, Nick Primary Care Physician Encounter [facility] [place] Date(s): 12/18/22 - 02/15/23 [facility] Medicine [address] [place] [address]- Attending Physician: Nick Alvarado NP Admitting Physician: Nick Alvarado NP Allergies, Adverse Reactions, Alerts Substance Reaction Severity Status Ceftin ? Active Cleocin T BLOODY DIARRHEA Active Immunizations Given and Recorded Vaccine Date Status Refusal Reason influenza virus vaccine, inactivated 09/12/22 Michael rded influenza virus vaccine, inactivated 08/08/21 Michael rded influenza virus vaccine, inactivated 1 11/21/20 Gi cris influenza virus vaccine, inactivated 2 08/22/20 Re corded [id number] 12y+ bivalent booster vax 08/31/22 Recorded SARS-CoV-2 mRNA (ieoolvk-yqxe-jgmyp) vax 03/16/22 Recorded SARS-CoV-2 (COVID-19) mRNA BNT-162b2 [...] diphtheria-tetanus toxoids (DT) 02/22/00 Given 1Result Comment: [id number] 2Result Comment: sarabjit SANDHU [facility] primary care 3Result Comment: Unit: Unknown 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[employer] 4Result Comment: Unit: Unknown 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[employer] Injectables Medications atorvastatin 20 mg oral tablet 1 tablet, By Mouth, Daily at bedtime, # 90 tablet, 3 Refills, Maintenance, 12/16/22 13:42:00 EST, [facility], 158, cm, 12/11/22 15:03:00 EST, Height, 71, kg, 12/11/22 15:03:00 EST, Dry Weight Start Date: 12/16/22 Status: Ordered Clotrimazole 1% Topical 1 application, Topically, 2 times a day, Toenails, 0 Refills, Maintenance, Cream Start Date: 09/15/22 Status: Ordered escitalopram 5 mg oral tablet 1 tablet, By Mouth, Daily, # 30 tablet, 2 Refills, Maintenance, 02/11/23 6:37:00 EDT, [facility], 157, cm, 02/05/23 15:27:00 EDT, Height, 73, kg, 01/07/23 15:13:00 EST, Dry Weight Start Date: 02/11/23 Status: Ordered Estrace Vaginal Cream 0.1 mg/g = 1 Gm, Vaginally, Every Thursday and , Physician requests paraben free, # 30 Gm, 1 Refills, Maintenance, 02/05/23 15:29:00 EDT, [facility], Partial fill upon patient request if the prescription is for a schedule II opioid drug., 1... Start Date: 02/05/23 Status: Ordered famotidine 20 mg oral tablet 20 mg, 1, tablet, By Mouth, 2 times a day, PRN, # 30 tablet, Refills 2, Tot. Refills 2, Maintenance, Pain , Moderate, 01/30/23 10:13:00 EST, Route to Pharmacy Electronically, [facility], Partial fill upon patient request if [...] opioid drug. Start Date: 05/09/21 Status: Ordered Sabinal Tears ophthalmic solution 1 drops, Eyes, Both, 2 times a day, PRN for dry eyes, # 30 each, 0 Refills, Maintenance, 09/15/22 1:54:00 EDT, Solution, Partial fill upon patient request if the prescription is for a schedule II opioid drug. Start Date: 09/15/22 Status: Ordered Sabinal Tears ophthalmic solution 1 drops, Eyes, Both, [...] Team Personnel Name: Nick Alvarado NP Position: [facility] PCO Associate Professional Member Role: PCP Address: Address: [address] [place] [id number] Name: Elvia METZ, Trinh Position: S RN Member Role: Primary Care Nurse Name: Carrol Ta RN Position: S RN Member Role: Primary Care Nurse Name: Crystal Ceron RN Position: S RN Member Role: Primary Care Nurse Care Team Related Persons Name: RADHA MONTOYA Name: BRANDIE MONTOYA Address: [place] [address] Name: TREASURE MONTOYA Address: home [address] [place] [id number] Name: JAI REED Address: home [address] [place] [id number]
--- OUTSIDE RECORDS SUMMARY | 2024-07-27 11:54 | XMS_ITS | Continuity of Care Document ---
Author Organization [facility] Address [address] [place] [address]- Care Team Providers Care Steffen House Supervisor Name Role Phone Sam WEBER, Zara Jensen Primary Care Physician [place] [facility] [place] Date(s): 06/20/20 - 09/08/20 [facility] [address] [place] [address]- [facility] Attending Physician: Aureliano Tiwari MD Admitting Physician: Aureliano Tiwari MD Allergies, Adverse Reactions, [...] (DT) 02/22/00 Given 1Result Comment: Unit: Unknown Textile Engineer: ADOR 2Result Comment: Unit: Unknown 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 Refills 11, Maintenance, Regional:All Pap Supplies: Tubing, Headgear, Chin Strap, CC Line, Full Face/Nasal Mask, Heated Humidifier, Water Chamber, and Filters. DX: BONNIE G47.33Length of Need 99 months ACCESS... Start Date: 09/15/17 Status: Ordered doxycycline hyclate 100 mg oral [...] 0, 0, 02/21/06 7:36:57, Print CAMILO Number, [id number], Constant Indicator Start Date: 02/21/06 Status: Ordered [...]
--- OUTSIDE RECORDS SUMMARY | 2024-07-27 11:54 | XMS_ITS | Continuity of Care Document ---
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
--- OUTSIDE RECORDS SUMMARY | 2024-07-27 11:54 | XMS_ITS | Continuity of Care Document ---
Author Organization [facility] Address [address] [facility] [place] [address]- Care Team Providers Care Panel Builder Name Role Phone Christiano VIDES, Nick Primary Care Physician [phone] Encounter [facility] [place] Date(s): 11/07/22 - 03/05/23 [facility] [address] [place] [address]- Attending Physician: Tyler Wang MD Admitting Physician: Tyler Wang MD Referring Physician: Nick Alvarado NP Allergies, Adverse Reactions, Alerts Substance Reaction Severity Status Ceftin ? Active Cleocin T BLOODY DIARRHEA Active Immunizations Given and Recorded Vaccine Date Status Refusal Reason influenza virus vaccine, inactivated 09/12/22 Michael rded influenza virus vaccine, inactivated 08/08/21 Michael rded influenza virus vaccine, inactivated 1 11/21/20 Gi cris influenza virus vaccine, inactivated 2 08/22/20 Re corded [id number] 12y+ bivalent booster vax 08/31/22 Recorded SARS-CoV-2 mRNA (aqnsdya-durc-xjzwt) vax 03/16/22 Recorded SARS-CoV-2 (COVID-19) mRNA BNT-162b2 [...] diphtheria-tetanus toxoids (DT) 02/22/00 Given 1Result Comment: [id number] 2Result Comment: sarabjit SANDHU [facility] primary care 3Result Comment: Unit: Unknown 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: [employer] 4Result Comment: Unit: Unknown 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: [email or web address] Injectables Medications atorvastatin 20 mg oral tablet 1 tablet, By Mouth, Daily at bedtime, # 90 tablet, 3 Refills, Maintenance, 12/16/22 13:42:00 EST, [facility], 158, cm, 12/11/22 15:03:00 EST, Height, 71, kg, 12/11/22 15:03:00 EST, Dry Weight Start Date: 12/16/22 Status: Ordered Clotrimazole 1% Topical 1 application, Topically, 2 times a day, Toenails, 0 Refills, Maintenance, Cream Start Date: 09/15/22 Status: Ordered escitalopram 5 mg oral tablet 1 tablet, By Mouth, Daily, # 30 tablet, 2 Refills, Maintenance, 02/11/23 6:37:00 EDT, [facility] | [facility], 157, cm, 02/05/23 15:27:00 EDT, Height, 73, kg, 01/07/23 15:13:00 EST, Dry Weight Start Date: 02/11/23 Status: Ordered Estrace Vaginal Cream 0.1 mg/g = 1 Gm, Vaginally, Every Thursday and , Physician requests paraben free, # 30 Gm, 1 Refills, Maintenance, 02/05/23 15:29:00 EDT, [facility], Partial fill upon patient request if the prescription is for a schedule II opioid drug., 1... Start Date: 02/05/23 Status: Ordered famotidine 20 mg oral tablet 20 mg, 1, tablet, By Mouth, 2 times a day, PRN, # 60 tablet, Refills 5, Tot. Refills 5, Maintenance, Pain , Moderate, 03/03/23 15:46:00 EDT, Route to Pharmacy Electronically, [facility], Partial fill upon patient request if the prescript... Start Date: 03/03/23 Status: Ordered hydrOXYzine hydrochloride 25 mg oral tablet 1 tablet, By Mouth, Daily at bedtime, # 30 tablet, 0 Refills, Maintenance, 02/10/23 10:59:00 EDT, [facility], 157, cm, 02/05/23 15:27:00 EDT, [...] 45 tablet, 1 Refills, Maintenance, 09/01/2219:01:00 EDT, [facility], 158, cm, 06/27/22 10:16:00 EDT, Height, 71.9, kg, 06/19/22 18:46:00 EDT, Dry Weight Start Date: 09/01/22 Status: Ordered meclizine 25 mg oral tablet 1 tablet = 25 mg, By Mouth, 3 times a day, PRN for dizziness, # 30 tablet, 0 Refills, Maintenance, 11/11/22 11:29:00 EST, Tablet, [facility], Partial fill upon patient request if the prescription is for a schedule II opioid drug., 157, c... Start Date: 11/11/22 Status: Ordered Metoprolol Tartrate 25 mg oral tablet 2 tablet = 50 mg, By Mouth, 2 times a day, # 360 tablet, 3 Refills, Maintenance, 12/16/22 13:42:00 EST, [facility], 158, cm, 12/11/22 [...] opioid drug. Start Date: 05/09/21 Status: Ordered [place] Tears ophthalmic solution 1 drops, Eyes, Both, 2 times a day, PRN for dry eyes, # 30 each, 0 Refills, Maintenance, 09/15/22 1:54:00 EDT, Solution, Partial fill upon patient request if the prescription is for a schedule II opioid drug. Start Date: 09/15/22 Status: Ordered [place] Tears ophthalmic solution 1 drops, Eyes, Both, [...] Team Personnel Name: Nick Alvarado NP Position: [facility] PCO Associate Professional Member Role: PCP Address: Address: [address] [place] [id number] Name: Elvia METZ, Trinh Position: S RN Member Role: Primary Care Nurse Name: Carrol Ta RN Position: S RN Member Role: Primary Care Nurse Name: Crystal Ceron RN Position: S RN Member Role: Primary Care Nurse Care Team Related Persons Name: RADHA MONTOYA Name: BRANDIE MONTOYA Address: [place] [address] Name: TREASURE MONTOYA Address: home [address] [place] [address] Name: JAI REED Address: home [address] [place] [address]"
--- OUTSIDE RECORDS SUMMARY | 2024-07-27 11:54 | XMS_ITS | Continuity of Care Document ---
Author Organization [facility] Address [address] [place] [address]- Care Team Providers Care Creative Manager Name Role Phone Christiano VIDES, Nick Primary Care Physician En[place] [facility] [place] Date(s): 05/05/23 - 07/05/[address] [address]- Encounter Diagnosis Low back pain, unspecified(Final) - Discharge Disposition: A-D/C Home Attending Physician: Nick Alvarado NP Admitting Physician: [...] virus vaccine, inactivated 2 08/22/20 Re corded [id number] 12y+ bivalent booster vax 08/31/22 Recorded SARS-CoV-2 mRNA (hmhryyp-keex-ojubn) vax 03/16/22 Recorded SARS-CoV-2 (COVID-19) mRNA BNT-162b2 [...] diphtheria-tetanus toxoids (DT) 02/22/00 Given 1Result Comment: [id number] 2Result Comment: sarabjit SANDHU [facility] primary care 3Result Comment: Unit: Unknown 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 Start Date: 05/09/21 Status: Ordered [place] Tears ophthalmic solution 1 drops, Eyes, Both, 2 times a day, PRN for dry eyes, # 30 each, 0 Refills, Maintenance, 09/15/22 1:54:00 EDT, Solution, Partial fill upon patient request if the prescription is for a schedule II opioid drug. Start Date: 09/15/22 Status: Ordered [place] Tears ophthalmic solution 1 drops, Eyes, Both, [...] Associate Professional Member Role: PCP Address: Address: [address] [place] [address]- Name: Trinh Gan RN Position: S RN Member Role: Primary Care Nurse Name: Carrol Ta RN Position: S RN Member Role: Primary Care Nurse Name: Crystal Ceron RN Position: S RN Member Role: Primary Care Nurse Care Team Related Persons Name: RADHA MONTOYA Address: [place], [place] Name: BRANDIE MONTOYA Address: [place] [address] Name: TREASURE MONTOYA Address: home [address] [place] [address] Name: JAI REED Address: home [address] [place] [address]
--- OUTSIDE RECORDS SUMMARY | 2024-07-27 11:54 | XMS_ITS | Continuity of Care Document ---
Author Organization [facility] Address [address] [place] [address]- Care Team Providers Care Produce Laborer Name Role Phone Christiano VIDES, Nick Primary Care Physician Encounter [facility] Date(s): 06/19/22 - 06/20/[address] [address]- Encounter Diagnosis Chest pain(Final) - 06/19/22 Discharge Disposition: A-D/C Home Attending Physician: Tyron Cohen MD Admitting Physician: Wilver Le MD Referring Physician: Not on Staff, Referring [...] diphtheria-tetanus toxoids (DT) 02/22/00 Given 1Result Comment: [id number] 2Result Comment: sarabjit SANDHU [facility] primary care 3Result Comment: Unit: Unknown 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: [employer] 4Result Comment: Unit: Unknown 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: [employer] Injectables Medications Aspirin = 81 mg, By Mouth, Every Thursday, Thursday and Thursday, 0 Refills, Maintenance, 01/09/11 5:04:09 EST Start Date: 01/09/11 Status: Ordered atorvastatin 20 mg oral tablet 1 tablet, By Mouth, Daily at bedtime, # 90 tablet, 3 Refills, Maintenance, 06/09/22 11:18:00 EDT, [facility] #1095, 157.48, cm, 02/21/22 10:37:00 EDT, Height, 68.8, kg, 09/03/21 11:11:00 EDT, Dry Weight Start Date: 06/09/22 Status: Ordered Caltrate 600 + D By Mouth, 2 times a day, 0 Refills, Maintenance, 11/05/20 10:19:00 EST, Partial fill upon patient request if the prescription is for a schedule II opioid drug. Start Date: 11/05/20 Status: Ordered Cozaar 50 mg oral tablet 50 mg, Tablet, By Mouth, 06/20/22 9:00:00 EDT Start Date: 06/20/22 Stop Date: 06/20/22 Status: Completed Estrace Vaginal Cream 0.1 mg/g = 1 Gm, Vaginally, Every Thursday and , Physician requests stefan free, # 30 Gm, 1 Refills, Maintenance, 12/18/21 15:56:00 EST, [facility], Partial fill upon patient request if the prescription is for a schedule II opioid... Start Date: 12/18/21 Status: Ordered ICaps AREDS 2 0 Refills, Maintenance, 02/06/22 11:05:00 EDT, Partial fill upon patient request if the prescription is for a schedule II opioid drug. Start Date: 02/06/22 Status: Ordered metoprolol 25 mg oral tablet 25 mg, Tablet, By Mouth, 06/20/22 9:00:00 EDT Start Date: 06/20/22 Stop Date: 06/20/22 Status: Completed Metoprolol Tartrate 25 mg oral tablet 1 tablet, By Mouth, 2 times a day, # 180 tablet, 3 Refills, Maintenance, 12/02/21 11:49:00 EST, [facility]/pharm[facility] #1095, 157.48, cm, 11/27/21 12:51:00 EST, Height, 68.8, kg, 09/03/21 11:11:00 EDT, Dry Weight Start Date: 12/02/21 Status: Ordered olmesartan 20 mg oral tablet 1 tablet, By Mouth, Daily, # 90 tablet, 3 Refills, Maintenance, 12/20/21 13:54:00 EST, [facility]/pharm[facility]#1095, 157.48, cm, 12/19/21 11:37:00 EST, Height, 68.8, [...] Hearing loss, sensorineural(Confirmed) Active TMJ syndrome(Confirmed) Active Results Radiology Reports * Exam Date Time Procedure Performing Provider Status 06/19/22 1:41 PM Chest 2 Views Frontal and Lat Messi Monge; Neida (Verified) Notes: (Chest 2 Views Frontal and Lat) Reason For Exam: CHF RESULT: Chest 2 Views Frontal and Lat Chest 2 Views Frontal and Lat Hx of Present 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 States this past week has felt weak, tired, I just haven't been feeling that great. ; Reason: CHF; Clinical Question(s): CHF COMPARISON: 09/12/2020 FINDINGS: No acute cardiopulmonary process IMPRESSION: No acute abnormality. WSN: [id number] Ordering Physician: Sly Lewis Dictated By: Jaspal Bragg MD Dictated Date/Time: 06/19/22 1:45 pm Reviewed By: Jaspal Bragg MD Signed By: Jaspal Bragg MD Signed Date/Time: 06/19/22 1:45 pm Transcribed By: [place] Transcribed Date/Time: 06/19/22 1:43 pm Vital Signs Most recent to oldest [Reference Range]: 1 2 3 4 Height 158 cm (06/20/22 3:03 PM) 158 cm (06/20/22 7:27 AM) 158 cm (06/20/22 5:03 AM) Weight 71.9 kg (06/19/22 6:46 PM) 71.9 kg (06/19/22 6:33 PM) 70.5 kg (06/19/22 12:53 PM) Oxygen Saturation [94-100 %] 96 % (06/20/22 3:03 PM) 99 % (06/20/22 7:27 AM) 97 % (06/20/22 5:03 AM) Pulse Rate [55-90 bpm] 58 bpm (06/20/22 3:03 PM) 62 bpm (06/20/22 9:41 AM) 60 bpm (06/20/22 7:27 AM) Body Mass Index [18.5-24.99] 28.8 *H* (06/19/22 6:46 PM) 28.8 *H* (06/19/22 6:33 PM) Blood Pressure [90-138/55-84 mm Hg] 130/81mm Hg (06/20/22 3:03 PM) 140/58mm Hg *H* (06/20/22 1:43 PM) 149/57mm Hg *H* (06/20/22 9:41 AM) 149/57mm Hg *H* (06/20/22 9:41 AM) Respiratory Rate [16-30 br/min] 16 br/min (06/20/22 3:03 PM) 16 br/min (06/20/22 7:27 AM) 18 br/min (06/20/22 5:03 AM) Temperature [96.8-100.4 DegF] 97.5 DegF (06/20/22 3:03 PM) 97.7 DegF (06/20/22 7:27 AM) 97.5 DegF (06/20/22 5:03 AM) Liters per Minute 0 L/min (06/20/22 5:03 AM) 0 L/min (06/19/22 6:33 PM) Mode of Delivery (Oxygen) Room air (06/20/22 3:03 PM) Room air (06/20/22 7:27 AM) Room air (06/20/22 5:03 AM) Blood pressure sites Arm, left (06/20/22 3:03 PM) Arm, left (06/20/22 1:43 PM) Arm, left (06/20/22 7:27 AM) Temperature Route Oral (06/20/22 3:03 PM) Oral (06/20/22 7:27 AM) Oral (06/20/22 5:03 AM) Dry Weight 71.9 kg (06/19/22 6:46 PM) 70.5 kg (06/19/22 12:53 PM) Weight Obtained Via Bed scale (06/19/22 6:46 PM) Bed scale (06/19/22 6:33 PM) Patient/family stated (06/19/22 12:53 PM) Dry Weight Obtained Via Patient/family stated (06/19/22 12:53 PM) Social History Social History Type Response Tobacco Total pack years: 35 . Started at age: 14 Years. Stopped at age: 49 Years. Sex
--- OUTSIDE RECORDS SUMMARY | 2024-07-27 11:54 | XMS_ITS | Continuity of Care Document ---
Author Organization [facility] Address [address] [place] [address]- Care Team Providers Care Music Ministries Director Name Role Phone Christiano VIDES, Nick Primary Care Physician [phone] Encounter [facility] Date(s): 07/11/24 - 07/18/24 [facility] [address] [place] [address]- Attending Physician: Babak VIDES, Elizabeth Pandya Allergies, Adverse Reactions, Alerts Substance Reaction Severity Status Ceftin ? Active Cleocin T BLOODY DIARRHEA Active Immunizations Given and Recorded Vaccine Date Status Refusal Reason SARS-CoV-2(COVID-19)mRNA-LNP vac([id number]) 01/08/24 Given pneumococcal 20-valent conjugate vaccine 01/08/24 Given influenza virus vaccine, inactivated 09/12/22 Michael rded influenza virus vaccine, inactivated 08/08/21 Michael rded influenza virus vaccine, inactivated 1 11/21/20 Gi cris influenza virus vaccine, inactivated 2 08/22/20 Re corded [id number] 12y+ bivalent booster vax 08/31/22 Recorded SARS-CoV-2 mRNA (xbekohr-vvje-zozug) vax 03/16/22 Recorded SARS-CoV-2 (COVID-19) mRNA BNT-162b2 [...] diphtheria-tetanus toxoids (DT) 02/22/00 Given 1Result Comment: [id number] 2Result Comment: sarabjit SANDHU [facility] primary care 3Result Comment: Unit: Unknown 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 Start Date: 07/11/24 Status: Ordered famotidine 20 mg oral tablet 40 mg, 2, tablet, By Mouth, Daily, # 30 tablet, Refills 0, Maintenance, 04/05/24 5:36:00 EDT, Partial fill upon patient request if the prescription is for a schedule II opioid drug. Start Date: 04/05/24 Status: Ordered levothyroxine 0.05 mg oral tablet 0.5 tablet, By Mouth, Daily, # 45 tablet, 1 Refills, Maintenance, 06/01/24 11:03:00 EDT, [facility], 158, cm, 05/19/24 9:35:00 EDT, Height, 73.2, kg, 04/05/24 2:07:00 EDT, Dry Weight Start Date: 06/01/24 Status: Ordered metoprolol 50 mg oral tablet 50 mg, By Mouth, 2 times a day, Refills 0, Maintenance, 04/05/24 11:11:00 EDT, Partial fill upon patient request if the prescription is for a schedule II opioid drug. Start Date: 04/05/24 Status: Ordered metroNIDAZOLE 500 mg oral tablet 1 tablet = 500 mg, By Mouth, 2 times a day, for 7 days, may take with food to minimize abdominal discomfort do not drink alcohol, # 14 tablet, 0 Refills, Acute 07/20/24 11:05:00 EDT, 07/13/24 11:05:00 EDT, Tablet, [facility], Partial fi... Start Date: 07/13/24 Stop Date: 07/20/24 Status: Ordered MiraLax = 17 Gm, By [...] syndrome Confirmed Active Vaginal discharge Confirmed Active Vital Signs Most recent to oldest [Reference Range]: 1 Height 158 cm (07/11/24 9:01 AM) Weight 73.1 kg (07/11/24 9:01 AM) Body Mass Index [18.5-24.99 kg/m2] 29.28 kg/m2 *H* (07/11/24 9:01 AM) Blood Pressure [90-138/55-84 mm Hg] 118/ 72mm Hg (07/11/24 9:01 AM) Blood pressure sites Arm, right (07/11/24 9:01 AM) Weight Obtained Via Standing scale (07/11/24 9:01 AM) Social History Social History Type Response Tobacco Total pack years: 35 . Started at age: 14 Years. Stopped at age: 49 Years. Sex Patient Care team information Care Team Personnel Name: Pam Floyd RN Position: [facility] RN Member Role: Primary Care Nurse Name: Nick Alvarado NP Position: [facility] PCO Associate Professional Member Role: PCP Address: Address: [address] [place] [address]- Name: Carrol Ta RN Position: [facility] SN RN Member Role: Primary Care Nurse Name: Crystal Ceron RN Position: [facility] RN Member Role: Primary Care Nurse Care Team Related Persons Name: RADHA MONTOYA Address: [place], [place] Name: BRANDIE MONTOYA Address: [place] [address] Name: TREASURE MONTOYA Address: home [address] [place] [address] Name: JAI REED Address: home [address] [place] [address]
--- OUTSIDE RECORDS SUMMARY | 2024-07-27 11:55 | XMS_ITS | Continuity of Care Document ---
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
--- OUTSIDE RECORDS SUMMARY | 2024-07-27 11:55 | XMS_ITS | Continuity of Care Document ---
Author Organization [facility] Address [address] [facility] [place] [address]- Care Team Providers Care Tire Adjuster Name Role Phone Christiano VIDES, Nick Primary Care Physician Encounter [facility] Date(s): 02/04/24 - 03/05/24 [facility] [address] [place] [address]- Attending Physician: Silas Duncan Admitting Physician: Silas Duncan Referring Physician: Silas Duncan Allergies, Adverse Reactions, Alerts Substance Reaction Severity Status Ceftin ? Active Cleocin T BLOODY DIARRHEA Active Immunizations Given and Recorded Vaccine Date Status Refusal Reason SARS-CoV-2(COVID-19)mRNA-LNP vac([id number]) 01/08/24 Given pneumococcal 20-valent conjugate vaccine 01/08/24 Given influenza virus vaccine, inactivated 09/12/22 Michael rded influenza virus vaccine, inactivated 08/08/21 Michael rded influenza virus vaccine, inactivated 1 11/21/20 Gi cris influenza virus vaccine, inactivated 2 08/22/20 Re corded [id number] 12y+ bivalent booster vax 08/31/22 Recorded SARS-CoV-2 mRNA (dvhcdki-vjln-yqqse) vax 03/16/22 Recorded SARS-CoV-2 (COVID-19) mRNA BNT-162b2 [...] diphtheria-tetanus toxoids (DT) 02/22/00 Given 1Result Comment: [id number] 2Result Comment: sarabjit SANDHU [facility] primary care 3Result Comment: Unit: Unknown 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 Start Date: 02/05/23 Status: Ordered famotidine 20 mg oral tablet 1, tablet, By Mouth, 2 times a day, PRN, # 60 tablet, Refills 5, Maintenance, NEEDED, 08/27/23 21:16:00 EDT, Route to Pharmacy Electronically, [facility], 158, cm, 05/06/23 11:17:00 EDT, Height, 70, kg, 04/02/23 19:36:00 EDT, Dry Weight Start Date: 08/27/23 Status: Ordered fluticasone 50 mcg/inh nasal spray 1 sprays = 50 mcg, Nares, Both, 2 times a day, # 16 Gm, 0 Refills, Maintenance, 01/08/24 11:22:00 EST, [place], [facility], Partial fill upon patient request if the prescription is for a schedule II opioid drug., 1 sprays Nares, Both 2 camden... Start Date: 01/08/24 Status: Ordered hydrocortisone 1% topical cream 1 application, Topically, 2 times a day, # 15 Gm, 0 Refills, Maintenance, 01/08/24 11:30:00 EST, Cream, [facility], Partial fill upon patient request if the prescription is for a schedule II opioid drug., 1 application Topically 2 times... Start Date: 01/08/24 Status: Ordered hydrOXYzine hydrochloride 25 mg oral tablet 1 tablet, By Mouth, Daily at bedtime, # 30 tablet, 0 Refills, Maintenance, 07/21/23 11:20:00 EDT, [facility], 158, cm, 05/06/23 11:17:00 [...] opioid drug. Start Date: 05/09/21 Status: Ordered Cecilton Tears ophthalmic solution 1 drops, Eyes, Both, [...] Team Personnel Name: Nick Alvarado NP Position: [facility] PCO Associate Professional Member Role: PCP Address: Address: [address] [place] [address]- Name: Keyon RN, Carrol Marie Position: [facility] SN RN Member Role: Primary Care Nurse Name: Crystal Ceron RN Position: [facility] RN Member Role: Primary Care Nurse Care Team Related Persons Name: RADHA MONTOYA Address: [place], [place] Name: BRANDIE MONTOYA Address: [place] [address] Name: TREASURE MONTOYA Address: [address] [place] [address] Name: JAI REED Address: [address] [place] [address]
--- OUTSIDE RECORDS SUMMARY | 2024-07-27 11:55 | XMS_ITS | Continuity of Care Document ---
Author Organization [facility] Address [address] [place] [address]- Care Team Providers Care Digital Asset Specialist Name Role Phone Christiano VIDES, Nick Primary Care Physician [phone] Encounter [facility] Date(s): 12/31/23 - 04/07/[address] [address]- Attending Physician: Anusha Roberts MD Admitting Physician: Anusha Roberts MD Referring Physician: Nick Alvarado NP Allergies, Adverse Reactions, Alerts Substance Reaction Severity Status Ceftin ? Active Cleocin T BLOODY DIARRHEA Active Immunizations Given and Recorded Vaccine Date Status Refusal Reason SARS-CoV-2(COVID-19)mRNA-LNP vac([id number]) 01/08/24 Given pneumococcal 20-valent conjugate vaccine 01/08/24 Given influenza virus vaccine, inactivated 09/12/22 Michael rded influenza virus vaccine, inactivated 08/08/21 Michael rded influenza virus vaccine, inactivated 1 11/21/20 Gi cris influenza virus vaccine, inactivated 2 08/22/20 Re corded [id number] 12y+ bivalent booster vax 08/31/22 Recorded SARS-CoV-2 mRNA (pgnnwon-devc-zlkds) vax 03/16/22 Recorded SARS-CoV-2 (COVID-19) mRNA BNT-162b2 [...] diphtheria-tetanus toxoids (DT) 02/22/00 Given 1Result Comment: [id number] 2Result Comment: sarabjit SANDHU 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: [employer] Injectables Medications atorvastatin 20 mg oral tablet [...] Gm, 0 Refills, Maintenance, 04/05/24 5:37:00 EDT, [place], Partial fill upon patient request if the [...] Team Personnel Name: Pam Floyd RN Position: [facility] RN Member Role: Primary Care Nurse Name: Nick Alvarado NP Position: [facility] PCO Associate Professional Member Role: PCP Address: Address: [address] [place] [id number] Name: Keyon METZ, Carrol Marie Position: [facility] SN RN Member Role: Primary Care Nurse Name: Crystal Ceron RN Position: [facility] RN Member Role: Primary Care Nurse Care Team Related Persons Name: RADHA MONTOYA Address: [place], [place] Name: BRANDIE MONTOYA Address: [place] [address] Name: TREASURE MONTOYA Address: home [address] [place] [address] Name: JAI REED Address: home [address] [place] [address]
--- OUTSIDE RECORDS SUMMARY | 2024-07-27 11:55 | XMS_ITS | Continuity of Care Document ---
Author Organization [facility] Address [address] [address]- Care Team Providers Care Salesperson Household Appliances Name Role Phone Christiano VIDES, Nick Primary Care Physician [phone] Encounter [facility] Date(s): 01/04/24 - 02/03/24 [facility] [address] [address]- [place] Allergies, Adverse Reactions, Alerts Substance Reaction Severity Status Ceftin ? Active Cleocin T BLOODY DIARRHEA Active Immunizations Given and Recorded Vaccine Date Status Refusal Reason SARS-CoV-2(COVID-19)mRNA-LNP vac([id number]) 01/08/24 Given pneumococcal 20-valent conjugate vaccine 01/08/24 Given influenza virus vaccine, inactivated 09/12/22 Michael rded influenza virus vaccine, inactivated 08/08/21 Michael rded influenza virus vaccine, inactivated 1 11/21/20 Gi cris influenza virus vaccine, inactivated 2 08/22/20 Re corded [id number] 12y+ bivalent booster vax 08/31/22 Recorded SARS-CoV-2 mRNA (legmqnl-unlg-evgrn) vax 03/16/22 Recorded SARS-CoV-2 (COVID-19) mRNA BNT-162b2 [...] diphtheria-tetanus toxoids (DT) 02/22/00 Given 1Result Comment: [id number] 2Result Comment: sarabjit SANDHU [facility] primary care 3Result Comment: Unit: Unknown 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: [employer] 4Result Comment: Unit: Unknown 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 Start Date: 01/08/24 Status: Ordered hydrocortisone 1% topical cream 1 application, Topically, 2 times a day, # 15 Gm, 0 Refills, Maintenance, 01/08/24 11:30:00 EST, [place], [facility], Partial fill upon patient request [...] opioid drug. Start Date: 05/09/21 Status: Ordered [place] Tears ophthalmic solution 1 drops, Eyes, Both, [...] Team Personnel Name: Nick Alvarado NP Position: S PCO Associate Professional Member Role: PCP Address: Address: [address] [place] [address]- Name: Keyon METZ, Carrol Marie Position: [facility] SN RN Member Role: Primary Care Nurse Name: Crystal Ceron RN Position: S RN Member Role: Primary Care Nurse Care Team Related Persons Name: RADHA MONTOYA Address: [place], [place] Name: BRANDIE MONTOYA Address: [place] [address] Name: TREASURE MONTOYA Address: home [address] [place] [address] Name: JAI REED Address: [address] [place] [address]
--- OUTSIDE RECORDS SUMMARY | 2024-07-27 11:55 | XMS_ITS | Continuity of Care Document ---
Author Organization [facility] Address [address] [place] [address]- Care Team Providers Care Registered Associate Name Role Phone Zara Vargas MD Primary Care Physician [phone] [place] [facility] [place] - 07/20/[address] [address] Allergies, Adverse Reactions, Alerts Substance Reaction Severity [...] diphtheria-tetanus toxoids (DT) 02/22/00 Given 1Result Comment: [id number] 2Result Comment: sarabjit SANDHU [facility] primary care 3Result Comment: Unit: Unknown Ben Day Artist: [employer] 4Result Comment: Unit: Unknown Ben Day Artist: Pfizer Injectables Medications Aspirin = 81 mg, By Mouth, Daily before lunch, 0 Refills, Maintenance, 01/09/11 5:04:09 EST Start Date: 01/09/11 Status: Ordered atorvastatin 20 mg oral tablet 1 tablet = 20 mg, By Mouth, Daily at bedtime, # 90 tablet, 3 Refills, Maintenance, 12/12/20 15:31:00 EST, Tablet, [facility] #1095, 158, cm, 11/21/20 11:06:00 EST, Height, 69, kg, 09/13/20 5:27:00 EDT, Dry Weight Start Date: 12/12/20 Status: Ordered Caltrate 600 + D By Mouth, 2 times a day, 0 Refills, Maintenance, 11/05/20 10:19:00 EST, Partial fill upon patient request if the prescription is for a schedule II opioid drug. Start Date: 11/05/20 Status: Ordered Estrace Vaginal Cream 0.1 mg/g = 1 Gm, Vaginally, Daily at bedtime, until symptoms improve (monitor for first 2 weeks and if no difference, stop medication and call office)., # 30 Gm, 0 Refills, Maintenance, 07/18/21 9:09:00 EDT, [id number], Partial fill upon patient reque... Start Date: 07/18/21 Status: Ordered metoprolol 25 mg oral tablet 25 mg, 1, tablet, By Mouth, 2 times a day, Dose is now 25mg BID, # 180 tablet, Refills 3, Tot. Refills 3, Maintenance, 12/05/20 14:30:00 EST, Route to Pharmacy Electronically, [facility]/pharmacy #1095, Partial fill upon patient request if the prescription i... Start Date: 12/05/20 Stop Date: 11/30/21 Status: Ordered olmesartan 20 mg oral tablet 1 tablet = 20 mg, By Mouth, Daily, Dosage has been reduced to 20mg / day, # 30 tablet, 5 Refills, Maintenance, 09/19/20 14:11:00 EDT, Tablet, [facility]/pharm[facility] #1095, 158, cm, 09/18/20 15:50:00 EDT, Height, 69, kg, 09/13/20 5:27:00 EDT, Dry Weight Start Date: 09/19/20 Status: Ordered Trimo-Mcclure 0.025% vaginal gel with applicator See Instructions, USE DIRECTED, # 113.4 Gm, 3 Refills, Maintenance, [facility], 30, USE DIRECTED, 158, cm, 05/09/21 14:04:00 [...]
--- OUTSIDE RECORDS SUMMARY | 2024-07-27 11:55 | XMS_ITS | Continuity of Care Document ---
Author Organization [facility] Address [address] [place] [address]- Care Team Providers Care Summer Child Caregiver Name Role Phone Christiano VIDES, Nick Primary Care Physician [phone] Encounter [facility] Date(s): 10/28/23 - 11/27/[address] [address]- Allergies, Adverse Reactions, Alerts Substance Reaction Severity Status Ceftin ? Active Cleocin T BLOODY DIARRHEA Active Immunizations Given and Recorded Vaccine Date Status Refusal Reason influenza virus vaccine, inactivated 09/12/22 Michael rded influenza virus vaccine, inactivated 08/08/21 Michael rded influenza virus vaccine, inactivated 1 11/21/20 Gi cris influenza virus vaccine, inactivated 2 08/22/20 Re corded [id number] 12y+ bivalent booster vax 08/31/22 Recorded SARS-CoV-2 mRNA (tyrbvhj-bwcr-mcdbe) vax 03/16/22 Recorded SARS-CoV-2 (COVID-19) mRNA BNT-162b2 [...] diphtheria-tetanus toxoids (DT) 02/22/00 Given 1Result Comment: [id number] 2Result Comment: sarabjit SANDHU [facility] primary care 3Result Comment: Unit: Unknown 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: [employer] 4Result Comment: Unit: Unknown 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: N[employer]endo Injectables Medications atorvastatin 20 mg oral tablet [...] 08/27/23 21:16:00 EDT, Route to Pharmacy Electronically, [facility], 158, cm, 05/06/23 11:17:00 EDT, Height, 70, kg, 04/02/23 19:36:00 EDT, Dry Weight Start Date: 08/27/23 Status: Ordered hydrOXYzine hydrochloride 25 mg oral tablet 1 tablet, By Mouth, Daily at bedtime, # 30 tablet, 0 Refills, Maintenance, 07/21/23 11:20:00 EDT, [facility], 158, cm, 05/06/23 11:17:00 EDT, [...] mL, 0 Refills, Maintenance, 10/28/23 17:05:00 EST, [facility], Partial fill upon patient request if the prescription is for a schedule II opioid drug., 1 sprays Nares, Both Daily at... Start Date: 10/28/23 Status: Ordered levothyroxine 0.05 mg oral tablet 0.5 tablet, By Mouth, Daily, # 45 tablet, 1 Refills, Maintenance, 08/27/23 21:17:00 EDT, [facility], 158, cm, 05/06/23 11:17:00 EDT, Height, 70, kg, 04/02/23 19:36:00 EDT, Dry Weight Start Date: 08/27/23 Status: Ordered Metoprolol Tartrate 25 mg oral tablet 2 tablet = 50 mg, By Mouth, 2 times a day, # 360 tablet, 3 Refills, Maintenance, 12/16/22 13:42:00 EST, [facility], 158, cm, 12/11/22 15:03:00 EST, [...] opioid drug. Start Date: 05/09/21 Status: Ordered [place] Tears ophthalmic solution 1 drops, Eyes, Both, 2 times a day, PRN for dry eyes, # 30 each, 0 Refills, Maintenance, 09/15/22 1:54:00 EDT, [place], Partial fill upon patient request if the prescription is for a schedule II opioid drug. Start Date: 09/15/22 Status: Ordered [place] Tears ophthalmic solution 1 drops, Eyes, Both, [...] Team Personnel Name: Nick Alvarado NP Position: [facility] PCO Associate Professional Member Role: PCP Address: Address: [address] [place] [id number] Name: Elvia METZ, Trinh Position: S RN Member Role: Primary Care Nurse Name: Keyon METZ, Carrol Marie Position: [facility] RN Member Role: Primary Care Nurse Name: Crystal Ceron RN Position: S RN Member Role: Primary Care Nurse Care Team Related Persons Name: RADHA MONTOYA Address: [place], [place] Name: BRANDIE MONTOYA Address: [place] [address] Name: TREASURE MONTOYA Address: home [address] [place] [address] Name: JAI REED Address: [address] [place] [address]
--- OUTSIDE RECORDS SUMMARY | 2024-07-27 11:55 | XMS_ITS | Continuity of Care Document ---
Author Organization [facility] Address [address] [place] [address]- Care Team Providers Care Senior Production Manager Name Role Phone Sam WEBER, Zara Jensen Primary Care Physician [place] [facility] [place]/05/20 - 01/04/21 [facility] [address] [place] [address]- [place] Allergies, Adverse Reactions, Alerts Substance Reaction [...] diphtheria-tetanus toxoids (DT) 02/22/00 Given 1Result Comment: [id number] 2Result Comment: sarabjit SANDHU [facility] primary care 3Result Comment: Unit: Unknown Chief Dietitian: [employer] 4Result Comment: Unit: Unknown Chief Dietitian: Pfizer Injectables Medications Aspirin = 81 mg, [...] 12/05/20 14:30:00 EST, Route to Pharmacy Electronically, [facility]/pharmacy #1095, Partial fill upon patient request [...]
--- OUTSIDE RECORDS SUMMARY | 2024-07-27 11:55 | XMS_ITS | Continuity of Care Document ---
Author Organization [facility] Address [address] [place] [address]- Care Team Providers Care Reliability Technologist Name Role Phone Zara Vargas MD Primary Care Physician [place] [facility] [place] Date(s): 05/02/21 - 06/01/21 [facility] [place] [address] [place] [address]- Attending Physician: AdmSilas pierce Admitting Physician: Admtr, Ar8 Referring Physician: Admtr, [...] diphtheria-tetanus toxoids (DT) 02/22/00 Given 1Result Comment: [id number] 2Result Comment: sarabjit SANDHU [facility] primary care 3Result Comment: Unit: Unknown Tipple Engineer: Jianjian 4Result Comment: Unit: Unknown Tipple Engineer: Pfizer Injectables Medications Aspirin = 81 mg, By Mouth, Daily before lunch, 0 Refills, Maintenance, 01/09/11 5:04:09 EST Start Date: 01/09/11 Status: Ordered atorvastatin 20 mg oral tablet 1 tablet = 20 mg, By Mouth, Daily at bedtime, # 90 tablet, 3 Refills, Maintenance, 12/12/20 15:31:00 EST, Tablet, [facility]/pharmacy #[id number], 158, cm, 11/21/20 11:06:00 EST, [...] 12/05/20 14:30:00 EST, Route to Pharmacy Electronically, [facility]/pharmacy #[id number], Partial fill upon patient request if the prescription i... Start Date: 12/05/20 Stop Date: 11/30/21 Status: Ordered olmesartan 20 mg oral tablet 1 tablet = 20 mg, By Mouth, Daily, Dosage has been reduced to 20mg / day, # 30 tablet, 5 Refills, Maintenance, 09/19/20 14:11:00 EDT, Tablet, [facility]/pharmacy #[id number], 158, cm, 09/18/20 15:50:00 EDT, [...]
--- OUTSIDE RECORDS SUMMARY | 2024-07-27 11:55 | XMS_ITS | Continuity of Care Document ---
Author Organization [facility] [employer] Address [address] [place] [address]- Care Team Providers Care Poll Watcher Name Role Phone Zara Vargas MD Primary Care Physician Encounter [facility] [place] Date(s): 04/04/21 - 05/04/21 [facility] [address] [place], [place] [address] Attending Physician: Admtr, Silas Admitting Physician: AdmtrSilas [...] diphtheria-tetanus toxoids (DT) 02/22/00 Given 1Result Comment: [id number] 2Result Comment: sarabjit SANDHU [facility] 3Result Comment: Unit: Unknown 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 Start Date: 12/05/20 Stop Date: 11/30/21 Status: Ordered olmesartan 20 mg oral tablet 1 tablet = 20 mg, By Mouth, Daily, Dosage has been reduced to 20mg / day, # 30 tablet, 5 Refills, Maintenance, 09/19/20 14:11:00 EDT, Tablet, [facility]/pharmacy #[id number], 158, cm, 09/18/20 15:50:00 [...]
--- OUTSIDE RECORDS SUMMARY | 2024-07-27 11:55 | XMS_ITS | Continuity of Care Document ---
Author Organization [facility] Address [address] [place] [address]- Care Team Providers Care Food Management Aide Name Role Phone Christiano VIDES, Nick Primary Care Physician [phone] Encounter [facility] [place] Date(s): 01/04/24 - 02/03/[address] [address]- Allergies, Adverse Reactions, Alerts Substance Reaction Severity Status Ceftin ? Active Cleocin T BLOODY DIARRHEA Active Immunizations Given and Recorded Vaccine Date Status Refusal Reason SARS-CoV-2(COVID-19)mRNA-LNP vac([id number]) 01/08/24 Given pneumococcal 20-valent conjugate vaccine 01/08/24 Given influenza virus vaccine, inactivated 09/12/22 Michael rded influenza virus vaccine, inactivated 08/08/21 Michael rded influenza virus vaccine, inactivated 1 11/21/20 Gi cris influenza virus vaccine, inactivated 2 08/22/20 Re corded [id number] 12y+ bivalent booster vax 08/31/22 Recorded SARS-CoV-2 mRNA ([id number]) vax 03/16/22 Recorded SARS-CoV-2 (COVID-19) mRNA BNT-162b2 [...] diphtheria-tetanus toxoids (DT) 02/22/00 Given 1Result Comment: [id number] 2Result Comment: sarabjit SANDHU [facility] primary care 3Result Comment: Unit: Unknown 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[employer] 4Result Comment: Unit: Unknown 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[employer] Injectables Medications atorvastatin 20 mg oral tablet 1 tablet, By Mouth, Daily at bedtime, # 90 tablet, 3 Refills, Maintenance, 01/05/24 11:50:00 EST, [facility], 158, cm, 11/24/23 11:30:00 EST, [...] Refills, Maintenance, 11/19/23 14:47:00 EST, [facility], 158, cm, 10/20/23 13:46:00 EST, [...] 08/27/23 21:16:00 EDT, Route to Pharmacy Electronically, [facility], 158, cm, 05/06/23 11:17:00 EDT, Height, 70, kg, 04/02/23 19:36:00 EDT, Dry Weight Start Date: 08/27/23 Status: Ordered fluticasone 50 mcg/inh nasal spray 1 sprays = 50 mcg, Nares, Both, 2 times a day, # 16 Gm, 0 Refills, Maintenance, 01/08/24 11:22:00 EST, [place], [facility], Partial fill upon patient request if the prescription is for a schedule II opioid drug., 1 sprays Nares, Both 2 cam[place]... Start Date: 01/08/24 Status: Ordered hydrocortisone 1% topical cream 1 application, Topically, 2 times a day, # 15 Gm, 0 Refills, Maintenance, 01/08/24 11:30:00 EST, Cream, [facility], Partial fill upon patient request if the prescription is for a schedule II opioid drug., 1 application Topically 2 times... Start Date: 01/08/24 Status: Ordered hydrOXYzine hydrochloride 25 mg oral tablet 1 tablet, By Mouth, Daily at bedtime, # 30 tablet, 0 Refills, Maintenance, 07/21/23 11:20:00 EDT, [facility], 158, cm, 05/06/23 11:17:00 EDT, [...] Refills, Maintenance, 12/14/23 15:43:00 EST, [facility], 158, cm, 11/24/23 11:30:00 EST, [...] opioid drug. Start Date: 05/09/21 Status: Ordered Hagaman Tears ophthalmic solution 1 drops, Eyes, Both, [...] Associate Professional Member Role: PCP Address: Address: [address] [place], [place] [id number]- Name: Keyon METZ, Carrol Marie Position: [facility] SN RN Member Role: Primary Care Nurse Name: Crystal Ceron RN Position: S RN Member Role: Primary Care Nurse Care Team Related Persons Name: RADHA MONTOYA Address: [place], [place] Name: BRANDIE MONTOYA Address: [place] [address] Name: TREASURE MONTOYA Address: home [address] [place] [address] Name: JAI REED Address: home [address] [place] [address]
--- OUTSIDE RECORDS SUMMARY | 2024-07-27 11:55 | XMS_ITS | Continuity of Care Document ---
Author Organization [facility] Address [address] [place] [address]- Care Team Providers Care Impregnator Helper Name Role Phone Nick Alvarado NP Primary Care Physician Encounter [facility] [place] Date(s): 08/27/23 - 09/26/23 [facility] [address] [place] [address]- Allergies, Adverse Reactions, Alerts Substance Reaction Severity Status Ceftin ? Active Cleocin T BLOODY DIARRHEA Active Immunizations Given and Recorded Vaccine Date Status Refusal Reason influenza virus vaccine, inactivated 09/12/22 Michael rded influenza virus vaccine, inactivated 08/08/21 Michael rded influenza virus vaccine, inactivated 1 11/21/20 Gi cris influenza virus vaccine, inactivated 2 08/22/20 Re corded [id number] 12y+ bivalent booster vax 08/31/22 Recorded SARS-CoV-2 mRNA ([id number]-uhmec) vax 03/16/22 Recorded SARS-CoV-2 (COVID-19) mRNA BNT-162b2 [...] diphtheria-tetanus toxoids (DT) 02/22/00 Given 1Result Comment: [id number] 2Result Comment: sarabjit SANDHU [facility] primary care 3Result Comment: Unit: Unknown 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: [employer] 4Result Comment: Unit: Unknown 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: [employer] Injectables Medications atorvastatin 20 mg oral tablet [...] Refills, Maintenance, 07/28/23 13:44:00 EDT, [facility], 158, cm, 05/06/23 11:17:00 EDT, [...] tablet, 0 Refills, Maintenance, 07/21/23 11:20:00 EDT, [facility], 158, cm, 05/06/23 11:17:00 EDT, [...] tablet, 1 Refills, Maintenance, 08/27/23 21:17:00 EDT, [facility], 158, cm, 05/06/23 11:17:00 EDT, Height, 70, kg, 04/02/23 19:36:00 EDT, Dry Weight Start Date: 08/27/23 Status: Ordered Metoprolol Tartrate 25 mg oral tablet 2 tablet = 50 mg, By Mouth, 2 times a day, # 360 tablet, 3 Refills, Maintenance, 12/16/22 13:42:00 EST, [facility], 158, cm, 12/11/22 15:03:00 EST, [...] opioid drug. Start Date: 05/09/21 Status: Ordered Embarrass Tears ophthalmic solution 1 drops, Eyes, Both, 2 times a day, PRN for dry eyes, # 30 each, 0 Refills, Maintenance, 09/15/22 1:54:00 EDT, Solution, Partial fill upon patient request if the prescription is for a schedule II opioid drug. Start Date: 09/15/22 Status: Ordered Embarrass Tears ophthalmic solution 1 drops, Eyes, Both, [...] EDT, Route to Pharmacy Electronically, [facility], Partial fill upon patient request [...] Team Personnel Name: Nick Alvarado NP Position: [facility] PCO Associate Professional Member Role: PCP Address: Address: [address] [place] [address] Name: Elvia METZ, Trinh Position: S RN Member Role: Primary Care Nurse Name: Carrol Ta RN Position: [facility] RN Member Role: Primary Care Nurse Name: Crystal Ceron RN Position: S RN Member Role: Primary Care Nurse Care Team Related Persons Name: RADHA MONTOYA Address: [place], [place] Name: BRANDIE MONTOYA Address: [place] [address] Name: TREASURE MONTOYA Address: home [address] [place] [address] Name: JAI REED Address: home [address] [place] [id number]
--- OUTSIDE RECORDS SUMMARY | 2024-07-27 11:55 | XMS_ITS | Continuity of Care Document ---
Author Organization [facility] Address [address] [place] [address]- Care Team Providers Care Director Of Accounts Receivable Name Role Phone Christiano VIDES, Nick Primary Care Physician [place] [facility] [place](s): 06/27/22 - 07/04/22 [facility] [place] [address] [place] [address]- Attending Physician: Andrea Lima MD Admitting Physician: Andrea Lima MD Referring Physician: Nick Alvarado NP Allergies, [...] diphtheria-tetanus toxoids (DT) 02/22/00 Given 1Result Comment: [id number] 2Result Comment: sarabjit SANDHU [facility] primary care 3Result Comment: Unit: Unknown 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 Start Date: 12/18/21 Status: Ordered ICaps AREDS 2 0 Refills, Maintenance, 02/06/22 11:05:00 EDT, Partial fill upon patient request if the prescription is for a schedule II opioid drug. Start Date: 02/06/22 Status: Ordered Metoprolol Tartrate 25 mg oral [...] oldest [Reference Range]: 1 Height 158 cm (06/27/22 10:16 AM) Weight 72.4 kg (06/27/22 10:16 AM) Oxygen Saturation [94-100 %] 100 % (06/27/22 10:16 AM) Pulse Rate [55-90 bpm] 72 bpm (06/27/22 10:16 AM) Body Mass Index [18.5-24.99] 29 *H* (06/27/22 10:16 AM) Blood Pressure [90-138/55-84 mm Hg] 137/ 52mm Hg (06/27/22 10:16 AM) Mode of Delivery (Oxygen) Room air (06/27/22 10:16 AM) Blood pressure sites Arm, left (06/27/22 10:16 AM) Weight Obtained Via Standing scale (06/27/22 10:16 AM) Social History Social History Type Response Tobacco Total pack years: 35 . Started at age: 14 Years. Stopped at age: 49 Years. Sex
--- OUTSIDE RECORDS SUMMARY | 2024-07-27 11:56 | XMS_ITS | Continuity of Care Document ---
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 Start Date: 08/30/21 Status: Ordered Estrace Vaginal Cream 0.1 mg/g = 1 Gm, Vaginally, Daily at bedtime, until symptoms improve monitor for first 2 weeks and if no difference, stop medication and call office, # 30 Gm, 0 Refills, Maintenance, 07/24/21 12:46:00 EDT, [facility], Partial fill upon p... Start Date: 07/24/21 Status: Ordered metoprolol 25 mg oral tablet 25 mg, 1, tablet, By Mouth, 2 times a day, Dose is now 25mg BID, # 180 tablet, Refills 3, Tot. Refills 3, Maintenance, 12/05/20 14:30:00 EST, Route to Pharmacy Electronically, [facility]/pharm[facility] #1095, Partial fill upon patient request if [...] 113.4 Gm, 3 Refills, Maintenance, [facility], 30, USE DIRECTED, 158, cm, 05/09/21 14:04:00 [...]
--- OUTSIDE RECORDS SUMMARY | 2024-07-27 11:56 | XMS_ITS | Continuity of Care Document ---
Author Organization [facility] Address [address] [place] [address]- Care Team Providers Care Sonography Technician Name Role Phone Christiano VIDES, Nick Primary Care Physician Encounter [facility] [place] Date(s): 07/22/21 - 08/21/21 [facility] [address] [place] [address]- Allergies, Adverse Reactions, Alerts Substance Reaction Severity [...] diphtheria-tetanus toxoids (DT) 02/22/00 Given 1Result Comment: [id number] 2Result Comment: sarabjit SANDHU [facility] 3Result Comment: Unit: Unknown Manager Spring: [employer] 4Result Comment: Unit: Unknown Manager Spring: Pfizer Injectables Medications Aspirin = 81 mg, By Mouth, Daily before lunch, 0 Refills, Maintenance, 01/09/11 5:04:09 EST Start Date: 01/09/11 Status: Ordered atorvastatin 20 mg oral tablet 1 tablet = 20 mg, By Mouth, Daily at bedtime, # 90 tablet, 3 Refills, Maintenance, 12/12/20 15:31:00 EST, Tablet, [facility]/pharmacy #1095, 158, cm, 11/21/20 [...] Refills, Maintenance, 07/24/21 12:46:00 EDT, [facility], Partial fill upon p... Start Date: 07/24/21 Status: Ordered metoprolol 25 mg oral tablet 25 mg, 1, tablet, By Mouth, 2 times a day, Dose is now 25mg BID, # 180 tablet, Refills 3, Tot. Refills 3, Maintenance, 12/05/20 14:30:00 EST, Route to Pharmacy Electronically, [facility]/pharmacy #1095, Partial fill upon [...] 113.4 Gm, 3 Refills, Maintenance, [facility], 30, USE DIRECTED, 158, cm, 05/09/21 14:04:00 [...]
--- OUTSIDE RECORDS SUMMARY | 2024-07-27 11:56 | XMS_ITS | Continuity of Care Document ---
Author Organization [facility] Address [address] [place] [address]- Care Team Providers Care Personal Health Coach Name Role Phone Christiano VIDES, Nick Primary Care Physician [place] [facility]04[place]23 [place] 04/03/23 [facility] [address] [place] [address]- Allergies, Adverse Reactions, Alerts Substance Reaction Severity Status Ceftin ? Active Cleocin T BLOODY DIARRHEA Active Immunizations Given and Recorded Vaccine Date Status Refusal Reason influenza virus vaccine, inactivated 09/12/22 Michael rded influenza virus vaccine, inactivated 08/08/21 Michael rded influenza virus vaccine, inactivated 1 11/21/20 Gi cris influenza virus vaccine, inactivated 2 08/22/20 Re corded [id number] 12y+ bivalent booster vax 08/31/22 Recorded SARS-CoV-2 mRNA ([id number]) vax 03/16/22 Recorded SARS-CoV-2 (COVID-19) mRNA BNT-162b2 [...] diphtheria-tetanus toxoids (DT) 02/22/00 Given 1Result Comment: [id number] 2Result Comment: sarabjit SANDHU [facility] primary care 3Result Comment: Unit: Unknown Digitizer: Glax[employer]Kline 4Result Comment: Unit: Unknown Digitizer: [employer] Injectables Medications atorvastatin 20 mg oral tablet [...] Refills, Maintenance, 02/05/23 15:29:00 EDT, [facility], Partial fill upon patient request if the prescription is for a schedule II opioid drug., 1... Start Date: 02/05/23 Status: Ordered famotidine 20 mg oral tablet 20 mg, 1, tablet, By Mouth, 2 times a day, PRN, # 60 tablet, Refills 5, Tot. Refills 5, Maintenance, Pain , Moderate, 03/03/23 15:46:00 EDT, Route to Pharmacy Electronically, [facility], Partial fill upon patient request if [...] opioid drug. Start Date: 05/09/21 Status: Ordered [place] Tears ophthalmic solution 1 drops, Eyes, Both, 2 times a day, PRN for dry eyes, # 30 each, 0 Refills, Maintenance, 09/15/22 1:54:00 EDT, Solution, Partial fill upon patient request if the prescription is for a schedule II opioid drug. Start Date: 09/15/22 Status: Ordered [place] Farm Tears ophthalmic solution 1 drops, Eyes, Both, [...] Team Personnel Name: Nick Alvarado NP Position: [facility] PCO Associate Professional Member Role: PCP Address: Address: [address] [place] [address]- Name: Elvia METZ, Trinh Position: [facility] RN Member Role: Primary Care Nurse Name: Carrol Ta RN Position: S RN Member Role: Primary Care Nurse Name: Crystal Ceron RN Position: [facility] RN Member Role: Primary Care Nurse Care Team Related Persons Name: RADHA MONTOYA Name: BRANDIE MONTOYA Address: [place] [address] Name: TREASURE MONTOYA Address: home [address] [place] [address] Name: JAI REED Address: home [address] [place] [address]
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
--- OUTSIDE RECORDS SUMMARY | 2024-07-27 11:56 | XMS_ITS | Continuity of Care Document ---
Author Organization [facility] Address [address] [place] [address]- Care Team Providers Care Instrumentation Manager Name Role Phone Zara Vargas MD Primary Care Physician [place] [facility] [place] 12/11/20 - 01/10/21 [facility] [place] [address] [place] [address]- [place] Allergies, Adverse Reactions, Alerts Substance Reaction [...] diphtheria-tetanus toxoids (DT) 02/22/00 Given 1Result Comment: [id number] 2Result Comment: sarabjit SANDHU [facility] primary care 3Result Comment: Unit: Unknown Production Generalist: [email or web address] 4Result Comment: Unit: Unknown Production Generalist: Pfizer Injectables Medications Aspirin = 81 mg, [...] 12/05/20 14:30:00 EST, Route to Pharmacy Electronically, [facility]/pharmacy #[id number], Partial fill upon patient [...]
--- OUTSIDE RECORDS SUMMARY | 2024-07-27 11:56 | XMS_ITS | Continuity of Care Document ---
Author Organization [facility] Address [address] [place] [address]- Care Team Providers Care Support Team Assoc Name Role Phone Christiano VIDES, Nick Primary Care Physician [phone] [place] [facility] [place] 12/31/22 - 01/30/23 [facility] Medicine [address] [place] [address]- Allergies, Adverse Reactions, Alerts Substance Reaction Severity Status Ceftin ? Active Cleocin T BLOODY DIARRHEA Active Immunizations Given and Recorded Vaccine Date Status Refusal Reason influenza virus vaccine, inactivated 09/12/22 Michael rded influenza virus vaccine, inactivated 08/08/21 Michael rded influenza virus vaccine, inactivated 1 11/21/20 Gi cris influenza virus vaccine, inactivated 2 08/22/20 Re corded [id number] 12y+ bivalent booster vax 08/31/22 Recorded SARS-CoV-2 mRNA ([id number]) vax 03/16/22 Recorded SARS-CoV-2 (COVID-19) mRNA BNT-162b2 [...] diphtheria-tetanus toxoids (DT) 02/22/00 Given 1Result Comment: [id number] 2Result Comment: sarabjit SANDHU [facility] primary care 3Result Comment: Unit: Unknown Wood Piler: GlaxMedlanesithKline 4Result Comment: Unit: Unknown Wood Piler: Pfizer Injectables Medications atorvastatin 20 mg oral [...] Refills, Maintenance, 12/18/21 15:56:00 [facility] fill upon patient request if the [...] opioid drug. Start Date: 05/09/21 Status: Ordered [place]ock Tears ophthalmic solution 1 drops, Eyes, Both, 2 times a day, PRN for dry eyes, # 30 each, 0 Refills, Maintenance, 09/15/22 1:54:00 EDT, Solution, Partial fill upon patient request if the prescription is for a schedule II opioid drug. Start Date: 09/15/22 Status: Ordered Topock Tears ophthalmic solution 1 drops, Eyes, Both, [...] Team Personnel Name: Nick Alvarado NP Position: [facility] PCO Associate Professional Member Role: PCP Address: Address: [address] [place] [id number] Name: Elvia METZ, Trinh Position: S RN Member Role: Primary Care Nurse Name: Keyon METZ, Carrol Marie Position: S RN Member Role: Primary Care Nurse Name: Crystal Ceron RN Position: S RN Member Role: Primary Care Nurse Care Team Related Persons Name: RADHA MONTOYA Name: BRANDIE MONTOYA Address: [place] [address] Name: TREASURE MONTOYA Address: home [address] [place] [address] Name: JIA REED Address: home [address] [place] [address]
--- OUTSIDE RECORDS SUMMARY | 2024-07-27 11:56 | XMS_ITS | Continuity of Care Document ---
Author Organization [facility] Address [address] [address]- Care Team Providers Care Day Care Assistant Name Role Phone Christiano VIDES, Nick Primary Care Physician [phone] [place] [facility] [place](s[place] 09/30/23 - 10/07/23 [facility] [address] [address]- Attending Physician: Andrea Lima MD Admitting Physician: [...] virus vaccine, inactivated 2 08/22/20 Re corded [id number] 12y+ bivalent booster vax 08/31/22 Recorded SARS-CoV-2 mRNA ([id number]) vax 03/16/22 Recorded SARS-CoV-2 (COVID-19) mRNA BNT-162b2 [...] diphtheria-tetanus toxoids (DT) 02/22/00 Given 1Result Comment: [id number] 2Result Comment: sarabjit SANDHU [facility] primary care 3Result Comment: Unit: Unknown Hot Plate Plywood 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 Operator: GetSet 4Result Comment: Unit: Unknown Hot Plate Plywood Press Operator: Yanado Injectables Medications atorvastatin 20 mg oral tablet [...] Refills, Maintenance, 07/28/23 13:44:00 EDT, [facility] #[facility], 158, [...] 08/27/23 21:16:00 EDT, Route to Pharmacy Electronically, [employer] [facility] #[facility], 158, cm, 05/06/23 11:17:00 EDT, Height, 70, kg, 04/02/23 19:36:00 EDT, Dry Weight Start Date: 08/27/23 Status: Ordered hydrOXYzine hydrochloride 25 mg oral tablet 1 tablet, By Mouth, Daily at bedtime, # 30 tablet, 0 Refills, Maintenance, 07/21/23 11:20:00 EDT, [facility], 158, cm, 05/06/23 11:17:00 [...] tablet, 1 Refills, Maintenance, 08/27/23 21:17:00 EDT, [facility] #[facility], 158, cm, 05/06/23 11:17:00 EDT, Height, 70, kg, 04/02/23 19:36:00 EDT, Dry Weight Start Date: 08/27/23 Status: Ordered Metoprolol Tartrate 25 mg oral tablet 2 tablet = 50 mg, By Mouth, 2 times a day, # 360 tablet, 3 Refills, Maintenance, 12/16/22 13:42:00 EST, [facility], 158, cm, 12/11/22 15:03:00 [...] opioid drug. Start Date: 05/09/21 Status: Ordered Emlenton Tears ophthalmic solution 1 drops, Eyes, Both, 2 times a day, PRN for dry eyes, # 30 each, 0 Refills, Maintenance, 09/15/22 1:54:00 EDT, Solution, Partial fill upon patient request if the prescription is for a schedule II opioid drug. Start Date: 09/15/22 Status: Ordered Emlenton Tears ophthalmic solution 1 drops, Eyes, Both, 3 times a day, PRN for dry eyes, Maintenance, 09/15/22 10:43:00 EDT, Solution,Partial fill upon patient request if the prescription is for a schedule II opioid drug. Start Date: 09/15/22 Status: Ordered olmesartan 20 mg oral tablet 1 tablet, By Mouth, Daily, # 90 tablet, 3 Refills, Maintenance, 12/22/22 11:40:00 EST, [facility] #[facility], 158, cm, 12/18/22 10:17:00 EST, [...] EDT, Route to Pharmacy Electronically, [facility] #[facility], Partial fill upon patient request [...] problem Confirmed Active TMJ syndrome Confirmed Active Vital Signs Most recent to oldest [Reference Range]: 1 Height 158 cm (09/30/23 11:33 AM) Weight 71 kg (09/30/23 11:33 AM) Oxygen Saturation [94-100 %] 100 % (09/30/23 11:33 AM) Pulse Rate [55-90 bpm] 60 bpm (09/30/23 11:33 AM) Body Mass Index [18.5-24.99 kg/m2] 28.44 kg/m2 *H* (09/30/23 11:33 AM) Blood Pressure [90-138/55-84 mm Hg] 125/ 54mm Hg (09/30/23 11:33 AM) Blood pressure sites Arm, left (09/30/23 11:33 AM) Weight Obtained Via Standing scale (09/30/23 11:33 AM) Social History Social History Type Response Tobacco Total pack years: 35 . Started at age: 14 Years. Stopped at age: 49 Years. Sex Cardiology Outpatient Note * Andrea Lima MD: PERFORM Event Display: Cardiology Note Office Authored Date: Patient: ??TREASURE REED ? Age:??87 Years?Sex:??Female?:??1935?? Patient Hx Cardiology Shared Clinical Summary 1.?? Dyslipidemia on statin, good control of LDL 2.?? Labile hypertension 3.?? Obstructive sleep apnea on CPAP 4.?? SVT / atrial tachycardia with palpitations improved on beta serina. 5.?? LBBB 6.?? Mild AR History of Present Illness/Interval History Home BP trend has been good last few mos, 125-130/60's Walking with a slight imbalance but not overtly light-headed No major palpitations recently, appears well controlled on beta serina ?? I/P: Appears clinically stable - will cont existing therapeutics. She should get a surveillance TTE at some point in 2023 for her hx of AR RTC 6 months Physical Exam Vitals & Measurements HR:??60??(Peripheral)?? BP:??125/54?? SpO2:??100%?? HT:??158??cm?? WT:??71??kg?? BMI:??28.44?? Weight lb/oz: 156 lb 8 oz GENERAL: ??Alert and oriented x3, no acute distress. HEENT: Mucous membranes pink and moist. ?? NECK: ??No JVD?? LUNGS: Clear to auscultation bilaterally. ??No crackles, wheezing, rhonchi. ?? HEART: ??Regular rate and rhythm, normal S1, S2. ??No murmurs, rubs, or gallops.?? ABDOMEN: Soft, nontender, nondistended.?? EXTREMITIES: ??No pitting edema, cyanosis, clubbing. ?? PULSES: 2+ radials SKIN: Warm and well perfused. ?? NEURO: ??Oriented to person, time, and place, following commands, and moving all extremities.?? MUSCULOSKELETAL:?Slightly imbalanced Allergies Ceftin??(?) Cleocin T??(BLOODY DIARRHEA) Home Medications atorvastatin 20 mg oral tablet, 1 tablet, By Mouth, Daily at bedtime, 3 refills Compression Stockings, See Instructions escitalopram 5 mg oral tablet, 1 tablet, By Mouth, Daily Estrace Vaginal Cream 0.1 mg/g, 1 Gm, Vaginally, Every Thursday and , 1 refills famotidine 20 mg oral tablet, 1 tablet, By Mouth, 2 times a day, PRN hydrOXYzine hydrochloride 25 mg oral tablet, 1 tablet, By Mouth, Daily at bedtime ICaps AREDS 2 levothyroxine 0.05 mg oral tablet, 0.5 tablet, By Mouth, Daily Metoprolol Tartrate 25 mg oral tablet, 50 mg= 2 tablet, By Mouth, 2 times a day, 3 refills MiraLax oral powder for reconstitution, 17 Gm, By Mouth, Daily Emlenton Tears ophthalmic solution, 1 drops, Eyes, Both, 2 times a day, PRN Emlenton Tears ophthalmic solution, 1 drops, Eyes, Both, 3 times a day, PRN olmesartan 20 mg oral tablet, 1 tablet, By Mouth, Daily, 3 refills Probiotic Formula, By Mouth, Daily Restasis 0.05% ophthalmic emulsion, 1 drops, Eyes, Both, Every 12 hours spironolactone 25 mg oral tablet, 12.5 mg= 0.5 tablet, By Mouth, Daily, 1 refills Lab Results Cardiology Labs WBC: 7.6 k/mm3 (01/07/23) RBC:??4.14 m/mm3??Low (01/07/23) Hgb: 12.8 Gm/dL (01/07/23) Hct: 38.4 % (01/07/23) MCV: 92.8 femtoliters (01/07/23) MCH: 30.9 pg (01/07/23) MCHC: 33.3 g/dL (01/07/23) Platelet Count: 267 k/mm3 (01/07/23) RDW-SD: 42.8 femtoliters (01/07/23) Nucleated RBC (Automated): 0 #/100 WBC'S (01/07/23) Abs. Neut: 3.7 k/mm3 (01/07/23) Abs. Lymph: 2.7 k/mm3 (01/07/23) Abs. [place]: 0.9 k/mm3 (01/07/23) Abs. Eo: 0.2 k/mm3 (01/07/23) Abs. Baso: 0.1 k/mm3 (01/07/23) Neut %: 48.7 % (01/07/23) [place] %:??11.6 %??High (01/07/23) Eos %: 2.6 % (01/07/23) Baso %: 1.1 % (01/07/23) Imm Gran: 0.3 % (01/07/23) Abs. Imm Gran: 0 k/mm3 (01/07/23) Sodium: 134 mmol/L (06/19/23) Potassium: 4.9 mmol/L (06/19/23) Chloride:??97 mmol/L??Low (06/19/23) Bicarbonate Level: 28 mmol/L (06/19/23) Glucose Level: 98 mg/dL (06/19/23) BUN: 15 mg/dL (06/19/23) Creatinine-Blood: 0.7 mg/dL (06/19/23) Calcium: 9.5 mg/dL (06/19/23) Protein, Total: 6.4 Gm/dL (04/13/23) Albumin: 4.1 Gm/dL (04/13/23) Alkaline Phosphatase: 98 units/L (04/13/23) AST (SGOT): 19 units/L (04/13/23) ALT (SGPT): 17 units/L (04/13/23) Bilirubin, Total: 0.4 mg/dL (04/13/23) Nt-Probnp: 291 pg/mL (12/11/22) Cholesterol: 137 mg/dL (04/13/23) Triglycerides: 86 mg/dL (04/13/23) HDL Cholesterol: 61 mg/dL (04/13/23) LDL Cholesterol: 59 mg/dL (04/13/23) Non HDL Cholesterol: 76 mg/dL (04/13/23) TSH: 3.65 uIU/mL (04/13/23) Diagnostic Impression CT CT Angio Abdomen and Pelvis ?? 08:26:41 IMPRESSION: Vascular: 1. Mild atherosclerotic disease of the thoracic and abdominal aorta. No dissection or aneurysm identified. 2. No CT evidence of pulmonary emboli. 3. No significant stenosis of the great vessels of the arch, the mesenteric, the renal or the iliacarteries. ?? Nonvascular: 1. No acute abnormality in the chest, abdomen or pelvis. 2. Chronic findings as above. ? WSN: [id number] ? Ordering Physician: Alek Zazueta ?? Signed By: Nickolas Cruz MD ECG ECG 12-Lead ?? 15:32:49 Please click on pdf link to open report ?? Signed By: Florence Gardner MD ?? ECG 12-Lead ?? 15:32:49 Ventricular Rate: 69 BPM Atrial Rate: 69 BPM P-R Interval: 194 ms QRS Duration: 90 ms Q-T Interval: 416 ms QTC Calculation(Bazett): 445 ms P [place]: 75 degrees R [place]: 11 degrees T [place]: 66 degrees Normal sinus rhythm Normal ECG When compared with ECG of 11-DEC-2022 15:01, No significant change was found Confirmed by FLORENCE GARDNER ([id number]) on 01/08/2023 5:39:08 PM ?? Chappell: FLORENCE GARDNER ?? Signed By: Florence Gardner MD Stress Test NM Myocard Perf SPECT Multi ?? 08:36:12 Summary 1. Myocardial perfusion imaging is normal without any fixed or reversible perfusion defect after Regadenoson infusion. ?? 2. LV function is normal with an E.F. of >75% at rest and after IV administration of Regadenoson with normal wall motion and thickening. ?? 3. EKG portion of the stress test is reported separately. ?? Signatures _ _ ?? Signed By: Hunter WEBER, Felipe Schwartz Echo Echocardiogram - Complete ?? 10:07:27 Summary The left ventricular size is normal. Left ventricular wall thickness is normal. The LV systolic function is normal . The left ventricular ejection fraction is 60-65 %. Abnormal septal motion most consistent with conduction abnormality. Grade I, mild diastolic dysfunction with impaired LV relaxation, which may be normal for the patient???s age. There is mild aortic regurgitation. ?? Comparison Comparison is made to the study of December 17, 2017. There is no significant change. ?? Signature ?? Signed By: Brandon Montana MD, Jadiel Shirley Problem List/Past Medical History Ongoing Acute left-sided thoracic back pain Adenomatous polyp [...] - h/o procedure Social problem TMJ syndrome Procedure/Surgical History Varicose vein operation/sclerotherapy, left le01/2020 Colonoscopy: 01/07/17 Colonoscopy: 08/08/09 Cataract extraction, bilateral: 2007 Ligation of varicose vein: 1959 [place] - Total abdominal hysterectomy Appendectomy Follow-Up Appointments Added Follow Up ?Time Frame ?Comments Andrea Lima MD?6 Months?RTC with MD or BRENDA in 6 months Social History Alcohol Other: No alcohol since 09/14/22. Employment/School Status: Retired. Exercise Other: limited time due to caregiving. Regular exercise: No. Home/Environment Living situation: Home/Independent. Nutrition/Health Diet: Regular. Sexual Sexually involved in last 6 months: No. Substance Abuse Use: Never. Tobacco Total pack years: 35. Started at age: 14 Years. Stopped at age: 49 Years. Family History Mother (): Heart attack Brother (maternal half-brother): Coronary artery disease Mat. Grandfather (): Heart attack Note * Kat Mora: PERFORM, SIGN, VERIFY Event Display: Patient Education/Instruction Authored Date: [id number] [facility] *[facility] Hrt Vas Off Clinical Summary Name TREASURE REED Age 87 Years 1935 PCP Christiano BUNDLE PERSON, Nick PCP Visit Date 09/30/2023 11:14:00 Additional Instructions: Scheduled Appointments?? Future Appointments ?*[facility] ?[address],??[place],??[address] ?Phone:??--?Fax:??-- ?Appt. Date:??10/20/2023?1:30 PM ?Scheduled Provider:??Peter VIDES, Jody Mcbride Follow-Up Instructions ?? With: Address: When: Janie WEBER, Andrea In 6 months Comments: RTC with MD or BRENDA in 6 months Diagnosis Medications: Please continue your medications until treatment is completed or stopped by your provider. Discuss any questions related to medications with your provider. Medications to Continue with No Changes These medications were not printed or sent to your pharmacy Atorvastatin (atorvastatin 20 mg oral tablet) 1 tab(s) Oral Daily at Bedtime. Refills: 3. Next Dose: bifidobacterium-lactobacillus (Probiotic Formula) Oral Daily. Next Dose: Cyclosporine Ophthalmic (Restasis 0.05% ophthalmic emulsion) 1 Drops Both eyes every 12 hours. Next Dose: Durable Medical Equipment (Compression Stockings) surgical, knee high 20-30 mm Hg Dx: varicose veins with pain, swelling, history of GSV ablation, sclerotherapy, bilateral. Refills:0. Next Dose: Escitalopram (escitalopram 5 mg oral tablet) 1 tab(s) Oral Daily. Refills: 2. Next Dose: Estradiol Topical (Estrace Vaginal Cream 0.1 mg/g) 1 gram Vaginally every Thursday and . Physician requests paraben free. Refills: 1. Next Dose: Famotidine (famotidine 20 mg oral tablet) 1 tab(s) Oral twice a day as needed. Refills: 5. Next Dose: HydrOXYzine (hydrOXYzine hydrochloride 25 mg oral tablet) 1 tab(s) Oral Daily at Bedtime. Refills: 0. Next Dose: Levothyroxine (levothyroxine 0.05 mg oral tablet) 0.5 tab(s) Oral Daily. Refills: 1. Next Dose: Metoprolol (Metoprolol Tartrate 25 mg oral tablet) 2 tab(s) Oral twice a day. Refills: 3. Next Dose: Multivitamin With Minerals (ICaps AREDS 2) Next Dose: Ocular Lubricant (Emlenton Tears ophthalmic solution) 1 Drops Both eyes 3 times a day as needed for dry eyes. Next Dose: Ocular Lubricant (Emlenton Tears ophthalmic solution) 1 Drops Both eyes twice a day as needed for dry eyes. Next Dose: Olmesartan (olmesartan 20 mg oral tablet) 1 tab(s) Oral Daily. Refills: 3. Next Dose: Polyethylene Glycol 3350 (MiraLax oral powder for reconstitution) 17 gram Oral Daily. dissolve in water before taking. Refills: 0. Next Dose: Spironolactone (spironolactone 25 mg oral tablet) 0.5 tab(s) Oral Daily. Refills: 1. Next Dose: Allergy Info:?? Cleocin T; Ceftin Medications Given This Visit Future Orders ?No future orders Vital Signs Height 158 cm Weight 71 kg BMI 28.44 kg/m2 Blood Pressure 125 mm Hg/54 mm Hg Temperature Pulse Rate 60 bpm Respiratory Rate 02 Sat Mode of Delivery 100 %/ You can now view a summary of your hospital visit from the comfort of your home through a free online portal called [employer]. [employer] is a website that allows you to securely view your medical information including discharge summary, medications and follow-up visits. ??You can alsosend a secure electronic message to your doctor???s office to request appointments, renew medications or just ask a question. You can enroll at [email or web address] or register during your next office visit. Disclaimer:?? The information provided is of a general nature and is intended to be used in conjunction with the recommendations and advice of your health care practitioner. ??Every effort has been made to ensure that the information provided is accurate and complete at the time it is provided to you however, as your needs change, or, as new ??information becomes available, different or additional instructions may be required. If you have questions, please consult with your primary care provider or pharmacist, as appropriate. ??This information is not intended to serve as substitution for assessment and evaluation by a qualified health care provider. If you do not have a primary care provider, you may find a [facility] provider by calling [employer] [facility] at [phone]. [facility], in keeping with [facility] guidance, no longer requires face masks for staff, patientsor visitors in most situations. Similar to time spent indoors at other locations, there is the chance that you were exposed to respiratory viruses during your time with us (such as flu or COVID-19).? If you develop symptoms concerning for a viral respiratory infection, please seek testing (and treatment if indicated) from your medical provider or home test kit. For information about the plan of care including goals and instructions for your diagnosis, please see the patient education orders section of this document. Patient Education Materials?? The content of this educational material or handout may have been modified, supplemented, or adapted from its original content and format to support your individualized medical care. Patient Care team information Care Team Personnel Name: Nick Alvarado NP Position: [facility] PCO Associate Professional Member Role: PCP Address: Address: [address] [place] [id number] Name: Elvia METZ, Trinh Position: [facility] RN Member Role: Primary Care Nurse Name: Carrol Ta RN Position: [facility] RN Member Role: Primary Care Nurse Name: Crystal Ceron RN Position: [facility] RN Member Role: Primary Care Nurse Care Team Related Persons Name: RADHA MONTOYA Address: [place], [place] Name: BRANDIE MONTOYA Address: [place] [address] Name: TREASURE MONTOYA Address: home [address] [place] [id number] Name: JAI REED Address: [address] [place] [address]
--- OUTSIDE RECORDS SUMMARY | 2024-07-27 11:56 | XMS_ITS | Continuity of Care Document ---
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
--- OUTSIDE RECORDS SUMMARY | 2024-07-27 11:56 | XMS_ITS | Continuity of Care Document ---
Author Organization [facility] Address [address] [place] [address]- Care Team Providers Care Roll Cutter Name Role Phone Christiano VIDES, Nick Primary Care Physician Encounter [facility] [place] Date(s): 01/08/23 - 02/14/23 [facility] Medicine [address] [place] [id number]- Attending Physician: Nick Alvarado NP Admitting Physician: [...] virus vaccine, inactivated 2 08/22/20 Re corded [id number] 12y+ bivalent booster vax 08/31/22 Recorded SARS-CoV-2 mRNA (uxnmybn-eywm-xbmmu) vax 03/16/22 Recorded SARS-CoV-2 (COVID-19) mRNA BNT-162b2 [...] diphtheria-tetanus toxoids (DT) 02/22/00 Given 1Result Comment: [id number] 2Result Comment: sarabjit SANDHU [facility] primary care 3Result Comment: Unit: Unknown [employer] 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 Principal: [employer] 4Result Comment: Unit: Unknown [employer] Assistant Principal: [employer] Injectables Medications atorvastatin 20 mg oral tablet 1 tablet, By Mouth, Daily at bedtime, # 90 tablet, 3 Refills, Maintenance, 12/16/22 13:42:00 EST, [facility], 158, cm, 12/11/22 15:03:00 EST, Height, 71, kg, 12/11/22 15:03:00 EST, Dry Weight Start Date: 12/16/22 Status: Ordered Clotrimazole 1% Topical 1 application, Topically, 2 times a day, Toenails, 0 Refills, Maintenance, Cream Start Date: 09/15/22 Status: Ordered escitalopram 5 mg oral tablet 1 tablet, By Mouth, Daily, # 30 tablet, 2 Refills, Maintenance, 02/11/23 6:37:00 EDT, [facility], 157, cm, 02/05/23 15:27:00 EDT, Height, 73, kg, 01/07/23 15:13:00 EST, Dry Weight Start Date: 02/11/23 Status: Ordered Estrace Vaginal Cream 0.1 mg/g = 1 Gm, Vaginally, Every Thursday and , Physician requests stefan free, # 30 Gm, 1 Refills, Maintenance, 02/05/23 15:29:00 EDT, [facility], Partial fill upon patient request if the prescription is for a schedule II opioid drug., 1... Start Date: 02/05/23 Status: Ordered famotidine 20 mg oral tablet 20 mg, 1, tablet, By Mouth, 2 times a day, PRN, # 30 tablet, Refills 2, Tot. Refills 2, Maintenance, Pain , Moderate, 01/30/23 10:13:00 EST, Route to Pharmacy Electronically, [facility], Partial fill upon patient request if the prescript... Start Date: 01/30/23 Status: Ordered hydrOXYzine hydrochloride 25 mg oral tablet 1 tablet, By Mouth, Daily at bedtime, # 30 tablet, 0 Refills, Maintenance, 02/10/23 10:59:00 EDT, [facility], 157, cm, 02/05/23 15:27:00 EDT, [...] 45 tablet, 1 Refills, Maintenance, 09/01/2219:01:00 EDT, [facility], 158, cm, 06/27/22 10:16:00 EDT, Height, 71.9, kg, 06/19/22 18:46:00 EDT, Dry Weight Start Date: 09/01/22 Status: Ordered meclizine 25 mg oral tablet 1 tablet = 25 mg, By Mouth, 3 times a day, PRN for dizziness, # 30 tablet, 0 Refills, Maintenance, 11/11/22 11:29:00 EST, Tablet, [facility], Partial fill upon patient request [...] opioid drug. Start Date: 05/09/21 Status: Ordered Ocean Breeze Tears ophthalmic solution 1 drops, Eyes, Both, 2 times a day, PRN for dry eyes, # 30 each, 0 Refills, Maintenance, 09/15/22 1:54:00 EDT, Solution, Partial fill upon patient request if the prescription is for a schedule II opioid drug. Start Date: 09/15/22 Status: Ordered Ocean Breeze Tears ophthalmic solution 1 drops, Eyes, Both, [...] Associate Professional Member Role: PCP Address: Address: [address] [place] [id number] Name: Elvia METZ, Trinh Position: S RN Member Role: Primary Care Nurse Name: Carrol Ta RN Position: S RN Member Role: Primary Care Nurse Name: Crystal Ceron RN Position: [facility] RN Member Role: Primary Care Nurse Care Team Related Persons Name: RADHA MONTOYA Name: BRANDIE MONTOYA Address: [place] [address] Name: TREASURE MONTOYA Address: home [address] [place] [address] Name: JAI REED Address: [address] [place] [address]
--- OUTSIDE RECORDS SUMMARY | 2024-07-27 11:56 | XMS_ITS | Continuity of Care Document ---
Author Organization [facility] Address [address] [place] [address]- Care Team Providers Care Quiller Tender Name Role Phone Christiano VIDES, Nick Primary Care Physician Encounter [facility] [place] Date(s): 01/07/23 - 01/07/[address] [address]- Discharge Disposition: A-D/C Home Attending Physician: Jaspal Rucker MD Admitting Physician: Jaspal Rucker MD Referring Physician: Not on Staff, Referring MD Allergies, Adverse Reactions, Alerts Substance Reaction Severity Status Ceftin ? Active Cleocin T BLOODY DIARRHEA Active Immunizations Given and Recorded Vaccine Date Status Refusal Reason influenza virus vaccine, inactivated 09/12/22 Michael rded influenza virus vaccine, inactivated 08/08/21 Michael rded influenza virus vaccine, inactivated 1 11/21/20 Gi cris influenza virus vaccine, inactivated 2 08/22/20 Re corded [id number] 12y+ bivalent booster vax 08/31/22 Recorded SARS-CoV-2 mRNA (mybnere-mplq-nvpjy) vax 03/16/22 Recorded SARS-CoV-2 (COVID-19) mRNA BNT-162b2 [...] diphtheria-tetanus toxoids (DT) 02/22/00 Given 1Result Comment: [id number] 2Result Comment: sarabjit SANDHU [facility] primary care 3Result Comment: Unit: Unknown 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 Start Date: 05/09/21 Status: Ordered Ruby Tears ophthalmic solution 1 drops, Eyes, Both, 2 times a day, PRN for dry eyes, # 30 each, 0 Refills, Maintenance, 09/15/22 1:54:00 EDT, Solution, Partial fill upon patient request if the prescription is for a schedule II opioid drug. Start Date: 09/15/22 Status: Ordered Ruby Tears ophthalmic solution 1 drops, Eyes, Both, [...] sensorineural Confirmed Active TMJ syndrome Confirmed Active Vital Signs Most recent to oldest [Reference Range]: 1 2 Height 157 cm (01/07/23 3:13 PM) 157 cm (01/07/23 3:12 PM) Weight 73 kg (01/07/23 3:13 PM) 73 kg (01/07/23 3:12 PM) Oxygen Saturation [94-100 %] 98 % (01/07/23 5:44 PM) 98 % (01/07/23 3:12 PM) Pulse Rate [55-90 bpm] 62 bpm (01/07/23 5:44 PM) 72 bpm (01/07/23 3:12 PM) Body Mass Index [18.5-24.99 kg/m2] 29.62 kg/m2 *H* (01/07/23 3:12 PM) Blood Pressure [90-138/55-84 mm Hg] 160/ 61mm Hg *H* (01/07/23 5:44 PM) 171/85mm Hg *H* (01/07/23 3:12 PM) Respiratory Rate [16-30 br/min] 18 br/mi n (01/07/23 5:44 PM) 18 br/min (01/07/23 3:12 PM) Temperature [96.8-100.4 DegF] 98.2 DegF (01/07/23 3:12 PM) Mode of Delivery (Oxygen) Room air (01/07/23 5:44 PM) Room air (01/07/23 3:12 PM) Temperature Route Temporal (01/07/23 3:12 PM) Dry Weight 73 kg (01/07/23 3:13 PM) 73 kg (01/07/23 3:12 PM) Social History Social History Type Response Tobacco Total pack years: 35 . Started at age: 14 Years. Stopped at age: 49 Years. Sex Note * Jaspal Rucker MD: PERFORM, SIGN, VERIFY Event Display: Patient Education Handout Authored Date: * Jaspal Rucker MD: PERFORM Event Display: Patient Education Leaflets Authored Date: Established High Blood Pressure ?? [id number] Established High Blood Pressure High blood pressure (hypertension) is a long-term (chronic) disease. Often healthcare providers don???t know what causes it. But it can be caused by certain health conditions and medicines. If you have high blood pressure, you may not have any symptoms. If you do have symptoms, they may include: ??? Headache ??? Dizziness ??? Changes in your vision ??? Chest pain ??? Shortness of breath But even without symptoms, high blood pressure that???s not treated raises your risk for heart attack, heart failure, kidney disease, and stroke. High blood pressure is a serious health risk and shouldn???t be ignored. Blood pressure measurements are given as 2 numbers. Systolic blood pressure is the upper number. This is the pressure when the heart contracts. Diastolic blood pressure is the lower number. This is the pressure when the heart relaxes between beats. You will see your blood pressure readings written together. For example, a person with a systolic pressure of 118 and a diastolic pressure of 78 will have 118/78 written in the medical record. Blood pressure is classified as normal, raised (elevated) or stage 1 or stage 2 high blood pressure: ??? Normal blood pressure. Systolic of less than 120 and diastolic of less than 80 (120/80). ??? Elevated blood pressure. Systolic of 120 to 129 and diastolic less than 80. ??? Stage 1 high blood pressure. Systolic is 130 to 139 or diastolic between 80 to 89. ??? Stage 2 high blood pressure. Systolic is 140 or higher or the diastolic is 90 or higher. Home care If you have high blood pressure, follow these home care guidelines to help lower your blood pressure. If you are taking medicines for high blood pressure, these methods may reduce or end your need for medicines in the future. ??? Start a weight-loss program if you are overweight. ??? Cut back on how much salt you get in your diet. Here???s how to do this: o Don???t eat foods that have a lot of salt. These include olives, pickles, smoked meats, and salted potato chips. o Don???t add salt to your food at the table. o Use only small amounts of salt when cooking. ??? Start an exercise program. Talk with your healthcare provider about the type of exercise program that would be best for you. It doesn't have to be hard. Even brisk walking for 20 minutes 3 times a week is a good form of exercise. ??? Don???t take medicines that stimulate the heart. This includes many puww-ilr-skswmxd cold and sinus decongestant pills and sprays, as well as diet pills. Check the warnings about high blood pressure on the label. Before buying any ghuk-tip-gatwvjs medicines or supplements, always ask the pharmacist about the product's possible interaction with your high blood pressure and your high blood pressure medicines. ??? Stimulants such as amphetamine or cocaine could be deadly for someone with high blood pressure. Never takethese. ??? Limit how much caffeine you get in your diet. Switch to caffeine-free products. ??? Stopsmoking. If you are a long-time smoker, this can be hard. Talk with your healthcare provider about medicines and nicotine replacement options to help you. Also join a stop-smoking program. This makesit more likely that you will quit for good. ??? Learn how to handle stress. This is an important part of any program to lower blood pressure. Learn about relaxation methods such as meditation, yoga, or biofeedback. ??? If your provider prescribed medicines, take them exactly as directed. Missing doses may cause your blood pressure to get out of control. ??? If you miss a dose, check with your healthcare provider or pharmacist about what to do. ??? Think about buying an automatic blood pressure machine to check your blood pressure at home. Ask your provider for a recommendation. You can get one of these at most pharmacies. Using a home blood pressure monitor The [place] [employer] advises the following guidelines for home blood pressure monitoring:??? Don't smoke or drink coffee for 30 minutes before taking your blood pressure. ??? Go to the bathroom before the test. ??? Relax for at least 5 minutes before taking the measurement. ??? Sit with your back supported (don't sit on a couch or soft chair). Keep your feet on the floor uncrossed. Place your arm on a solid flat surface (such as a table) with the upper part of the arm at heart level.Place the middle of the cuff directly above the bend of the elbow. Check the monitor's instruction manual for an illustration. ??? Take multiple readings. When you measure, take 2 to 3 readings one minute apart and record all of the results. ??? Take your blood pressure at the same time every day, or as your healthcare provider advises. ??? Record the date, time, and blood pressure reading. ??? Take the record with you to your next healthcare appointment. If your blood pressure monitor has a built-in memory, just take the monitor with you to your next appointment. ??? Call your provider if you have several high readings. Don't be frightened by one high blood pressure reading. But if you geta few high readings, check in with your healthcare provider. ?? Follow-up care You will need to see your healthcare provider regularly. This is to check your blood pressure and to make changes to your medicines. Make a follow-up appointment as directed. Bring the record of yourhome blood pressure readings to the appointment. ?? Call 911 Call 911??if you have any of these: ??? Blood pressure of 180/120 or higher and any other symptoms linked to organ damage. These include: o Unusual chest pain or shortness of breath o Weakness of an arm or leg or one side of the face oProblems speaking or seeing o Severe headache o Sudden severe pain in your belly (abdomen) or back o Extreme drowsiness, confusion, or fainting o Passing out or seizures o Severe dizziness or spinning feeling (vertigo) that doesn't go away ? When to get medical advice Call your healthcare provider right away if any of these occur: ??? Blood pressure of 180/120 or higher, without other symptoms ??? Throbbing or rushing sound in the ears ??? Nosebleed ??? Mild or intermittent dizziness or spinning feeling (vertigo) ?? Last Reviewed Date: 2021 ?? [id number] [employer]. All rights reserved. This information is not intended as a substitute for professional medical care. Always follow your healthcare professional's instructions. ?? * Jaspal Rucker MD: PERFORM Event Display: Patient Education Leaflets Authored Date: [id number] Dizziness (Uncertain Cause) ?? [id number] Dizziness (Uncertain Cause) Dizziness is a common symptom. It may be described as lightheadedness, spinning, or feeling like you are going to faint. Dizziness can have many causes. Tell the healthcare provider about: ??? All medicines you take, including prescription, zwni-tmq-msysdbx, herbs, and supplements ??? Any other symptoms you have ??? Any health problems you are being treated for ??? Any past major health problems you've had, such as a heart attack, balance issues, hearing problems, or blood pressure problems ??? Anything that causes the dizziness to get worse or better Today's exam did not show an exact cause for your dizziness .??Other tests may be needed. Follow upwith your healthcare provider. Home care ??? Dizziness that occurs with sudden standing may be a sign of mild dehydration. Drink extra fluids for the next few days. ??? If you recently started a new medicine, stopped a medicine, or had the dose of a current medicine changed,??talk with the prescribing healthcare provider. Your medicine plan may need adjustment. ??? If dizziness lasts more than a few seconds, sit or lie down until it passes. This may help prevent injury in case you pass out. Get up slowly when you feel better. ??? Don't drive or use power tools or dangerous equipment until you have had no dizziness for at least 48 hours. ?? Follow-up care Follow up with your healthcare provider for further evaluation in the next 7 days, or as advised. ?? When to get medical advice Call your healthcare provider for any of the following: ??? Worsening of symptoms or new symptoms ??? Repeated vomiting ??? Headache ??? Vision or hearing changes Call 911 Call 911, right away if any of these occur: ??? Chest, arm, neck, back, or jaw pain ??? Weakness ofan arm or leg or one side of the face ??? Vomit or stool that's black or red ??? Shortness of breath ??? Feeling that your heart is fluttering or beating fast or hard (palpitations) ??? Passing out or seizure ??? Trouble walking or speaking ?? Last Reviewed Date: 2021 ?? [employer]. All rights reserved. This information is not intended as a substitute for professional medical care. Always follow your healthcare professional's instructions. ?? Patient Care team information Care Team Personnel Name: Nick Alvarado NP Position: [facility] Associate Professional Member Role: PCP Address: Address: [address] [place] [id number]- Name: Elvia RN, Trinh Position: [facility] RN Member Role: Primary Care Nurse Name: Keyon RN, Carrol Marie Position: [facility] RN Member Role: Primary Care Nurse Name: Crystal Ceron RN Position: [facility] RN Member Role: Primary Care Nurse Name: Columba Alonzo RN Position: [facility] ED RN W/OE and Tasks Member Role: Patient Care Provider Name: Jaspal Rucker MD Position: [facility] ED Medicine MD Member Role: Admitting Physician Address: Address: [address] [place] [address] [place] [address]- Care Team Related Persons Name: RADHA MONTOYA Name: BRANDIE MONTOYA Address: [place] [address] Name: TREASURE MONTOYA Address: [address] [place] [address] Name: JAI REED Address: [address] [place] [address]
--- OUTSIDE RECORDS SUMMARY | 2024-07-27 11:56 | XMS_ITS | Continuity of Care Document ---
Author Organization [facility] oenter[facility] Address Unknown Care Team Providers Care Environmental Laboratory Technician Name Role Phone Christiano VIDES, Nick Primary Care Physician En[place] [facility] [place] Date(s): 11/12/21 - 12/12/21 [facility] Allergies, Adverse Reactions, Alerts Substance Reaction Severity [...] diphtheria-tetanus toxoids (DT) 02/22/00 Given 1Result Comment: [id number] 2Result Comment: sarabjit SANDHU [facility] primary care 3Result Comment: Unit: Unknown [employer] Lead: [employer] 4Result Comment: Unit: Unknown [employer] Lead: [employer] Injectables Medications Aspirin = 81 mg, By Mouth, Daily before lunch, 0 Refills, Maintenance, 01/09/11 5:04:09 EST Start Date: 01/09/11 Status: Ordered atorvastatin 20 mg oral tablet 1 tablet, By Mouth, Daily at bedtime, # 90 tablet, 3 Refills, Maintenance, 12/02/21 11:48:00 EST, [facility][id number], 157.48, cm, 11/27/21 12:51:00 [...] Refills, Maintenance, 07/24/21 12:46:00 [facility] upon p... Start Date: 07/24/21 Status: Ordered Metoprolol Tartrate 25 mg oral [...] 5 Refills, Maintenance, 09/19/20 14:11:00 EDT, Tablet, [facility] #[id number], 158, cm, 09/18/20 [...]
--- OUTSIDE RECORDS SUMMARY | 2024-07-27 11:56 | XMS_ITS | Continuity of Care Document ---
Author Organization [facility] Address [address] [place] [address]- Care Team Providers Care Examination Scorer Name Role Phone Nick Alvarado NP Primary Care Physician [phone] [place] [facility] [place] 11/09/23 - 12/09/23 [facility] Medicine [address] [place] [id number]- Encounter Diagnosis Left arm pain(Discharge Diagnosis) - 11/09/23 Osteoarthritis, generalized(Discharge Diagnosis) - 11/09/23 Peripheral venous insufficiency(Discharge Diagnosis) - 11/09/23 Attending Physician: Charley El NP Admitting Physician: Charley El NP Allergies, Adverse Reactions, Alerts Substance Reaction Severity Status Ceftin ? Active Cleocin T BLOODY DIARRHEA Active Immunizations Given and Recorded Vaccine Date Status Refusal Reason influenza virus vaccine, inactivated 09/12/22 Michael rded influenza virus vaccine, inactivated 08/08/21 Michael rded influenza virus vaccine, inactivated 1 11/21/20 Gi cris influenza virus vaccine, inactivated 2 08/22/20 Re corded [id number] 12y+ bivalent booster vax 08/31/22 Recorded SARS-CoV-2 mRNA (urjzfnz-btjk-vlrft) vax 03/16/22 Recorded SARS-CoV-2 (COVID-19) mRNA BNT-162b2 [...] diphtheria-tetanus toxoids (DT) 02/22/00 Given 1Result Comment: [id number] 2Result Comment: sarabjit SANDHU [facility] primary care 3Result Comment: Unit: Unknown 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, Partial fill upon patient request if the prescription is for a schedule II opioid drug., 1 sprays Nares, Both Daily at... Start Date: 10/28/23 Status: Ordered levothyroxine 0.05 mg oral tablet 0.5 tablet, By Mouth, Daily, # 45 tablet, 1 Refills, Maintenance, 08/27/23 21:17:00 EDT, [facility], 158, cm, 05/06/23 11:17:00 EDT, Height, 70, kg, 04/02/23 19:36:00 EDT, Dry Weight Start Date: 08/27/23 Status: Ordered Metoprolol Tartrate 25 mg oral tablet 2 tablet = 50 mg, By Mouth, 2 times a day, # 360 tablet, 3 Refills, Maintenance, 12/16/22 13:42:00 EST, [facility], 158, cm, 12/11/22 15:03:00 EST, [...] opioid drug. Start Date: 05/09/21 Status: Ordered Wino[place]ki Tears ophthalmic solution 1 drops, Eyes, Both, 2 times a day, PRN for dry eyes, # 30 each, 0 Refills, Maintenance, 09/15/22 1:54:00 EDT, Solution, Partial fill upon patient request if the prescription is for a schedule II opioid drug. Start Date: 09/15/22 Status: Ordered [place] Tears ophthalmic solution 1 drops, Eyes, Both, 3 times a day, PRN for dry eyes, Maintenance, 09/15/22 10:43:00 EDT, [facility],Partial fill upon patient request if the prescription is for a schedule II opioid drug. Start Date: 09/15/22 Status: Ordered olmesartan 20 mg oral tablet 1 tablet, By Mouth, Daily, # 90 tablet, 1 Refills, Maintenance, 11/25/23 6:31:00 EST, [facility], 158, cm, 11/24/23 11:30:00 EST, [...] problem Confirmed Active TMJ syndrome Confirmed Active Diagnosis Diagnosis Type Effective Dates Health Status Clinical Service Informant Left arm pain Discharge Diagnosis 11/09/23 Osteoarthritis, generalized Discharge Diagnosis 11/09/23 Peripheral venous insufficiency Discharge Diagnosis 11/09/23 Social History Social History Type Response Tobacco Total pack years: 35 . Started at age: 14 Years. Stopped at age: 49 Years. Sex Patient Care team information Care Team Personnel Name: Nick Alvarado NP Position: [facility] Associate Professional Member Role: PCP Address: Address: [address] [place] [id number]- Name: Elvia METZ, Trinh Position: S RN Member Role: Primary Care Nurse Name: Carrol Ta RN Position: [facility] RN Member Role: Primary Care Nurse Name: Crystal Ceron RN Position: [facility] RN Member Role: Primary Care Nurse Care Team Related Persons Name: RADHA MONTOYA Address: [place], [place] Name: BRANDIE MONTOYA Address: [place] [address] Name: TREASURE MONTOYA Address: [address] [place] [address] Name: JAI REED Address: home [address] [place] [id number]
--- OUTSIDE RECORDS SUMMARY | 2024-07-27 11:56 | XMS_ITS | Continuity of Care Document ---
Author Organization [facility] Address [address] [place] [address]- Care Team Providers Care Date Puller Name Role Phone Sam WEBER, Zara Jensen Primary Care Physician Encounter [facility] Date(s): 07/18/21 - 07/25/[address] [id number] Attending Physician: Joseluis Ramos MD Admitting Physician: Joseluis Ramos MD Allergies, Adverse Reactions, Alerts Substance Reaction [...] diphtheria-tetanus toxoids (DT) 02/22/00 Given 1Result Comment: [id number] 2Result Comment: sarabjit SANDHU [facility] primary care 3Result Comment: Unit: Unknown Computer Engineering Technician: Where's Up 4Result Comment: Unit: Unknown Computer Engineering Technician: Pfizer Injectables Medications Aspirin = 81 mg, By Mouth, Daily before lunch, 0 Refills, Maintenance, 01/09/11 5:04:09 EST Start Date: 01/09/11 Status: Ordered atorvastatin 20 mg oral tablet 1 tablet = 20 mg, By Mouth, Daily at bedtime, # 90 tablet, 3 Refills, Maintenance, 12/12/20 15:31:00 EST, Tablet, [facility]/pharmacy #[id number], 158, cm, 11/21/20 11:06:00 EST, [...] upon p... Start Date: 07/24/21 Status: Ordered Macrobid macrocrystals-monohydrate 100 mg oral capsule 1 capsule = 100 mg, By Mouth, 2 times a day, for 7 days, # 14 capsule, 0 Refills, Acute 07/31/21 14:01:00 EDT, 07/24/21 14:01:00 EDT, Capsule, [facility] [id number] [facility], Partial fill upon patient request if the prescription is for a schedule II opioid drug.... Start Date: 07/24/21 Stop Date: 07/31/21 Status: Ordered metoprolol 25 mg oral tablet 25 mg, 1, tablet, By Mouth, 2 times a day, Dose is now 25mg BID, # 180 tablet, Refills 3, Tot. Refills 3, Maintenance, 12/05/20 14:30:00 EST, Route to Pharmacy Electronically, [facility]/pharmacy #[id number], Partial fill upon patient request [...] 113.4 Gm, 3 Refills, Maintenance, [id number], 30, USE DIRECTED, 158, cm, 05/09/21 14:04:00 [...] oldest [Reference Range]: 1 Height 158 cm (07/18/21 8:32 AM) Blood Pressure [90-138/55-84 mm Hg] 126/ 64mm Hg (07/18/21 8:32 AM) Blood pressure sites Arm, left (07/18/21 8:32 AM) Social History Social History Type Response Tobacco Total pack years: 35 . Started at age: 14 Years. Stopped at age: 49 Years. Sex
--- OUTSIDE RECORDS SUMMARY | 2024-07-27 11:56 | XMS_ITS | Continuity of Care Document ---
Author Organization [facility] Address [address] [facility] 2nd Floor [address] [place] [address]- Care Team Providers Care Wallpaperer Helper Name Role Phone Sam WEBER, Zara Jensen Primary Care Physician [phone] Encounter [facility] Date(s): 03/05/20 - 03/15/20 [facility] [place] [address] [facility] [address] Floor [address] [place] [address]- [facility] Attending Physician: Silas Duncan Admitting Physician: Silas [...] Maintenance, CPAP 7 cm H2O dx [facility] [place] 3 ramp prn mask and suppliesas [...] 0, 0, 02/21/06 7:36:57, Print CAMILO Number, [id number], Constant Indicator Start Date: 02/21/06 Status: Ordered nystatin topical 924725 u/gm powder 1 applicator, Topically, Daily in [...]
--- OUTSIDE RECORDS SUMMARY | 2024-07-27 11:57 | XMS_ITS | Continuity of Care Document ---
Author Organization [facility] Address [address] [place] [address]- Care Team Providers Care Engraver Automatic Name Role Phone Christiano VIDES, Nick Primary Care Physician Encounter [facility] Date(s): 12/10/23 - 01/09/[address] [address]- Allergies, Adverse Reactions, Alerts Substance Reaction Severity Status Ceftin ? Active Cleocin T BLOODY DIARRHEA Active Immunizations Given and Recorded Vaccine Date Status Refusal Reason SARS-CoV-2(COVID-19)mRNA-LNP vac([id number]) 01/08/24 Given pneumococcal 20-valent conjugate vaccine 01/08/24 Given influenza virus vaccine, inactivated 09/12/22 Michael rded influenza virus vaccine, inactivated 08/08/21 Michael rded influenza virus vaccine, inactivated 1 11/21/20 Gi cris influenza virus vaccine, inactivated 2 08/22/20 Re corded [id number] 12y+ bivalent booster vax 08/31/22 Recorded SARS-CoV-2 mRNA ([id number]) vax 03/16/22 Recorded SARS-CoV-2 (COVID-19) mRNA BNT-162b2 [...] diphtheria-tetanus toxoids (DT) 02/22/00 Given 1Result Comment: [id number] 2Result Comment: sarabjit SANDHU [facility] primary care 3Result Comment: Unit: Unknown Sports Activities Foul Judge: [employer] 4Result Comment: Unit: Unknown Sports Activities Foul Judge: [employer] Injectables Medications atorvastatin 20 mg oral tablet [...] Gm, 0 Refills, Maintenance, 01/08/24 11:22:00 EST, [place], [facility], Partial fill upon patient request if the prescription is for a schedule II opioid drug., 1 sprays Nares, Both 2 camden... Start Date: 01/08/24 Status: Ordered hydrocortisone 1% topical cream 1 application, Topically, 2 times a day, # 15 Gm, 0 Refills, Maintenance, 01/08/24 11:30:00 EST, Cream, [facility], Partial fill upon [...] opioid drug. Start Date: 05/09/21 Status: Ordered Deloit Tears ophthalmic solution 1 drops, Eyes, Both, [...] Dry Weight Start Date: 11/25/23 Status: Ordered predniSONE 20 mg oral tablet 2 tablet = 40 mg, By Mouth, Daily, for 5 days, # 10 tablet, 0 Refills, Acute 01/13/24 11:25:00 EST,01/08/24 11:25:00 EST, Tablet, [facility], Partial fill upon patient request if the prescription is for a schedule II opioid drug., 158,... Start Date: 01/08/24 Stop Date: 01/13/24 Status: Ordered Probiotic Formula By Mouth, Daily, [...] Team Personnel Name: Nick Alvarado NP Position: [facility] PCO Associate Professional Member Role: PCP Address: Address: [address] [place] [id number] Name: Carrol Ta RN Position: [facility] SN RN Member Role: Primary Care Nurse Name: Crystal Ceron RN Position: [facility] RN Member Role: Primary Care Nurse Care Team Related Persons Name: RADHA MONTOYA Address: [place], [place] Name: BRANDIE MONTOYA Address: [place] [address] Name: TREASURE MONTOYA Address: home [address] [place] [id number] Name: JAI REED Address: home [address] [place] [address]
--- OUTSIDE RECORDS SUMMARY | 2024-07-27 11:57 | XMS_ITS | Continuity of Care Document ---
Author Organization [facility] Address [address] [place] [address]- Care Team Providers Care Java Solutions Architect Name Role Phone Sam WEBER, Zara Jensen Primary Care Physician Encounter [facility] Date(s): 04/20/20 - 04/27/[address] [address]- [facility] Attending Physician: Sofia Chacon MD [...] Maintenance, CPAP 7 cm H2O dx [facility] epr 3 ramp prn mask and suppliesas [...] 0, 0, 02/21/06 7:36:57, Print CAMILO Number, [id number], Constant Indicator Start Date: 02/21/06 Status: Ordered nystatin topical 295359 u/gm powder 1 applicator, Topically, Daily in [...] 9:53:02 EDT Start Date: 05/09/19 Status: Ordered Trimo-Mcclure 0.025% vaginal gel with applicator See Instructions, use as directed, # 113.4 Gm, 3 Refills, Maintenance, 04/20/20 13:58:00 EDT, [id number], use as directed, 158, cm, 04/20/20 13:16:00 EDT, Height, 67.9, kg, 08/31/18 0:48:00 EDT, Dry Weight Start Date: 04/20/20 Status: Ordered vaginal estradiol .1mg/gm vaginal estradiol [...] oldest [Reference Range]: 1 Height 158 cm (04/20/20 1:16 PM) Blood Pressure [90-138/55-84 mm Hg] 130/ 64mm Hg (04/20/20 1:16 PM) Blood pressure sites Arm, left (04/20/20 1:16 PM) Social History Social History Type Response Smoking Status Former smoker; Other : Smoked 1PPD from age 14. Quit 33Y ago.; entered on: 09/15/17 Sex
--- OUTSIDE RECORDS SUMMARY | 2024-07-27 11:57 | XMS_ITS | Continuity of Care Document ---
Author Organization [facility] Address [address] [place] [address]- Care Team Providers Care Restuarant Crew Worker Name Role Phone Christiano VIDES, Nick Primary Care Physician Encounter [facility] Date(s): 05/21/22 - 06/20/22 [facility] [place] [address] [place] [address]- [place] Allergies, Adverse Reactions, Alerts Substance Reaction [...] diphtheria-tetanus toxoids (DT) 02/22/00 Given 1Result Comment: [id number] 2Result Comment: sarabjit SANDHU [facility] primary care 3Result Comment: Unit: Unknown Professor Of Medicine: [employer] 4Result Comment: Unit: Unknown Professor Of Medicine: [employer] Injectables Medications Aspirin = 81 mg, By Mouth, Every Thursday, Thursday and Thursday, 0 Refills, Maintenance, 01/09/11 5:04:09 EST Start Date: 01/09/11 Status: Ordered atorvastatin 20 mg oral tablet 1 tablet, By Mouth, Daily at bedtime, # 90 tablet, 3 Refills, Maintenance, 06/09/22 11:18:00 EDT, [facility]/pharmacy #[id number], 157.48, cm, 02/21/22 10:37:00 EDT, [...] Refills, Maintenance, 12/18/21 15:56:00 EST, [facility] upon patient request if [...]
--- OUTSIDE RECORDS SUMMARY | 2024-07-27 11:57 | XMS_ITS | Continuity of Care Document ---
Author Organization [facility] Address [address] [place] [address]- Care Team Providers Care Excavating Supervisor Name Role Phone Zara Vargas MD Primary Care Physician Encounter [facility] Date(s): 10/02/20 - 11/01/20 [facility] [place] [address] [place] [address]- [place] Allergies, Adverse Reactions, Alerts Substance Reaction [...] (DT) 02/22/00 Given 1Result Comment: Unit: Unknown Credit Support Specialist: [employer] 2Result Comment: Unit: Unknown Credit Support Specialist: [employer] Injectables Medications alendronate 70 mg oral tablet 1 tablet = 70 mg, By Mouth, 0 Refills, Maintenance, 10/29/20 17:02:00 EST, Partial fill upon patient request if the prescription is for a schedule II opioid drug. Start Date: 10/29/20 Status: Ordered Aspirin = 81 mg, By Mouth, Daily before lunch, 0 Refills, Maintenance, 01/09/11 5:04:09 EST Start Date: 01/09/11 Status: Ordered atorvastatin 20 mg oral tablet 1 tablet = 20 mg, By Mouth, Daily at bedtime, # 30 tablet, 6 Refills, Maintenance, 06/05/20 15:31:00 EDT, Tablet, [facility]/pharmacy #[id number], 158, cm, 06/05/20 14:54:00 EDT, Height, 70, kg, 05/22/20 13:54:00EDT, Dry Weight Start Date: 06/05/20 Stop Date: 01/01/21 Status: Ordered Bactrim DS 800 mg-160 mg oral tablet 1 tablet, By Mouth, 2 times a day, # 14 tablet, 0 Refills, Maintenance, 10/29/20 17:15:00 EST, Tablet, [facility]/pharmacy #[id number], Partial fill upon patient request if the prescription is for a schedule II opioid drug., 1 tablet By Mouth 2 times a day, 158, c... Start Date: 10/29/20 Status: Ordered Caltrate 600 + D By Mouth, 2 times a day, 0 Refills, Maintenance, 10/29/20 16:59:00 EST, Partial fill upon patient request if the prescription is for a schedule II opioid drug. Start Date: 10/29/20 Status: Ordered Hydrochlorothiazide = 12.5 mg, By [...] 9:27:00 EDT Start Date: 08/17/20 Status: Ordered olmesartan 20 mg oral tablet 1 tablet = 20 mg, By Mouth, Daily, Dosage has been reduced to 20mg / day, # 30 tablet, 5 Refills, Maintenance, 09/19/20 14:11:00 EDT, Tablet, [facility]/pharmacy #[id number], 158, cm, 09/18/20 15:50:00 EDT, Height, 69, kg, 09/13/20 5:27:00 EDT, Dry Weight Start Date: 09/19/20 Status: Ordered polyethylene glycol 3350 oral powder for reconstitution = 17 Gm, By Mouth, Daily at bedtime, 0 Refills, Maintenance, 08/17/20 9:27:00 EDT Start Date: 08/17/20 Status: Ordered Probiotic Formula By Mouth, Daily, 0 Refills, Maintenance, 10/29/20 16:59:00 EST, Partial fill upon patient request if the prescription is for a schedule II opioid drug. Start Date: 10/29/20 Status: Ordered Trimo-Mcclure 0 Refills, Maintenance, 10/29/20 17:00:00 EST, Partial fill upon patient request if the prescription is for a schedule II opioid drug. Start Date: 10/29/20 Status: Ordered Problem List Condition Effective Dates Status Health Status Inform ant Adenomatous polyp of colon(Confirmed) Active Anxiety(Confirmed) Active Aortic insufficiency(Confirmed) Active Atrial tachycardia(Confirmed) Active Cough variant asthma(Confirmed) Active Osteoarthritis, generalized(Confirmed) Active Dental prophylaxis, adult - needed(Confirmed) Active Difficulty sleeping(Confirmed) Active Dizziness(Confirmed) Active Excessive cerumen in both ea r canals(Confirmed) Active Caregiver burden(Confirmed) Active Headache(Confirmed) Active Hypertension(Confirmed) Active Hypothyroidism(Confirmed) Active Irritable bowel syndrome rebecca [...]
--- OUTSIDE RECORDS SUMMARY | 2024-07-27 11:57 | XMS_ITS | Continuity of Care Document ---
Author Organization [facility] Address [address] [place] [address]- Care Team Providers Care Technical Marketing Consultant Name Role Phone Christiano VIDES, Nick Primary Care Physician [place] [facility] [place] 03/08/24 - 04/07/24 [facility] [address] [place] [id number] Attending Physician: Silas Duncan Admitting Physician: Silas Duncan Referring Physician: Silas Duncan Allergies, Adverse Reactions, Alerts Substance Reaction Severity Status Ceftin ? Active Cleocin T BLOODY DIARRHEA Active Immunizations Given and Recorded Vaccine Date Status Refusal Reason SARS-CoV-2(COVID-19)mRNA-LNP vac([id number]) 01/08/24 Given pneumococcal 20-valent conjugate vaccine 01/08/24 Given influenza virus vaccine, inactivated 09/12/22 Michael rded influenza virus vaccine, inactivated 08/08/21 Michael rded influenza virus vaccine, inactivated 1 11/21/20 Gi cris influenza virus vaccine, inactivated 2 08/22/20 Re corded [id number] 12y+ bivalent booster vax 08/31/22 Recorded SARS-CoV-2 mRNA ([id number]) vax 03/16/22 Recorded SARS-CoV-2 (COVID-19) mRNA BNT-162b2 [...] diphtheria-tetanus toxoids (DT) 02/22/00 Given 1Result Comment: [id number] 2Result Comment: sarabjit SANDHU [facility] primary care 3Result Comment: Unit: Unknown Community Health Nurse Staff: [email or web address] 4Result Comment: Unit: Unknown Community Health Nurse Staff: [employer] Injectables Medications atorvastatin 20 mg oral tablet [...] Gm, 0 Refills, Maintenance, 04/05/24 5:37:00 EDT, [place], Partial fill upon patient request if the [...] Team Personnel Name: Pam Floyd RN Position: [facility] RN Member Role: Primary Care Nurse Name: Nick Alvarado NP Position: [facility] PCO Associate Professional Member Role: PCP Address: Address: [address] [place] [id number] Name: Keyon METZ, Carrol Marie Position: [facility] SN RN Member Role: Primary Care Nurse Name: Crystal Ceron RN Position: [facility] RN Member Role: Primary Care Nurse Care Team Related Persons Name: RADHA MONTOYA Address: [place], [place] Name: BRANDIE MONTOYA Address: [place] [address] Name: TREASURE MONTOYA Address: home [address] [place] [address] Name: JAI REED Address: home [address] [place] [id number]
--- OUTSIDE RECORDS SUMMARY | 2024-07-27 11:57 | XMS_ITS | Continuity of Care Document ---
Author Organization [facility] Address [address] [place] [address]- Care Team Providers Care Vocational Teacher Name Role Phone Christiano VIDES, Nick Primary Care Physician Encounter [facility] Date(s): 11/27/21 - 12/04/21 [facility] [place] [address] [place] [address]- Attending Physician: Not on Staff, Attending MD Referring Physician: Nick Alvarado NP Allergies, [...] diphtheria-tetanus toxoids (DT) 02/22/00 Given 1Result Comment: [id number] 2Result Comment: sarabjit SANDHU [facility] 3Result Comment: Unit: Unknown Framing Manager: [employer] 4Result Comment: Unit: Unknown Framing Manager: Pfizer Injectables Medications Aspirin = 81 mg, By Mouth, Daily before lunch, 0 Refills, Maintenance, 01/09/11 5:04:09 EST Start Date: 01/09/11 Status: Ordered atorvastatin 20 mg oral tablet 1 tablet = 20 mg, By Mouth, Daily at bedtime, # 90 tablet, 3 Refills, Maintenance, 12/12/20 15:31:00 EST, Tablet, [facility]/pharmacy #[id number], 158, cm, 11/21/20 11:06:00 EST, Height, 69, kg, 09/13/20 5:27:00 EDT, Dry Weight Start Date: 12/12/20 Status: Ordered atorvastatin 20 mg oral tablet 1 tablet, By Mouth, Daily at bedtime, # 90 tablet, 3 Refills, Maintenance, 12/02/21 11:48:00 EST, [facility]/pharmacy #1095, 157.48, cm, 11/27/21 12:51:00 EST, [...] Refills, Maintenance, 07/24/21 12:46:00 EDT, [facility], Partial fill upon p... Start Date: 07/24/21 Status: Ordered metoprolol 25 mg oral tablet 25 mg, 1, tablet, By Mouth, 2 times a day, Dose is now 25mg BID, # 180 tablet, Refills 3, Tot. Refills 3, Maintenance, 12/05/20 14:30:00 EST, [id number] Partial fill upon patient request if the prescription i... Start Date: 12/05/20 Stop Date: 11/30/21 Status: Ordered Metoprolol Tartrate 25 mg oral tablet 1 tablet, By Mouth, 2 times a day, # 180 tablet, 3 Refills, Maintenance, 12/02/21 11:49:00 EST, [facility]/pharmacy #1095, 157.48, cm, 11/27/21 12:51:00 EST, [...] 5 Refills, Maintenance, 09/19/20 14:11:00 EDT, Tablet, [facility]/pharmacy #1095, 158, cm, 09/18/20 15:50:00 EDT, [...] oldest [Reference Range]: 1 Height 157.48 cm (11/27/21 12:51 PM) Weight 71.09 kg (11/27/21 12:51 PM) Oxygen Saturation [94-100 %] 100 % (11/27/21 12:51 PM) Pulse Rate [55-90 bpm] 68 bpm (11/27/21 12:51 PM) Body Mass Index [18.5-24.99] 28.67 *H* (11/27/21 12:51 PM) Blood Pressure [90-138/55-84 mm Hg] 143/ 55mm Hg *H* (11/27/21 12:51 PM) Blood pressure sites Arm, left (11/27/21 12:51 PM) Weight Obtained Via Patient/family state d (11/27/21 12:51 PM) Social History Social History Type Response Tobacco Total pack years: 35 . Started at age: 14 Years. Stopped at age: 49 Years. Sex
--- OUTSIDE RECORDS SUMMARY | 2024-07-27 11:57 | XMS_ITS | Continuity of Care Document ---
Author Organization [facility] Address [address] [place] [address]- Care Team Providers Care Warranty Clerk Name Role Phone Christiano VIDES, Nick Primary Care Physician [phone] Encounter [facility] Date(s): 08/23/22 - 09/22/22 [facility] [address] [address]- Attending Physician: Silas Duncan Admitting Physician: Silas [...] 23-valent vaccine 08/20/07 Recorded diphtheria-tetanus toxoids (DT) 4/1/00 Given 1Result Comment: [id number] 2Result Comment: sarabjit SANDHU [facility] primary [facility] 3Result Comment: Unit: Unknown Network Lead: [employer] 4Result Comment: Unit: Unknown Network Lead: Pfizer Injectables Medications atorvastatin 20 mg oral tablet 1 tablet, By Mouth, Daily at bedtime, # 90 tablet, 3 Refills, Maintenance, 06/09/22 11:18:00 EDT, [facility]/pharmacy #1095, 157.48, cm, 02/21/22 10:37:00 EDT, Height, [...] Refills, Maintenance, 12/18/21 15:56:00 EST, [facility], Partial fill upon patient request if the [...] Dry Weight Start Date: 09/01/22 Status: Ordered Metoprolol Tartrate 25 mg oral tablet 1 tablet, By Mouth, 2 times a day, # 180 tablet, 3 Refills, Maintenance, 12/02/21 11:49:00 EST, [facility]/pharmacy #[id number], 157.48, cm, 11/27/21 12:51:00 EST, Height, [...] opioid drug. Start Date: 05/09/21 Status: Ordered Harding Tears ophthalmic solution 1 drops, Eyes, Both, 2 times a day, PRN for dry eyes, # 30 each, 0 Refills, Maintenance, 09/15/22 1:54:00 EDT, [facility], Partial fill upon patient request if the prescription is for a schedule II opioid drug. Start Date: 09/15/22 Status: Ordered Harding Tears ophthalmic solution 1 drops, Eyes, Both, 3 times a day, PRN for dry eyes, Maintenance, 09/15/22 10:43:00 EDT, [facility],Partial fill upon patient request if the prescription is for a schedule II opioid drug. Start Date: 09/15/22 Status: Ordered olmesartan 20 mg oral tablet 1 tablet, By Mouth, Daily, # 90 tablet, 3 Refills, Maintenance, 12/20/21 13:54:00 EST, [facility]/pharmacy#1095, 157.48, cm, 12/19/21 11:37:00 EST, Height, 68.8, [...] 49 Years. Sex Patient Care team information Personnel Name: Nick Alvarado NP Address: Address: [address] [place] [address]
--- OUTSIDE RECORDS SUMMARY | 2024-07-27 11:57 | XMS_ITS | Continuity of Care Document ---
Author Organization [facility] Address [address] [place] [address]- Care Team Providers Care Disaster Recovery Consultant Name Role Phone Christiano VIDES, Nick Primary Care Physician [phone] Encounter [facility] Date(s): 06/19/23 - 07/19/23 [facility] [place] [address] [place] [address]- [place] Allergies, Adverse Reactions, Alerts Substance Reaction Severity Status Ceftin ? Active Cleocin T BLOODY DIARRHEA Active Immunizations Given and Recorded Vaccine Date Status Refusal Reason influenza virus vaccine, inactivated 09/12/22 Michael rded influenza virus vaccine, inactivated 08/08/21 Michael rded influenza virus vaccine, inactivated 1 11/21/20 Gi cris influenza virus vaccine, inactivated 2 08/22/20 Re corded [id number] 12y+ bivalent booster vax 08/31/22 Recorded SARS-CoV-2 mRNA ([id number]) vax 03/16/22 Recorded SARS-CoV-2 (COVID-19) mRNA BNT-162b2 [...] diphtheria-tetanus toxoids (DT) 02/22/00 Given 1Result Comment: [id number] 2Result Comment: sarabjit SANDHU [facility] 3Result Comment: Unit: Unknown Supervisor Green End Department: [employer] 4Result Comment: Unit: Unknown Supervisor Green End Department: [employer] Injectables Medications atorvastatin 20 mg oral tablet [...] Refills, Maintenance, 04/28/23 21:41:00 EDT, [facility], 158, cm, 04/15/23 15:03:00 EDT, [...] tablet, 0 Refills, Maintenance, 04/07/23 7:44:00 EDT, [facility], 158, cm, 04/02/23 19:36:00 EDT, [...] tablet, 1 Refills, Maintenance, 05/29/23 15:49:00 EDT, [facility], 158, cm, 05/06/23 11:17:00 EDT, Height, 70, kg, 04/02/23 19:36:00 EDT, Dry Weight Start Date: 05/29/23 Status: Ordered Metoprolol Tartrate 25 mg oral tablet 2 tablet = 50 mg, By Mouth, 2 times a day, # 360 tablet, 3 Refills, Maintenance, 12/16/22 13:42:00 EST, [facility], 158, cm, 12/11/22 15:03:00 EST, [...] opioid drug. Start Date: 05/09/21 Status: Ordered [place] Tears ophthalmic solution 1 drops, Eyes, Both, 2 times a day, PRN for dry eyes, # 30 each, 0 Refills, Maintenance, 09/15/22 1:54:00 EDT, Solution, Partial fill upon patient request if the prescription is for a schedule II opioid drug. Start Date: 09/15/22 Status: Ordered [place] Tears ophthalmic solution 1 drops, Eyes, Both, [...] Professional Member Role: PCP Address: Address: [address] [place] [id number] Name: Elvia METZ, Trinh Position: S RN Member Role: Primary Care Nurse Name: Kyeon METZ, Carrol Marie Position: [facility] RN Member Role: Primary Care Nurse Name: Crystal Ceron RN Position: S RN Member Role: Primary Care Nurse Care Team Related Persons Name: RADHA MONTOYA Address: [place], [place] Name: BRANDIE MONTOYA Address: [place] [address] Name: TREASURE MONTOYA Address: home [address] [place] [address] Name: JAI REED Address: home [address] [place] [address]
--- OUTSIDE RECORDS SUMMARY | 2024-07-27 11:57 | XMS_ITS | Continuity of Care Document ---
Author Organization [facility] Address [address] [place] [address]- Care Team Providers Care Post Anesthesia Care Unit Nurse Name Role Phone Christiano VIDES, Nick Primary Care Physician [phone] Encounter [facility] Date(s): 11/11/22 - 11/18/22 [facility] [place] [address] [place] [address]- Encounter Diagnosis Atrial tachycardia(Discharge Diagnosis) - 11/11/22 Hypertension(Discharge Diagnosis) - 11/11/22 Dizziness(Discharge Diagnosis) - 11/11/22 Aortic regurgitation(Discharge Diagnosis) - 11/11/22 Cardiac risk counseling(Discharge Diagnosis) - 11/11/22 Attending Physician: Andrea Lima MD Admitting Physician: [...] virus vaccine, inactivated 2 08/22/20 Re corded [id number] 12y+ bivalent booster vax 08/31/22 Recorded SARS-CoV-2 mRNA ([id number]-ndst-[id number]) vax 03/16/22 Recorded SARS-CoV-2 (COVID-19) mRNA BNT-162b2 [...] diphtheria-tetanus toxoids (DT) 02/22/00 Given 1Result Comment: [id number] 2Result Comment: sarabjit SANDHU [facility] 3Result Comment: Unit: Unknown 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 Start Date: 05/09/21 Status: Ordered [place] Tears ophthalmic solution 1 drops, Eyes, Both, 2 times a day, PRN for dry eyes, # 30 each, 0 Refills, Maintenance, 09/15/22 1:54:00 EDT, Solution, Partial fill upon patient request if the prescription is for a schedule II opioid drug. Start Date: 09/15/22 Status: Ordered [place] Tears ophthalmic solution 1 drops, Eyes, Both, [...] Effective Dates Health Status Clinical Service Informant Atrial tachycardia Discharge Diagnosis 11/11/22 Hypertension Discharge Diagnosis 11/11/22 Dizziness Discharge Diagnosis 11/11/22 Aortic regurgitation Discharge Diagnosis 11/11/22 Cardiac risk counseling Discharge Diagnosis 11/11/22 Vital Signs Most recent to oldest [Reference Range]: 1 2 Height 157 cm (11/11/22 9:59 AM) 157 cm (11/11/22 9:57 AM) Weight 69.26 kg (11/11/22 9:57 AM) Oxygen Saturation [94-100 %] 100 % (11/11/22 9:57 AM) Pulse Rate [55-90 bpm] 63 bpm (11/11/22 9:57 AM) Body Mass Index [18.5-24.99 kg/m2] 28.1 kg/m2 *H* (11/11/22 9:57 AM) Blood Pressure [90-138/55-84 mm Hg] 137/ 53mm Hg (11/11/22 9:59 AM) 166/56mm Hg *H* (11/11/22 9:57 AM) Mode of Delivery (Oxygen) Room air (11/11/22 9:57 AM) Blood pressure sites Arm, left (11/11/22 9:59 AM) Arm, left (11/11/22 9:57 AM) Weight Obtained Via Standing scale (11/11/22 9:57 AM) Social History Social History Type Response Tobacco Total pack years: 35 . Started at age: 14 Years. Stopped at age: 49 Years. Sex Cardiology Outpatient Note * Andrea Lima MD: PERFORM Event Display: Cardiology Note Office Authored Date: Patient: ??TREASURE REED ? Age:??86 Years?Sex:??Female?:??[id number]?? Patient Hx Provider Clinical Summary 86 year-old woman with a history of atrial tachycardia, non-cardiac chest pain, hyperlipidemia, hypertension, chronic lightheadedness and also vertigo, BONNIE??on CPAP seen in FU. ?? She again reports intermittent lightheadedness.?? She has complained about the symptoms before. ??She reports a combination of both vertigo??but also a lightheaded??feeling??which can come on randomly.?? Seems to be more frequent. ??Over the course of the last 2 months she has gained about 15 or 20pounds, and her blood pressure trend??has increased??now mostly??150-170 systolic. ??She also has intermittent palpitations, as described before, last episode was several weeks ago when her heart rate??was about 190 bpm ?? I/P: Intermittent episodes of dizziness.?? Multifactorial, a combination of vertigo??and lightheadedness. May also have an age related balance issue.?Recently noted??higher blood pressure trend and also intermittent paroxysmal atrial tachycardia. -Increasing??metoprolol to 50 mg p.o. twice daily, and I asked that she call me??in 7 to 10 days after starting this higher dose??with a symptom and BP??update, as I am not certain she will tolerate the higher dose ?? HTN: Poorly controlled -Con't ARB -Increasing beta serina dosing ?? Paroxysmal atrial tachycardia as discovered on May, Holter monitor -Having breakthrough episodes, but nothing recent. -Uptitrating beta-serina as described above ?? CV risk reduction. She qualified for statin 2 years ago when I first met her , ~30% risk based on ACC scoring -Atorvastatin 20 mg QHS. LDL is excellent at 50. -No further ASA to lower bleed risk (age 86) ?? Aortic regurgitation; mild by exam exam. No e/o HF. Appears euvolemic. Probably why she has a slightly low diastolic BP (expectant) -Surveillance echo in 2023 ?? RTC 2 months Physical Exam Vitals & Measurements ID:??[id number]?? BP:??137/53?? SpO2:??100%?? HT:??157??cm?? WT:??69.26??kg?? BMI:??28.1?? Weight lb/oz: 152 lb 11 oz GENERAL: ??Alert and oriented x3, no acute distress. HEENT: Mucous membranes pink and moist. ?? NECK: ??No JVD?? LUNGS: Clear to auscultation bilaterally. ??No crackles, wheezing, rhonchi. ?? HEART: ??Regular rate and rhythm, normal S1, S2.?1 to 2/6 diastolic murmur RUSB ABDOMEN: Soft, nontender, nondistended.?? EXTREMITIES: ??No pitting edema, cyanosis, clubbing. ?? PULSES: 2+ radials SKIN: Warm and well perfused. ?? NEURO: ??Oriented to person, time, and place, following commands, and moving all extremities.?? MUSCULOSKELETAL: ??Negative.?? Assessment/Plan 1.??Atrial tachycardia Ordered: Metoprolol, 2 tablet = 50 mg, By Mouth, 2 times a day, # 120 tablet, 3 Refills, Maintenance, 11/11/22 10:37:00 EST, [facility], 157, cm, 11/11/22 9:59:00 EST, Height, 71.1, kg, 10/09/22 11:14:00 EST, Dry Weight ?? 2.??Hypertension Ordered: Metoprolol, 2 tablet = 50 mg, By Mouth, 2 times a day, # 120 tablet, 3 Refills, Maintenance, 11/11/22 10:37:00 EST, [facility], 157, cm, 11/11/22 9:59:00 EST, Height, 71.1, kg, 10/09/22 11:14:00 EST, Dry Weight ?? 3.??Dizziness ?? 4.??Aortic regurgitation ?? 5.??Cardiac risk counseling ?? Allergies Ceftin??(?) Cleocin T??(BLOODY DIARRHEA) Home Medications atorvastatin 20 mg oral tablet, 1 tablet, By Mouth, Daily at bedtime, 3 refills Caltrate 600 + D, By Mouth, 2 times a day Clotrimazole 1% Topical, 1 application, Topically, 2 times a day, Toenails Estrace Vaginal Cream 0.1 mg/g, 1 Gm, Vaginally, Every Thursday and , 1 refills, Physician requests paraben free ICaps AREDS 2 levothyroxine 0.05 mg oral tablet, See Instructions, 1 refills, TAKE 1/2 TABLET BY MOUTH EVERY DAY Metoprolol Tartrate 25 mg oral tablet, 50 mg= 2 tablet, By Mouth, 2 times a day, 3 refills MiraLax oral powder for reconstitution, 17 Gm, By Mouth, Daily, dissolve in water before taking [place] Tears ophthalmic solution, 1 drops, Eyes, Both, 2 times a day, PRN [place] Tears ophthalmic solution, 1 drops, Eyes, Both, 3 times a day, PRN olmesartan 20 mg oral tablet, 1 tablet, By Mouth, Daily, 3 refills Probiotic Formula, By Mouth, Daily Restasis 0.05% ophthalmic emulsion, 1 drops, Every 12 hours Restasis 0.05% ophthalmic emulsion, 1 drops, Eyes, Both, Every 12 hours Lab Results Cardiology Labs WBC: 6.6 k/mm3 (09/15/22) RBC: 4.3 m/mm3 (09/15/22) Hgb: 13.4 Gm/dL (09/15/22) Hct: 40 % (09/15/22) MCV: 93 femtoliters (09/15/22) MCH: 31.2 pg (09/15/22) MCHC: 33.5 g/dL (09/15/22) Platelet Count: 260 k/mm3 (09/15/22) RDW-SD: 42.5 femtoliters (09/15/22) Nucleated RBC (Automated): 0 #/100 WBC'S (09/15/22) Abs. Neut: 3.7 k/mm3 (09/14/22) Abs. Lymph: 2.4 k/mm3 (09/14/22) Abs. Yates:??1 k/mm3??High (09/14/22) Abs. Eo: 0.3 k/mm3 (09/14/22) Abs. Baso: 0.1 k/mm3 (09/14/22) Neut %: 49.8 % (09/14/22) Yates %:??13 %??High (09/14/22) Eos %: 3.5 % (09/14/22) Baso %: 1.2 % (09/14/22) Imm Gran: 0.3 % (09/14/22) Abs. Imm Gran: 0 k/mm3 (09/14/22) Sodium: 138 mmol/L (09/15/22) Potassium: 4.4 mmol/L (09/15/22) Chloride: 101 mmol/L (09/15/22) Bicarbonate Level: 27 mmol/L (09/15/22) Glucose Level:??124 mg/dL??High (09/14/22) Hemoglobin A1C (Monitoring):??5.9 %??High (12/05/21) BUN: 11 mg/dL (09/15/22) Creatinine-Blood: 0.6 mg/dL (09/15/22) Calcium: 9.3 mg/dL (09/15/22) Protein, Total: 6.7 Gm/dL (12/05/21) Albumin: 4.4 Gm/dL (12/05/21) Alkaline Phosphatase: 83 units/L (12/05/21) AST (SGOT): 22 units/L (12/05/21) ALT (SGPT): 23 units/L (12/05/21) Bilirubin, Total: 0.3 mg/dL (12/05/21) Troponin T Quant: <0.01 (09/15/22) Nt-Probnp: 199 pg/mL (06/19/22) Cholesterol: 129 mg/dL (06/20/22) Triglycerides: 83 mg/dL (06/20/22) HDL Cholesterol: 62 mg/dL (06/20/22) LDL Cholesterol: 50 mg/dL (06/20/22) Non HDL Cholesterol: 67 mg/dL (06/20/22) TSH: 3.03 uIU/mL (09/14/22) Diagnostic Impression CT CT Angio Abdomen and [...] 2. Chronic findings as above. ? WSN: [id number] ? Ordering Physician: Alek Zazueta ?? Signed By: Nickolas Cruz MD ECG ECG 12-Lead ?? 21:07:45 Please click on pdf link to open report ?? Signed By: Slava Moeller MD Stress Test NM Myocard Perf SPECT [...] Anxiety Aortic insufficiency Aortic regurgitation Atrial tachycardia Cardiac risk counseling Cough variant asthma Dental prophylaxis, adult - needed Difficulty sleeping Dizziness Elevated blood pressure reading with diagnosis of hypertension Excessive cerumen in both ear canals Headache Hearing loss, sensorineural Hyperlipidemia Hypertension Hypothyroidism Impaired fasting glucose Irritable bowel syndrome characterized by constipation Lactose intolerance Left bundle branch block Migraine Mitral valve stenosis Nonspecific dizziness Obstructive sleep apnea Oral phase dysphagia BONNIE on CPAP Osteoarthritis, generalized Osteoporosis Peptic ulcer disease Peripheral venous insufficiency Primary insomnia Recurrent varicose veins of leg - h/o procedure TMJ syndrome Historical Acquired hypothyroidism Acute angle-closure glaucoma Adie's pupil Aortic valve disorder Appendectomy Caregiver burden Essential hypertension , 3, sab 1 H/O: hysterectomy History of appendectomy Hypothyroidism Hysterectomy Osteopenia Osteopenia Sleep apnea Procedure/Surgical History Varicose vein operation/sclerotherapy, left le01/2020 Colonoscopy: 01/07/17 Colonoscopy: 08/08/09 Cataract extraction, bilateral: 2007 Ligation of varicose vein: 1960 TOÑITO - Total abdominal hysterectomy Appendectomy Social History Alcohol Other: No alcohol since 09/14., 09/23/2022 Employment/School Status: Retired., 03/14/2014 Exercise Other: limited time due to caregiving. Regular exercise: No., 11/21/2020 Home/Environment Living situation: Home/Independent., 03/14/2014 Nutrition/Health Diet: Regular., 03/14/2014 Sexual Sexually involved in last 6 months: No., 11/21/2020 Substance Abuse Use: Never., 03/14/2014 Tobacco Total pack years: 35. Started at age: 14 Years. Stopped at age: 49 Years., 11/21/2020 Family History Mother (): Heart attack Brother (maternal half-brother): Coronary artery disease Mat. Grandfather (): Heart attack Patient Care team information Care Team Personnel Name: Nick Alvarado NP Position: [facility] Associate Professional Member Role: PCP Address: Address: [address] [place] [address]- Name: Elvia METZ, Trinh Position: S RN Member Role: Primary Care Nurse Name: Carrol Ta RN Position: S RN Member Role: Primary Care Nurse Name: Crystal Ceron RN Position: S RN Member Role: Primary Care Nurse Care Team Related Persons Name: RADHA MONTOYA Name: BRANDIE MONTOYA Address: [place] [address] Name: TREASURE MONTOYA Address: home [address] [place] [address] Name: JAI REED Address: [address] [address]
--- OUTSIDE RECORDS SUMMARY | 2024-07-27 11:57 | XMS_ITS | Continuity of Care Document ---
Author Organization [facility] Address [address] [address]- Care Team Providers Care Right Of Way Clearer Name Role Phone Sam WEBER, Zara Jensen Primary Care Physician [phone] Encounter [facility] Date(s): 06/07/20 - 07/07/20 [facility] [address] [address]- [place] Attending Physician: AdmSilas pierce Admitting Physician: AdmtrSilas Referring Physician: Admtr, ArMo Allergies, Adverse Reactions, Alerts Substance Reaction [...] Maintenance, CPAP 7 cm H2O dx [facility] 3 ramp prn mask and suppliesas [...] Maintenance, Tablet Start Date: 01/09/11 Status: Ordered Multivitamin 1, tablet, By Mouth, Daily, 0, 0, 02/21/06 7:36:57, Print CAMILO Number, [id number], Constant Indicator Start Date: 02/21/06 Status: Ordered Probiotic Formula 1 capsule, By Mouth, Daily, 0 Refills, Maintenance, 12/20/15 15:58:11 Start Date: 12/20/15 Status: Ordered Restasis MultiDose 0.05% ophthalmic emulsion 1 drops, Eyes, Both, 2 times a day, 0 Refills, Maintenance, 05/20/20 13:54:00 EDT Start Date: 05/20/20 Status: Ordered Problem List Condition Effective Dates Status Health Status Inform ant Aortic insufficiency(Confirmed) Active Osteoarthritis, generalized(Confirmed) Active Dental prophylaxis, adult - needed(Confirmed) Active Difficulty sleeping(Confirmed) Active Excessive cerumen in both ea r canals(Confirmed) Active Hypertension(Confirmed) Active Hypothyroidism(Confirmed) Active Lactose intolerance(Confirmed) Active Left bundle branch block(Confirmed) Active Migraine(Confirmed) Active Obstructive sleep apnea(Confirmed) Active BONNIE on CPAP(Confirmed) Active Osteopenia(Confirmed) Active Peptic ulcer disease(Confirmed) 1970 Active Recurrent varicose veins of leg - h/o procedure(Confirmed) Active TMJ syndrome(Confirmed) Active Social History Social History Type Response Smoking Status Former smoker; Other : Smoked 1PPD from age 14. Quit 33Y ago.; entered on: 09/15/17 Sex
--- OUTSIDE RECORDS SUMMARY | 2024-07-27 11:57 | XMS_ITS | Continuity of Care Document ---
Author Organization [facility] Address [address] [place] [address]- Care Team Providers Care Truck Assembler Name Role Phone Christiano VIDES, Nick Primary Care Physician [phone] Encounter [facility] Date(s): 06/03/23 - 07/03/23 [facility] [place] [address] [place] [address]- Attending Physician: Admtr, Silas Admitting Physician: AdmtrSilas [...] virus vaccine, inactivated 2 08/22/20 Re corded [id number] 12y+ bivalent booster vax 08/31/22 Recorded SARS-CoV-2 mRNA (oxskgvh-lqjn-tkwkh) vax 03/16/22 Recorded SARS-CoV-2 (COVID-19) mRNA BNT-162b2 [...] diphtheria-tetanus toxoids (DT) 02/22/00 Given 1Result Comment: [id number] 2Result Comment: sarabjit SANDHU [facility] 3Result Comment: Unit: Unknown 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 Start Date: 03/03/23 Status: Ordered hydrOXYzine hydrochloride 25 mg oral tablet 1 tablet, By Mouth, Daily at bedtime, # 30 tablet, 0 Refills, Maintenance, 04/07/23 7:44:00 EDT, [facility], 158, cm, 04/02/23 19:36:00 [...] tablet, 1 Refills, Maintenance, 05/29/23 15:49:00 EDT, [facility], 158, cm, 05/06/23 11:17:00 EDT, Height, 70, kg, 04/02/23 19:36:00 EDT, Dry Weight Start Date: 05/29/23 Status: Ordered Metoprolol Tartrate 25 mg oral tablet 2 tablet = 50 mg, By Mouth, 2 times a day, # 360 tablet, 3 Refills, Maintenance, 12/16/22 13:42:00 EST, [facility], 158, cm, 12/11/22 15:03:00 [...] opioid drug. Start Date: 05/09/21 Status: Ordered [place] Tears ophthalmic solution 1 drops, Eyes, Both, 2 times a day, PRN for dry eyes, # 30 each, 0 Refills, Maintenance, 09/15/22 1:54:00 EDT, Solution, Partial fill upon patient request if the prescription is for a schedule II opioid drug. Start Date: 09/15/22 Status: Ordered [place] Tears ophthalmic solution 1 drops, Eyes, Both, 3 times a day, PRN for dry eyes, Maintenance, 09/15/22 10:43:00 EDT, Solution,Partial fill upon patient request if the prescription is for a schedule II opioid drug. Start Date: 09/15/22 Status: Ordered olmesartan 20 mg oral tablet 1 tablet, By Mouth, Daily, # 90 tablet, 3 Refills, Maintenance, 12/22/22 11:40:00 EST, [email or web address], 158, cm, 12/18/22 10:17:00 EST, [...] EDT, Route to Pharmacy Electronically, [email or web address], Partial fill upon patient request [...] Team Personnel Name: Nick Alvarado NP Position: [facility] Associate Professional Member Role: PCP Address: Address: [address] [place] [id number] Name: Elvia METZ, Trinh Position: S RN Member Role: Primary Care Nurse Name: Carrol Ta RN Position: S RN Member Role: Primary Care Nurse Name: Crystal Ceron RN Position: S RN Member Role: Primary Care Nurse Care Team Related Persons Name: RADHA MONTOYA Address: [place], [place] Name: BRANDIE MONTOYA Address: [place] [address] Name: TREASURE MONTOYA Address: home [address] [place] [id number] Name: JAI REED Address: home [address] [place] [id number]
--- OUTSIDE RECORDS SUMMARY | 2024-07-27 11:57 | XMS_ITS | Continuity of Care Document ---
Author Organization [facility] Address [address] [place] [address]- Care Team Providers Care Biodiesel Product Manager Name Role Phone Christiano VIDES, Nick Primary Care Physician [phone] Encounter [facility] [place] [facility] [place](s): 04/14/23 - 04/21/23 [facility] [address] [place] [address]- Attending Physician: David VIDES, Marisol Admitting Physician: David VIDES, Marisol Referring Physician: Nick Alvarado NP Allergies, Adverse Reactions, Alerts Substance Reaction Severity Status Ceftin ? Active Cleocin T BLOODY DIARRHEA Active Immunizations Given and Recorded Vaccine Date Status Refusal Reason influenza virus vaccine, inactivated 09/12/22 Michael rded influenza virus vaccine, inactivated 08/08/21 Michael rded influenza virus vaccine, inactivated 1 11/21/20 Gi cris influenza virus vaccine, inactivated 2 08/22/20 Re corded [id number] 12y+ bivalent booster vax 08/31/22 Recorded SARS-CoV-2 mRNA ([id number]-ikuqe) vax 03/16/22 Recorded SARS-CoV-2 (COVID-19) mRNA BNT-162b2 [...] diphtheria-tetanus toxoids (DT) 02/22/00 Given 1Result Comment: [id number] 2Result Comment: sarabjit SANDHU [facility] primary care 3Result Comment: Unit: Unknown Wood Machine Carver: GRUZOBZOR 4Result Comment: Unit: Unknown Wood Machine Carver: Tipjoy Injectables Medications atorvastatin 20 mg oral tablet [...] Refills, Maintenance, 02/11/23 6:37:00 EDT, [facility], 157, cm, 02/05/23 15:27:00 EDT, Height, 73, kg, 01/07/23 15:13:00 EST, Dry Weight Start Date: 02/11/23 Status: Ordered Estrace Vaginal Cream 0.1 mg/g = 1 Gm, Vaginally, Every Thursday and , Physician requests paraben free, # 30 Gm, 1 Refills, Maintenance, 02/05/23 15:29:00 EDT, [facility], Partial fill upon patient request if the prescription is for a schedule II opioid drug., 1... Start Date: 02/05/23 Status: Ordered famotidine 20 mg oral tablet 20 mg, 1, tablet, By Mouth, 2 times a day, PRN, # 60 tablet, Refills 5, Tot. Refills 5, Maintenance, Pain , Moderate, 03/03/23 15:46:00 EDT, Route to Pharmacy Electronically, [facility], Partial fill upon patient request if [...] 0 Refills, Maintenance, :05:00 EDT, [facility], 157, cm, 03/11/23 16:01:00 EDT, [...] opioid drug. Start Date: 05/09/21 Status: Ordered Mildred Tears ophthalmic solution 1 drops, Eyes, Both, 2 times a day, PRN for dry eyes, # 30 each, 0 Refills, Maintenance, 09/15/22 1:54:00 EDT, Solution, Partial fill upon patient request if the prescription is for a schedule II opioid drug. Start Date: 09/15/22 Status: Ordered Mildred Tears ophthalmic solution 1 drops, Eyes, Both, [...] oldest [Reference Range]: 1 Height 158 cm (04/14/23 1:31 PM) Weight 70.45 kg (04/14/23 1:31 PM) Oxygen Saturation [94-100 %] 99 % (04/14/23 1:31 PM) Pulse Rate [55-90 bpm] 60 bpm (04/14/23 1:31 PM) Body Mass Index [18.5-24.99 kg/m2] 28.22 kg/m2 *H* (04/14/23 1:31 PM) Blood Pressure [90-138/55-84 mm Hg] 138/ 52mm Hg (04/14/23 1:31 PM) Blood pressure sites Arm, left (04/14/23 1:31 PM) Weight Obtained Via Patient/family state d (04/14/23 1:31 PM) Social History Social History Type Response Tobacco Total pack years: 35 . Started at age: 14 Years. Stopped at age: 49 Years. Sex Cardiology Outpatient Note * Marisol Hernandez NP: PERFORM, MODIFY Event Display: Cardiology Note Office Authored Date: Patient: ??CARLOTA REED ? Age:??87 Years?Sex:??Female?:??1935?? Patient Hx Cardiology Shared Clinical Summary 1.?? Dyslipidemia 2.?? Hypertension 3.?? Obstructive sleep apnea on CPAP 4.?? SVT / atrial tachycardia with palpitations improved on beta serina. 5.?? LBBB Indication for Consult 3 month follow up History of Present Illness/Interval History I am seeing Carlota today in 3-month follow-up because she was not feeling great at our last visit.?? She is feeling improved now. ??The palpitations have??settled down since??adjusting the metoprolol.?? She is not having any??chest pain, dyspnea,??orthopnea or PND.?? She does get occasional heartb urn, but famotidine has worked very well to??minimize this symptom.?? She is currently bothered by some seasonal allergies. ??She is seeing vascular for venous insufficiency and some leg edema. ??Lee has some??leg cramps at night??and will be getting ABIs.?? She has??some brief episodes of ligh theadedness or just feeling weird where she will need to??sit down, but no near syncope or syncope. Review of Systems see HPI Physical Exam Vitals & Measurements HR:??60??(Peripheral)?? BP:??138/52?? SpO2:??99%?? HT:??158??cm?? WT:??70.45??kg?? BMI:??28.22?? Weight lb/oz: 155 lb 5 oz ?? Constitutional: Alert, in no distress. Mental Status: Oriented to person, place and time. Respiratory: Clear to auscultation. No wheezing, rales or rhonchi. Cardiovascular:S1 S2 regular rate and rhythm??No murmurs, rub, or gallop??Mild leg edema bilateral 1+, legs warm, skin in good condition. Skin: No rashes or lesions. No petechiae or purpura.?? Musculoskeletal: No cyanosis or clubbing. No gross deformities. Normal range of motion. Psychiatric: Normal mood and affect?? Assessment/Plan 1. ??Hypertension. ??This has been labile in the past and??tends to elevate with stress and anxiety. ??She also has some generalized lightheadedness, so would not want to??get too aggressive with management. ??Currently its??seemingly well controlled on average. ??She does get some high readings athome and then it will normalize.?? No medication changes today. 2. ??SVT and palpitations. ??These have settled down significantly??on increased dose of metoprolol. ? Overall remains active and independent doing her grocery shopping??and daily activities. ??No concerning??cardiovascular symptoms at this time. ??Follow-up in 6 months. ??She may be moving to [place] in the near future??and if that is the case we will be happy to see her with Dr. Lima??in the [place] location. Allergies Ceftin??(?) Cleocin T??(BLOODY DIARRHEA) Home Medications atorvastatin 20 mg oral tablet, 1 tablet, By Mouth, Daily at bedtime, 3 refills escitalopram 5 mg oral tablet, 1 tablet, By Mouth, Daily Estrace Vaginal Cream 0.1 mg/g, 1 Gm, Vaginally, Every Thursday and , 1 refills famotidine 20 mg oral tablet, 20 mg= 1 tablet, By Mouth, 2 times a day, PRN, 5 refills hydrOXYzine hydrochloride 25 mg oral tablet, 1 tablet, By Mouth, Daily at bedtime ICaps AREDS 2 levothyroxine 0.05 mg oral tablet, See Instructions meclizine 25 mg oral tablet, 25 mg= 1 tablet, By Mouth, 3 times a day, PRN Metoprolol Tartrate 25 mg oral tablet, 50 mg= 2 tablet, By Mouth, 2 times a day, 3 refills MiraLax oral powder for reconstitution, 17 Gm, By Mouth, Daily Mildred Tears ophthalmic solution, 1 drops, Eyes, Both, 2 times a day, PRN Mildred Tears ophthalmic solution, 1 drops, Eyes, Both, 3 times a day, PRN olmesartan 20 mg oral tablet, 1 tablet, By Mouth, Daily, 3 refills Probiotic Formula, By Mouth, Daily Restasis 0.05% ophthalmic emulsion, 1 drops, Eyes, Both, Every 12 hours Lab Results Cardiology Labs WBC: 7.6 k/mm3 (01/07/23) RBC:??4.14 m/mm3??Low (01/07/23) Hgb: 12.8 Gm/dL (01/07/23) Hct: 38.4 % (01/07/23) MCV: 92.8 femtoliters (01/07/23) MCH: 30.9 pg (01/07/23) MCHC: 33.3 g/dL (01/07/23) Platelet Count: 267 k/mm3 (01/07/23) RDW-SD: 42.8 femtoliters (01/07/23) Nucleated RBC (Automated): 0 #/100 WBC'S (01/07/23) Abs. Neut: 3.7 k/mm3 (01/07/23) Abs. Lymph: 2.7 k/mm3 (01/07/23) Abs. [place]: 0.9 k/mm3 (01/07/23) Abs. Eo: 0.2 k/mm3 (01/07/23) Abs. Baso: 0.1 k/mm3 (01/07/23) Neut %: 48.7 % (01/07/23) [place] %:??11.6 %??High (01/07/23) Eos %: 2.6 % (01/07/23) Baso %: 1.1 % (01/07/23) Imm Gran: 0.3 % (01/07/23) Abs. Imm Gran: 0 k/mm3 (01/07/23) Sodium: 138 mmol/L (04/13/23) Potassium: 4.3 mmol/L (04/13/23) Chloride: 101 mmol/L (04/13/23) Bicarbonate Level: 26 mmol/L (04/13/23) Glucose Level: 99 mg/dL (04/13/23) BUN: 11 mg/dL (04/13/23) Creatinine-Blood: 0.8 mg/dL (04/13/23) Calcium: 9.1 mg/dL (04/13/23) Protein, Total: 6.4 Gm/dL (04/13/23) Albumin: 4.1 Gm/dL (04/13/23) Alkaline Phosphatase: 98 units/L (04/13/23) AST (SGOT): 19 units/L (04/13/23) ALT (SGPT): 17 units/L (04/13/23) Bilirubin, Total: 0.4 mg/dL (04/13/23) Troponin T Quant: <0.01 (09/15/22) Nt-Probnp: 291 pg/mL (12/11/22) Cholesterol: 137 mg/dL (04/13/23) Triglycerides: 86 mg/dL (04/13/23) HDL Cholesterol: 61 mg/dL (04/13/23) LDL Cholesterol: 59 mg/dL (04/13/23) Non HDL Cholesterol: 76 mg/dL (04/13/23) TSH: 3.65 uIU/mL (04/13/23) Diagnostic Impression CT CT Angio Abdomen andPelvis ?? 08:26:41 IMPRESSION: Vascular: 1. Mild atherosclerotic disease of the thoracic and abdominal aorta. No dissection or aneurysm identified. 2. No CT evidence of pulmonary emboli. 3. No significant stenosis of the great vessels of the arch, the mesenteric, the renal or the iliacarteries. ?? Nonvascular: 1. No acute abnormality in the chest, abdomen or pelvis. 2. Chronic findings as above. ? WSN: [id number] ? Ordering Physician: Alek Zazueta ?? Signed By: Nickolas Cruz MD ECG ECG 12-Lead ?? 15:32:49 Please click on pdf link to open report ?? Signed By: Florence Gardner MD ?? ECG 12-Lead ?? 15:32:49 Ventricular Rate: 69 BPM Atrial Rate: 69 BPM P-R Interval: 194 ms QRS Duration: 90 ms Q-T Interval: 416 ms QTC Calculation(Bazett): 445 ms P [place]: 75 degrees R [place]: 11 degrees T [place]: 66 degrees Normal sinus rhythm Normal ECG When compared with ECG of 11-DEC-2022 15:01, No significant change was found Confirmed by FLORENCE GARDNER ([id number]) on 01/08/2023 5:39:08 PM ?? Eagle: FLORENCE GARDNER ?? Signed By: Florence Gardner [...] 1960 [place] - Total abdominal hysterectomy Appendectomy Social History Alcohol Other: No alcohol since 09/14. Employment/School Status: Retired. Exercise Other: limited time [...] Team Personnel Name: Nick Alvarado NP Position: [facility] PCO Associate Professional Member Role: PCP Address: Address: [address] [place] [id number]- Name: Elvia METZ, Trinh Position: S RN Member Role: Primary Care Nurse Name: Keyon RNCarrol Position: S RN Member Role: Primary Care Nurse Name: Crystal Ceron RN Position: [facility] RN Member Role: Primary Care Nurse Care Team Related Persons Name: RADHA MONTOYA Name: BRANDIE MONTOYA Address: [place] [address] Name: CARLOTA MONTOYA Address: home [address] [place] [address] Name: JAI REED Address: home [address] [place] [id number]
--- OUTSIDE RECORDS SUMMARY | 2024-07-27 11:57 | XMS_ITS | Continuity of Care Document ---
Author Organization [facility] Address [address] [place] [address]- Care Team Providers Care Career Development Engineer Name Role Phone Sam WEBER, Zara Jensen Primary Care Physician Encounter [facility] [place] Date(s): 10/29/20 - 11/05/[address] [address] Attending Physician: Sofia Chacon MD Admitting Physician: [...] (DT) 02/22/00 Given 1Result Comment: Unit: Unknown Drug Room Operator: ComponentLab 2Result Comment: Unit: Unknown Drug Room Operator: Tapestry Injectables Medications Aspirin = 81 mg, By [...] 0 Refills, Maintenance, 10/29/20 17:15:00 EST, Tablet, [facility]/pharmacy #[id number], Partial fill upon [...] opioid drug. Start Date: 11/05/20 Status: Ordered Caltrate 600 + D By Mouth, 2 times a day, 0 Refills, Maintenance, 10/29/20 16:59:00 EST, Partial fill upon patient request if the prescription is for a schedule II opioid drug. Start Date: 10/29/20 Status: Ordered Fluconazole 150 mg, Maintenance, 11/05/20 10:18:00 EST Start Date: 11/05/20 Status: Ordered Hydrochlorothiazide = 12.5 mg, By Mouth, Daily, 0 Refills, Maintenance, 08/25/14 15:08:35 Start Date: 08/25/14 Status: Ordered metoprolol 25 mg oral tablet 12.5 mg, 0.5, tablet, By Mouth, 2 times a day, dose change advised by PCP 09-11-20, # 180 tablet, Refills 0, Maintenance, 08/17/20 9:27:00 EDT Start Date: 08/17/20 Status: Ordered metronidazole topical 0.75% gel with applicator 1 applicator, Vaginally, Daily at bedtime, for 5 days, # 70 Gm, 0 Refills, Acute 11/10/20 9:55:00 EST, 11/05/20 9:55:00 EST, Gel, [facility]/pharmacy #[id number], Partial fill upon patient request if the prescription is for a schedule II opioid drug., 1 applicator... Start Date: 11/05/20 Stop Date: 11/10/20 Status: Ordered olmesartan 20 mg oral tablet [...] oldest [Reference Range]: 1 Height 158 cm (10/29/20 4:45 PM) Blood Pressure [90-138/55-84 mm Hg] 140/ 78mm Hg *H* (10/29/20 4:45 PM) Social History Social History Type Response Smoking Status Former smoker; Other : Smoked 1PPD from age 14. Quit 33Y ago.; entered on: 09/15/17 Sex
--- OUTSIDE RECORDS SUMMARY | 2024-07-27 11:58 | XMS_ITS | Continuity of Care Document ---
Author Organization [facility] Address [address] [place] [address]- Care Team Providers Care Customs Collector Name Role Phone Christiano VIDES, Nick Primary Care Physician [phone] Encounter [facility] [place] Date(s): 01/21/23 - 02/20/23 [facility] Medicine [address] [place] [address]- Attending Physician: Silas Duncan Admitting Physician: Silas [...] virus vaccine, inactivated 2 08/22/20 Re corded [id number] 12y+ bivalent booster vax 08/31/22 Recorded SARS-CoV-2 mRNA (pawotqa-rico-ltcvp) vax 03/16/22 Recorded SARS-CoV-2 (COVID-19) mRNA BNT-162b2 [...] diphtheria-tetanus toxoids (DT) 02/22/00 Given 1Result Comment: [id number] 2Result Comment: sarabjit SANDHU [facility] primary care 3Result Comment: Unit: Unknown Is Project Manager: CircleCI 4Result Comment: Unit: Unknown Is Project Manager: Perficient Injectables Medications atorvastatin 20 mg oral tablet 1 tablet, By Mouth, Daily at bedtime, # 90 tablet, 3 Refills, Maintenance, 12/16/22 13:42:00 EST, [facility], 158, cm, 12/11/22 15:03:00 EST, Height, 71, kg, 12/11/22 15:03:00 EST, Dry Weight Start Date: 12/16/22 Status: Ordered Clotrimazole 1% Topical 1 application, Topically, 2 times a day, Toenails, 0 Refills, Maintenance, Cream Start Date: 09/15/22 Status: Ordered escitalopram 5 mg oral tablet 1 tablet, By Mouth, Daily, # 30 tablet, 2 Refills, Maintenance, 02/11/23 6:37:00 EDT, [facility], 157, cm, 02/05/23 15:27:00 EDT, Height, 73, kg, 01/07/23 15:13:00 EST, Dry Weight Start Date: 02/11/23 Status: Ordered Estrace Vaginal Cream 0.1 mg/g = 1 Gm, Vaginally, Every Thursday and , Physician requests paraben free, # 30 Gm, 1 Refills, Maintenance, 02/05/23 15:29:00 EDT, [facility], Partial fill upon patient request [...] opioid drug. Start Date: 05/09/21 Status: Ordered Tunnelhill Tears ophthalmic solution 1 drops, Eyes, Both, 2 times a day, PRN for dry eyes, # 30 each, 0 Refills, Maintenance, 09/15/22 1:54:00 EDT, Solution, Partial fill upon patient request if the prescription is for a schedule II opioid drug. Start Date: 09/15/22 Status: Ordered Tunnelhill Tears ophthalmic solution 1 drops, Eyes, Both, [...] Associate Professional Member Role: PCP Address: Address: [address] [place] [id number] Name: Elvia METZ, Trinh Position: S RN Member Role: Primary Care Nurse Name: Carrol Ta RN Position: S RN Member Role: Primary Care Nurse Name: Crystal Ceron RN Position: [facility] RN Member Role: Primary Care Nurse Care Team Related Persons Name: RADHA MONTOYA Name: BRANDIE MONTOYA Address: [place] [address] Name: TREASURE MONTOYA Address: home [address] [place] [address] Name: JAI REED Address: home [address] [place] [address]
--- OUTSIDE RECORDS SUMMARY | 2024-07-27 11:58 | XMS_ITS | Continuity of Care Document ---
Author Organization [facility] Address [address] [place] [address]- Care Team Providers Care Cooker Process Cheese Name Role Phone Nick Alvarado NP Primary Care Physician [place] [facility] [place] 12[place]/23 [facility] Medicine [address] [place] [address]- Attending Physician: Charley El NP Admitting Physician: Charley El NP Referring Physician: Nick Alvarado NP Allergies, Adverse Reactions, Alerts Substance Reaction Severity Status Ceftin ? Active Cleocin T BLOODY DIARRHEA Active Immunizations Given and Recorded Vaccine Date Status Refusal Reason influenza virus vaccine, inactivated 09/12/22 Michael rded influenza virus vaccine, inactivated 08/08/21 Michael rded influenza virus vaccine, inactivated 1 11/21/20 Gi cris influenza virus vaccine, inactivated 2 08/22/20 Re corded [id number] 12y+ bivalent booster vax 08/31/22 Recorded SARS-CoV-2 mRNA (nuhkhbh-ubbe-drknn) vax 03/16/22 Recorded SARS-CoV-2 (COVID-19) mRNA BNT-162b2 [...] diphtheria-tetanus toxoids (DT) 02/22/00 Given 1Result Comment: [id number] 2Result Comment: sarabjit SANDHU [facility] primary care 3Result Comment: Unit: Unknown Television Schedule Coordinator: Qoture 4Result Comment: Unit: Unknown Television Schedule Coordinator: OneWed (Formerly Nearlyweds) Injectables Medications atorvastatin 20 mg oral tablet [...] 08/27/23 21:16:00 EDT, Route to Pharmacy Electronically, [facility], 158, cm, 05/06/23 11:17:00 EDT, Height, 70, kg, 04/02/23 19:36:00 EDT, Dry Weight Start Date: 08/27/23 Status: Ordered hydrOXYzine hydrochloride 25 mg oral tablet 1 tablet, By Mouth, Daily at bedtime, # 30 tablet, 0 Refills, Maintenance, 07/21/23 11:20:00 EDT, [facility], 158, cm, 05/06/23 [...] mL, 0 Refills, Maintenance, 10/28/23 17:05:00 EST, [facility], Partial fill upon patient request if the prescription is for a schedule II opioid drug., 1 sprays Nares, Both Daily at... Start Date: 10/28/23 Status: Ordered levothyroxine 0.05 mg oral tablet 0.5 tablet, By Mouth, Daily, # 45 tablet, 1 Refills, Maintenance, 08/27/23 21:17:00 EDT, [facility], 158, cm, 05/06/23 11:17:00 EDT, Height, 70, kg, 04/02/23 19:36:00 EDT, Dry Weight Start Date: 08/27/23 Status: Ordered Metoprolol Tartrate 25 mg oral tablet 2 tablet = 50 mg, By Mouth, 2 times a day, # 360 tablet, 3 Refills, Maintenance, 12/16/22 13:42:00 EST, [facility], 158, cm, 12/11/22 15:03:00 EST, [...] opioid drug. Start Date: 05/09/21 Status: Ordered Ravinia Tears ophthalmic solution 1 drops, Eyes, Both, 2 times a day, PRN for dry eyes, # 30 each, 0 Refills, Maintenance, 09/15/22 1:54:00 EDT, Solution, Partial fill upon patient request if the prescription is for a schedule II opioid drug. Start Date: 09/15/22 Status: Ordered Ravinia Tears ophthalmic solution 1 drops, Eyes, Both, [...] Professional Member Role: PCP Address: Address: [address] [place] [id number]- Name: Elvia METZ, Trinh Position: [facility] RN Member Role: Primary Care Nurse Name: Carrol Ta RN Position: [facility] RN Member Role: Primary Care Nurse Name: Crystal Ceron RN Position: [facility] RN Member Role: Primary Care Nurse Care Team Related Persons Name: RADHA MONTOYA Address: [place], [place] Name: BRANDIE MONTOYA Address: [place] [address] Name: TREASURE MONTOYA Address: home [address] [place] [address] Name: JAI REED Address: home [address] [place] [address]
--- OUTSIDE RECORDS SUMMARY | 2024-07-27 11:58 | XMS_ITS | Continuity of Care Document ---
Author Organization [facility] Address [address] [place] [address]- Care Team Providers Care Drier Take Off Tender Name Role Phone Zara Vargas MD Primary Care Physician [phone] [place] [facility] [place](s[place] 06/26/21 - 07/26/[address] [address] Allergies, Adverse Reactions, Alerts Substance Reaction Severity [...] diphtheria-tetanus toxoids (DT) 02/22/00 Given 1Result Comment: [id number] 2Result Comment: sarabjit SANDHU [facility] primary care 3Result Comment: Unit: Unknown Mental Health Coordinator: [employer]ide 4Result Comment: Unit: Unknown Mental Health Coordinator: Pfizer Injectables Medications Aspirin = 81 mg, [...] 07/31/21 14:01:00 EDT, 07/24/21 14:01:00 EDT, Capsule, [id number], Partial fill upon patient request if the prescription is for a schedule II opioid drug.... Start Date: 07/24/21 Stop Date: 07/31/21 Status: Ordered metoprolol 25 mg oral tablet 25 mg, 1, tablet, By Mouth, 2 times a day, Dose is now 25mg BID, # 180 tablet, Refills 3, Tot. Refills 3, Maintenance, 12/05/20 14:30:00 EST, Route to Pharmacy Electronically, [facility]/pharmacy #[id number], Partial fill upon patient [...] 113.4 Gm, 3 Refills, Maintenance, [id number], [facility], USE DIRECTED, 158, cm, 05/09/21 14:04:00 [...]
--- OUTSIDE RECORDS SUMMARY | 2024-07-27 11:58 | XMS_ITS | Continuity of Care Document ---
Author Organization [facility] Address [address] [place] [address]- Care Team Providers Care Loan Operations Specialist Name Role Phone Christiano VIDES, iNck Primary Care Physician [phone] Encounter [facility] [place] Date(s): 08/11/23 - 09/10/23 [facility] [address] [place] [address]- Allergies, Adverse Reactions, Alerts Substance Reaction Severity Status Ceftin ? Active Cleocin T BLOODY DIARRHEA Active Immunizations Given and Recorded Vaccine Date Status Refusal Reason influenza virus vaccine, inactivated 09/12/22 Michael rded influenza virus vaccine, inactivated 08/08/21 Michael rded influenza virus vaccine, inactivated 1 11/21/20 Gi cris influenza virus vaccine, inactivated 2 08/22/20 Re corded [id number] 12y+ bivalent booster vax 08/31/22 Recorded SARS-CoV-2 mRNA (hatbjei-fzlh-acemj) vax 03/16/22 Recorded SARS-CoV-2 (COVID-19) mRNA BNT-162b2 [...] diphtheria-tetanus toxoids (DT) 02/22/00 Given 1Result Comment: [id number] 2Result Comment: sarabjit SANDHU [facility] primary care 3Result Comment: Unit: Unknown Casing Inspector: [employer] 4Result Comment: Unit: Unknown Casing Inspector: Pfizer Injectables Medications atorvastatin 20 mg oral [...] Refills, Maintenance, 07/28/23 13:44:00 EDT, [facility], 158, cm, 05/06/23 11:17:00 EDT, [...] Refills, Maintenance, 07/21/23 11:20:00 EDT, [facility], 158, cm, 05/06/23 11:17:00 EDT, [...] 1 Refills, Maintenance, 08/27/23 21:17:00 EDT, [facility], 158, cm, 05/06/23 11:17:00 EDT, [...] opioid drug. Start Date: 05/09/21 Status: Ordered [place] Tears ophthalmic solution 1 drops, Eyes, Both, 2 times a day, PRN for dry eyes, # 30 each, 0 Refills, Maintenance, 09/15/22 1:54:00 EDT, Solution, Partial fill upon patient request if the prescription is for a schedule II opioid drug. Start Date: 09/15/22 Status: Ordered [place] Tears ophthalmic solution 1 drops, Eyes, Both, 3 times a day, PRN for dry eyes, Maintenance, 09/15/22 10:43:00 EDT, Solution,Partial fill upon patient request if the prescription is for a schedule II opioid drug. Start Date: 09/15/22 Status: Ordered olmesartan 20 mg oral tablet 1 tablet, By Mouth, Daily, # 90 tablet, 3 Refills, Maintenance, 12/22/22 11:40:00 EST, [facility], 158, cm, 12/18/22 10:17:00 EST, [...] EDT, Route to Pharmacy Electronically, [facility], Partial fill upon patient request [...] Professional Member Role: PCP Address: Address: [address] [place] [id number] [place] Name: Elvia METZ, Trinh Position: [facility] RN Member Role: Primary Care Nurse Name: Carrol Ta RN Position: [facility] RN Member Role: Primary Care Nurse Name: Crystal Ceron RN Position: [facility] RN Member Role: Primary Care Nurse Care Team Related Persons Name: RADHA MONTOYA Address: [place], [place] Name: BRANDIE MONTOYA Address: [place] [address] Name: TREASURE MONTOYA Address: home [address] [place] [address] Name: JAI REED Address: home [address] [place] [address]
--- OUTSIDE RECORDS SUMMARY | 2024-07-27 11:58 | XMS_ITS | Continuity of Care Document ---
Author Organization [facility] [address] [place] [address]- Care Team Providers Care Facilities Administrator Name Role Phone Sam WEBER, Zara Jensen Primary Care Physician Encounter [facility] [place] Date(s): 12/17/20 - 01/16/[address] [address]- Allergies, Adverse Reactions, Alerts Substance Reaction Severity [...] diphtheria-tetanus toxoids (DT) 02/22/00 Given 1Result Comment: [id number] 2Result Comment: sarabjit SANDHU [facility] primary [facility] 3Result Comment: Unit: Unknown Real Estate Photographer: [employer] 4Result Comment: Unit: Unknown Real Estate Photographer: Pfizer Injectables Medications Aspirin = 81 mg, By Mouth, Daily before lunch, 0 Refills, Maintenance, 01/09/11 5:04:09 EST Start Date: 01/09/11 Status: Ordered atorvastatin 20 mg oral tablet 1 tablet = 20 mg, By Mouth, Daily at bedtime, # 90 tablet, 3 Refills, Maintenance, 12/12/20 15:31:00 EST, Tablet, [facility]/pharmacy #[id number], 158, cm, 11/21/20 [...] 0 Refills, Soft Stop, 12/18/20 16:17:00 EST, [facility]/pharmacy #[id number], Partial fill upon [...] 12/05/20 14:30:00 EST, Route to Pharmacy Electronically, [facility]/pharmacy #[id number], Partial fill upon [...]
--- OUTSIDE RECORDS SUMMARY | 2024-07-27 11:58 | XMS_ITS | Continuity of Care Document ---
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: [employer] 4Result Comment: Unit: Unknown 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: [employer] Injectables Medications Aspirin = 81 mg, By Mouth, Daily before lunch, 0 Refills, Maintenance, 01/09/11 5:04:09 EST Start Date: 01/09/11 Status: Ordered atorvastatin 20 mg oral tablet 1 tablet, By Mouth, Daily at bedtime, # 90 tablet, 3 Refills, Maintenance, 12/02/21 11:48:00 EST, [facility], 157.48, cm, 11/27/21 12:51:00 [...] Refills, Maintenance, 12/18/21 15:56:00 EST, [facility], Partial fill upon patient request if the [...] tablet, 3 Refills, Maintenance, 12/20/21 13:54:00 EST, [facility]/pharmacy#1095, 157.48, cm, 12/19/21 11:37:00 EST, Height, [...]
--- OUTSIDE RECORDS SUMMARY | 2024-07-27 11:58 | XMS_ITS | Continuity of Care Document ---
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 Start Date: 08/30/21 Status: Ordered Clotrimazole = 10 mg, By Mouth, 5 times a day, 0 Refills, Maintenance, 11/08/21 8:49:00 EST, Partial fill upon patient request if the prescription is for a schedule II opioid drug. Start Date: 11/08/21 Status: Ordered Diflucan 150 mg oral tablet 1 tablet = 150 mg, By Mouth, Every 72 hours, # 2 tablet, 0 Refills, Maintenance, 11/14/21 15:19:00 EST, [facility], Partial fill upon patient request if the prescription is for a schedule II opioid drug., 157.48, cm, 11/08/21 8:38:00 EST, [facility]... Start Date: 11/14/21 Status: Ordered Estrace Vaginal Cream 0.1 mg/g = 1 Gm, Vaginally, Daily at bedtime, until symptoms improve monitor for first 2 weeks and if no difference, stop medication and call office, # 30 Gm, 0 Refills, Maintenance, 07/24/21 12:46:00 EDT, [facility], Partial fill upon p... Start Date: 07/24/21 Status: Ordered metoprolol 25 mg oral tablet 25 mg, 1, tablet, By Mouth, 2 times a day, Dose is now 25mg BID, # 180 tablet, Refills 3, Tot. Refills 3, Maintenance, 12/05/20 14:30:00 EST, Route to Pharmacy Electronically, [facility]/pharmacy #1095, Partial fill upon patient request if the prescription i... Start Date: 12/05/20 Stop Date: 11/30/21 Status: Ordered Misc Rx Refills 0, Maintenance, [...] 5 Refills, Maintenance, 09/19/20 14:11:00 EDT, Tablet, [facility]/pharmacy #1095, 158, cm, 09/18/20 15:50:00 EDT, Height, 69, kg, 09/13/20 5:27:00 EDT, Dry Weight Start Date: 09/19/20 Status: Ordered Probiotic Formula By Mouth, Daily, 0 Refills, Maintenance, 11/08/21 8:50:00 EST, Partial fill upon patient request ifthe prescription is for a schedule II opioid drug. Start Date: 11/08/21 Status: Ordered Trimo-Mcclure 0.025% vaginal gel with applicator See Instructions, USE DIRECTED, # 113.4 Gm, 3 Refills, Maintenance, [facility], [facility], USE DIRECTED, 158, cm, 05/09/21 14:04:00 [...] oldest [Reference Range]: 1 Height 157.48 cm (11/08/21 8:38 AM) Blood Pressure [90-138/55-84 mm Hg] 122/ 72mm Hg (11/08/21 8:38 AM) Blood pressure sites Arm, left (11/08/21 8:38 AM) Social History Social History Type Response Tobacco Total pack years: 35 . Started at age: 14 Years. Stopped at age: 49 Years. Sex
--- OUTSIDE RECORDS SUMMARY | 2024-07-27 11:58 | XMS_ITS | Continuity of Care Document ---
Author Organization [facility] Address [address] [place] [address]- Care Team Providers Care Canvas Repairer Name Role Phone Christiano VIDES, Nick Primary Care Physician [place] [facility] [place] Date(s): 11/14/21 - 12/14/21 [facility] [address] [place] [address]- Allergies, Adverse Reactions, Alerts Substance Reaction Severity [...] diphtheria-tetanus toxoids (DT) 02/22/00 Given 1Result Comment: [id number] 2Result Comment: sarabjit SANDHU [facility] primary care 3Result Comment: Unit: Unknown Preventive Maintenance Coordinator: [employer] 4Result Comment: Unit: Unknown Preventive Maintenance Coordinator: Pfizer Injectables Medications Aspirin = 81 mg, By Mouth, Daily before lunch, 0 Refills, Maintenance, 01/09/11 5:04:09 EST Start Date: 01/09/11 Status: Ordered atorvastatin 20 mg oral tablet 1 tablet, By Mouth, Daily at bedtime, # 90 tablet, 3 Refills, Maintenance, 12/02/21 11:48:00 EST, [facility]/pharmacy #1095, 157.48, cm, 11/27/21 12:51:00 EST, Height, [...] Refills, Maintenance, 07/24/21 12:46:00 EDT[facility] Partial fill upon p... Start Date: 07/24/21 [...]
--- OUTSIDE RECORDS SUMMARY | 2024-07-27 11:58 | XMS_ITS | Continuity of Care Document ---
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: [employer] 4Result Comment: Unit: Unknown Desulphurizer Operator: Pfizer Injectables Medications Aspirin = 81 mg, By Mouth, Daily before lunch, 0 Refills, Maintenance, 01/09/11 5:04:09 EST Start Date: 01/09/11 Status: Ordered atorvastatin 20 mg oral tablet 1 tablet = 20 mg, By Mouth, Daily at bedtime, # 90 tablet, 3 Refills, Maintenance, 12/12/20 15:31:00 EST, Tablet, [facility]/pharmacy #1095, 158, cm, 11/21/20 [...] 12/05/20 14:30:00 EST, Route to Pharmacy Electronically, [facility]/pharmacy #1095, Partial fill upon [...] DIRECTED, # 113.4 Gm, 3 Refills, Maintenance, [facility], 30, USE DIRECTED, 158, cm, 05/09/21 14:04:00 [...]
--- OUTSIDE RECORDS SUMMARY | 2024-07-27 11:58 | XMS_ITS | Continuity of Care Document ---
Author Organization [facility] Address [address] [place], [place] [address]- Care Team Providers Care Pipe Roller Name Role Phone Zara Vargas MD Primary Care Physician Encounter [facility] [place] Date(s): 01/30/20 - 02/06/20 [facility] [address] [facility] 2nd Floor [address] [place] [address]- [place] Attending Physician: Aureliano Tiwari MD Admitting [...] Maintenance, CPAP 7 cm H2O dx [facility] 3 ramp prn mask and suppliesas [...] 0, 0, 02/21/06 7:36:57, Print CAMILO Number, [id number], Constant Indicator Start Date: 02/21/06 Status: Ordered nystatin topical 538956 u/gm powder 1 applicator, Topically, Daily in [...] oldest [Reference Range]: 1 Height 158 cm (01/30/20 8:18 AM) Weight 70.36 kg (01/30/20 8:18 AM) Oxygen Saturation [94-100 %] 96 % (01/30/20 8:18 AM) Pulse Rate [55-90 bpm] 78 bpm (01/30/20 8:18 AM) Body Mass Index [18.5-24.99] 28.18 *H* (01/30/20 8:18 AM) Blood Pressure [90-138/55-84 mm Hg] 108/ 62mm Hg (01/30/20 8:18 AM) Blood pressure sites Arm, left (01/30/20 8:18 AM) Weight Obtained Via Standing scale (01/30/20 8:18 AM) Social History Social History Type Response Smoking Status Former smoker; Other : Smoked 1PPD from age 14. Quit 33Y ago.; entered on: 09/15/17 Sex
--- OUTSIDE RECORDS SUMMARY | 2024-07-27 11:58 | XMS_ITS | Continuity of Care Document ---
Author Organization [facility] Address [address] [address]- Care Team Providers Care Special Education Aide Name Role Phone Christiano VIDES, Nick Primary Care Physician [phone] Encounter [facility] Date(s): 06/22/24 - 07/22/24 [facility] [address] [address] [place] Allergies, Adverse Reactions, Alerts Substance Reaction Severity Status Ceftin ? Active Cleocin T BLOODY DIARRHEA Active Immunizations Given and Recorded Vaccine Date Status Refusal Reason SARS-CoV-2(COVID-19)mRNA-LNP vac([id number]) 01/08/24 Given pneumococcal 20-valent conjugate vaccine 01/08/24 Given influenza virus vaccine, inactivated 09/12/22 Michael rded influenza virus vaccine, inactivated 08/08/21 Michael rded influenza virus vaccine, inactivated 1 11/21/20 Gi cris influenza virus vaccine, inactivated 2 08/22/20 Re corded [id number] 12y+ bivalent booster vax 08/31/22 Recorded SARS-CoV-2 mRNA (fqmalej-cwuo-nfiim) vax 03/16/22 Recorded SARS-CoV-2 (COVID-19) mRNA BNT-162b2 [...] diphtheria-tetanus toxoids (DT) 02/22/00 Given 1Result Comment: [id number] 2Result Comment: sarabjit SANDHU [facility] primary care 3Result Comment: Unit: Unknown 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: [employer] 4Result Comment: Unit: Unknown 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: [employer] Injectables Medications atorvastatin 20 mg oral tablet [...] Refills, Maintenance, 06/01/24 11:03:00 EDT, [facility], 158, cm, 05/19/24 9:35:00 EDT, [...] 1 Refills, Maintenance, 06/01/24 11:03:00 EDT, [facility], 158, cm, 05/19/24 9:35:00 EDT, [...] Team Personnel Name: Pam Floyd RN Position: [facility] RN Member Role: Primary Care Nurse Name: Nick Alvarado NP Position: [facility] PCO Associate Professional Member Role: PCP Address: Address: [address] [place] [address]- Name: Carrol Ta RN Position: [facility] RN Member Role: Primary Care Nurse Name: Crystal Ceron RN Position: [facility] RN Member Role: Primary Care Nurse Care Team Related Persons Name: RADHA MONTOYA Address: [place], [place] Name: BRANDIE MONTOYA Address: [place] [address] Name: TREASURE MONTOYA Address: home [address] [place] [address] Name: JAI REED Address: [address] [place] [address]
--- OUTSIDE RECORDS SUMMARY | 2024-07-27 11:58 | XMS_ITS | Continuity of Care Document ---
Author Organization [facility] Address [address] [place] [address]- Care Team Providers Care Plastic Card Grader Cardroom Name Role Phone Christiano VIDES, Nick Primary Care Physician Encounter [facility] [place] Date(s): 03/17/23 - 07/15/23 [facility] [address] [place] [address]- Attending Physician: Justyn Singh MD Admitting Physician: Justyn Singh MD Referring Physician: Morenita Lopez NP Allergies, Adverse Reactions, Alerts Substance Reaction Severity Status Ceftin ? Active Cleocin T BLOODY DIARRHEA Active Immunizations Given and Recorded Vaccine Date Status Refusal Reason influenza virus vaccine, inactivated 09/12/22 Michael rded influenza virus vaccine, inactivated 08/08/21 Michael rded influenza virus vaccine, inactivated 1 11/21/20 Gi cris influenza virus vaccine, inactivated 2 08/22/20 Re corded [id number] 12y+ bivalent booster vax 08/31/22 Recorded SARS-CoV-2 mRNA (wgwgqns-lbgt-yjlez) vax 03/16/22 Recorded SARS-CoV-2 (COVID-19) mRNA BNT-162b2 [...] diphtheria-tetanus toxoids (DT) 02/22/00 Given 1Result Comment: [id number] 2Result Comment: sarabjit SANDHU [facility] primary care 3Result Comment: Unit: Unknown 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 Start Date: 03/03/23 Status: Ordered hydrOXYzine hydrochloride 25 mg oral tablet 1 tablet, By Mouth, Daily at bedtime, # 30 tablet, 0 Refills, Maintenance, 04/07/23 7:44:00 EDT, [facility], 158, cm, 04/02/23 19:36:00 EDT, [...] Refills, Maintenance, 05/29/23 15:49:00 EDT, [facility], 158, cm, 05/06/23 11:17:00 EDT, [...] opioid drug. Start Date: 05/09/21 Status: Ordered [place] Tears ophthalmic solution 1 drops, Eyes, Both, 2 times a day, PRN for dry eyes, # 30 each, 0 Refills, Maintenance, 09/15/22 1:54:00 EDT, Solution, Partial fill upon patient request if the prescription is for a schedule II opioid drug. Start Date: 09/15/22 Status: Ordered [place] Tears ophthalmic solution 1 drops, Eyes, Both, [...] Team Personnel Name: Nick Alvarado NP Position: [facility] PCO Associate Professional Member Role: PCP Address: Address: [address] [place] [address]- Name: Trinh Gan RN Position: [facility] RN Member Role: Primary Care Nurse Name: Carrol Ta RN Position: [facility] RN Member Role: Primary Care Nurse Name: Crystal Ceron RN Position: S RN Member Role: Primary Care Nurse Care Team Related Persons Name: RADHA MONTOYA Address: [place], [place] Name: BRANDIE MONTOYA Address: [place] [address] Name: TREASURE MONTOYA Address: home [address] [place] [id number] Name: JAI REED Address: [address] [place] [address]
--- OUTSIDE RECORDS SUMMARY | 2024-07-27 11:58 | XMS_ITS | Continuity of Care Document ---
Author Organization [facility] Address [address] [place] [address]- Care Team Providers Care Orthotist/Prosthetist Name Role Phone Christiano VIDES, Nick Primary Care Physician [phone] [place] [facility] [place](s): 06/24/23 - 07/24/23 [facility] [place] [address] [place] [address]- [place] Allergies, Adverse Reactions, Alerts Substance Reaction Severity Status Ceftin ? Active Cleocin T BLOODY DIARRHEA Active Immunizations Given and Recorded Vaccine Date Status Refusal Reason influenza virus vaccine, inactivated 09/12/22 Michael rded influenza virus vaccine, inactivated 08/08/21 Michael rded influenza virus vaccine, inactivated 1 11/21/20 Gi cris influenza virus vaccine, inactivated 2 08/22/20 Re corded [id number] 12y+ bivalent booster vax 08/31/22 Recorded SARS-CoV-2 mRNA (brcnsxz-nwps-ckzqj) vax 03/16/22 Recorded SARS-CoV-2 (COVID-19) mRNA BNT-162b2 [...] diphtheria-tetanus toxoids (DT) 02/22/00 Given 1Result Comment: [id number] 2Result Comment: sarabjit SANDHU [facility] primary care 3Result Comment: Unit: Unknown Forgesmith: [employer] 4Result Comment: Unit: Unknown Forgesmith: [employer] Injectables Medications atorvastatin 20 mg oral tablet [...] Refills, Maintenance, 04/28/23 21:41:00 EDT, [facility], 158, cm, 04/15/23 15:03:00 EDT, Height, 70, kg, 04/02/23 19:36:00 EDT, Dry Weight Start Date: 04/28/23 Status: Ordered Estrace Vaginal Cream 0.1 mg/g = 1 Gm, Vaginally, Every Thursday and , Physician requests paraben free, # 30 Gm, 1 Refills, Maintenance, 02/05/23 15:29:00 EDT, [facility], Partial fill upon patient request if the prescription is for a schedule II opioid drug., 1... Start Date: 02/05/23 Status: Ordered famotidine 20 mg oral tablet 20 mg, 1, tablet, By Mouth, 2 times a day, PRN, # 60 tablet, Refills 5, Tot. Refills 5, Maintenance, Pain , Moderate, 03/03/23 15:46:00 EDT, Route to Pharmacy Electronically, [facility], Partial fill upon patient request if the prescript... Start Date: 03/03/23 Status: Ordered hydrOXYzine hydrochloride 25 mg oral tablet 1 tablet, By Mouth, Daily at bedtime, # 30 tablet, 0 Refills, Maintenance, 07/21/23 11:20:00 EDT, [facility], 158, cm, 05/06/23 11:17:00 [...] tablet, 1 Refills, Maintenance, 05/29/23 15:49:00 EDT, [facility], 158, cm, 05/06/23 11:17:00 EDT, Height, 70, kg, 04/02/23 19:36:00 EDT, Dry Weight Start Date: 05/29/23 Status: Ordered Metoprolol Tartrate 25 mg oral tablet 2 tablet = 50 mg, By Mouth, 2 times a day, # 360 tablet, 3 Refills, Maintenance, 12/16/22 13:42:00 EST, [facility], 158, cm, 12/11/22 15:03:00 [...] opioid drug. Start Date: 05/09/21 Status: Ordered [place] Tears ophthalmic solution 1 drops, Eyes, Both, 2 times a day, PRN for dry eyes, # 30 each, 0 Refills, Maintenance, 09/15/22 1:54:00 EDT, Solution, Partial fill upon patient request if the prescription is for a schedule II opioid drug. Start Date: 09/15/22 Status: Ordered [place] Tears ophthalmic solution 1 drops, Eyes, Both, [...] Team Personnel Name: Nick Alvarado NP Position: [facility] PCO Associate Professional Member Role: PCP Address: Address: [address] [place] [address] Name: Elvia METZ, Trinh Position: S RN Member Role: Primary Care Nurse Name: Keyon METZ, Carrol Marie Position: [facility] RN Member Role: Primary Care Nurse Name: Crystal Ceron RN Position: S RN Member Role: Primary Care Nurse Care Team Related Persons Name: RADHA MONTOYA Address: [place], [place] Name: BRANDIE MONTOYA Address: [place] [address] Name: TREASURE MONTOYA Address: home [address] [place] [address] Name: JAI REED Address: [address] [place] [address]
--- OUTSIDE RECORDS SUMMARY | 2024-07-27 11:59 | XMS_ITS | Continuity of Care Document ---
Author Organization [facility] Address [address] [place], [place] [address]- Care Team Providers Care Truck Service Manager Name Role Phone Maged Mendoza MD Primary Care Physician Encounter [facility] [place] Date(s): 10/10/19 - 11/30/19 [facility] [address] [place] [address]- [place] Attending Physician: Aureliano Tiwari MD Admitting Physician: Aureliano Tiwari MD Referring Physician: Maged Mendoza MD Allergies, Adverse Reactions, Alerts Substance Reaction [...] Maintenance, CPAP 7 cm H2O dx [facility] 3 ramp prn mask and suppliesas [...] 0, 0, 02/21/06 7:36:57, Print CAMILO Number, [id number], Constant Indicator Start Date: 02/21/06 Status: Ordered nystatin topical 221104 u/gm powder 1 applicator, Topically, Daily in [...]
--- OUTSIDE RECORDS SUMMARY | 2024-07-27 11:59 | XMS_ITS | Continuity of Care Document ---
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: [employer] Injectables Medications Aspirin = 81 mg, By [...] CPAP 7 cm H2O dx [facility] [place] epr 3 ramp prn [...] 0, 0, 02/21/06 7:36:57, Print CAMILO Number, [id number], Constant Indicator Start Date: 02/21/06 Status: Ordered [...] oldest [Reference Range]: 1 Height 158 cm (09/03/20 9:52 AM) Weight 69.9 kg (09/03/20 9:52 AM) Oxygen Saturation [94-100 %] 100 % (09/03/20 9:52 AM) Pulse Rate [55-90 bpm] 64 bpm (09/03/20 9:52 AM) Body Mass Index [18.5-24.99] 28 *H* (09/03/20 9:52 AM) Blood Pressure [90-138/55-84 mm Hg] 147/ 54mm Hg *H* (09/03/20 9:52 AM) Blood pressure sites Arm, left (09/03/20 9:52 AM) Weight Obtained Via Standing scale (09/03/20 9:52 AM) Social History Social History Type Response Smoking Status Former smoker; Other : Smoked 1PPD from age 14. Quit 33Y ago.; entered on: 09/15/17 Sex
--- OUTSIDE RECORDS SUMMARY | 2024-07-27 11:59 | XMS_ITS | Continuity of Care Document ---
Author Organization [facility] Address [address] [place] [address]- Care Team Providers Care Sap Bi Developer Name Role Phone Christiano VIDES, Nick Primary Care Physician [phone] [place] [facility] [place] 12/11/22 - 01/10/23 [facility] [address] [place] [address]- Allergies, Adverse Reactions, Alerts Substance Reaction Severity Status Ceftin ? Active Cleocin T BLOODY DIARRHEA Active Immunizations Given and Recorded Vaccine Date Status Refusal Reason influenza virus vaccine, inactivated 09/12/22 Michael rded influenza virus vaccine, inactivated 08/08/21 Michael rded influenza virus vaccine, inactivated 1 11/21/20 Gi cris influenza virus vaccine, inactivated 2 08/22/20 Re corded [id number] 12y+ bivalent booster vax 08/31/22 Recorded SARS-CoV-2 mRNA (uvozanr-dzfn-mzfkb) vax 03/16/22 Recorded SARS-CoV-2 (COVID-19) mRNA BNT-162b2 [...] diphtheria-tetanus toxoids (DT) 02/22/00 Given 1Result Comment: [id number] 2Result Comment: sarabjit SANDHU [facility] 3Result Comment: Unit: Unknown Treating Engineer: Gl[employer] 4Result Comment: Unit: Unknown Treating Engineer: Cland[employer] Injectables Medications atorvastatin 20 mg oral tablet [...] Refills, Maintenance, 12/18/21 15:56:00 EST, [facility], Partial fill upon patient request if the [...] opioid drug. Start Date: 05/09/21 Status: Ordered [place] Tears ophthalmic solution 1 drops, Eyes, Both, 2 times a day, PRN for dry eyes, # 30 each, 0 Refills, Maintenance, 09/15/22 1:54:00 EDT, Solution, Partial fill upon patient request if the prescription is for a schedule II opioid drug. Start Date: 09/15/22 Status: Ordered [place] Tears ophthalmic solution 1 drops, Eyes, [...] Team Personnel Name: Nick Alvarado NP Position: [facility] PCO Associate Professional Member Role: PCP Address: Address: [address] [place] [address]- Name: Trinh Gan RN Position: [facility] RN Member Role: Primary Care Nurse Name: Carrol Ta RN Position: [facility] RN Member Role: Primary Care Nurse Name: Crystal Ceron RN Position: [facility] RN Member Role: Primary Care Nurse Care Team Related Persons Name: RADHA MONTOYA Name: BRANDIE MONTOYA Address: [place] [address] Name: TREASURE MONTOYA Address: home [address] [place] [address] Name: JAI REED Address: home [address] [place] [address]
--- OUTSIDE RECORDS SUMMARY | 2024-07-27 11:59 | XMS_ITS | Continuity of Care Document ---
Author Organization [facility] Medicine Address [address] [place] [address]- Care Team Providers Care Pool Player Name Role Phone Christiano VIDES, Nick Primary Care Physician Encounter [facility] [place] Date(s): 12/14/23 - 01/13/[address] [address]- Allergies, Adverse Reactions, Alerts Substance Reaction Severity Status Ceftin ? Active Cleocin T BLOODY DIARRHEA Active Immunizations Given and Recorded Vaccine Date Status Refusal Reason SARS-CoV-2(COVID-19)mRNA-LNP vac([id number]) 01/08/24 Given pneumococcal 20-valent conjugate vaccine 01/08/24 Given influenza virus vaccine, inactivated 09/12/22 Michael rded influenza virus vaccine, inactivated 08/08/21 Michael rded influenza virus vaccine, inactivated 1 11/21/20 Gi cris influenza virus vaccine, inactivated 2 08/22/20 Re corded [id number] 12y+ bivalent booster vax 08/31/22 Recorded SARS-CoV-2 mRNA (cdpdzfw-buqv-rltgc) vax 03/16/22 Recorded SARS-CoV-2 (COVID-19) mRNA BNT-162b2 [...] diphtheria-tetanus toxoids (DT) 02/22/00 Given 1Result Comment: [id number] 2Result Comment: sarabjit SANDHU [facility] 3Result Comment: Unit: Unknown Supervisor Roving: [employer] 4Result Comment: Unit: Unknown Supervisor Roving: Soicos Injectables Medications atorvastatin 20 mg oral tablet [...] Gm, 0 Refills, Maintenance, 01/08/24 11:22:00 EST, [place], [facility], Partial fill upon patient request if the prescription is for a schedule II opioid drug., 1 sprays Nares, Both 2 [place]... Start Date: 01/08/24 Status: Ordered hydrocortisone 1% topical cream 1 application, Topically, 2 times a day, # 15 Gm, 0 Refills, Maintenance, 01/08/24 11:30:00 EST, [place], [facility], Partial fill upon [...] opioid drug. Start Date: 05/09/21 Status: Ordered [place] Tears ophthalmic solution 1 drops, Eyes, Both, 3 times a day, PRN for dry eyes, Maintenance, 09/15/22 10:43:00 EDT, Solution,Partial fill upon patient request if the prescription is for a schedule II opioid drug. Start Date: 09/15/22 Status: Ordered olmesartan 20 mg oral tablet 1 tablet, By Mouth, Daily, # 90 tablet, 1 Refills, Maintenance, 11/25/23 6:31:00 EST, [facility], 158, cm, 11/24/23 11:30:00 EST, [...] EST, Route to Pharmacy Electronically, [facility], Partial fill upon patient request [...] Team Personnel Name: Nick Alvarado NP Position: [facility] PCO Associate Professional Member Role: PCP Address: Address: [address] [place] [address] Name: Keyon RN, Carrol Marie Position: [facility] SN RN Member Role: Primary Care Nurse Name: Crystal Ceron RN Position: [facility] RN Member Role: Primary Care Nurse Care Team Related Persons Name: RADHA MONTOYA Address: [place], [place] Name: BRANDIE MONTOYA Address: [place] [address] Name: TREASURE MONTOYA Address: home [address] [place] [address] Name: JAI REED Address: home [address] [place] [address]
--- OUTSIDE RECORDS SUMMARY | 2024-07-27 11:59 | XMS_ITS | Continuity of Care Document ---
Author Organization [facility] Address [address] [place] [address]- Care Team Providers Care Machine Adjuster Leader Case Trim Name Role Phone Zara Vargas MD Primary Care Physician [place] [facility] [place] Date(s): 12/31/20 - 02/07/[address] [address]- Attending Physician: Sofia Chacon MD Admitting Physician: [...] diphtheria-tetanus toxoids (DT) 02/22/00 Given 1Result Comment: [id number] 2Result Comment: sarabjit SANDHU [facility] primary [facility] 3Result Comment: Unit: Unknown Ditch Repairer: [employer] 4Result Comment: Unit: Unknown Ditch Repairer: Pfizer Injectables Medications Aspirin = 81 mg, By Mouth, Daily before lunch, 0 Refills, Maintenance, 01/09/11 5:04:09 EST Start Date: 01/09/11 Status: Ordered atorvastatin 20 mg oral tablet 1 tablet = 20 mg, By Mouth, Daily at bedtime, # 90 tablet, 3 Refills, Maintenance, 12/12/20 15:31:00 EST, Tablet, [facility] #1095, 158, cm, 11/21/20 11:06:00 EST, Height, [...] 0 Refills, Soft Stop, 12/18/20 16:17:00 EST, [facility]/pharmacy #1095, Partial fill upon patient request if the prescription is for a schedule II opioid drug., 158, cm, 11/05/20 10:09:00 EST, Height,... Start Date: 12/18/20 Status: Ordered metoprolol 25 mg oral tablet 25 mg, 1, tablet, By Mouth, 2 times a day, Dose is now 25mg BID, # 180 tablet, Refills 3, Tot. Refills 3, Maintenance, 12/05/20 14:30:00 EST, Route to Pharmacy Electronically, [facility]/pharmacy #1095, Partial fill upon patient request if [...]
--- OUTSIDE RECORDS SUMMARY | 2024-07-27 11:59 | XMS_ITS | Continuity of Care Document ---
Author Organization [facility] Address [address] [facility] [place] [address]- Care Team Providers Care Fitting Room Checker Name Role Phone Christiano VIDES, Nick Primary Care Physician [place] [facility] [place]23 - 03/05/24 [facility] [address] [place] [address]- Attending Physician: Tyler Wang MD Admitting Physician: Tyler Wang MD Referring Physician: Nick Alvarado NP Allergies, Adverse Reactions, Alerts Substance Reaction Severity Status Ceftin ? Active Cleocin T BLOODY DIARRHEA Active Immunizations Given and Recorded Vaccine Date Status Refusal Reason SARS-CoV-2(COVID-19)mRNA-LNP vac([id number]) 01/08/24 Given pneumococcal 20-valent conjugate vaccine 01/08/24 Given influenza virus vaccine, inactivated 09/12/22 Michael rded influenza virus vaccine, inactivated 08/08/21 Michael rded influenza virus vaccine, inactivated 1 11/21/20 Gi cris influenza virus vaccine, inactivated 2 08/22/20 Re corded [id number] 12y+ bivalent booster vax 08/31/22 Recorded SARS-CoV-2 mRNA (hwsrrym-fuci-musmv) vax 03/16/22 Recorded SARS-CoV-2 (COVID-19) mRNA BNT-162b2 [...] diphtheria-tetanus toxoids (DT) 02/22/00 Given 1Result Comment: [id number] 2Result Comment: sarabjit SANDHU [facility] primary [facility] 3Result Comment: Unit: Unknown Field Servicer: Web[employer] 4Result Comment: Unit: Unknown Field Servicer: Stupil Injectables Medications atorvastatin 20 mg oral tablet 1 tablet, By Mouth, Daily at bedtime, # 90 tablet, 3 Refills, Maintenance, 01/05/24 11:50:00 EST, [facility], 158, cm, 11/24/23 11:30:00 EST, [...] Refills, Maintenance, 11/19/23 14:47:00 EST, [facility], 158, cm, 10/20/23 13:46:00 EST, [...] EDT, Route to Pharmacy Electronically, [facility], 158, cm, 05/06/23 11:17:00 EDT, Height, 70, kg, 04/02/23 19:36:00 EDT, Dry Weight Start Date: 08/27/23 Status: Ordered fluticasone 50 mcg/inh nasal spray 1 sprays = 50 mcg, Nares, Both, 2 times a day, # 16 Gm, 0 Refills, Maintenance, 01/08/24 11:22:00 EST, [place], [facility], Partial fill upon patient request if the prescription is for a schedule II opioid drug., 1 sprays Nares, Both 2 [place]... Start Date: 01/08/24 Status: Ordered hydrocortisone 1% topical cream 1 application, Topically, 2 times a day, # 15 Gm, 0 Refills, Maintenance, 01/08/24 11:30:00 EST, [place], [facility], Partial fill upon [...] opioid drug. Start Date: 05/09/21 Status: Ordered [place] Tears ophthalmic solution 1 drops, Eyes, Both, [...] NP Position: [facility] PCO Associate Professional Member Role: PCP Address: Address: [address] [place] [address]- Name: Keyon RN, Carrol Marie Position: [facility] SN RN Member Role: Primary Care Nurse Name: Crystal Ceron RN Position: [facility] RN Member Role: Primary Care Nurse Care Team Related Persons Name: RADHA MONTOYA Address: [place], [place] Name: BRANDIE MONTOYA Address: [place] [address] Name: TREASURE MONTOYA Address: home [address] [place] [address] Name: JAI REED Address: home [address] [place] [address]
--- OUTSIDE RECORDS SUMMARY | 2024-07-27 11:59 | XMS_ITS | Continuity of Care Document ---
Author Organization [facility] Address [address] [place] [address]- Care Team Providers Care Enterprise Resource Planning Consultant Name Role Phone Christiano VIDES, Nick Primary Care Physician Encounter [facility] [place] Date(s): 11/24/23 - 12/24/23 [facility] [address] [address] Attending Physician: Silas Duncan Admitting [...] virus vaccine, inactivated 2 08/22/20 Re corded [id number] 12y+ bivalent booster vax 08/31/22 Recorded SARS-CoV-2 mRNA (yprjpia-fzkn-euzfr) vax 03/16/22 Recorded SARS-CoV-2 (COVID-19) mRNA BNT-162b2 [...] diphtheria-tetanus toxoids (DT) 02/22/00 Given 1Result Comment: [id number] 2Result Comment: sarabjit SANDHU [facility] 3Result Comment: Unit: Unknown Dray Driver: [employer] 4Result Comment: Unit: Unknown Dray Driver: [employer] Injectables Medications atorvastatin 20 mg oral tablet [...] 08/27/23 21:16:00 EDT, Route to Pharmacy Electronically, [facility], 158, cm, 05/06/23 11:17:00 EDT, Height, 70, kg, 04/02/23 19:36:00 EDT, Dry Weight Start Date: 08/27/23 Status: Ordered hydrOXYzine hydrochloride 25 mg oral tablet 1 tablet, By Mouth, Daily at bedtime, # 30 tablet, 0 Refills, Maintenance, 07/21/23 11:20:00 EDT, [facility], 158, cm, 05/06/23 11:17:00 [...] 30 mL, 0 Refills, Maintenance, 10/28/23 17:05:00 [facility], [facility], Partial fill upon patient request if the prescription is for a schedule II opioid drug., 1 sprays Nares, Both Daily at... Start Date: 10/28/23 Status: Ordered levothyroxine 0.05 mg oral tablet 0.5 tablet, By Mouth, Daily, # 45 tablet, 1 Refills, Maintenance, 08/27/23 21:17:00 EDT, [facility], 158, cm, 05/06/23 11:17:00 EDT, Height, 70, kg, 04/02/23 19:36:00 EDT, Dry Weight Start Date: 08/27/23 Status: Ordered Metoprolol Tartrate 25 mg oral tablet 2 tablet = 50 mg, By Mouth, 2 times a day, # 360 tablet, 3 Refills, Maintenance, 12/14/23 15:43:00 EST, [facility], 158, cm, 11/24/23 11:30:00 EST, [...] opioid drug. Start Date: 05/09/21 Status: Ordered [place] [address] Tears ophthalmic solution 1 drops, Eyes, Both, 2 times a day, PRN for dry eyes, # 30 each, 0 Refills, Maintenance, 09/15/22 1:54:00 EDT, Solution, Partial fill upon patient request if the prescription is for a schedule II opioid drug. Start Date: 09/15/22 Status: Ordered [address] Tears ophthalmic solution 1 drops, Eyes, Both, [...] Team Personnel Name: Nick Alvarado NP Position: [facility] PCO Associate Professional Member Role: PCP Address: Address: [address] [place] [id number] Name: Carrol Ta RN Position: [facility] SN RN Member Role: Primary Care Nurse Name: Crystal Ceron RN Position: S RN Member Role: Primary Care Nurse Care Team Related Persons Name: RADHA MONTOYA Address: [place], [place] Name: BRANDIE MONTOYA Address: [place] [address] Name: TREASURE MONTOYA Address: [address] [address] Name: JAI REED Address: home [address] [place] [address]
--- OUTSIDE RECORDS SUMMARY | 2024-07-27 11:59 | XMS_ITS | Continuity of Care Document ---
Author Organization [facility] Medicine Address [address] [place] [address]- Care Team Providers Care Supervisor Assembly Name Role Phone Christiano VIDES, Nick Primary Care Physician [phone] En[place] [facility] [place] Date(s): 03/30/24 - 04/29/[address] [address]- Allergies, Adverse Reactions, Alerts Substance Reaction Severity Status Ceftin ? Active Cleocin T BLOODY DIARRHEA Active Immunizations Given and Recorded Vaccine Date Status Refusal Reason SARS-CoV-2(COVID-19)mRNA-LNP vac([id number]) 01/08/24 Given pneumococcal 20-valent conjugate vaccine 01/08/24 Given influenza virus vaccine, inactivated 09/12/22 Michael rded influenza virus vaccine, inactivated 08/08/21 Michael rded influenza virus vaccine, inactivated 1 11/21/20 Gi cris influenza virus vaccine, inactivated 2 08/22/20 Re corded [id number] 12y+ bivalent booster vax 08/31/22 Recorded SARS-CoV-2 mRNA (oqrncay-rsgg-yrnjp) vax 03/16/22 Recorded SARS-CoV-2 (COVID-19) mRNA BNT-162b2 [...] diphtheria-tetanus toxoids (DT) 02/22/00 Given 1Result Comment: [id number] 2Result Comment: sarabjit SANDHU [facility] primary [facility] 3Result Comment: Unit: Unknown Flower Shop Manager: [email or web address] 4Result Comment: Unit: Unknown Flower Shop Manager: Kon[employer] Injectables Medications atorvastatin 20 mg oral tablet [...] Gm, 0 Refills, Maintenance, 04/05/24 5:37:00 EDT, [place], Partial fill upon patient request if the [...] team information Care Team Personnel Name: Pam Folyd RN Position: [facility] RN Member Role: Primary Care Nurse Name: Nick Alvarado NP Position: [facility] PCO Associate Professional Member Role: PCP Address: Address: [address] [place] [address] Name: Carrol Ta RN Position: [facility] SN RN Member Role: Primary Care Nurse Name: Crystal Ceron RN Position: [facility] RN Member Role: Primary Care Nurse Care Team Related Persons Name: RADHA MONTOYA Address: [place], [place] Name: BRANDIE MONTOYA Address: [place] [address] Name: TREASURE MONTOYA Address: home [address] [place] [address] Name: JAI REED Address: home [address] [place] [address]
--- OUTSIDE RECORDS SUMMARY | 2024-07-27 11:59 | XMS_ITS | Continuity of Care Document ---
Author Organization [facility] Address [address] [place] [address]- Care Team Providers Care Front Office Representative Name Role Phone Sam WEBER, Zara Jensen Primary Care Physician [phone] [place] [facility] [place](s): 06/20/20 - 09/29/20 [facility] [address] [place], [place] [address] Attending Physician: Aureliano Tiwari MD Admitting Physician: [...] (DT) 02/22/00 Given 1Result Comment: Unit: Unknown It Compliance Manager: [employer] 2Result Comment: Unit: Unknown It Compliance Manager: Powerspan Injectables Medications Aspirin = 81 mg, By [...] 0, 0, 02/21/06 7:36:57, Print CAMILO Number, [id number], Constant Indicator Start Date: 02/21/06 Status: Ordered olmesartan 20 mg oral tablet 1 tablet = 20 mg, By Mouth, Daily, Dosage has been reduced to 20mg / day, # 30 tablet, 5 Refills, Maintenance, 09/19/20 14:11:00 EDT, Tablet, [facility]95, 158, cm, 09/18/20 15:50:00 EDT, Height, 69, kg, 09/13/20 5:27:00 EDT, Dry Weight Start Date: 09/19/20 Status: Ordered polyethylene glycol 3350 oral powder for reconstitution = 17 Gm, By Mouth, Daily at bedtime, 0 Refills, Maintenance, 08/17/20 9:27:00 EDT Start Date: 08/17/20 Status: Ordered [place]clure 0.025% vaginal gel with applicator Every Thursday, 0 Refills, Maintenance, 08/17/20 9:26:00 EDT Start Date: 9/25/20 Status: Ordered Problem List Condition Effective Dates [...]
--- OUTSIDE RECORDS SUMMARY | 2024-07-27 11:59 | XMS_ITS | Continuity of Care Document ---
Author Organization [facility] Medicine Address [address] [place] [address]- Care Team Providers Care Log Chipper Name Role Phone Christiano VIDES, Nick Primary Care Physician [place] [facility] [place] Date(s): 03/16/23 - 04/15/23 [facility] [address] [place] [address]- Allergies, Adverse Reactions, Alerts Substance Reaction Severity Status Ceftin ? Active Cleocin T BLOODY DIARRHEA Active Immunizations Given and Recorded Vaccine Date Status Refusal Reason influenza virus vaccine, inactivated 09/12/22 Michael rded influenza virus vaccine, inactivated 08/08/21 Michael rded influenza virus vaccine, inactivated 1 11/21/20 Gi cris influenza virus vaccine, inactivated 2 08/22/20 Re corded [id number] 12y+ bivalent booster vax 08/31/22 Recorded SARS-CoV-2 mRNA (hzxzrhp-cihx-rjbim) vax 03/16/22 Recorded SARS-CoV-2 (COVID-19) mRNA BNT-162b2 [...] diphtheria-tetanus toxoids (DT) 02/22/00 Given 1Result Comment: [id number] 2Result Comment: sarabjit SANDHU [facility] primary care 3Result Comment: Unit: Unknown Scientific Illustrator: GlaxoSmithK[employer] 4Result Comment: Unit: Unknown Scientific Illustrator: Pfizer Injectables Medications atorvastatin 20 mg oral [...] Refills, Maintenance, 02/05/23 15:29:00 EDT, [facility], Partial fill upon patient request if the prescription is for a schedule II opioid drug., 1... Start Date: 02/05/23 Status: Ordered famotidine 20 mg oral tablet 20 mg, 1, tablet, By Mouth, 2 times a day, PRN, # 60 tablet, Refills 5, Tot. Refills 5, Maintenance, Pain , Moderate, 03/03/23 15:46:00 EDT, Route to Pharmacy Electronically, [facility], Partial fill upon patient request if [...] 0 Refills, Maintenance, :05:00 EDT, [facility], 157, cm, 03/11/23 16:01:00 EDT, [...] opioid drug. Start Date: 05/09/21 Status: Ordered [place] Tears ophthalmic solution 1 drops, Eyes, Both, 2 times a day, PRN for dry eyes, # 30 each, 0 Refills, Maintenance, 09/15/22 1:54:00 EDT, Solution, Partial fill upon patient request if the prescription is for a schedule II opioid drug. Start Date: 09/15/22 Status: Ordered [place] Tears ophthalmic solution 1 drops, Eyes, Both, [...] Associate Professional Member Role: PCP Address: Address: [address] [place] [address]- Name: Trinh Gan RN Position: S RN Member Role: Primary Care Nurse Name: Carrol Ta RN Position: S RN Member Role: Primary Care Nurse Name: Crystal Ceron RN Position: S RN Member Role: Primary Care Nurse Care Team Related Persons Name: RADHA MONTOYA Name: BRANDIE MONTOYA Address: [place] [address] Name: TREASURE MONTOYA Address: home [address] [place] [address] Name: JAI REED Address: home [address] [place] [address]
--- OUTSIDE RECORDS SUMMARY | 2024-07-27 11:59 | XMS_ITS | Continuity of Care Document ---
Author Organization [facility] Address [address] [place] [address]- Care Team Providers Care Salesperson Men'S Hats Name Role Phone Christiano VIDES, Nick Primary Care Physician [phone] En[place] [facility] [place](s): 08/21/21 - 08/28/21 [facility] [address] [place], [place] [address] Attending Physician: Isamar Sibley MD [...] diphtheria-tetanus toxoids (DT) 02/22/00 Given 1Result Comment: [id number] 2Result Comment: sarabjit SANDHU [facility] primary care 3Result Comment: Unit: Unknown Board Runner: [employer] 4Result Comment: Unit: Unknown Board Runner: Pfizer Injectables Medications Aspirin = 81 mg, [...] Refills, Maintenance, 07/24/21 12:46:00 EDT, [facility], Partial fill upon p... Start Date: 07/24/21 [...] 113.4 Gm, 3 Refills, Maintenance, [facility], 30, USE DIRECTED, 158, cm, 05/09/21 14:04:00 [...] oldest [Reference Range]: 1 Height 158 cm (08/21/21 1:00 PM) Social History Social History Type Response Tobacco Total pack years: 35 . Started at age: 14 Years. Stopped at age: 49 Years. Sex
--- OUTSIDE RECORDS SUMMARY | 2024-07-27 12:00 | XMS_ITS | Continuity of Care Document ---
Author Organization [facility] gy Address [address] [place] [address]- Care Team Providers Care Transit Proof Machine Operator Name Role Phone Christiano VIDES, Nick Primary Care Physician [phone] [place] [facility] [place](s[place] 03/16/24 - 04/15/24 [facility] [address] [place], [place] [address] Attending Physician: Silas Duncan Admitting Physician: Silas Duncan Referring Physician: Silas Duncan Allergies, Adverse Reactions, Alerts Substance Reaction Severity Status Ceftin ? Active Cleocin T BLOODY DIARRHEA Active Immunizations Given and Recorded Vaccine Date Status Refusal Reason SARS-CoV-2(COVID-19)mRNA-LNP vac([id number]) 01/08/24 Given pneumococcal 20-valent conjugate vaccine 01/08/24 Given influenza virus vaccine, inactivated 09/12/22 Michael rded influenza virus vaccine, inactivated 08/08/21 Michael rded influenza virus vaccine, inactivated 1 11/21/20 Gi cris influenza virus vaccine, inactivated 2 08/22/20 Re corded [id number] 12y+ bivalent booster vax 08/31/22 Recorded SARS-CoV-2 mRNA ([id number]-foxt-kqxix) vax 03/16/22 Recorded SARS-CoV-2 (COVID-19) mRNA BNT-162b2 [...] diphtheria-tetanus toxoids (DT) 02/22/00 Given 1Result Comment: [id number] 2Result Comment: sarabjit SANDHU [facility] primary care 3Result Comment: Unit: Unknown Shredder Operator: [employer] 4Result Comment: Unit: Unknown Shredder Operator: [employer] Injectables Medications atorvastatin 20 mg oral tablet [...] Gm, 0 Refills, Maintenance, 04/05/24 5:37:00 EDT, [place], Partial fill upon patient request if the [...] Team Personnel Name: Pam Floyd RN Position: [facility] RN Member Role: Primary Care Nurse Name: Nick Alvarado NP Position: [facility] PCO Associate Professional Member Role: PCP Address: Address: [address] [place] [id number] Name: Keyon METZ, Carrol Marie Position: [facility] SN RN Member Role: Primary Care Nurse Name: Crystal Ceron RN Position: [facility] RN Member Role: Primary Care Nurse Care Team Related Persons Name: RADHA MONTOYA Address: [place], [place] Name: BRANDIE MONTOYA Address: [place] [address] Name: TREASURE MONTOYA Address: home [address] [place] [address] Name: JAI REED Address: home [address] [place] [address]
--- OUTSIDE RECORDS SUMMARY | 2024-07-27 12:00 | XMS_ITS | Continuity of Care Document ---
Author Organization [facility] Address [address] [place] [address]- Care Team Providers Care Natural Sciences Manager Name Role Phone Christiano VIDES, Nick Primary Care Physician [place] [facility] [place] 08/15/21 [facility] [address] [place] [address]- Attending Physician: Tyler Wang MD Admitting Physician: Tyler Wang MD Referring Physician: Sofia Chacon MD Allergies, Adverse Reactions, Alerts Substance Reaction Severity Status Ceftin ? Active Cleocin T BLOODY DIARRHEA Active Immunizations Given and Recorded Vaccine Date Status Refusal Reason influenza virus vaccine, inactivated 08/08/21 Michael rded influenza virus vaccine, inactivated 1 11/21/20 Gi cris influenza virus vaccine, inactivated 2 08/22/20 Re corded SARS-CoV-2 (COVID-19) mRNA BNT-162b2 vac 01/16/21 Given [...] diphtheria-tetanus toxoids (DT) 02/22/00 Given 1Result Comment: [id number] 2Result Comment: sarabjit SANDHU [facility] primary care 3Result Comment: Unit: Unknown Performance Test Consultant: Portr 4Result Comment: Unit: Unknown Performance Test Consultant: Pfizer Injectables Medications Aspirin = 81 mg, [...] Refills, Maintenance, 07/24/21 12:46:00 EDT, [facility], Partial fill upon p... Start Date: 07/24/21 [...] DIRECTED, # 113.4 Gm, 3 Refills, Maintenance, [facility], 30, USE DIRECTED, 158, cm, 05/09/21 14:04:00 [...] oldest [Reference Range]: 1 Height 158 cm (08/08/21 12:00 PM) Pulse Rate [55-90 bpm] 62 bpm (08/08/21 12:00 PM) Blood Pressure [90-138/55-84 mm Hg] 163/ 73mm Hg *H* (08/08/21 12:00 PM) Temperature [96.8-100.4 DegF] 98.8 DegF (08/08/21 12:00 PM) Blood pressure sites Arm, right (08/08/21 12:00 PM) Temperature Route Oral (08/08/21 12:00 PM) Social History Social History Type Response Tobacco Total pack years: 35 . Started at age: 14 Years. Stopped at age: 49 Years. Sex
--- OUTSIDE RECORDS SUMMARY | 2024-07-27 12:00 | XMS_ITS | Continuity of Care Document ---
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 Active Cleocin T BLOODY DIARRHEA Active Immunizations Given and Recorded Vaccine Date Status Refusal Reason influenza virus vaccine, inactivated 09/12/22 Michael rded influenza virus vaccine, inactivated 08/08/21 Michael rded influenza virus vaccine, inactivated 1 11/21/20 Gi cris influenza virus vaccine, inactivated 2 08/22/20 Re corded [id number] 12y+ bivalent booster vax 08/31/22 Recorded SARS-CoV-2 mRNA (jshtqqr-bjek-pvami) vax 03/16/22 Recorded SARS-CoV-2 (COVID-19) mRNA BNT-162b2 [...] diphtheria-tetanus toxoids (DT) 02/22/00 Given 1Result Comment: [id number] 2Result Comment: sarabjit SANDHU [facility] primary [facility] 3Result Comment: Unit: Unknown 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 Start Date: 05/09/21 Status: Ordered [place] Tears ophthalmic solution 1 drops, Eyes, Both, 2 times a day, PRN for dry eyes, # 30 each, 0 Refills, Maintenance, 09/15/22 1:54:00 EDT, [place], Partial fill upon patient request if the prescription is for a schedule II opioid drug. Start Date: 09/15/22 Status: Ordered [place] Tears ophthalmic solution 1 drops, Eyes, Both, [...] Team Personnel Name: Nick Alvarado NP Position: [facility] PCO Associate Professional Member Role: PCP Address: Address: [address] [place] [address]- Name: Elvia METZ, Trinh Position: S RN Member Role: Primary Care Nurse Name: Carrol Ta RN Position: S RN Member Role: Primary Care Nurse Name: Crystal Ceron RN Position: S RN Member Role: Primary Care Nurse Care Team Related Persons Name: RADHA MONTOYA Name: BRANDIE MONTOYA Address: [place] [address] Name: TREASURE MONTOYA Address: home [address] [place] [address] Name: JAI REED Address: home [address] [place] [address]
--- OUTSIDE RECORDS SUMMARY | 2024-07-27 12:00 | XMS_ITS | Continuity of Care Document ---
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
--- OUTSIDE RECORDS SUMMARY | 2024-07-27 12:00 | XMS_ITS | Continuity of Care Document ---
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 Role Phone Sam WEBER, Zara Jensen Primary Care Physician Encounter [facility] [place] [place] Date(s): 12/31/20 - 01/30/[address] [address]- Allergies, Adverse Reactions, Alerts Substance Reaction Severity [...] diphtheria-tetanus toxoids (DT) 02/22/00 Given 1Result Comment: [id number] 2Result Comment: sarabjit SANDHU [facility] primary care 3Result Comment: Unit: Unknown Groutman: [employer] 4Result Comment: Unit: Unknown Groutman: Pfizer Injectables Medications Aspirin = 81 mg, [...] 0 Refills, Soft Stop, 12/18/20 16:17:00 EST, [facility]/pharmacy #[id number], Partial fill [...]
--- OUTSIDE RECORDS SUMMARY | 2024-07-27 12:00 | XMS_ITS | Continuity of Care Document ---
Author Organization [facility] Medicine Address [address] [place] [address]- Care Team Providers Care Medical Administrative Technician Name Role Phone Christiano VIDES, Nick Primary Care Physician Encounter [facility] [place] Date(s): 04/06/23 - 05/16/23 [facility] Medicine [address] [place] [address]- Attending Physician: Nick Alvarado NP Admitting Physician: [...] virus vaccine, inactivated 2 08/22/20 Re corded [id number] 12y+ bivalent booster vax 08/31/22 Recorded SARS-CoV-2 mRNA (nkvdbwz-occc-metfo) vax 03/16/22 Recorded SARS-CoV-2 (COVID-19) mRNA BNT-162b2 [...] diphtheria-tetanus toxoids (DT) 02/22/00 Given 1Result Comment: [id number] 2Result Comment: sarabjit SANDHU [facility] primary care 3Result Comment: Unit: Unknown Rn Lab: [facility] 4Result Comment: Unit: Unknown Rn Lab: [facility] Injectables Medications atorvastatin 20 mg oral tablet [...] Refills, Maintenance, 04/28/23 21:41:00 EDT, [facility], 158, cm, 04/15/23 15:03:00 EDT, Height, 70, kg, 04/02/23 19:36:00 EDT, Dry Weight Start Date: 04/28/23 Status: Ordered [place] Vaginal Cream 0.1 mg/g = 1 Gm, Vaginally, Every Thursday and , Physician requests paraben free, # 30 Gm, 1 Refills, Maintenance, 02/05/23 15:29:00 EDT, [facility], Partial fill upon patient request if the prescription is for a schedule II opioid drug., 1... Start Date: 02/05/23 Status: Ordered famotidine 20 mg oral tablet 20 mg, 1, tablet, By Mouth, 2 times a day, PRN, # 60 tablet, Refills 5, Tot. Refills 5, Maintenance, Pain , Moderate, 03/03/23 15:46:00 EDT, Route to Pharmacy Electronically, [facility], Partial fill upon patient request if [...] 0 Refills, Maintenance, :05:00 EDT, [facility], 157, cm, 03/11/23 16:01:00 EDT, [...] opioid drug. Start Date: 05/09/21 Status: Ordered [place] Tears ophthalmic solution 1 drops, Eyes, Both, 2 times a day, PRN for dry eyes, # 30 each, 0 Refills, Maintenance, 09/15/22 1:54:00 EDT, [place], Partial fill upon patient request if the prescription is for a schedule II opioid drug. Start Date: 09/15/22 Status: Ordered [place] Tears ophthalmic solution 1 drops, Eyes, [...] Team Personnel Name: Nick Alvarado NP Position: [facility] PCO Associate Professional Member Role: PCP Address: Address: [address] [place] [address]- Name: Trinh Gan RN Position: [facility] RN Member Role: Primary Care Nurse Name: Carrol Ta RN Position: [facility] RN Member Role: Primary Care Nurse Name: Crystal Ceron RN Position: [facility] RN Member Role: Primary Care Nurse Care Team Related Persons Name: RADHA MONTOYA Address: [place], [place] Name: BRANDIE MONTOYA Address: [place] [address] Name: TREASURE MONTOYA Address: home [address] [place] [address] Name: JAI REED Address: home [address] [place] [address]
--- OUTSIDE RECORDS SUMMARY | 2024-07-27 12:00 | XMS_ITS | Continuity of Care Document ---
Author Organization [facility] Medicine Address [address] [place] [address]- Care Team Providers Care Renewable Energy Technician Name Role Phone Christiano VIDES, Nick Primary Care Physician [place] [facility] [place] 11/20/22 - 12/20/22 [facility] Medicine [address] [place] [address]- Allergies, Adverse Reactions, Alerts Substance Reaction Severity Status Ceftin ? Active Cleocin T BLOODY DIARRHEA Active Immunizations Given and Recorded Vaccine Date Status Refusal Reason influenza virus vaccine, inactivated 09/12/22 Michael rded influenza virus vaccine, inactivated 08/08/21 Michael rded influenza virus vaccine, inactivated 1 11/21/20 Gi cris influenza virus vaccine, inactivated 2 08/22/20 Re corded [id number] 12y+ bivalent booster vax 08/31/22 Recorded SARS-CoV-2 mRNA (vzicyac-snik-shvqn) vax 03/16/22 Recorded SARS-CoV-2 (COVID-19) mRNA BNT-162b2 [...] diphtheria-tetanus toxoids (DT) 02/22/00 Given 1Result Comment: [id number] 2Result Comment: sarabjit SANDHU [facility] primary care 3Result Comment: Unit: Unknown 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 Start Date: 05/09/21 Status: Ordered [place] Tears ophthalmic solution 1 drops, Eyes, Both, 2 times a day, PRN for dry eyes, # 30 each, 0 Refills, Maintenance, 09/15/22 1:54:00 EDT, [place], Partial fill upon patient request if the prescription is for a schedule II opioid drug. Start Date: 09/15/22 Status: Ordered [place] Tears ophthalmic solution 1 drops, Eyes, Both, 3 times a day, PRN for dry eyes, Maintenance, 09/15/22 10:43:00 EDT, Solution,Partial fill upon patient request if the prescription is for a schedule II opioid drug. Start Date: 09/15/22 Status: Ordered olmesartan 20 mg oral tablet 1 tablet, By Mouth, Daily, # 90 tablet, 3 Refills, Maintenance, 12/16/22 13:42:00 EST, [facility], 158, cm, 12/11/22 15:03:00 EST, Height, 71, kg, 12/11/22 15:03:00 EST, Dry Weight Start Date: 12/16/22 Status: Ordered Probiotic Formula By Mouth, Daily, [...] Professional Member Role: PCP Address: Address: [address] [place] [address]- Name: Trinh Gan RN Position: [facility] RN Member Role: Primary Care Nurse Name: Carrol Ta RN Position: [facility] RN Member Role: Primary Care Nurse Name: Crystal Ceron RN Position: [facility] RN Member Role: Primary Care Nurse Care Team Related Persons Name: RADHA MONTOYA Name: BRANDIE MONTOYA Address: [place] [address] Name: TREASURE MONTOYA Address: home [address] [place] [address] Name: JAI REED Address: home [address] [place] [address]
--- OUTSIDE RECORDS SUMMARY | 2024-07-27 12:00 | XMS_ITS | Continuity of Care Document ---
Author Organization [facility] Medicine Address [address] [place] [address]- Care Team Providers Care Resident Hall Director Name Role Phone Christiano VIDES, Nick Primary Care Physician [place] [facility] [place](s[place] 01/04/24 - 02/03/[address] [address]- Allergies, Adverse Reactions, Alerts Substance Reaction Severity Status Ceftin ? Active Cleocin T BLOODY DIARRHEA Active Immunizations Given and Recorded Vaccine Date Status Refusal Reason SARS-CoV-2(COVID-19)mRNA-LNP vac([id number]) 01/08/24 Given pneumococcal 20-valent conjugate vaccine 01/08/24 Given influenza virus vaccine, inactivated 09/12/22 Michael rded influenza virus vaccine, inactivated 08/08/21 Michael rded influenza virus vaccine, inactivated 1 11/21/20 Gi cris influenza virus vaccine, inactivated 2 08/22/20 Re corded [id number] 12y+ bivalent booster vax 08/31/22 Recorded SARS-CoV-2 mRNA (rjpdqid-gisl-hoqfx) vax 03/16/22 Recorded SARS-CoV-2 (COVID-19) mRNA BNT-162b2 [...] diphtheria-tetanus toxoids (DT) 02/22/00 Given 1Result Comment: [id number] 2Result Comment: sarabjit SANDHU [facility] primary care 3Result Comment: Unit: Unknown Advisory Application Developer: [employer] 4Result Comment: Unit: Unknown Advisory Application Developer: [employer] Injectables Medications atorvastatin 20 mg oral tablet 1 tablet, By Mouth, Daily at bedtime, # 90 tablet, 3 Refills, Maintenance, 01/05/24 11:50:00 EST, [facility], 158, cm, 11/24/23 11:30:00 EST, [...] Refills, Maintenance, 11/19/23 14:47:00 EST, [facility], 158, cm, 10/20/23 13:46:00 EST, [...] 08/27/23 21:16:00 EDT, Route to Pharmacy Electronically, [facility], 158, cm, 05/06/23 11:17:00 EDT, Height, 70, kg, 04/02/23 19:36:00 EDT, Dry Weight Start Date: 08/27/23 Status: Ordered fluticasone 50 mcg/inh nasal spray 1 sprays = 50 mcg, Nares, Both, 2 times a day, # 16 Gm, 0 Refills, Maintenance, 01/08/24 11:22:00 EST, [place], Partial fill upon patient request if the prescription is for a schedule II opioid drug., 1 sprays Nares, Both 2 [place]... Start Date: 01/08/24 Status: Ordered hydrocortisone 1% topical cream 1 application, Topically, 2 times a day, # 15 Gm, 0 Refills, Maintenance, 01/08/24 11:30:00 EST, Cream, [facility], Partial fill upon patient request if the prescription is for a schedule II opioid drug., 1 application Topically 2 times... Start Date: 01/08/24 Status: Ordered hydrOXYzine hydrochloride 25 mg oral tablet 1 tablet, By Mouth, Daily at bedtime, # 30 tablet, 0 Refills, Maintenance, 07/21/23 11:20:00 EDT, [facility], 158, cm, 05/06/23 11:17:00 EDT, [...] Refills, Maintenance, 12/14/23 15:43:00 EST, [facility], 158, cm, 11/24/23 11:30:00 EST, [...] opioid drug. Start Date: 05/09/21 Status: Ordered [place] Tears ophthalmic solution 1 drops, Eyes, Both, [...] Professional Member Role: PCP Address: Address: [address] [place], [place] [id number]- Name: Keyon METZ, Carrol Marie Position: [facility] SN RN Member Role: Primary Care Nurse Name: Crystal Ceron RN Position: S RN Member Role: Primary Care Nurse Care Team Related Persons Name: RADHA MONTOYA Address: [place], [place] Name: BRANDIE MONTOYA Address: [place] [address] Name: TREASURE MONTOYA Address: home [address] [place] [address] Name: JAI REED Address: home [address] [place] [address]
--- OUTSIDE RECORDS SUMMARY | 2024-07-27 12:00 | XMS_ITS | Continuity of Care Document ---
Author Organization [facility] Address [address] [place] [address]- Care Team Providers Care Configuration Consultant Name Role Phone Christiano VIDES, Nick Primary Care Physician [place] [facility]12/23 - 01/19/23 [facility] [place] [address] [place] [address]- Attending Physician: Not on Staff, Attending MD Referring Physician: Andrea Lima MD Allergies, Adverse Reactions, Alerts Substance Reaction Severity Status Ceftin ? Active Cleocin T BLOODY DIARRHEA Active Immunizations Given and Recorded Vaccine Date Status Refusal Reason influenza virus vaccine, inactivated 09/12/22 Michael rded influenza virus vaccine, inactivated 08/08/21 Michael rded influenza virus vaccine, inactivated 1 11/21/20 Gi cris influenza virus vaccine, inactivated 2 08/22/20 Re corded [id number] 12y+ bivalent booster vax 08/31/22 Recorded SARS-CoV-2 mRNA ([id number]) vax 03/16/22 Recorded SARS-CoV-2 (COVID-19) mRNA BNT-162b2 [...] diphtheria-tetanus toxoids (DT) 02/22/00 Given 1Result Comment: [id number] 2Result Comment: sarabjit SANDHU [facility] primary care 3Result Comment: Unit: Unknown Violin Repairer: [employer] 4Result Comment: Unit: Unknown Violin Repairer: Leosphere Injectables Medications atorvastatin 20 mg oral tablet [...] Refills, Maintenance, 12/18/21 15:56:00 EST, [facility], Partial fill upon patient request if the [...] opioid drug. Start Date: 05/09/21 Status: Ordered Chimayo Tears ophthalmic solution 1 drops, Eyes, Both, 2 times a day, PRN for dry eyes, # 30 each, 0 Refills, Maintenance, 09/15/22 1:54:00 EDT, Solution, Partial fill upon patient request if the prescription is for a schedule II opioid drug. Start Date: 09/15/22 Status: Ordered Chimayo Tears ophthalmic solution 1 drops, Eyes, Both, [...] [Reference Range]: 1 2 Height 157 cm (01/12/23 2:09 PM) 157 cm (01/12/23 2:07 PM) Weight 70.30 kg (01/12/23 2:07 PM) Oxygen Saturation [94-100 %] 99 % (01/12/23 2:07 PM) Pulse Rate [55-90 bpm] 70 bpm (01/12/23 2:07 PM) Body Mass Index [18.5-24.99 kg/m2] 28.52 kg/m2 *H* (01/12/23 2:07 PM) Blood Pressure [90-138/55-84 mm Hg] 113/ 45mm Hg (01/12/23 2:09 PM) 149/49mm Hg *H* (01/12/23 2:07 PM) Mode of Delivery (Oxygen) Room air (01/12/23 2:07 PM) Blood pressure sites Arm, left (01/12/23 2:09 PM) Arm, left (01/12/23 2:07 PM) Weight Obtained Via stated (01/12/23 2:07 PM) Social History Social History Type Response Tobacco Total pack years: 35 . Started at age: 14 Years. Stopped at age: 49 Years. Sex Cardiology Outpatient Note * Marisol Hernandez NP: MODIFY, PERFORM Event Display: Cardiology Note Office Authored Date: Patient: ??CARLOTA REED ? Age:??87 Years?Sex:??Female?:??1935?? Patient Hx Cardiology Shared Clinical Summary 1.?? Dyslipidemia 2.?? Hypertension 3.?? Obstructive sleep apnea on CPAP 4.?? SVT / atrial tachycardia with palpitations improved on beta serina. 5.?? LBBB Indication for Consult 2 month follow up palpitations.?? ER visit November for chest pain and belching consistent with GI symptoms.?? Prescribed famotidine.?? Hasn't taken. ER visit for several symptoms and hypertension.?? Whooshing and clicking in ears, shoulder discomfort.?? Worried about medications causing ill effects.?? History of Present Illness/Interval History I am seeing Carlota today in 2-month follow-up regarding palpitations.?? Her metoprolol has been increased and the palpitations have resolved.?? Unfortunately she continues to feel generally quite unwell.?? She feels like she has been sick since her 2 years ago.?? She has quite a bit of anxiety and her blood pressure fluctuates quite a bit.?? Her memory has been worsening and she isforgetful.?? She is having stomach and epigastric discomfort and burping up and unpleasant taste inher mouth.?? No exertional chest pain or shortness of breath.?? She has not been getting to her exercise class or walking much.?? She is afraid to fall.?? She did not start the famotidine for concernof side effects.?? She started escitalopram for anxiety and depression about a month ago.?? No concerning cardiac findings on either of her recent ER visits aside from hypertension.?? She has been checking her blood pressure at home and had the [facility] nurse check her blood pressure cuff that is foundto be accurate.?? Her blood pressure is quite labile anywhere from 130s to 170s systolic.?? She tryto calm down and check it again later.?? She has mild lower extremity edema.?? Continues to have dizziness and vertigo. Review of Systems see HPI Physical Exam Vitals & Measurements TN:??70?? BP:??113/45?? SpO2:??99%?? HT:??157??cm?? WT:??70.30??kg?? BMI:??28.52?? Weight lb/oz: 154 lb 16 oz ?? Constitutional: Alert, in no distress. Mental Status: Oriented to person, place and time. Respiratory: Clear to auscultation. No wheezing, rales or rhonchi. Cardiovascular:S1 S2 regular rate and rhythm??No murmurs, rub, or gallop??mild LE edema.?? Skin: No rashes or lesions. No petechiae or purpura.?? Musculoskeletal: No cyanosis or clubbing. No gross deformities. Normal range of motion. Psychiatric: Normal mood and affect, anxious Assessment/Plan 1.?? HTN.?? Labile.?? I think anxiety and discomfort in her body effect BP significantly.?? Good reading today.?? Discussed hydration and low sodium diet.?? Walking for exercise or getting back to exercise class.?? She has a rollator walker she could use, which I think she would benefit from.?? If needed to back off on beta serina due to bradycardia could increase olmesartan. 2.?? SVT.?? Improved on increased beta serina.?? Pulse at home usually 50's?? did see high 40's onhome readings today.?? May need to back off.?? She will cont. to monitor.?? 3.?? Anxiety.?? I think living alone since her is becoming increasingly difficult.?? Ithink she worries about her medications and her health and has a lot of fears.?? She has 3 childrennone of who live local, but all are supportive.?? Her daughter in [facility] would like her to move in with her.?? Carlota is considering assisted living.?? She has been referred for memory testing. ?? She will cont. to monitor BP and pulse, stay hydrated, avoid sodium in diet, eat regular meals/ snacks, try to get to uatsdin/ exercise class, reach out to family and friends for support.?? Will follow up with PCP in near future.?? I did explain role of famotidine and advise her to take 20mg twice daily.?? Follow up in a few months. Allergies Ceftin??(?) Cleocin T??(BLOODY DIARRHEA) Home Medications atorvastatin 20 mg oral tablet, 1 tablet, By Mouth, Daily at bedtime, 3 refills Caltrate 600 + D, By Mouth, 2 times a day Clotrimazole 1% Topical, 1 application, Topically, 2 times a day, Toenails escitalopram 5 mg oral tablet, 5 mg= 1 tablet, By Mouth, Daily, 1 refills Estrace Vaginal Cream 0.1 mg/g, 1 Gm, Vaginally, Every Thursday and , 1 refills, Physician requests paraben free famotidine 20 mg oral tablet, 20 mg= 1 tablet, By Mouth, 2 times a day, PRN,?Not taking ICaps AREDS 2 levothyroxine 0.05 mg oral tablet, See Instructions, 1 refills, TAKE 1/2 TABLET BY MOUTH EVERY DAY meclizine 25 mg oral tablet, 25 mg= 1 tablet, By Mouth, 3 times a day, PRN,?Not taking Metoprolol Tartrate 25 mg oral tablet, 50 mg= 2 tablet, By Mouth, 2 times a day, 3 refills MiraLax oral powder for reconstitution, 17 Gm, By Mouth, Daily, dissolve in water before taking Chimayo Tears ophthalmic solution, 1 drops, Eyes, Both, 2 times a day, PRN Chimayo Tears ophthalmic solution, 1 drops, Eyes, Both, [...] (01/07/23) Abs. Lymph: 2.7 k/mm3 (01/07/23) Abs. Young: 0.9 k/mm3 (01/07/23) Abs. Eo: 0.2 k/mm3 (01/07/23) Abs. Baso: 0.1 k/mm3 (01/07/23) Neut %: 48.7 % (01/07/23) Young %:??11.6 %??High (01/07/23) Eos %: 2.6 % (01/07/23) Baso %: 1.1 % (01/07/23) Imm Gran: 0.3 % (01/07/23) Abs. Imm Gran: 0 k/mm3 (01/07/23) Sodium:??132 mmol/L??Low (01/07/23) Potassium: 4.5 mmol/L (01/07/23) Chloride:??95 mmol/L??Low (01/07/23) Bicarbonate Level: 28 mmol/L (01/07/23) Glucose Level:??126 mg/dL??High (01/07/23) BUN: 14 mg/dL (01/07/23) Creatinine-Blood: 0.6 mg/dL (01/07/23) Calcium: 9 mg/dL (01/07/23) Troponin T Quant: <0.01 (09/15/22) Nt-Probnp: 291 pg/mL (12/11/22) Cholesterol: 129 mg/dL (06/20/22) Triglycerides: 83 mg/dL [...] 2. Chronic findings as above. ? WSN: [id number] ? Ordering Physician: Alek Zazueta ?? Signed By: Nickolas Cruz MD ECG ECG 12-Lead ?? 15:32:49 Please click on pdf link to open report ?? Signed By: Aamir MD, Juan A Stress Test NM Myocard Perf SPECT Multi [...] artery disease Mat. Grandfather (): Heart attack [1]??Cardiology Office Visit Note Established; Marisol Hernandez NP 11/27/2021 17:00 EST Note * Kat Mora: PERFORM, SIGN, VERIFY Event Display: Patient Education/Instruction Authored Date: [id number] [facility] Clinical Summary Name CARLOTA REED Age 87 Years 1935 PCP Nick Alvarado NP PCP Visit Date 01/12/2023 13:49:00 Additional Instructions: Scheduled Appointments?? Future Appointments ?*[facility]Med ?[address]??[place],??[place],??[address] ?Phone:??--?Fax:??-- ?Appt. Date:??01/15/2023?3:10 PM ?Scheduled Provider:??Christiano VIDES, Nick ?*[facility]Urology ?[address]??[place],??[place],??[address] ?Phone:??--?Fax:??-- ?Appt. Date:??02/03/2023?3:00 PM ?Scheduled Provider:??Chantelle ARROYO, Mery Marie Follow-Up Instructions ?? With: Address: When: Marisol Hernandez [address] [place] [id number] [facility] (1) 04/14/2023 1:30 PM Diagnosis Medications: Please continue your medications until treatment is completed or stopped by your provider. Discuss any questions related to medications with your provider. Medications to Continue with No Changes These medications were not printed or sent to your pharmacy Atorvastatin (atorvastatin 20 mg oral tablet) 1 tab(s) Oral Daily at Bedtime. Refills: 3. Next Dose: bifidobacterium-lactobacillus (Probiotic Formula) Oral Daily. Next Dose: Clotrimazole Topical (Clotrimazole 1% Topical) 1 yaima Topically twice a day. Toenails. Next Dose: Cyclosporine Ophthalmic (Restasis 0.05% ophthalmic emulsion) 1 Drops Both eyes every 12 hours. Next Dose: Cyclosporine Ophthalmic (Restasis 0.05% ophthalmic emulsion) 1 Drops every 12 hours. Next Dose: Escitalopram (escitalopram 5 mg oral tablet) 1 tab(s) Oral Daily. Refills: 1. Next Dose: Estradiol Topical (Estrace Vaginal Cream 0.1 mg/g) 1 gram Vaginally every Thursday and . Physician requests paraben free. Refills: 1. Next Dose: Famotidine (famotidine 20 mg oral tablet) 1 tab(s) Oral twice a day as needed Pain , Moderate. Refills: 0. Next Dose: Levothyroxine (levothyroxine 0.05 mg oral tablet) TAKE 1/2 TABLET BY MOUTH EVERY DAY. Refills: 1. Next Dose: Meclizine (meclizine 25 mg oral tablet) 1 tab(s) Oral 3 times a day as needed for dizziness. Refills: 0. Next Dose: Metoprolol (Metoprolol Tartrate 25 mg oral tablet) 2 tab(s) Oral twice a day. Refills: 3. Next Dose: Multivitamin With Minerals (ICaps AREDS 2) Next Dose: Ocular Lubricant (Chimayo Tears ophthalmic solution) 1 Drops Both eyes 3 times a day as needed for dry eyes. Next Dose: Ocular Lubricant (Chimayo Tears ophthalmic solution) 1 Drops Both eyes twice a day as needed for dry eyes. Next Dose: Olmesartan (olmesartan 20 mg oral tablet) 1 tab(s) Oral Daily. Refills: 3. Next Dose: Polyethylene Glycol 3350 (MiraLax oral powder for reconstitution) 17 gram Oral Daily. dissolve in water before taking. Refills: 0. Next Dose: No Longer Take the Following Medications Calcium And Vitamin D Combination (Caltrate 600 + D) Oral twice a day. Allergy Info:?? Cleocin T; Ceftin Medications Given This Visit Future Orders ?No future orders Vital Signs Height 157 cm Weight 70.30 kg BMI 28.52 kg/m2 Blood Pressure 113 mm Hg/45 mm Hg Temperature Pulse Rate 70 bpm Respiratory Rate 02 Sat Mode of Delivery 99 %/Room air You can now view a summary of your hospital visit from the comfort of your home through a free online portal called [employer]. [employer] is a website that allows you to securely view your medical information including discharge summary, medications and follow-up visits. ??You can alsosend a secure electronic message to your doctor???s office to request appointments, renew medications or just ask a question. You can enroll at [email or web address] or register during your next office visit. [...] primary care provider, you may find a [facility] provider by calling [facility] [employer] at [phone]. For information about the plan of care [...] Associate Professional Member Role: PCP Address: Address: [address] [place] [address] Name: Elvia METZ, Trinh Position: S RN Member Role: Primary Care Nurse Name: Keyon RN, Carrol Marie Position: S RN Member Role: Primary Care Nurse Name: Crystal Ceron RN Position: [facility] RN Member Role: Primary Care Nurse Care Team Related Persons Name: RADHA MONTOYA Name: BRANDIE MONTOYA Address: [place] [address] Name: CARLOTA MONTOYA Address: home [address] [place] [address] Name: JAI REED Address: home [address] [place] [address]
--- OUTSIDE RECORDS SUMMARY | 2024-07-27 12:00 | XMS_ITS | Continuity of Care Document ---
Author Organization [facility] Address [address] [place] [address]- Care Team Providers Care Machine Molder Squeeze Name Role Phone Sam WEBER, Zara Jensen Primary Care Physician Encounter [facility] Date(s): 06/20/20 - 09/09/20 [facility] [address] [place] [address]- [facility] Attending Physician: Aureliano Tiwari MD Admitting Physician: [...] (DT) 02/22/00 Given 1Result Comment: Unit: Unknown Medical Device Assembler: Opara 2Result Comment: Unit: Unknown Medical Device Assembler: ClearSaleing Injectables Medications Aspirin = 81 mg, By [...] 7 cm [place] [facility] [place] prn mask and suppliesas [...] 0, 0, 02/21/06 7:36:57, Print CAMILO Number, [id number], Constant Indicator Start Date: 02/21/06 Status: Ordered [...]
--- OUTSIDE RECORDS SUMMARY | 2024-07-27 12:00 | XMS_ITS | Continuity of Care Document ---
Author Organization [facility] Address [address] [place] [address]- Care Team Providers Care Interior Assemblies Developer Prover Name Role Phone Christiano VIDES, Nick Primary Care Physician En[facility] [place] Date(s): 08/02/21 - 08/09/21 [facility] [address] [place], [place] [address] Attending Physician: Isamar Sibley MD Admitting Physician: [...] diphtheria-tetanus toxoids (DT) 02/22/00 Given 1Result Comment: [id number] 2Result Comment: sarabjit SANDHU [facility] primary care 3Result Comment: Unit: Unknown Billboard Erector: Omnitureine 4Result Comment: Unit: Unknown Billboard Erector: Pfizer Injectables Medications Aspirin = 81 mg, By Mouth, Daily before lunch, 0 Refills, Maintenance, 01/09/11 5:04:09 EST Start Date: 01/09/11 Status: Ordered atorvastatin 20 mg oral tablet 1 tablet = 20 mg, By Mouth, Daily at bedtime, # 90 tablet, 3 Refills, Maintenance, 12/12/20 15:31:00 EST, Tablet, [facility]/pharmacy #[id number], 158, cm, 11/21/20 11:06:00 EST, [...] Refills, Maintenance, 07/24/21 12:46:00 EDT, [facility], Partial fill upon p... Start Date: 07/24/21 Status: Ordered metoprolol 25 mg oral tablet 25 mg, 1, tablet, By Mouth, 2 times a day, Dose is now 25mg BID, # 180 tablet, Refills 3, Tot. Refills 3, Maintenance, 12/05/20 14:30:00 EST, Route to Pharmacy Electronically, [facility]/pharmacy #[id number], Partial fill upon patient request [...] DIRECTED, # 113.4 Gm, 3 Refills, Maintenance, [id number], 30, USE DIRECTED, 158, cm, 05/09/21 14:04:00 [...]
--- OUTSIDE RECORDS SUMMARY | 2024-07-27 12:00 | XMS_ITS | Continuity of Care Document ---
Author Organization [facility] Address [address] [place] [address]- Care Team Providers Care Hog Confinement System Manager Name Role Phone Christiano VIDES, Nick Primary Care Physician [phone] [place] [facility] Date(s): 08/02/21 - 08/09/21 [facility] [address] [place] [address]- Attending Physician: Not on Staff, Attending MD Allergies, Adverse Reactions, Alerts Substance Reaction [...] diphtheria-tetanus toxoids (DT) 02/22/00 Given 1Result Comment: [id number] 2Result Comment: sarabjit SANDHU [facility] primary care 3Result Comment: Unit: Unknown Cytology Technologist: PadSquad 4Result Comment: Unit: Unknown Cytology Technologist: Pfizer Injectables Medications Aspirin = 81 mg, By Mouth, Daily before lunch, 0 Refills, Maintenance, 01/09/11 5:04:09 EST Start Date: 01/09/11 Status: Ordered atorvastatin 20 mg oral tablet 1 tablet = 20 mg, By Mouth, Daily at bedtime, # 90 tablet, 3 Refills, Maintenance, 12/12/20 15:31:00 EST, Tablet, [facility]/pharmacy #[id number], 158, cm, 11/21/20 11:06:00 EST, [...] Refills, Maintenance, 07/24/21 12:46:00 EDT, [facility], Partial fill upon p... Start Date: 07/24/21 Status: Ordered metoprolol 25 mg oral tablet 25 mg, 1, tablet, By Mouth, 2 times a day, Dose is now 25mg BID, # 180 tablet, Refills 3, Tot. Refills 3, Maintenance, 12/05/20 14:30:00 EST, Route to Pharmacy Electronically, [facility]/pharmacy #[id number], Partial fill upon patient request if the prescription i... Start Date: 12/05/20 Stop Date: 11/30/21 Status: Ordered olmesartan 20 mg oral tablet 1 tablet = 20 mg, By Mouth, Daily, Dosage has been reduced to 20mg / day, # 30 tablet, 5 Refills, Maintenance, 09/19/20 14:11:00 EDT, Tablet, [facility]/pharmacy #[id number], 158, cm, 09/18/20 15:50:00 EDT, Height, 69, kg, 09/13/20 5:27:00 EDT, Dry Weight Start Date: 09/19/20 Status: Ordered Trimo-Mcclure 0.025% vaginal gel with applicator See Instructions, USE DIRECTED, # 113.4 Gm, 3 Refills, Maintenance, [id number], 30, USE DIRECTED, 158, cm, 05/09/21 14:04:00 [...]
--- OUTSIDE RECORDS SUMMARY | 2024-07-27 12:01 | XMS_ITS | Continuity of Care Document ---
Author Organization [facility] Address [address] [place] [address]- Care Team Providers Care Computer Typesetter Keyliner Name Role Phone Sam WEBER, Zara Jensen Primary Care Physician Encounter [facility] [place] Date(s): 08/02/21 - 09/29/[address] [address]- Attending Physician: Isamar Sibley MD Admitting Physician: [...] diphtheria-tetanus toxoids (DT) 4/1/00 Given 1Result Comment: [id number] 2Result Comment: sarabjit SANDHU [facility] primary care 3Result Comment: Unit: Unknown Instructional Specialist: SANDOW 4Result Comment: Unit: Unknown Instructional Specialist: Pfizer Injectables Medications Aspirin = 81 mg, [...] EDT, [id number], Apply Clenpiq Coupon: RxBIN [id number]; RxPCN: [id number]; RxGrp: [id number]; RxID: [id number]... Start Date: 08/30/21 Status: Ordered Estrace Vaginal [...] 5 Refills, Maintenance, 09/19/20 14:11:00 EDT, Tablet, [facility]/pharmacy #[id number], 158, cm, 09/18/20 15:50:00 EDT, Height, 69, kg, 09/13/20 5:27:00 EDT, Dry Weight Start Date: 09/19/20 Status: Ordered Trimo-Mcclure 0.025% vaginal gel with applicator See Instructions, USE DIRECTED, # 113.4 Gm, 3 Refills, Maintenance, [id number], 30, USE DIRECTED, 158, cm, 05/09/21 14:04:00 [...]
--- OUTSIDE RECORDS SUMMARY | 2024-07-27 12:01 | XMS_ITS | Continuity of Care Document ---
Author Organization [facility] Address [address] [place] [address]- Care Team Providers Care Bath House Attendant Name Role Phone Zara Vargas MD Primary Care Physician Encounter [facility] Date(s): 06/28/20 - 07/05/20 [facility] [place] [address] [facility] 2nd Floor [address] [place] [address]- [place] Attending Physician: Jadiel Taylor Jr, MD Admitting Physician: Jadiel Taylor Jr, MD Referring Physician: Zara Vargas MD Allergies, [...] Maintenance, CPAP 7 cm H2O dx [facility] [place] 3 [place] prn mask and suppliesas [...] Maintenance, Tablet Start Date: 01/09/11 Status: Ordered metoprolol 25 mg oral tablet 25 mg, 1, tablet, By Mouth, 2 times a day, # 60 tablet, Refills 6, Tot. Refills 6, Maintenance, 06/28/20 8:52:00 EDT, Route to Pharmacy Electronically, [facility]/pharmacy #[id number], 158, cm, 06/28/20 8:18:00 EDT, Height, 70, kg, 05/22/20 13:54:00 EDT, Dry Weight Start Date: 06/28/20 Status: Ordered Multivitamin 1, tablet, By Mouth, Daily, 0, 0, 02/21/06 7:36:57, Print CAMILO Number, [id number], Constant Indicator Start Date: 4/1/06 Status: Ordered Probiotic Formula 1 capsule, By [...] oldest [Reference Range]: 1 Height 158 cm (06/28/20 8:18 AM) Weight 69 kg (06/28/20 8:18 AM) Oxygen Saturation [94-100 %] 99 % (06/28/20 8:18 AM) Body Mass Index [18.5-24.99] 27.64 *H* (06/28/20 8:18 AM) Blood Pressure [90-138/55-84 mm Hg] 140/ 70mm Hg *H* (06/28/20 8:18 AM) Blood pressure sites Arm, left (06/28/20 8:18 AM) Weight Obtained Via Standing scale (06/28/20 8:18 AM) Social History Social History Type Response Smoking Status Former smoker; Other : Smoked 1PPD from age 14. Quit 33Y ago.; entered on: 09/15/17 Sex
--- OUTSIDE RECORDS SUMMARY | 2024-07-27 12:01 | XMS_ITS | Continuity of Care Document ---
Author Organization [facility] Address [address] [place] [address]- Care Team Providers Care Criminal Lawyer Name Role Phone Sam WEBER, Zara Jensen Primary Care Physician En[place] [facility] [place] Date(s): 09/12/20 - 09/14/[address] [address]- [place] [phone] Discharge Disposition: A-D/C Home Attending Physician: Felecia Dunaway MD Admitting Physician: Zunilda Patrick MD Referring Physician: Not on Staff, Referring [...] (DT) 02/22/00 Given 1Result Comment: Unit: Unknown Radio Script Writer: Vibrow 2Result Comment: Unit: Unknown Radio Script Writer: Payteller Injectables Medications Aspirin = 81 mg, By [...] 0, 0, 02/21/06 7:36:57, Print CAMILO Number, [id number], Constant Indicator Start Date: 02/21/06 Status: Ordered [...] Range]: 1 2 3 Height 158 cm (09/14/20 11:00 AM) 158 cm (09/14/20 7:05 AM) 158 cm (09/14/20:21 AM) Weight 67.7 kg (09/13/20:21 AM) 67.7 kg (09/13/20 4:44 AM) 69 kg (09/13/20 4:00 AM) Oxygen Saturation [94-100 %] 99 % (09/14/20 11:00 AM) 97 % (09/14/20 7:05 AM) 97 % (09/14/20:21 AM) Pulse Rate [55-90 bpm] 75 bpm (09/14/20 11:00 AM) 60 bpm (09/14/20 8:55 AM) 60 bpm (09/14/20 7:05 AM) Body Mass Index [18.5-24.99] 27.12 *H* (09/13/20 5:21 AM) 27.12 *H* (09/13/20 4:44 AM) 27.64 *H* (09/13/20 4:00 AM) Blood Pressure [90-138/55-84 mm Hg] 110/75mm Hg (09/14/20 11:00 AM) 129/60mm Hg (09/14/20 8:55 AM) 129/60mm Hg (09/14/20 8:17 AM) Respiratory Rate [16-30 br/min] 17 br/min (09/14/20 11:00 AM) 16 br/min (09/14/20 7:05 AM) 16 br/min (09/14/20:21 AM) Temperature [96.8-100.4 DegF] 98.2 DegF (09/14/20 11:00 AM) 97.5 DegF (09/14/20 7:05 AM) 97.6 DegF (10/23/20 4:21 AM) Liters per Minute 0 L/min (09/14/20 11:00 AM) 0 L/min (09/13/20 7:33 PM) 0 L/min (09/13/20 3:30 PM) Mode of Delivery (Oxygen) Room air (09/14/20 11:00 AM) Room air (09/14/20 7:05 AM) Room air (09/14/20 4:21 AM) Blood pressure sites Arm, left (09/14/20 11:00 AM) Arm, left (09/14/20 7:05 AM) Arm, left (09/14/20 4:21 AM) Temperature Route Oral (09/14/20 11:00 AM) Oral (09/14/20 7:05 AM) Oral (09/14/20 4:21 AM) Dry Weight 69 kg (09/13/20 5:21 AM) 69 kg (09/13/20 4:00 AM) 69 kg (09/13/20 3:00 AM) Weight Obtained Via Bed scale (09/13/20 5:21 AM) Bed scale (09/13/20 4:44 AM) Dry Weight Obtained Via Patient/family s tated (09/13/20 5:21 AM) Social History Social History Type Response Smoking Status Former smoker; Other : Smoked 1PPD from age 14. Quit 33Y ago.; entered on: 09/15/17 Sex
--- OUTSIDE RECORDS SUMMARY | 2024-07-27 12:01 | XMS_ITS | Continuity of Care Document ---
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 Start Date: 07/24/21 Status: Ordered Metoprolol Tartrate 25 mg oral tablet 1 tablet, By Mouth, 2 times a day, # 180 tablet, 3 Refills, Maintenance, 12/02/21 11:49:00 EST, [facility], 157.48, cm, 11/27/21 12:51:00 EST, Height, 68.8, kg, 09/03/21 11:11:00 EDT, Dry Weight Start Date: 1/10/22 Status: Ordered Misc Rx Refills 0, Maintenance, [...] 5 Refills, Maintenance, 09/19/20 14:11:00 EDT, Tablet, [facility]/pharmacy #1095, 158, cm, 09/18/20 [...] oldest [Reference Range]: 1 Height 157.48 cm (12/05/21 8:08 AM) Social History Social History Type Response Tobacco Total pack years: 35 . Started at age: 14 Years. Stopped at age: 49 Years. Sex
--- OUTSIDE RECORDS SUMMARY | 2024-07-27 12:01 | XMS_ITS | Continuity of Care Document ---
Author Organization [facility] Address [address] [place] [address]- Care Team Providers Care Credit Collection Specialist Name Role Phone Christiano VIDES, Nick Primary Care Physician En[place] [facility] Date(s): 06/24/23 - 07/24/23 [facility] [address] [place] [address]- Attending Physician: Silas Duncan Admitting Physician: Silas [...] virus vaccine, inactivated 2 08/22/20 Re corded [id number] 12y+ bivalent booster vax 08/31/22 Recorded SARS-CoV-2 mRNA (cgxfrjg-ugiu-nifcf) vax 03/16/22 Recorded SARS-CoV-2 (COVID-19) mRNA BNT-162b2 [...] diphtheria-tetanus toxoids (DT) 02/22/00 Given 1Result Comment: [id number] 2Result Comment: sarabjit SANDHU [facility] 3Result Comment: Unit: Unknown 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 Start Date: 03/03/23 Status: Ordered hydrOXYzine hydrochloride 25 mg oral tablet 1 tablet, By Mouth, Daily at bedtime, # 30 tablet, 0 Refills, Maintenance, 07/21/23 11:20:00 EDT, [facility] #[facility], 158, cm, 05/06/23 [...] 1 Refills, Maintenance, 05/29/23 15:49:00 EDT, [facility] #[facility], 158, cm, 05/06/23 11:17:00 EDT, Height, 70, kg, 04/02/23 19:36:00 EDT, Dry Weight Start Date: 05/29/23 Status: Ordered Metoprolol Tartrate 25 mg oral tablet 2 tablet = 50 mg, By Mouth, 2 times a day, # 360 tablet, 3 Refills, Maintenance, 12/16/22 13:42:00 EST, [facility], 158, cm, 12/11/22 15:03:00 EST, [...] drug. Start Date: 05/09/21 Status: Ordered [place] Tears ophthalmic solution 1 drops, Eyes, Both, 2 times a day, PRN for dry eyes, # 30 each, 0 Refills, Maintenance, 09/15/22 1:54:00 EDT, Solution, Partial fill upon patient request if the prescription is for a schedule II opioid drug. Start Date: 09/15/22 Status: Ordered [place] Tears ophthalmic solution 1 drops, Eyes, Both, [...] Team Personnel Name: Nick Alvarado NP Position: [facility] PCO Associate Professional Member Role: PCP Address: Address: [address] [place] [id number]- Name: Elvia METZ, Trinh Position: [facility] RN Member Role: Primary Care Nurse Name: Carrol Ta RN Position: [facility] RN Member Role: Primary Care Nurse Name: Crystal Ceron RN Position: [facility] RN Member Role: Primary Care Nurse Care Team Related Persons Name: RADHA MONTOYA Address: [place], [place] Name: BRANDIE MONTOYA Address: [place] [address] Name: TREASURE MONTOYA Address: home [address] [place] [id number] Name: JAI REED Address: home [address] [place] [address]
--- OUTSIDE RECORDS SUMMARY | 2024-07-27 12:01 | XMS_ITS | Continuity of Care Document ---
Author Organization [facility] Address [address] [place] [address]- Care Team Providers Care Bleach Liquor Maker Name Role Phone Zara Vargas MD Primary Care Physician [phone] Encounter [facility] Date(s): 04/27/20 - 08/25/20 [facility] [address] [place] [address]- [facility] Attending Physician: Aureliano Tiwari MD Admitting [...] (DT) 02/22/00 Given 1Result Comment: Unit: Unknown Bindery Leadperson: [employer] 2Result Comment: Unit: Unknown Bindery Leadperson: [employer] Injectables Medications Aspirin = 81 mg, By [...] Maintenance, CPAP 7 cm H2O dx [facility] epr 3 ramp prn [...] Refills, Soft Stop, 08/21/20 11:44:00 EDT, Tablet, [facility] #1095, 158, cm, 08/21/20 11:15:00 EDT, Height, [...] 0, 0, 02/21/06 7:36:57, Print CAMILO Number, [id number], Constant Indicator Start Date: 02/21/06 Status: Ordered [...]
--- OUTSIDE RECORDS SUMMARY | 2024-07-27 12:01 | XMS_ITS | Continuity of Care Document ---
Author Organization [facility] Address [address] [place] [address]- Care Team Providers Care Ground Support Agent Name Role Phone Sam WEBER, Zara Jensen Primary Care Physician [phone] Encounter [facility] Date(s): 11/05/20 - 12/05/20 [facility] [place] [address] [facility] 2nd Floor [address] [place] [address]- Attending Physician: AdmSilas pierce Admitting Physician: AdmtrSilas Referring Physician: Admtr, Ar8 [...] diphtheria-tetanus toxoids (DT) 02/22/00 Given 1Result Comment: [id number] 2Result Comment: sarabjit SANDHU [facility] 3Result Comment: Unit: Unknown 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 Leather Parts: [employer] 4Result Comment: Unit: Unknown Matcher Leather Parts: Pfizer Injectables Medications Aspirin = 81 mg, By Mouth, Daily before lunch, 0 Refills, Maintenance, 01/09/11 5:04:09 EST Start Date: 01/09/11 Status: Ordered atorvastatin 20 mg oral tablet 1 tablet = 20 mg, By Mouth, Daily at bedtime, # 30 tablet, 6 Refills, Maintenance, 06/05/20 15:31:00 EDT, Tablet, [facility]/pharmacy #1095, 158, cm, 06/05/20 14:54:00 EDT, [...] 12/05/20 14:30:00 EST, Route to Pharmacy Electronically, [facility]/pharmacy #1095, Partial fill upon patient request if the prescription i... Start Date: 12/05/20 Stop Date: 11/30/21 Status: Ordered olmesartan 20 mg oral tablet 1 tablet = 20 mg, By Mouth, Daily, Dosage has been reduced to 20mg / day, # 30 tablet, 5 Refills, Maintenance, 09/19/20 14:11:00 EDT, Tablet, [facility]/pharmacy #1095, 158, cm, 09/18/20 15:50:00 EDT, [...]
--- OUTSIDE RECORDS SUMMARY | 2024-07-27 12:01 | XMS_ITS | Continuity of Care Document ---
Author Organization [facility] Address [address] [place] [address]- Care Team Providers Care Foil Spooler Name Role Phone Maged Mendoza MD Primary Care Physician Encounter [facility] Date(s): 11/11/19 - 11/18/[address] [address]- Attending Physician: Sofia Chacon MD Admitting Physician: [...] 0, 0, 02/21/06 7:36:57, Print CAMILO Number, [id number], Constant Indicator Start Date: 02/21/06 Status: Ordered nystatin topical 891219 u/gm powder 1 applicator, Topically, Daily in [...] Effective Dates Status Health Status Inform ant Sami's pupil(Confirmed) Active Aortic insufficiency(Confirmed) Active Appendectomy(Confirmed) Active Dental prophylaxis, adult - needed(Confirmed) Active H/O: hysterectomy(Confirmed) Active , 3, sab 1(Confirmed) Active Lactose intolerance(Confirmed) Active Migraine(Confirmed) Active Osteopenia(Confirmed) Active Peptic ulcer disease(Confirmed) 1970 Active 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 Quit 33Y ago.; entered on: 09/15/17 Sex
--- OUTSIDE RECORDS SUMMARY | 2024-07-27 12:01 | XMS_ITS | Continuity of Care Document ---
Author Organization [facility] Address [address] [place] [address]- Care Team Providers Care Runner Man Name Role Phone Christiano VIDES, Nick Primary Care Physician [place] [facility] Date(s): 11/27/23 - 12/27/[address] [address]- Allergies, Adverse Reactions, Alerts Substance Reaction Severity Status Ceftin ? Active Cleocin T BLOODY DIARRHEA Active Immunizations Given and Recorded Vaccine Date Status Refusal Reason influenza virus vaccine, inactivated 09/12/22 Michael rded influenza virus vaccine, inactivated 08/08/21 Michael rded influenza virus vaccine, inactivated 1 11/21/20 Gi cris influenza virus vaccine, inactivated 2 08/22/20 Re corded [id number] 12y+ bivalent booster vax 08/31/22 Recorded SARS-CoV-2 mRNA (brlciig-kigq-rrzce) vax 03/16/22 Recorded SARS-CoV-2 (COVID-19) mRNA BNT-162b2 [...] diphtheria-tetanus toxoids (DT) 02/22/00 Given 1Result Comment: [id number] 2Result Comment: sarabjit SANDHU [facility] 3Result Comment: Unit: Unknown 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 Injectables Medications atorvastatin 20 mg oral tablet [...] 08/27/23 21:16:00 EDT, Route to Pharmacy Electronically, [facility], 158, cm, 05/06/23 11:17:00 EDT, Height, 70, kg, 04/02/23 19:36:00 EDT, Dry Weight Start Date: 08/27/23 Status: Ordered hydrOXYzine hydrochloride 25 mg oral tablet 1 tablet, By Mouth, Daily at bedtime, # 30 tablet, 0 Refills, Maintenance, 07/21/23 11:20:00 EDT, [facility] #[facility], 158, cm, 05/06/23 11:17:00 EDT, [...] mL, 0 Refills, Maintenance, 10/28/23 17:05:00 EST, [facility] #[facility], Partial fill upon patient request if the prescription is for a schedule II opioid drug., 1 sprays Nares, Both Daily at... Start Date: 10/28/23 Status: Ordered levothyroxine 0.05 mg oral tablet 0.5 tablet, By Mouth, Daily, # 45 tablet, 1 Refills, Maintenance, 08/27/23 21:17:00 EDT, [facility], 158, cm, 05/06/23 11:17:00 EDT, Height, 70, kg, 04/02/23 19:36:00 EDT, Dry Weight Start Date: 08/27/23 Status: Ordered Metoprolol Tartrate 25 mg oral tablet 2 tablet = 50 mg, By Mouth, 2 times a day, # 360 tablet, 3 Refills, Maintenance, 12/14/23 15:43:00 EST, [facility], 158, cm, 11/24/23 11:30:00 EST, [...] opioid drug. Start Date: 05/09/21 Status: Ordered [place] Tears ophthalmic solution 1 drops, Eyes, Both, 2 times a day, PRN for dry eyes, # 30 each, 0 Refills, Maintenance, 09/15/22 1:54:00 EDT, Solution, Partial fill upon patient request if the prescription is for a schedule II opioid drug. Start Date: 09/15/22 Status: Ordered [place] Tears ophthalmic solution 1 drops, Eyes, Both, [...] Team Personnel Name: Nick Alvarado NP Position: [facility] PCO Associate Professional Member Role: PCP Address: Address: [address] [place] [address]- Name: Keyon RN, Carrol Marie Position: [facility] SN RN Member Role: Primary Care Nurse Name: Crystal Ceron RN Position: S RN Member Role: Primary Care Nurse Care Team Related Persons Name: RADHA MONTOYA Address: [place], [place] Name: BRANDIE MONTOYA Address: [place] [address] Name: TREASURE MONTOYA Address: home [address] [place] [address] Name: JAI REED Address: home [address] [place] [address]
--- OUTSIDE RECORDS SUMMARY | 2024-07-27 12:01 | XMS_ITS | Continuity of Care Document ---
Author Organization [facility] Address Unknown Care Team Providers Care Construction Framer Name Role Phone Zara Vargas MD Primary Care Physician [phone] [facility] Date(s): 08/28/21 - 09/27/21 [facility] Allergies, Adverse Reactions, Alerts Substance Reaction [...] diphtheria-tetanus toxoids (DT) 02/22/00 Given 1Result Comment: [id number] 2Result Comment: sarabjit SANDHU [facility] 3Result Comment: Unit: Unknown Rn Ostomy: [employer] 4Result Comment: Unit: Unknown Rn Ostomy: Pfizer Injectables Medications Aspirin = 81 mg, [...] EDT, [facility], Apply Clenpiq Coupon: RxBIN [id number]; RxPCN: [id number]; RxGrp: [id number]; RxID: [id number]... Start Date: 08/30/21 Status: Ordered [place] Vaginal [...] 12/05/20 14:30:00 EST, Route to Pharmacy Electronically, [facility]acy #1095, Partial fill [...] 113.4 Gm, 3 Refills, Maintenance, [facility], [facility], USE DIRECTED, 158, cm, 05/09/21 14:04:00 [...]
--- OUTSIDE RECORDS SUMMARY | 2024-07-27 12:01 | XMS_ITS | Continuity of Care Document ---
Author Organization [facility] Address [address] [place] [address]- Care Team Providers Care Proposal Writer Name Role Phone Zara Vargas MD Primary Care Physician [place] [facility]/23[place]20 - 06/28/20 [facility] [place] [address] [facility] 2nd Floor [address] [place] [address]- [place] Attending Physician: Andrea Lima MD Admitting Physician: Andrea Lima MD Referring Physician: Zara Vargas MD Allergies, [...] auto titrate 10- 16 cm H2O dx [facility], 08/26/11 15:30:42 Start Date: 08/26/11 Status: Ordered CPAP Machine See Instructions, # 1 each, Maintenance, CPAP 7 cm H2O dx [facility] epr 3 ramp prn mask and suppliesas [...] 06/28/20 8:52:00 EDT, Route to Pharmacy Electronically, [facility]/pharmacy #1095, 158, cm, 06/28/20 8:18:00 EDT, Height, 70, kg, 05/22/20 13:54:00 EDT, Dry Weight Start Date: 06/28/20 Status: Ordered Multivitamin 1, tablet, By Mouth, Daily, 0, 0, 02/21/06 7:36:57, Print CAMILO Number, [id number], Constant Indicator Start Date: 02/21/06 Status: Ordered [...]
--- OUTSIDE RECORDS SUMMARY | 2024-07-27 12:01 | XMS_ITS | Continuity of Care Document ---
Author Organization [facility] Address [address] [place] [address]- Care Team Providers Care Early Childhood Education Worker Name Role Phone Christiano VIDES, Nick Primary Care Physician [place] [facility] 11/01[place]21 - 12/01/21 [facility] [address] [place] [address]- Allergies, Adverse Reactions, Alerts Substance Reaction Severity [...] diphtheria-tetanus toxoids (DT) 02/22/00 Given 1Result Comment: [id number] 2Result Comment: sarabjit SANDHU [facility] 3Result Comment: Unit: Unknown Delivery Clerk: [employer] 4Result Comment: Unit: Unknown Delivery Clerk: Pfizer Injectables Medications Aspirin = 81 mg, By Mouth, Daily before lunch, 0 Refills, Maintenance, 01/09/11 5:04:09 EST Start Date: 01/09/11 Status: Ordered atorvastatin 20 mg oral tablet 1 tablet = 20 mg, By Mouth, Daily at bedtime, # 90 tablet, 3 Refills, Maintenance, 12/12/20 15:31:00 EST, Tablet, [facility]/pharmacy #1095, 158, cm, 11/21/20 11:06:00 [...] Refills, Maintenance, 07/24/21 12:46:00 EDT, [facility], Partial fill upon p... Start Date: 07/24/21 Status: Ordered metoprolol 25 mg oral tablet 25 mg, 1, tablet, By Mouth, 2 times a day, Dose is now 25mg BID, # 180 tablet, Refills 3, Tot. Refills 3, Maintenance, 12/05/20 14:30:00 EST, Route to Pharmacy Electronically, [facility]/pharmacy #1095, Partial fill upon patient [...]
--- OUTSIDE RECORDS SUMMARY | 2024-07-27 12:01 | XMS_ITS | Continuity of Care Document ---
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
--- OUTSIDE RECORDS SUMMARY | 2024-07-27 12:01 | XMS_ITS | Continuity of Care Document ---
Author Organization [facility] Address [address] [place] [address]- Care Team Providers Care Supervisor Machine Setter Name Role Phone Christiano VIDES, Nick Primary Care Physician [place] [facility] 11/09/23 - 12/09/[address] [address]- Attending Physician: Silas Duncan Admitting Physician: Silas [...] virus vaccine, inactivated 2 08/22/20 Re corded [id number] 12y+ bivalent booster vax 08/31/22 Recorded SARS-CoV-2 mRNA (jsqxtzi-plab-fzbhl) vax 03/16/22 Recorded SARS-CoV-2 (COVID-19) mRNA BNT-162b2 [...] diphtheria-tetanus toxoids (DT) 02/22/00 Given 1Result Comment: [id number] 2Result Comment: sarabjit SANDHU [facility] 3Result Comment: Unit: Unknown Project Management: Part[employer] 4Result Comment: Unit: Unknown Project Management: [employer] Injectables Medications atorvastatin 20 mg oral tablet [...] 08/27/23 21:16:00 EDT, Route to Pharmacy Electronically, [facility], 158, cm, 05/06/23 11:17:00 EDT, Height, 70, kg, 04/02/23 19:36:00 EDT, Dry Weight Start Date: 08/27/23 Status: Ordered hydrOXYzine hydrochloride 25 mg oral tablet 1 tablet, By Mouth, Daily at bedtime, # 30 tablet, 0 Refills, Maintenance, 07/21/23 11:20:00 EDT, [facility], 158, cm, 05/06/23 [...] mL, 0 Refills, Maintenance, 10/28/23 17:05:00 EST, [facility], Partial fill upon patient request if the prescription is for a schedule II opioid drug., 1 sprays Nares, Both Daily at... Start Date: 10/28/23 Status: Ordered levothyroxine 0.05 mg oral tablet 0.5 tablet, By Mouth, Daily, # 45 tablet, 1 Refills, Maintenance, 08/27/23 21:17:00 EDT, [facility], 158, cm, 05/06/23 11:17:00 EDT, Height, 70, kg, 04/02/23 19:36:00 EDT, Dry Weight Start Date: 08/27/23 Status: Ordered Metoprolol Tartrate 25 mg oral tablet 2 tablet = 50 mg, By Mouth, 2 times a day, # 360 tablet, 3 Refills, Maintenance, 12/16/22 13:42:00 EST, [facility], 158, cm, 12/11/22 15:03:00 EST, [...] opioid drug. Start Date: 05/09/21 Status: Ordered [place] Tears ophthalmic solution 1 drops, Eyes, Both, 2 times a day, PRN for dry eyes, # 30 each, 0 Refills, Maintenance, 09/15/22 1:54:00 EDT, Solution, Partial fill upon patient request if the prescription is for a schedule II opioid drug. Start Date: 09/15/22 Status: Ordered [place] Tears ophthalmic solution 1 drops, Eyes, Both, [...] Team Personnel Name: Nick Alvarado NP Position: [facility] PCO Associate Professional Member Role: PCP Address: Address: [address] [place] [address]- Name: Elvia METZ, Trinh Position: [facility] RN Member Role: Primary Care Nurse Name: Carrol Ta RN Position: [facility] RN Member Role: Primary Care Nurse Name: Crystal Ceron RN Position: [facility] RN Member Role: Primary Care Nurse Care Team Related Persons Name: RADHA MONTOYA Address: [place], [place] Name: BRANDIE MONTOYA Address: [place] [address] Name: JAN, TREASURE Address: home [address] [place] [address] Name: JAI REED Address: home [address] [place] [address]
--- OUTSIDE RECORDS SUMMARY | 2024-07-27 12:01 | XMS_ITS | Continuity of Care Document ---
Author Organization [facility] Address [address] [place] [address]- Care Team Providers Care Emergency Room Doctor Name Role Phone Zara Vargas MD Primary Care Physician En[place] [facility] [place] Date(s): 05/28/21 - 06/27/21 [facility] [address] [place] [address]- Allergies, Adverse Reactions, Alerts Substance Reaction Severity [...] diphtheria-tetanus toxoids (DT) 02/22/00 Given 1Result Comment: [id number] 2Result Comment: sarabjit SANDHU [facility] 3Result Comment: Unit: Unknown Wad Impregnator: [employer] 4Result Comment: Unit: Unknown Wad Impregnator: Pfizer Injectables Medications Aspirin = 81 mg, By Mouth, Daily before lunch, 0 Refills, Maintenance, 01/09/11 5:04:09 EST Start Date: 01/09/11 Status: Ordered atorvastatin 20 mg oral tablet 1 tablet = 20 mg, By Mouth, Daily at bedtime, # 90 tablet, 3 Refills, Maintenance, 12/12/20 15:31:00 EST, Tablet, [facility]/pharmacy #1095, 158, cm, 11/21/20 [...] tablet, 0 Refills, Maintenance, 06/26/21 10:14:00 EDT, [facility], Partial fill upon [...] 12/05/20 14:30:00 EST, [facility] Partial fill upon patient request if the prescription i... Start Date: 12/05/20 Stop Date: 11/30/21 Status: Ordered olmesartan 20 mg oral tablet 1 tablet = 20 mg, By Mouth, Daily, Dosage has been reduced to 20mg / day, # 30 tablet, 5 Refills, Maintenance, 09/19/20 14:11:00 EDT, Tablet, [facility]/pharmacy #1095, 158, cm, 09/18/20 15:50:00 EDT, Height, 69, kg, 09/13/20 5:27:00 EDT, Dry Weight Start Date: 09/19/20 Status: Ordered [place] 0.025% vaginal gel with applicator See Instructions, USE DIRECTED, # 113.4 Gm, 3 Refills, Maintenance, [facility], 30, USE DIRECTED, 158, cm, 05/09/21 14:04:00 [...]
--- OUTSIDE RECORDS SUMMARY | 2024-07-27 12:01 | XMS_ITS | Continuity of Care Document ---
Author Organization [facility] Address [address] [place] [address]- Care Team Providers Care Life Claims Examiner Name Role Phone Sam WEBER, Zara Jensen Primary Care Physician [phone] Encounter 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
--- OUTSIDE RECORDS SUMMARY | 2024-07-27 12:01 | XMS_ITS | Continuity of Care Document ---
Author Organization [facility] Address [address] [place] [address]- Care Team Providers Care Rn Corrections Name Role Phone Sam WEBER, Zara Jensen Primary Care Physician Encounter [facility] [place] Date(s): 09/20/20 - 11/01/20 [facility] [place] [address] [place] [address]- Attending Physician: David VIDES, Marisol Admitting Physician: David VIDES, Marisol Referring Physician: Marisol Hernandez NP Allergies, Adverse Reactions, Alerts Substance Reaction [...] (DT) 02/22/00 Given 1Result Comment: Unit: Unknown Adult Crossing Guard: [employer] 2Result Comment: Unit: Unknown Adult Crossing Guard: [employer] Injectables Medications alendronate 70 mg oral tablet [...] 6 Refills, Maintenance, 06/05/20 15:31:00 EDT, Tablet, [facility]/pharmacy #[id number], 158, cm, 06/05/20 14:54:00 EDT, Height, 70, kg, 05/22/20 13:54:00EDT, Dry Weight Start Date: 06/05/20 Stop Date: 01/01/21 Status: Ordered Bactrim DS 800 mg-160 mg oral tablet 1 tablet, By Mouth, 2 times a day, # 14 tablet, 0 Refills, Maintenance, 10/29/20 17:15:00 EST, Tablet, [facility]/pharmacy #[id number], Partial fill upon patient request if [...] 5 Refills, Maintenance, 09/19/20 14:11:00 EDT, Tablet, [facility]/pharmacy #[id number], 158, cm, 09/18/20 15:50:00 EDT, Height, 69, kg, 10/22/20 5:27:00 EDT, Dry Weight Start Date: 09/19/20 [...]
--- OUTSIDE RECORDS SUMMARY | 2024-07-27 12:02 | XMS_ITS | Continuity of Care Document ---
Author Organization [facility] Address [address] [place] [address]- Care Team Providers Care Chairman President And Chief Executive Officer Name Role Phone Christiano VIDES, Nick Primary Care Physician [place] [facility] [place] 11/27/22 - 12/27/22 [facility] [address] [place] [address]- Allergies, Adverse Reactions, Alerts Substance Reaction Severity Status Ceftin ? Active Cleocin T BLOODY DIARRHEA Active Immunizations Given and Recorded Vaccine Date Status Refusal Reason influenza virus vaccine, inactivated 09/12/22 Michael rded influenza virus vaccine, inactivated 08/08/21 Michael rded influenza virus vaccine, inactivated 1 11/21/20 Gi cris influenza virus vaccine, inactivated 2 08/22/20 Re corded [id number] 12y+ bivalent booster vax 08/31/22 Recorded SARS-CoV-2 mRNA (eokcarw-msoc-cnbhf) vax 03/16/22 Recorded SARS-CoV-2 (COVID-19) mRNA BNT-162b2 [...] diphtheria-tetanus toxoids (DT) 02/22/00 Given 1Result Comment: [id number] 2Result Comment: sarabjit SANDHU [facility] primary care 3Result Comment: Unit: Unknown 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 Start Date: 05/09/21 Status: Ordered [place] Tears ophthalmic solution 1 drops, Eyes, Both, 2 times a day, PRN for dry eyes, # 30 each, 0 Refills, Maintenance, 09/15/22 1:54:00 EDT, Solution, Partial fill upon patient request if the prescription is for a schedule II opioid drug. Start Date: 09/15/22 Status: Ordered [place] Tears ophthalmic solution 1 drops, Eyes, Both, [...] Professional Member Role: PCP Address: Address: [address] [place] [address]- Name: Trinh Gan RN Position: [facility] RN Member Role: Primary Care Nurse Name: Carrol Ta RN Position: [facility] RN Member Role: Primary Care Nurse Name: Crystal Ceron RN Position: [facility] RN Member Role: Primary Care Nurse Care Team Related Persons Name: RADHA MONTOYA Name: BRANDIE MONTOYA Address: [place] [address] Name: TREASURE MONTOYA Address: home [address] [place] [address] Name: JAI REED Address: home [address] [place] [address]
--- OUTSIDE RECORDS SUMMARY | 2024-07-27 12:02 | XMS_ITS | Continuity of Care Document ---
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
--- OUTSIDE RECORDS SUMMARY | 2024-07-27 12:02 | XMS_ITS | Continuity of Care Document ---
Author Organization [facility] Address [address] [place] [address]- Care Team Providers Care Medical Imaging Specialist Name Role Phone Sam WEBER, Zara Jensen Primary Care Physician En[place] [facility] [place] [facility] [place] [id number] Date(s): 04/23/20 - 04/30/20 [facility] [address] [place] [address]- [facility] Attending Physician: Aureliano Tiwari MD Admitting [...] 0, 0, 02/21/06 7:36:57, Print CAMILO Number, [id number], Constant Indicator Start Date: 02/21/06 Status: Ordered nystatin topical [id number] u/gm powder 1 applicator, Topically, Daily in [...]
--- OUTSIDE RECORDS SUMMARY | 2024-07-27 12:02 | XMS_ITS | Continuity of Care Document ---
Author Organization [facility] Address [address] [address]- Care Team Providers Care Basket Bottom Machine Operator Name Role Phone Christiano VIDES, Nick Primary Care Physician [phone] [place] [facility] [id number] Date(s): 07/04/24 - 07/11/24 [facility] [address] [address]- Attending Physician: Ramin Schwarz Admitting Physician: Ramin Schwarz Referring Physician: Ramin Schwarz Allergies, Adverse Reactions, Alerts Substance Reaction Severity Status Ceftin ? Active Cleocin T BLOODY DIARRHEA Active Immunizations Given and Recorded Vaccine Date Status Refusal Reason SARS-CoV-2(COVID-19)mRNA-LNP vac([id number]) 01/08/24 Given pneumococcal 20-valent conjugate vaccine 01/08/24 Given influenza virus vaccine, inactivated 09/12/22 Michael rded influenza virus vaccine, inactivated 08/08/21 Michael rded influenza virus vaccine, inactivated 1 11/21/20 Gi cris influenza virus vaccine, inactivated 2 08/22/20 Re corded [id number] 12y+ bivalent booster vax 08/31/22 Recorded SARS-CoV-2 mRNA (rrnxwem-hvcz-yscwu) vax 03/16/22 Recorded SARS-CoV-2 (COVID-19) mRNA BNT-162b2 [...] diphtheria-tetanus toxoids (DT) 02/22/00 Given 1Result Comment: [id number] 2Result Comment: sarabjit SANDHU [facility] primary care 3Result Comment: Unit: Unknown Sorter Laundry Articles: [employer] 4Result Comment: Unit: Unknown Sorter Laundry Articles: Pegg'd Injectables Medications atorvastatin 20 mg oral tablet [...] Refills, Maintenance, 06/01/24 11:03:00 EDT, [facility], 158, cm, 05/19/24 9:35:00 EDT, [...] 1 Refills, Maintenance, 06/01/24 11:03:00 EDT, [facility], 158, cm, 05/19/24 9:35:00 EDT, [...] tablet, 1 Refills, Maintenance, 06/01/24 11:03:00 EDT, [facility], 158, cm, 05/19/24 9:35:00 EDT, [...] Team Personnel Name: Pam Floyd RN Position: [facility] RN Member Role: Primary Care Nurse Name: Nick Alvarado NP Position: [facility] PCO Associate Professional Member Role: PCP Address: Address: [address] [place] [address]- Name: Carrol Ta RN Position: [facility] RN Member Role: Primary Care Nurse Name: Crystal Ceron RN Position: [facility] RN Member Role: Primary Care Nurse Care Team Related Persons Name: RADHA MONTOYA Address: [place], [place] Name: BRANDIE MONTOYA Address: [place] [address] Name: TREASURE MONTOYA Address: home [address] [place] [address] Name: JAI REED Address: home [address] [place] [address]
--- OUTSIDE RECORDS SUMMARY | 2024-07-27 12:02 | XMS_ITS | Continuity of Care Document ---
Author Organization [facility] Address [address] [place] [address]- Care Team Providers Care Engineer Internship Name Role Phone Christiano VIDES, Nick Primary Care Physician Encounter [facility] Date(s): 05/29/23 - 07/05/23 [facility] [address] [place], [place] [address] Attending Physician: Dionicio aGtes MD Admitting Physician: Dionicio Gates MD Referring [...] virus vaccine, inactivated 2 08/22/20 Re corded [id number] 12y+ bivalent booster vax 08/31/22 Recorded SARS-CoV-2 mRNA (lbpzrxn-yluk-luaiy) vax 03/16/22 Recorded SARS-CoV-2 (COVID-19) mRNA BNT-162b2 [...] diphtheria-tetanus toxoids (DT) 02/22/00 Given 1Result Comment: [id number] 2Result Comment: sarabjit SANDHU [facility] 3Result Comment: Unit: Unknown 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 Start Date: 03/03/23 Status: Ordered hydrOXYzine hydrochloride 25 mg oral tablet 1 tablet, By Mouth, Daily at bedtime, # 30 tablet, 0 Refills, Maintenance, 04/07/23 7:44:00 EDT, [facility], 158, cm, 04/02/23 19:36:00 [...] tablet, 1 Refills, Maintenance, 05/29/23 15:49:00 EDT, [facility], 158, cm, 05/06/23 11:17:00 EDT, Height, 70, kg, 04/02/23 19:36:00 EDT, Dry Weight Start Date: 05/29/23 Status: Ordered Metoprolol Tartrate 25 mg oral tablet 2 tablet = 50 mg, By Mouth, 2 times a day, # 360 tablet, 3 Refills, Maintenance, 12/16/22 13:42:00 EST, [facility], 158, cm, 12/11/22 15:03:00 EST, [...] opioid drug. Start Date: 05/09/21 Status: Ordered [place] Tears ophthalmic solution 1 drops, Eyes, Both, 2 times a day, PRN for dry eyes, # 30 each, 0 Refills, Maintenance, 09/15/22 1:54:00 EDT, Solution, Partial fill upon patient request if the prescription is for a schedule II opioid drug. Start Date: 09/15/22 Status: Ordered [place] Tears ophthalmic solution 1 drops, Eyes, Both, 3 times a day, PRN for dry eyes, Maintenance, 09/15/22 10:43:00 EDT, Solution,Partial fill upon patient request if the prescription is for a schedule II opioid drug. Start Date: 09/15/22 Status: Ordered olmesartan 20 mg oral tablet 1 tablet, By Mouth, Daily, # 90 tablet, 3 Refills, Maintenance, 12/22/22 11:40:00 EST, [facility], 158, cm, 12/18/22 10:17:00 EST, [...] EDT, Route to Pharmacy Electronically, [facility], Partial fill upon patient request [...] Team Personnel Name: Nick Alvarado NP Position: [facility] PCO Associate Professional Member Role: PCP Address: Address: [address] [place] [id number] Name: Elvia METZ, Trinh Position: S RN Member Role: Primary Care Nurse Name: Carrol Ta RN Position: S RN Member Role: Primary Care Nurse Name: Crystal Ceron RN Position: S RN Member Role: Primary Care Nurse Care Team Related Persons Name: RADHA MONTOYA Address: [place], [place] Name: BRANDIE MONTOYA Address: [place] [address] Name: TREASURE MONTOYA Address: home [address] [place] [address] Name: JAI REED Address: home [address] [place] [id number]
--- OUTSIDE RECORDS SUMMARY | 2024-07-27 12:02 | XMS_ITS | Continuity of Care Document ---
Author Organization [facility] [address] [place] [address]- Care Team Providers Care Pancake Professional Name Role Phone Sam WEBER, Zara Jensen Primary Care Physician [place] [facility] [place] Date(s): 11/08/20 - 12/08/[address] [address]- Allergies, Adverse Reactions, Alerts Substance Reaction Severity [...] diphtheria-tetanus toxoids (DT) 02/22/00 Given 1Result Comment: [id number] 2Result Comment: sarabjit SANDHU [facility] primary care 3Result Comment: Unit: Unknown Coal Sampler: [employer] 4Result Comment: Unit: Unknown Coal Sampler: Pfizer Injectables Medications Aspirin = 81 mg, [...] 12/05/20 14:30:00 EST, Route to Pharmacy Electronically, [facility]/pharmacy #[id number], Partial fill upon [...]
--- OUTSIDE RECORDS SUMMARY | 2024-07-27 12:02 | XMS_ITS | Continuity of Care Document ---
Author Organization [facility] Address [address] [place] [address]- Care Team Providers Care Hse Advisor Name Role Phone Christiano VIDES, Nick Primary Care Physician Encounter [facility] [place] Date(s): 04/01/24 - 05/01/[address] [address]- Allergies, Adverse Reactions, Alerts Substance Reaction Severity Status Ceftin ? Active Cleocin T BLOODY DIARRHEA Active Immunizations Given and Recorded Vaccine Date Status Refusal Reason SARS-CoV-2(COVID-19)mRNA-LNP vac([id number]) 01/08/24 Given pneumococcal 20-valent conjugate vaccine 01/08/24 Given influenza virus vaccine, inactivated 09/12/22 Michael rded influenza virus vaccine, inactivated 08/08/21 Michael rded influenza virus vaccine, inactivated 1 11/21/20 Gi cris influenza virus vaccine, inactivated 2 08/22/20 Re corded [id number] 12y+ bivalent booster vax 08/31/22 Recorded SARS-CoV-2 mRNA (lxhabuv-fuui-ikjxf) vax 03/16/22 Recorded SARS-CoV-2 (COVID-19) mRNA BNT-162b2 [...] diphtheria-tetanus toxoids (DT) 02/22/00 Given 1Result Comment: [id number] 2Result Comment: sarabjit SANDHU [facility] primary care 3Result Comment: Unit: Unknown 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: [employer] 4Result Comment: Unit: Unknown 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: [employer] Injectables Medications atorvastatin 20 mg oral tablet [...] Gm, 0 Refills, Maintenance, 04/05/24 5:37:00 EDT, [place], Partial fill upon patient request if the [...] Team Personnel Name: Pam Floyd RN Position: [facility] RN Member Role: Primary Care Nurse Name: Nick Alvarado NP Position: [facility] PCO Associate Professional Member Role: PCP Address: Address: [address] [place] [id number] Name: Carrol Ta RN Position: [facility] SN RN Member Role: Primary Care Nurse Name: Crystal Ceron RN Position: [facility] RN Member Role: Primary Care Nurse Care Team Related Persons Name: RADHA MONTOYA Address: [place], [place] Name: BRANDIE MONTOYA Address: [place] [address] Name: TREASURE MONTOYA Address: home [address] [place] [address] Name: JAI REED Address: home [address] [place] [address]
--- OUTSIDE RECORDS SUMMARY | 2024-07-27 12:02 | XMS_ITS | Continuity of Care Document ---
Author Organization [facility] Address [address] [place] [address]- Care Team Providers Care Table Filler Name Role Phone Zara Vargas MD Primary Care Physician [phone] Encounter [facility] [place] Date(s): 06/05/20 - 06/12/20 [facility] [place] [address] [place] [address]- [place] Attending Physician: Andrea Lima MD [...] 0, 0, 02/21/06 7:36:57, Print CAMILO Number, [id number], Constant Indicator Start Date: 02/21/06 Status: Ordered [...] oldest [Reference Range]: 1 Height 158 cm (06/05/20 2:54 PM) Weight 67 kg (06/05/20 2:54 PM) Oxygen Saturation [94-100 %] 98 % (06/05/20 2:54 PM) Pulse Rate [55-90 bpm] 74 bpm (06/05/20 2:54 PM) Body Mass Index [18.5-24.99] 26.84 *H* (06/05/20 2:54 PM) Blood Pressure [90-138/55-84 mm Hg] 120/ 70mm Hg (06/05/20 2:54 PM) Mode of Delivery (Oxygen) Room air (06/05/20 2:54 PM) Blood pressure sites Arm, left (06/05/20 2:54 PM) Weight Obtained Via Patient/family state d (06/05/20 2:54 PM) Social History Social History Type Response Smoking Status Former smoker; Other : Smoked 1PPD from age 14. Quit 33Y ago.; entered on: 09/15/17 Sex
--- OUTSIDE RECORDS SUMMARY | 2024-07-27 12:02 | XMS_ITS | Continuity of Care Document ---
Author Organization [facility] Address [address] [place] [address]- Care Team Providers Care Slot Manager Name Role Phone Zara Vargas MD Primary Care Physician [phone] [place] [facility] [place] 06/26/21 - 07/26/[address] [id number] Allergies, Adverse Reactions, Alerts Substance Reaction [...] diphtheria-tetanus toxoids (DT) 02/22/00 Given 1Result Comment: [id number] 2Result Comment: sarabjit SANDHU [facility] primary care 3Result Comment: Unit: Unknown Shrub Planter: [employer] 4Result Comment: Unit: Unknown Shrub Planter: Pfizer Injectables Medications Aspirin = 81 mg, [...] 14:01:00 EDT, 07/24/21 14:01:00 EDT, Caps[facility], Partial fill upon patient request if the prescription is for a schedule II opioid drug.... Start Date: 07/24/21 Stop Date: 07/31/21 Status: Ordered metoprolol 25 mg oral tablet 25 mg, 1, tablet, By Mouth, 2 times a day, Dose is now 25mg BID, # 180 tablet, Refills 3, Tot. Refills 3, Maintenance, 12/05/20 14:30:00 EST, Route to Pharmacy Electronically, [facility]/pharmacy #[id number], Partial fill upon patient [...] 113.4 Gm, 3 Refills, Maintenance, [id number], [facility], USE DIRECTED, 158, cm, 05/09/21 14:04:00 [...]
--- OUTSIDE RECORDS SUMMARY | 2024-07-27 12:02 | XMS_ITS | Continuity of Care Document ---
Author Organization [facility] [address] [place] [address]- Care Team Providers Care Double Corner Cutter Name Role Phone Zara Vargas MD Primary Care Physician En[place] [facility] [place] Date(s): 10/19/20 - 11/18/[address] [id number] Allergies, Adverse Reactions, Alerts Substance Reaction Severity [...] (DT) 02/22/00 Given 1Result Comment: Unit: Unknown Mechanical Product Engineer: Tr[employer]emina 2Result Comment: Unit: Unknown Mechanical Product Engineer: [employer] Injectables Medications Aspirin = 81 mg, By [...] 0 Refills, Maintenance, 10/29/20 17:15:00 EST, Tablet, [facility]/pharmacy #[id number], Partial fill upon [...]
--- OUTSIDE RECORDS SUMMARY | 2024-07-27 12:02 | XMS_ITS | Continuity of Care Document ---
Author Organization [facility] Address [address] [place] [address]- Care Team Providers Care Drawing In Machine Tender Name Role Phone Christiano VIDES, Nick Primary Care Physician [phone] [place] [facility] [place] Date(s): 10/20/23 - 11/19/23 [facility] [address] [place] [address]- Attending Physician: Silas Duncan Admitting Physician: AdmSilas [...] virus vaccine, inactivated 2 08/22/20 Re corded [id number] 12y+ bivalent booster vax 08/31/22 Recorded SARS-CoV-2 mRNA (tbiuxac-xtpm-lcscb) vax 03/16/22 Recorded SARS-CoV-2 (COVID-19) mRNA BNT-162b2 [...] diphtheria-tetanus toxoids (DT) 02/22/00 Given 1Result Comment: [id number] 2Result Comment: sarabjit SANDHU [facility] primary care 3Result Comment: Unit: Unknown Knitter Mechanic: Sophono 4Result Comment: Unit: Unknown Knitter Mechanic: UTOPY Injectables Medications atorvastatin 20 mg oral tablet [...] 08/27/23 21:16:00 EDT, Route to Pharmacy Electronically, [facility], 158, cm, 05/06/23 11:17:00 EDT, Height, 70, kg, 04/02/23 19:36:00 EDT, Dry Weight Start Date: 08/27/23 Status: Ordered hydrOXYzine hydrochloride 25 mg oral tablet 1 tablet, By Mouth, Daily at bedtime, # 30 tablet, 0 Refills, Maintenance, 07/21/23 11:20:00 EDT, [facility] [facility], 158, cm, 05/06/23 11:17:00 [...] mL, 0 Refills, Maintenance, 10/28/23 17:05:00 EST, [facility], Partial fill upon patient request if the prescription is for a schedule II opioid drug., 1 sprays Nares, Both Daily at... Start Date: 10/28/23 Status: Ordered levothyroxine 0.05 mg oral tablet 0.5 tablet, By Mouth, Daily, # 45 tablet, 1 Refills, Maintenance, 08/27/23 21:17:00 EDT, [facility], 158, cm, 05/06/23 11:17:00 EDT, Height, 70, kg, 04/02/23 19:36:00 EDT, Dry Weight Start Date: 08/27/23 Status: Ordered Metoprolol Tartrate 25 mg oral tablet 2 tablet = 50 mg, By Mouth, 2 times a day, # 360 tablet, 3 Refills, Maintenance, 12/16/22 13:42:00 EST, [facility], 158, cm, 12/11/22 15:03:00 EST, [...] opioid drug. Start Date: 05/09/21 Status: Ordered [place] Tears ophthalmic solution 1 drops, Eyes, Both, 2 times a day, PRN for dry eyes, # 30 each, 0 Refills, Maintenance, 09/15/22 1:54:00 EDT, Solution, Partial fill upon patient request if the prescription is for a schedule II opioid drug. Start Date: 09/15/22 Status: Ordered [place] Tears ophthalmic solution 1 drops, Eyes, Both, [...] Team Personnel Name: Nick Alvarado NP Position: [facility] PCO Associate Professional Member Role: PCP Address: Address: [address] [place] [address]- Name: Elvia METZ, Trinh Position: [facility] RN Member Role: Primary Care Nurse Name: Carrol Ta RN Position: [facility] RN Member Role: Primary Care Nurse Name: Crystal Ceron RN Position: [facility] RN Member Role: Primary Care Nurse Care Team Related Persons Name: RADHA MONTOYA Address: [place], [place] Name: BRANDIE MONTOYA Address: [place] [address] Name: TREASURE MONTOYA Address: home [address] [place] [address] Name: JAI REED Address: home [address] [place] [address]
--- OUTSIDE RECORDS SUMMARY | 2024-07-27 12:02 | XMS_ITS | Continuity of Care Document ---
Author Organization [facility] Address [address] [place] [address]- Care Team Providers Care Munitions Worker Name Role Phone Zara Vargas MD Primary Care Physician Encounter [facility] [place] Date(s): 01/07/21 - 02/10/[address] [address]- Attending Physician: Sofia Chacon MD Admitting Physician: [...] diphtheria-tetanus toxoids (DT) 02/22/00 Given 1Result Comment: [id number] 2Result Comment: sarabjit SANDHU [facility] primary care 3Result Comment: Unit: Unknown Sports Coordinator: [employer]ura [employer] 4Result Comment: Unit: Unknown Sports Coordinator: Pfizer Injectables Medications Aspirin = 81 mg, By Mouth, Daily before lunch, 0 Refills, Maintenance, 01/09/11 5:04:09 EST Start Date: 01/09/11 Status: Ordered atorvastatin 20 mg oral tablet 1 tablet = 20 mg, By Mouth, Daily at bedtime, # 90 tablet, 3 Refills, Maintenance, 12/12/20 15:31:00 EST, Tablet, [facility]/pharmacy #[id number], 158, cm, 11/21/20 11:06:00 EST, [...]
--- OUTSIDE RECORDS SUMMARY | 2024-07-27 12:02 | XMS_ITS | Continuity of Care Document ---
Author Organization [facility] Address [address] [place] [address]- Care Team Providers Care Sieve Grader Tender Name Role Phone Christiano VIDES, Nick Primary Care Physician En[place] [facility] [place] Date(s): 06/27/22 - 07/27/22 [facility] [place] [address] [facility] 2nd Floor [address] [place] [address]- Attending Physician: Admkari, Ar8 Admitting Physician: Admtr, Ar8 Referring Physician: [...] diphtheria-tetanus toxoids (DT) 02/22/00 Given 1Result Comment: [id number] 2Result Comment: sarabjit SANDHU [facility] primary care 3Result Comment: Unit: Unknown Carpenter Railcar: Nogacom 4Result Comment: Unit: Unknown Carpenter Railcar: Pfizer Injectables Medications atorvastatin 20 mg oral [...] 0.05 mg oral tablet See Instructions, TAKE ONE-HALF TABLET BY MOUTH EVERY DAY, # 45 tablet, 0 Refills, [facility], 157.48, cm, 02/21/22 10:37:00 EDT, Height, 68.8, kg, 09/03/21 11:11:00 EDT, Dry Weight Start Date: 06/02/22 Status: Ordered Metoprolol Tartrate 25 mg oral [...] opioid drug. Start Date: 05/09/21 Status: Ordered olmesartan 20 mg oral tablet 1 tablet, By Mouth, Daily, # 90 tablet, 3 Refills, Maintenance, 12/20/21 13:54:00 EST, [facility]/pharmacy#1095, 157.48, cm, 12/19/21 11:37:00 EST, Height, 68.8, kg, 09/03/21 11:11:00 EDT, Dry Weight Start Date: 12/20/21 Status: Ordered Probiotic Formula By Mouth, Daily, 0 Refills, Maintenance, 11/08/21 8:50:00 EST, Partial fill upon patient request ifthe prescription is for a schedule II opioid drug. Start Date: 11/08/21 Status: Ordered Restasis Every 12 hours, 0 Refills, Maintenance, 06/25/22 14:09:00 EDT, Partial fill upon patient request ifthe prescription is for a schedule II opioid drug. Start Date: 06/25/22 Status: Ordered Problem List Condition Effective Dates [...] Years. Stopped at age: 49 Years. Sex Care Team Personnel Name: iNck Alvarado NP
--- OUTSIDE RECORDS SUMMARY | 2024-07-27 12:02 | XMS_ITS | Continuity of Care Document ---
Author Organization [facility] Address Unknown Care Team Providers Care Programmer Operator Numerical Control Name Role Phone Zara Vargas MD Primary Care Physician [phone] Encounter [facility] [place] Date(s): 08/29/21 - 09/28/21 [facility] Allergies, Adverse Reactions, Alerts Substance Reaction [...] diphtheria-tetanus toxoids (DT) 02/22/00 Given 1Result Comment: [id number] 2Result Comment: sarabjit SANDHU [facility] primary care 3Result Comment: Unit: Unknown Disulfurizer Tender: GlaxoSmithKline 4Result Comment: Unit: Unknown Disulfurizer Tender: Pfizer Injectables Medications Aspirin = 81 [...] EDT, [id number], Apply Clenpiq Coupon: RxBIN [id number]; RxPCN: [id number]; RxGrp: [id number]; RxID: [id number]... Start Date: 08/30/21 Status: Ordered Estrace Vaginal Cream 0.1 mg/g = 1 Gm, Vaginally, Daily at bedtime, until symptoms improve monitor for first 2 weeks and if no difference, stop medication and call office, # 30 Gm, 0 Refills, Maintenance, 07/24/21 12:46:00 EDT[facility] upon p... Start Date: 07/24/21 Status: Ordered metoprolol 25 mg oral tablet 25 mg, 1, tablet, By Mouth, 2 times a day, Dose is now 25mg BID, # 180 tablet, Refills 3, Tot. Refills 3, Maintenance, 12/05/20 14:30:00 EST, Route to Pharmacy Electronically, [facility]/pharmacy #[id number], Partial fill upon patient request [...] 113.4 Gm, 3 Refills, Maintenance, [id number], 30, USE DIRECTED, 158, cm, 05/09/21 14:04:00 [...]
--- OUTSIDE RECORDS SUMMARY | 2024-07-27 12:02 | XMS_ITS | Continuity of Care Document ---
Author Organization [facility] Address [address] [place] [address]- Care Team Providers Care Beam Warper Name Role Phone Zara Vargas MD Primary Care Physician En[place] [facility] [place](s): 08/17/20 - 08/24/20 [facility] [place] [address] [place] [address]- [place] Attending Physician: Andrea Lima MD [...] (DT) 02/22/00 Given 1Result Comment: Unit: Unknown Television News Photographer: [email or web address] 2Result Comment: Unit: Unknown Television News Photographer: [employer] Injectables Medications Aspirin = 81 mg, By Mouth, Daily, 0 Refills, Maintenance Start Date: 01/09/11 Status: Ordered atorvastatin 20 mg oral tablet 1 tablet = 20 mg, By Mouth, Daily at bedtime, # 30 tablet, 6 Refills, Maintenance, 06/05/20 15:31:00 EDT, Tablet, [id number], 158, cm, 06/05/20 14:54:00 EDT, Height, 70, kg, 06/30/20 13:54:00EDT, Dry Weight Start Date: 06/05/20 Stop [...] Maintenance, CPAP 7 cm H2O dx [facility] 3 ramp prn mask and suppliesas [...] Refills, Soft Stop, 08/21/20 11:44:00 EDT, Tablet, [facility]/pharmacy #[id number], 158, cm, 08/21/20 11:15:00 EDT, [...] 0, 0, 02/21/06 7:36:57, Print CAMILO Number, [id number], Constant Indicator Start Date: 02/21/06 Status: Ordered [...] oldest [Reference Range]: 1 Height 158 cm (08/17/20 9:24 AM) Weight 70.0 kg (08/17/20 9:24 AM) Oxygen Saturation [94-100 %] 100 % (08/17/20 9:24 AM) Pulse Rate [55-90 bpm] 69 bpm (08/17/20 9:24 AM) Body Mass Index [18.5-24.99] 28.04 *H* (08/17/20 9:24 AM) Blood Pressure [90-138/55-84 mm Hg] 118/ 60mm Hg (08/17/20 9:24 AM) Blood pressure sites Arm, left (08/17/20 9:24 AM) Weight Obtained Via Standing scale (08/17/20 9:24 AM) Social History Social History Type Response Smoking Status Former smoker; Other : Smoked 1PPD from age 14. Quit 33Y ago.; entered on: 09/15/17 Sex
--- OUTSIDE RECORDS SUMMARY | 2024-07-27 12:03 | XMS_ITS | Continuity of Care Document ---
Author Organization [facility] Address [address] [place] [address]- Care Team Providers Care Grain Cleaner Name Role Phone Sam WEBER, Zara Jensen Primary Care Physician [phone] Encounter [facility] [place] Date(s): 10/31/20 - 11/30/20 [facility] [place] [address] [place] [address]- [place] Allergies, Adverse Reactions, Alerts Substance Reaction [...] diphtheria-tetanus toxoids (DT) 02/22/00 Given 1Result Comment: [id number] 2Result Comment: sarabjit SANDHU [facility] primary care 3Result Comment: Unit: Unknown Mill Tender Warm Up: Voxa 4Result Comment: Unit: Unknown Mill Tender Warm Up: Pfizer Injectables Medications Aspirin = 81 mg, [...] 5 Refills, Maintenance, 09/19/20 14:11:00 EDT, Tablet, [facility]/pharmacy #[id number], 158, cm, 09/18/20 15:50:00 EDT, [...]
--- OUTSIDE RECORDS SUMMARY | 2024-07-27 12:03 | XMS_ITS | Continuity of Care Document ---
Author Organization [facility] Address [address] [address]- Care Team Providers Care Sales Director Name Role Phone Christiano VIDES, Nick Primary Care Physician Encounter [facility] Date(s): 12/14/23 - 01/13/24 [facility] [address] [address]- [place] Allergies, Adverse Reactions, Alerts Substance Reaction Severity Status Ceftin ? Active Cleocin T BLOODY DIARRHEA Active Immunizations Given and Recorded Vaccine Date Status Refusal Reason SARS-CoV-2(COVID-19)mRNA-LNP vac(ost495) 01/08/24 Given pneumococcal 20-valent conjugate vaccine 01/08/24 Given influenza virus vaccine, inactivated 09/12/22 Michael rded influenza virus vaccine, inactivated 08/08/21 Michael rded influenza virus vaccine, inactivated 1 11/21/20 Gi cris influenza virus vaccine, inactivated 2 08/22/20 Re corded [id number] 12y+ bivalent booster vax 08/31/22 Recorded SARS-CoV-2 mRNA ([id number]) vax 03/16/22 Recorded SARS-CoV-2 (COVID-19) mRNA BNT-162b2 [...] diphtheria-tetanus toxoids (DT) 02/22/00 Given 1Result Comment: [id number] 2Result Comment: sarabjit SANDHU [facility] primary care 3Result Comment: Unit: Unknown Director Toxicology: [employer] 4Result Comment: Unit: Unknown Director Toxicology: [employer] Injectables Medications atorvastatin 20 mg oral [...] Refills, Maintenance, 02/05/23 15:29:00 EDT, [facility], Partial fill upon patient request if the prescription is for a schedule II opioid drug., 1... Start Date: 02/05/23 Status: Ordered famotidine 20 mg oral tablet 1, tablet, By Mouth, 2 times a day, PRN, # 60 tablet, Refills 5, Maintenance, NEEDED, 08/27/23 21:16:00 EDT, Route to Pharmacy Electronically, [facility], 158, cm, 05/06/23 11:17:00 EDT, Height, 70, kg, 04/02/23 19:36:00 EDT, Dry Weight Start Date: 08/27/23 Status: Ordered fluticasone 50 mcg/inh nasal spray 1 sprays = 50 mcg, Nares, Both, 2 times a day, # 16 Gm, 0 Refills, Maintenance, 01/08/24 11:22:00 EST, [place], [facility], Partial fill upon patient request if the prescription is for a schedule II opioid drug., 1 sprays Nares, Both 2 [place]... Start Date: 01/08/24 Status: Ordered hydrocortisone 1% topical cream 1 application, Topically, 2 times a day, # 15 Gm, 0 Refills, Maintenance, 01/08/24 11:30:00 EST, Cream, [facility], Partial fill upon [...] Refills, Maintenance, 10/28/23 17:05:00 EST, [facility], Partial fill upon patient request [...] Refills, Maintenance, 12/14/23 15:43:00 EST, [facility] #[facility], 158, cm, 11/24/23 11:30:00 EST, [...] opioid drug. Start Date: 05/09/21 Status: Ordered [place] Tears ophthalmic solution 1 drops, Eyes, Both, 3 times a day, PRN for dry eyes, Maintenance, 09/15/22 10:43:00 EDT, Solution,Partial fill upon patient request if the prescription is for a schedule II opioid drug. Start Date: 09/15/22 Status: Ordered olmesartan 20 mg oral tablet 1 tablet, By Mouth, Daily, # 90 tablet, 1 Refills, Maintenance, 11/25/23 6:31:00 EST, [facility], 158, cm, 11/24/23 11:30:00 EST, [...] EST, Route to Pharmacy Electronically, [facility], Partial fill upon patient request [...] Team Personnel Name: Nick Alvarado NP Position: [facility] PCO Associate Professional Member Role: PCP Address: Address: [address] [place] [id number] Name: Keyon RN, Carrol Marie Position: [facility] SN RN Member Role: Primary Care Nurse Name: Crystal Ceron RN Position: [facility] RN Member Role: Primary Care Nurse Care Team Related Persons Name: RADHA MONTOYA Address: [place], [place] Name: BRANDIE MONTOYA Address: [place] [address] Name: TREASURE MONTOYA Address: home [address] [place] [id number] Name: JAI REED Address: home [address] [place] [id number]
--- OUTSIDE RECORDS SUMMARY | 2024-07-27 12:03 | XMS_ITS | Continuity of Care Document ---
Author Organization [facility] Address [address] [place] [address]- Care Team Providers Care Firewall Security Engineer Name Role Phone Christiano VIDES, Nick Primary Care Physician [phone] Encounter [facility] [place] Date(s): 10/09/22 - 10/16/22 [facility] [address] [place] [address]- Encounter Diagnosis Atrial tachycardia(Discharge Diagnosis) - 10/09/22 Nonspecific dizziness(Discharge Diagnosis) - 10/09/22 Acute left-sided thoracic back pain(Discharge Diagnosis) - 10/09/22 Elevated blood pressure reading with diagnosis of hypertension(Discharge Diagnosis) - 10/09/22 Attending Physician: Not on Staff, Attending MD Allergies, Adverse Reactions, Alerts Substance Reaction Severity Status Ceftin ? Active Cleocin T BLOODY DIARRHEA Active Immunizations Given and Recorded Vaccine Date Status Refusal Reason influenza virus vaccine, inactivated 09/12/22 Michael rded influenza virus vaccine, inactivated 08/08/21 Michael rded influenza virus vaccine, inactivated 1 11/21/20 Gi cris influenza virus vaccine, inactivated 2 08/22/20 Re corded [id number] 12y+ bivalent booster vax 08/31/22 Recorded SARS-CoV-2 mRNA ([id number]) vax 03/16/22 Recorded SARS-CoV-2 (COVID-19) mRNA BNT-162b2 [...] diphtheria-tetanus toxoids (DT) 02/22/00 Given 1Result Comment: [id number] 2Result Comment: sarabjit SANDHU [facility] primary care 3Result Comment: Unit: Unknown Surgical Product Sales Consultant: [email or web address] 4Result Comment: Unit: Unknown Surgical Product Sales Consultant: [employer]R Injectables Medications atorvastatin 20 mg oral tablet 1 tablet, By Mouth, Daily at bedtime, # 90 tablet, 3 Refills, Maintenance, 06/09/22 11:18:00 EDT, [facility]/pharmacy #1095, 157.48, cm, 02/21/22 10:37:00 EDT, Height, [...] Refills, Maintenance, 12/18/21 15:56:00 EST, [facility], Partial fill upon patient request if the [...] tablet, 3 Refills, Maintenance, 12/02/21 11:49:00 EST, [facility]/pharmacy #1095, 157.48, cm, 11/27/21 12:51:00 EST, Height, [...] opioid drug. Start Date: 05/09/21 Status: Ordered [place] Tears ophthalmic solution 1 drops, Eyes, Both, 2 times a day, PRN for dry eyes, # 30 each, 0 Refills, Maintenance, 09/15/22 1:54:00 EDT, Solution, Partial fill upon patient request if the prescription is for a schedule II opioid drug. Start Date: 09/15/22 Status: Ordered [place] Tears ophthalmic solution 1 drops, Eyes, Both, 3 times a day, PRN for dry eyes, Maintenance, 09/15/22 10:43:00 EDT, Solution,Partial fill upon patient request if the prescription is for a schedule II opioid drug. Start Date: 09/15/22 Status: Ordered olmesartan 20 mg oral tablet 1 tablet, By Mouth, Daily, # 90 tablet, 3 Refills, Maintenance, 12/20/21 13:54:00 EST, [facility]/pharmacy#1095, 157.48, cm, 12/19/21 11:37:00 EST, Height, 68.8, [...] Clinical Service Informant Atrial tachycardia Discharge Diagnosis 10/09/22 Nonspecific dizziness Discharge Diagnosis 10/09/22 Acute left-sided thoracic back pain Discharge Diagnosis 10/09/22 Elevated blood pressure reading with diagnosis of hypertension Discharge Diagnosis 10/09/22 Vital Signs Most recent to oldest [Reference Range]: 1 2 Height 157 cm (10/09/22 11:28 AM) 157 cm (10/09/22 11:14 AM) Weight 71.1 kg (10/09/22 11:14 AM) Oxygen Saturation [94-100 %] 99 % (10/09/22 11:14 AM) Pulse Rate [55-90 bpm] 62 bpm (10/09/22 11:14 AM) Body Mass Index [18.5-24.99 kg/m2] 28.84 kg/m2 *H* (10/09/22 11:14 AM) Blood Pressure [90-138/55-84 mm Hg] 172/ 64mm Hg *H* (10/09/22 11:28 AM) 173/70mm Hg *H* (10/09/22 11:14 AM) Mode of Delivery (Oxygen) Room air (10/09/22 11:14 AM) Blood pressure sites Arm, left (10/09/22 11:28 AM) Arm, left (10/09/22 11:14 AM) Dry Weight 71.1 kg (10/09/22 11:14 AM) Weight Obtained Via Standing scale (10/09/22 11:14 AM) Dry Weight Obtained Via Standing scale (10/09/22 11:14 AM) Social History Social History Type Response Tobacco Total pack years: 35 . Started at age: 14 Years. Stopped at age: 49 Years. Sex Note * Sofia Montiel: PERFORM, SIGN, VERIFY Event Display: Patient Education/Instruction Authored Date: [id number] [facility] Clinical Summary Name TREASURE REED Age 86 Years 1935 PCP Nick Alvarado NP PCP Visit Date 10/09/2022 11:09:00 Additional Instructions: Scheduled Appointments?? Future Appointments ?No Future Appointments Scheduled Follow-Up Instructions ?? With: Address: When: As Needed 10/09/2022 12:00 AM With: Address: When: Morenita Lopez NP 10/09/2022 12:00 AM With: Address: When: Nick Alvarado NP [address] [place] [address] 10/09/2022 12:00 AM Diagnosis Essential (primary) hypertension; Dizziness and giddiness; Pain in thoracic spine; Supraventriculartachycardia Medications: Please continue your medications until treatment is completed or stopped by your provider. Discuss any questions related to medications with your provider. Medications to Continue with No Changes These medications were not printed or sent to your pharmacy Atorvastatin (atorvastatin 20 mg oral tablet) 1 tab(s) Oral Daily at Bedtime. Refills: 3. Next Dose: bifidobacterium-lactobacillus (Probiotic Formula) Oral Daily. Next Dose: Calcium And Vitamin D Combination (Caltrate 600 + D) Oral twice a day. Next Dose: Clotrimazole Topical (Clotrimazole 1% Topical) 1 yaima Topically twice a day. Toenails. Next Dose: Cyclosporine Ophthalmic (Restasis 0.05% ophthalmic emulsion) 1 Drops Both eyes every 12 hours. Next Dose: Cyclosporine Ophthalmic (Restasis 0.05% ophthalmic emulsion) 1 Drops every 12 hours. Next Dose: Estradiol Topical (Estrace Vaginal Cream 0.1 mg/g) 1 gram Vaginally every Thursday and . Physician requests paraben free. Refills: 1. Next Dose: Levothyroxine (levothyroxine 0.05 mg oral tablet) TAKE 1/2 TABLET BY MOUTH EVERY DAY. Refills: 1. Next Dose: Metoprolol (Metoprolol Tartrate 25 mg oral tablet) 1 tab(s) Oral twice a day. Refills: 3. Next Dose: Multivitamin With Minerals (ICaps AREDS 2) Next Dose: Ocular Lubricant ([place] Tears ophthalmic solution) 1 Drops Both eyes 3 times a day as needed for dry eyes. Next Dose: Ocular Lubricant ([place] Tears ophthalmic solution) 1 Drops Both eyes twice a day as needed for dry eyes. Next Dose: Olmesartan (olmesartan 20 mg oral tablet) 1 tab(s) Oral Daily. Refills: 3. Next Dose: Polyethylene Glycol 3350 (MiraLax oral powder for reconstitution) 17 gram Oral Daily. dissolve in water before taking. Refills: 0. Next Dose: Allergy Info:?? Cleocin T; Ceftin Medications Given This Visit Future Orders ?No future orders Vital Signs Height 157 cm Weight 71.1 kg BMI 28.84 kg/m2 Blood Pressure 172 mm Hg/64 mm Hg Temperature Pulse Rate 62 bpm Respiratory Rate 02 Sat Mode of Delivery 99 %/Room air You can now view a summary of your hospital visit from the comfort of your home through a free online portal called Sponto. Sponto is a website that allows you to securely view your medical information including discharge summary, medications and follow-up visits. ??You can alsosend a secure electronic message to your doctor???s office to request appointments, renew medications or just ask a question. You can enroll at [email or web address] or register during your next office [...] primary care provider, you may find a [facility] provider by calling [facility] Link at [phone]. For information about the plan of care [...] Team Personnel Name: Nick Alvarado NP Position: [facility] PCO Associate Professional Member Role: PCP Address: Address: [address] [place] [address] Name: Elvia METZ, Trinh Position: S RN Member Role: Primary Care Nurse Name: Carrol Ta RN Position: S RN Member Role: Primary Care Nurse Name: Crystal Ceron RN Position: S RN Member Role: Primary Care Nurse Care Team Related Persons Name: RADHA MONTOYA Name: BRANDIE MONTOYA Address: [place] [address] Name: TREASURE MONTOYA Address: [address] [address] Name: JAI REED Address: [address] [address]
--- OUTSIDE RECORDS SUMMARY | 2024-07-27 12:03 | XMS_ITS | Continuity of Care Document ---
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 Mechanic: [employer] 4Result Comment: Unit: Unknown Ordnance Mechanic: [employer] Injectables Medications Aspirin = 81 mg, By Mouth, Daily before lunch, 0 Refills, Maintenance, 01/09/11 5:04:09 EST Start Date: 01/09/11 Status: Ordered atorvastatin 20 mg oral tablet 1 tablet, By Mouth, Daily at bedtime, # 90 tablet, 3 Refills, Maintenance, 12/02/21 11:48:00 EST, [facility]/pharmacy #1095, 157.48, cm, 11/27/21 [...] Refills, Maintenance, 12/18/21 15:56:00 EST, [facility], Partial fill upon patient request [...] tablet, 3 Refills, Maintenance, 12/20/21 13:54:00 EST, [facility]/pharmacy#1095, 157.48, cm, 12/19/21 11:37:00 EST, Height, 68.8, [...]
--- OUTSIDE RECORDS SUMMARY | 2024-07-27 12:03 | XMS_ITS | Continuity of Care Document ---
Author Organization [facility] Address [address] [place] [address]- Care Team Providers Care Piecer Name Role Phone Maged Mendoza MD Primary Care Physician Encounter [facility] Date(s): 09/01/19 - 11/16/19 [facility] [address] [place] [address]- [place] Attending Physician: Justyn Singh MD Admitting Physician: Justyn Singh MD Allergies, Adverse Reactions, [...] 0, 0, 02/21/06 7:36:57, Print CAMILO Number, [id number], Constant Indicator Start Date: 02/21/06 Status: Ordered nystatin topical [id number] u/gm powder 1 applicator, Topically, Daily in [...]
--- OUTSIDE RECORDS SUMMARY | 2024-07-27 12:03 | XMS_ITS | Continuity of Care Document ---
Author Organization [facility] Address [address] [facility] [place] [address]- Care Team Providers Care Banquet Houseperson Name Role Phone Christiano VIDES, Nick Primary Care Physician Encounter [facility] Date(s): 02/06/22 - 02/13/22 [facility] [address] [place] [address]- Attending Physician: Tyler Wang MD Admitting Physician: [...] Vaccine Live 01/15/09 Recorded pneumococcal 23-valent vaccine 9/28/07 Recorded diphtheria-tetanus toxoids (DT) 02/22/00 Given 1Result Comment: [id number] 2Result Comment: sarabjit SANDHU [facility] primary care 3Result Comment: Unit: Unknown Bobbin Stripper: [employer] 4Result Comment: Unit: Unknown Bobbin Stripper: Pfizer Injectables Medications Aspirin = 81 mg, [...] Refills, Maintenance, 12/18/21 15:56:00 EST, [facility], Partial fill upon patient request if the [...] tablet, 3 Refills, Maintenance, 12/20/21 13:54:00 EST, [facility]/pharmacy#1095, 157.48, cm, 12/19/21 11:37:00 EST, [...] oldest [Reference Range]: 1 Height 157.48 cm (02/06/22 11:03 AM) Social History Social History Type Response Tobacco Total pack years: 35 . Started at age: 14 Years. Stopped at age: 49 Years. Sex
--- OUTSIDE RECORDS SUMMARY | 2024-07-27 12:03 | XMS_ITS | Continuity of Care Document ---
Author Organization [facility] Address [address] [place] [address]- Care Team Providers Care Commercial Designer Name Role Phone Christiano VIDES, Nick Primary Care Physician Encounter [facility] Date(s): 12/01/22 - 12/31/22 [facility] Medicine [address] [place] [address]- Allergies, Adverse Reactions, Alerts Substance Reaction Severity Status Ceftin ? Active Cleocin T BLOODY DIARRHEA Active Immunizations Given and Recorded Vaccine Date Status Refusal Reason influenza virus vaccine, inactivated 09/12/22 Michael rded influenza virus vaccine, inactivated 08/08/21 Michael rded influenza virus vaccine, inactivated 1 11/21/20 Gi cris influenza virus vaccine, inactivated 2 08/22/20 Re corded [id number] 12y+ bivalent booster vax 08/31/22 Recorded SARS-CoV-2 mRNA (kgszyll-flwy-hsqoa) vax 03/16/22 Recorded SARS-CoV-2 (COVID-19) mRNA BNT-162b2 [...] diphtheria-tetanus toxoids (DT) 02/22/00 Given 1Result Comment: [id number] 2Result Comment: sarabjit SANDHU [facility] primary care 3Result Comment: Unit: Unknown Funeral Director'S Assistant: GlaxmyFairPartnerKline 4Result Comment: Unit: Unknown Funeral Director'S Assistant: Yogiyo Injectables Medications atorvastatin 20 mg oral tablet [...] Refills, Maintenance, 12/18/21 15:56:00 EST, [facility], Partial fill upon patient request if the [...] opioid drug. Start Date: 05/09/21 Status: Ordered [place] Tears ophthalmic solution 1 drops, Eyes, Both, 2 times a day, PRN for dry eyes, # 30 each, 0 Refills, Maintenance, 09/15/22 1:54:00 EDT, Solution, Partial fill upon patient request if the prescription is for a schedule II opioid drug. Start Date: 09/15/22 Status: Ordered [place] Tears ophthalmic solution 1 drops, Eyes, Both, [...] Team Personnel Name: Nick Alvarado NP Position: [facility] PCO Associate Professional Member Role: PCP Address: Address: [address] [place] [address]- Name: Trinh Gan RN Position: [facility] RN Member Role: Primary Care Nurse Name: Carrol Ta RN Position: [facility] RN Member Role: Primary Care Nurse Name: Crystal Ceron RN Position: [facility] RN Member Role: Primary Care Nurse Care Team Related Persons Name: RADHA MONTOYA Name: BRANDIE MONTOYA Address: [place] [address] Name: TREASURE MONTOYA Address: [address] [place] [address] Name: JAI REED Address: home [address] [place] [address]
--- OUTSIDE RECORDS SUMMARY | 2024-07-27 12:03 | XMS_ITS | Continuity of Care Document ---
Author Organization [facility] Address [address] [place] [address]- Care Team Providers Care Senior Construction Manager Name Role Phone Christiano VIDES, Nick Primary Care Physician [phone] Encounter [facility] Date(s): 05/10/24 - 05/17/24 [facility] [address] [place] [address]- Attending Physician: Not on Staff, Attending MD Allergies, Adverse Reactions, Alerts Substance Reaction Severity Status Ceftin ? Active Cleocin T BLOODY DIARRHEA Active Immunizations Given and Recorded Vaccine Date Status Refusal Reason SARS-CoV-2(COVID-19)mRNA-LNP vac([id number]) 01/08/24 Given pneumococcal 20-valent conjugate vaccine 01/08/24 Given influenza virus vaccine, inactivated 09/12/22 Michael rded influenza virus vaccine, inactivated 08/08/21 Michael rded influenza virus vaccine, inactivated 1 11/21/20 Gi cris influenza virus vaccine, inactivated 2 08/22/20 Re corded [id number] 12y+ bivalent booster vax 08/31/22 Recorded SARS-CoV-2 mRNA (aruohrr-tjyp-gysul) vax 03/16/22 Recorded SARS-CoV-2 (COVID-19) mRNA BNT-162b2 [...] diphtheria-tetanus toxoids (DT) 02/22/00 Given 1Result Comment: [id number] 2Result Comment: sarabjit SANDHU [facility] care 3Result Comment: Unit: Unknown Precision Aircraft Structure Assembler: Skiin [employer]ement[employer] 4Result Comment: Unit: Unknown Precision Aircraft Structure Assembler: [employer]zed Injectables Medications atorvastatin 20 mg oral tablet [...] Gm, 0 Refills, Maintenance, 04/05/24 5:37:00 EDT, [place], Partial fill upon patient request if the [...] Team Personnel Name: Pam Floyd RN Position: [facility] RN Member Role: Primary Care Nurse Name: Nick Alvarado NP Position: [facility] PCO Associate Professional Member Role: PCP Address: Address: [address] [place] [address] [address] Name: Keyon RN, Carrol Marie Position: [facility] SN RN Member Role: Primary Care Nurse Name: Crystal Ceron RN Position: [facility] RN Member Role: Primary Care Nurse Care Team Related Persons Name: RADHA MONTOYA Address: [place], [place] Name: BRANDIE MONTOYA Address: [place] [address] Name: TREASURE MONTOYA Address: home [address] [place] [address] Name: JAI REED Address: home [address] [place] [address]
--- OUTSIDE RECORDS SUMMARY | 2024-07-27 12:03 | XMS_ITS | Continuity of Care Document ---
Author Organization [facility] Address [address] [facility] 2nd Floor [address] [place] [address]- Care Team Providers Care Caterpillar Operator Name Role Phone Christiano VIDES, Nick Primary Care Physician Encounter [facility] Date(s): 04/08/23 - 07/03/23 [facility] [address] [place] [address]- Attending Physician: Dionicio Gates MD Admitting Physician: Dionicio Gates MD Referring Physician: Nick Alvarado NP Allergies, Adverse Reactions, Alerts Substance Reaction Severity Status Ceftin ? Active Cleocin T BLOODY DIARRHEA Active Immunizations Given and Recorded Vaccine Date Status Refusal Reason influenza virus vaccine, inactivated 09/12/22 Michael rded influenza virus vaccine, inactivated 08/08/21 Michael rded influenza virus vaccine, inactivated 1 11/21/20 Gi cris influenza virus vaccine, inactivated 2 08/22/20 Re corded [id number] 12y+ bivalent booster vax 08/31/22 Recorded SARS-CoV-2 mRNA (gdgzvdp-afvw-tqcxo) vax 03/16/22 Recorded SARS-CoV-2 (COVID-19) mRNA BNT-162b2 [...] diphtheria-tetanus toxoids (DT) 02/22/00 Given 1Result Comment: [id number] 2Result Comment: sarabjit SANDHU [facility] primary care 3Result Comment: Unit: Unknown Community Relations Director: [employer] 4Result Comment: Unit: Unknown Community Relations Director: [employer] Injectables Medications atorvastatin 20 mg oral tablet [...] 03/03/23 15:46:00 EDT, Route to Pharmacy Electronically, [facility], Partial fill upon patient request if the prescript... Start Date: 03/03/23 Status: Ordered hydrOXYzine hydrochloride 25 mg oral tablet 1 tablet, By Mouth, Daily at bedtime, # 30 tablet, 0 Refills, Maintenance, 04/07/23 7:44:00 EDT, [facility], 158, cm, 04/02/23 19:36:00 [...] tablet, 1 Refills, Maintenance, 05/29/23 15:49:00 EDT, [facility], 158, cm, 05/06/23 11:17:00 EDT, Height, 70, kg, 04/02/23 19:36:00 EDT, Dry Weight Start Date: 05/29/23 Status: Ordered Metoprolol Tartrate 25 mg oral tablet 2 tablet = 50 mg, By Mouth, 2 times a day, # 360 tablet, 3 Refills, Maintenance, 12/16/22 13:42:00 EST, [facility], 158, cm, 12/11/22 15:03:00 [...] opioid drug. Start Date: 05/09/21 Status: Ordered [place] Tears ophthalmic solution 1 drops, Eyes, Both, 2 times a day, PRN for dry eyes, # 30 each, 0 Refills, Maintenance, 09/15/22 1:54:00 EDT, Solution, Partial fill upon patient request if the prescription is for a schedule II opioid drug. Start Date: 09/15/22 Status: Ordered [place] Tears ophthalmic solution 1 drops, Eyes, Both, 3 times a day, PRN for dry eyes, Maintenance, 09/15/22 10:43:00 EDT, Solution,Partial fill upon patient request if the prescription is for a schedule II opioid drug. Start Date: 09/15/22 Status: Ordered olmesartan 20 mg oral tablet 1 tablet, By Mouth, Daily, # 90 tablet, 3 Refills, Maintenance, 12/22/22 11:40:00 EST, [facility], 158, cm, 12/18/22 10:17:00 EST, [...] EDT, Route to Pharmacy Electronically, [facility], Partial fill upon patient request [...] Team Personnel Name: Nick Alvarado NP Position: [facility] PCO Associate Professional Member Role: PCP Address: Address: [address] [place] [id number] Name: Elvia METZ, Trinh Position: S RN Member Role: Primary Care Nurse Name: Carrol Ta RN Position: S RN Member Role: Primary Care Nurse Name: Crystal Ceron RN Position: S RN Member Role: Primary Care Nurse Care Team Related Persons Name: RADHA MONTOYA Address: [place], [place] Name: BRANDIE MONTOYA Address: [place] [address] Name: TREASURE MONTOYA Address: [address] [address] Name: JAI REED Address: home [address] [place] [address]
--- OUTSIDE RECORDS SUMMARY | 2024-07-27 12:03 | XMS_ITS | Continuity of Care Document ---
Author Organization [facility] Address [address] [place] [address]- Care Team Providers Care Travelift Operator Name Role Phone Christiano VIDES, Nick Primary Care Physician Encounter [facility] [place] Date(s): 02/03/24 - 03/04/24 [facility] [address] [place] [address]- Allergies, Adverse Reactions, Alerts Substance Reaction Severity Status Ceftin ? Active Cleocin T BLOODY DIARRHEA Active Immunizations Given and Recorded Vaccine Date Status Refusal Reason SARS-CoV-2(COVID-19)mRNA-LNP vac([id number]) 01/08/24 Given pneumococcal 20-valent conjugate vaccine 01/08/24 Given influenza virus vaccine, inactivated 09/12/22 Michael rded influenza virus vaccine, inactivated 08/08/21 Michael rded influenza virus vaccine, inactivated 1 11/21/20 Gi cris influenza virus vaccine, inactivated 2 08/22/20 Re corded [id number] 12y+ bivalent booster vax 08/31/22 Recorded SARS-CoV-2 mRNA (yffcila-sawp-uipdv) vax 03/16/22 Recorded SARS-CoV-2 (COVID-19) mRNA BNT-162b2 [...] diphtheria-tetanus toxoids (DT) 02/22/00 Given 1Result Comment: [id number] 2Result Comment: sarabjit SANDHU [facility] primary care 3Result Comment: Unit: Unknown Centerless Grinder: [employer] 4Result Comment: Unit: Unknown Centerless Grinder: [email or web address] Injectables Medications atorvastatin 20 mg oral tablet 1 tablet, By Mouth, Daily at bedtime, # 90 tablet, 3 Refills, Maintenance, 01/05/24 11:50:00 EST, [facility], 158, cm, 11/24/23 11:30:00 EST, [...] 08/27/23 21:16:00 EDT, Route to Pharmacy Electronically, [facility], 158, cm, 05/06/23 11:17:00 EDT, Height, 70, kg, 04/02/23 19:36:00 EDT, Dry Weight Start Date: 08/27/23 Status: Ordered fluticasone 50 mcg/inh nasal spray 1 sprays = 50 mcg, Nares, Both, 2 times a day, # 16 Gm, 0 Refills, Maintenance, 01/08/24 11:22:00 EST, [place], [facility], Partial fill upon patient request if the prescription is for a schedule II opioid drug., 1 sprays Nares, Both 2 camden... Start Date: 01/08/24 Status: Ordered hydrocortisone 1% topical cream 1 application, Topically, 2 times a day, # 15 Gm, 0 Refills, Maintenance, 01/08/24 11:30:00 EST, Cream, [facility], Partial fill upon patient request [...] Refills, Maintenance, 12/14/23 15:43:00 EST, [facility], 158, cm, 11/24/23 11:30:00 EST, [...] opioid drug. Start Date: 05/09/21 Status: Ordered [place] Tears ophthalmic solution 1 drops, Eyes, [...] Professional Member Role: PCP Address: Address: [address] [place] [address]- [place] Name: Keyon METZ, Carrol Marie Position: S SN RN Member Role: Primary Care Nurse Name: Crystal Ceron RN Position: [facility] RN Member Role: Primary Care Nurse Care Team Related Persons Name: RADHA MONTOYA Address: [place], [place] Name: BRANDIE MONTOYA Address: [place] [address] Name: TREASURE MONTOYA Address: home [address] [place] [address] Name: JAI REED Address: [address] [place] [address]
--- OUTSIDE RECORDS SUMMARY | 2024-07-27 12:03 | XMS_ITS | Continuity of Care Document ---
Author Organization [facility] Address [address] [facility] [place] [address]- Care Team Providers Care Relay Engineer Name Role Phone Nick Alvarado NP Primary Care Physician [phone] Encounter [facility] Date(s): 03/16/24 - 03/23/24 [facility] [address] [place], [place] [address] Attending Physician: Mery Alcantar Admitting Physician: Mery Alcantar Referring Physician: Nick Alvarado NP Allergies, Adverse Reactions, Alerts Substance Reaction Severity Status Ceftin ? Active Cleocin T BLOODY DIARRHEA Active Immunizations Given and Recorded Vaccine Date Status Refusal Reason SARS-CoV-2(COVID-19)mRNA-LNP vac([id number]) 01/08/24 Given pneumococcal 20-valent conjugate vaccine 01/08/24 Given influenza virus vaccine, inactivated 09/12/22 Michael rded influenza virus vaccine, inactivated 08/08/21 Michael rded influenza virus vaccine, inactivated 1 11/21/20 Gi cris influenza virus vaccine, inactivated 2 08/22/20 Re corded [id number] 12y+ bivalent booster vax 08/31/22 Recorded SARS-CoV-2 mRNA (rijugyk-fwbc-ynuei) vax 03/16/22 Recorded SARS-CoV-2 (COVID-19) mRNA BNT-162b2 vac 08/15/21 Recorded SARS-CoV-2 (COVID-19) mRNA BNT-162b2 vac 01/16/21 Given SARS-CoV-2 (COVID-19) mRNA BNT-162b2 vac 2/3/21 Recorded Influenza Virus Vaccine (oldterm) 10/12/19 Recorde d zoster vaccine, inactivated 06/07/19 Recorded zoster vaccine, inactivated 03/14/19 Recorded tetanus-diphtheria toxoids (Td) 3 11/09/17 Recorde d pneumococcal 13-valent vaccine 4 10/02/16 Recorded tetanus/diphtheria/pertussis, acel(Tdap) 03/11/16 Given Zoster Vaccine Live 01/15/09 Recorded pneumococcal 23-valent vaccine 08/20/07 Recorded diphtheria-tetanus toxoids (DT) 02/22/00 Given 1Result Comment: [id number] 2Result Comment: sarabjit SANDHU [facility] primary care 3Result Comment: Unit: Unknown Market President: Adeyoh 4Result Comment: Unit: Unknown Market President: [employer] Injectables Medications atorvastatin 20 mg oral tablet 1 tablet, By Mouth, Daily at bedtime, # 90 tablet, 3 Refills, Maintenance, 01/05/24 11:50:00 EST, [facility], 158, cm, 11/24/23 11:30:00 EST, [...] Every Thursday and , Physician requests parajavadn free, # 30 Gm, 1 Refills, Maintenance, [...] 08/27/23 21:16:00 EDT, Route to Pharmacy Electronically, [facility], 158, cm, 05/06/23 11:17:00 EDT, Height, 70, kg, 04/02/23 19:36:00 EDT, Dry Weight Start Date: 08/27/23 Status: Ordered fluticasone 50 mcg/inh nasal spray 1 sprays = 50 mcg, Nares, Both, 2 times a day, # 16 Gm, 0 Refills, Maintenance, 01/08/24 11:22:00 EST, [place], [facility], Partial fill upon patient request if the prescription is for a schedule II opioid drug., 1 sprays Nares, Both 2 cam[place]... Start Date: 01/08/24 Status: Ordered hydrocortisone 1% topical cream 1 application, Topically, 2 times a day, # 15 Gm, 0 Refills, Maintenance, 01/08/24 11:30:00 EST, [place], [facility], Partial fill upon [...] opioid drug. Start Date: 05/09/21 Status: Ordered [place] Tears ophthalmic solution 1 drops, Eyes, Both, [...] oldest [Reference Range]: 1 Height 158 cm (03/16/24 3:33 PM) Pulse Rate [55-90 bpm] 60 bpm (03/16/24 3:33 PM) Blood Pressure [90-138/55-84 mm Hg] 156/ 77mm Hg *H* (03/16/24 3:33 PM) Blood pressure sites Arm, left (03/16/24 3:33 PM) Social History Social History Type Response Tobacco Total pack years: 35 . Started at age: 14 Years. Stopped at age: 49 Years. Sex Patient Care team information Care Team Personnel Name: Nick Alvarado NP Position: [facility] PCO Associate Professional Member Role: PCP Address: Address: [address] [place] [address]- Name: Carrol Ta RN Position: [facility] RN Member Role: Primary Care Nurse Name: Crystal Ceron RN Position: [facility] RN Member Role: Primary Care Nurse Care Team Related Persons Name: RADHA MONTOYA Address: [place], [place] Name: BRANDIE MONTOYA Address: [place] [address] Name: TREASURE MONTOYA Address: home [address] [place] [address] Name: JAI REED Address: home [address] [place] [address]
--- OUTSIDE RECORDS SUMMARY | 2024-07-27 12:04 | XMS_ITS | Continuity of Care Document ---
Author Organization [facility] Address [address] [place] [address]- Care Team Providers Care [place] Dental Lab Technician Name Role Phone Christiano VIDES, Nick Primary Care Physician Encounter [facility] Date(s): 09/23/22 - 09/30/22 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) - 09/23/22 Attending Physician: Nick Alvarado NP Admitting Physician: [...] virus vaccine, inactivated 2 08/22/20 Re corded [id number] 12y+ bivalent booster vax 08/31/22 Recorded SARS-CoV-2 mRNA (fkkdvwa-cyai-aywhp) vax 03/16/22 Recorded SARS-CoV-2 (COVID-19) mRNA BNT-162b2 [...] diphtheria-tetanus toxoids (DT) 02/22/00 Given 1Result Comment: [id number] 2Result Comment: sarabjit SANDHU [facility] primary care 3Result Comment: Unit: Unknown Medical Secretary Receptionist: [employer] 4Result Comment: Unit: Unknown Medical Secretary Receptionist: [employer] Injectables Medications atorvastatin 20 mg oral tablet 1 tablet, By Mouth, Daily at bedtime, # 90 tablet, 3 Refills, Maintenance, 06/09/22 11:18:00 EDT, [facility]acy #1095, 157.48, cm, 02/21/22 10:37:00 [...] Refills, Maintenance, 12/18/21 15:56:00 EST, [facility], Partial fill upon patient request if the [...] tablet, 3 Refills, Maintenance, 12/02/21 11:49:00 EST, [facility]/pharmacy #1095, 157.48, cm, 11/27/21 12:51:00 EST, [...] opioid drug. Start Date: 05/09/21 Status: Ordered [place] Tears ophthalmic solution 1 drops, Eyes, Both, 2 times a day, PRN for dry eyes, # 30 each, 0 Refills, Maintenance, 09/15/22 1:54:00 EDT, Solution, Partial fill upon patient request if the prescription is for a schedule II opioid drug. Start Date: 09/15/22 Status: Ordered [place] [address] [place] Tears ophthalmic solution 1 drops, Eyes, Both, 3 times a day, PRN for dry eyes, Maintenance, 09/15/22 10:43:00 EDT, Solution,Partial fill upon patient request if the prescription is for a schedule II opioid drug. Start Date: 09/15/22 Status: Ordered olmesartan 20 mg oral tablet 1 tablet, By Mouth, Daily, # 90 tablet, 3 Refills, Maintenance, 12/20/21 13:54:00 EST, [facility]/pharmacy#1095, 157.48, cm, 12/19/21 11:37:00 EST, [...] Dates Health Status Cl inical Service Informant Hospital discharge follow-up Discharge Diagnosis 09/23/22 Insomnia Discharge Diagnosis 09/23/22 Prolapse of female pelvic organs Discharge Diagnosis 09/23/22 Vital Signs Most recent to oldest [Reference Range]: 1 Height 157 cm (09/23/22 3:04 PM) Weight 71 kg (09/23/22 3:04 PM) Oxygen Saturation [94-100 %] 96 % (09/23/22 3:04 PM) Pulse Rate [55-90 bpm] 68 bpm (09/23/22 3:04 PM) Body Mass Index [18.5-24.99 kg/m2] 28.8 kg/m2 *H* (09/23/22 3:04 PM) Blood Pressure [90-138/55-84 mm Hg] 141/ 62mm Hg *H* (09/23/22 3:04 PM) Blood pressure sites Arm, right (09/23/22 3:04 PM) Weight Obtained Via Standing scale (09/23/22 3:04 PM) Social History Social History Type Response Tobacco Total pack years: 35 . Started at age: 14 Years. Stopped at age: 49 Years. Sex Note * Sofia Montiel: VERIFY, PERFORM, SIGN Event Display: Patient Education/Instruction Authored Date: [id number] [facility] Clinical Summary Name TREASURE REED Age 86 Years 1935 PCP Christiano VIDES, Nick PCP Visit Date 09/23/2022 15:00:00 Additional Instructions: Scheduled Appointments?? Future Appointments ?No Future Appointments Scheduled Follow-Up Instructions ?? Diagnosis Encounter for follow-up examination after completed treatment for conditions other than malignant neoplasm Medications: Please continue your medications until treatment [...] (ICaps AREDS 2) Next Dose: Ocular Lubricant ([place] Tears ophthalmic solution) 1 Drops Both eyes 3 times a day as needed for dry eyes. Next Dose: Ocular Lubricant ([place] [address] [place] Tears ophthalmic solution) 1 Drops Both eyes [...] orders Vital Signs Height 157 cm Weight 71 kg BMI 28.8 kg/m2 Blood Pressure 141 mm Hg/62 mm Hg Temperature Pulse Rate 68 bpm Respiratory Rate 02 Sat Mode of Delivery 96 %/ You can now view a summary of your hospital visit from the comfort of your home through a free online portal called [email or web address]. [email or web address] is a website that allows you to securely view your medical information including discharge summary, medications and follow-up visits. ??You can alsosend a secure electronic message to your doctor???s office to request appointments, renew medications or just ask a question. You can enroll at [email or web address] or register during your next office visit. [...] primary care provider, you may find a [facility] provider by calling [facility] Link at [phone]. For information about the plan of care [...] Associate Professional Member Role: PCP Address: Address: [address] [place] [id number] Name: Elvia METZ, Trinh Position: S RN Member Role: Primary Care Nurse Name: Carrol Ta RN Position: S RN Member Role: Primary Care Nurse Name: Crystal Ceron RN Position: [facility] RN Member Role: Primary Care Nurse Care Team Related Persons Name: RADHA MONTOYA Name: BRANDIE MONTOYA Address: [place] [address] Name: TREASURE MONTOYA Address: [place] [address] [place] [address] Name: JAI REED Address: [place] [address] [place] [address]
--- OUTSIDE RECORDS SUMMARY | 2024-07-27 12:04 | XMS_ITS | Continuity of Care Document ---
Author Organization [facility] Address [address] [place] [address]- Care Team Providers Care Power Bender Operator Name Role Phone Christiano VIDES, Nick Primary Care Physician [phone] Encounter [facility] Date(s): 08/11/22 - 09/10/[address] [address] Allergies, Adverse Reactions, Alerts Substance [...] diphtheria-tetanus toxoids (DT) 02/22/00 Given 1Result Comment: [id number] 2Result Comment: sarabjit SANDHU [facility] 3Result Comment: Unit: Unknown Drop Wirer: [employer] 4Result Comment: Unit: Unknown Drop Wirer: [employer] Injectables Medications atorvastatin 20 mg oral tablet 1 tablet, By Mouth, Daily at bedtime, # 90 tablet, 3 Refills, Maintenance, 06/09/22 11:18:00 EDT, [facility] #1095, 157.48, cm, 02/21/22 10:37:00 EDT, Height, [...] Refills, Maintenance, 12/18/21 15:56:00 EST, [facility] Partial fill upon patient request [...] tablet, 3 Refills, Maintenance, 12/02/21 11:49:00 EST, [facility]/pharmacy #1095, 157.48, cm, 11/27/21 12:51:00 EST, [...] tablet, 3 Refills, Maintenance, 12/20/21 13:54:00 EST, [facility]/pharmacy#1095, 157.48, cm, 12/19/21 11:37:00 EST, Height, [...] Date: 06/25/22 Status: Ordered Problem List Condition Confirmation Course [...] Personnel Name: Nick Alvarado NP Address: Address: [address] [place] [id number]
--- OUTSIDE RECORDS SUMMARY | 2024-07-27 12:04 | XMS_ITS | Continuity of Care Document ---
Author Organization [facility] Address 164 [facility] 2nd Floor [address] [place] [address]- Care Team Providers Care Vocational Education Professional Name Role Phone Christiano VIDES, Nick Primary Care Physician [phone] Encounter [facility] Date(s): 04/08/23 - 04/15/23 [facility] [place] [address] [place] [address]- Attending Physician: Dionicio Gates MD Admitting Physician: Dionicio Gates MD Referring Physician: Jessica VIDES, Morenita Greer Allergies, Adverse Reactions, Alerts Substance Reaction Severity Status Ceftin ? Active Cleocin T BLOODY DIARRHEA Active Immunizations Given and Recorded Vaccine Date Status Refusal Reason influenza virus vaccine, inactivated 09/12/22 Michael rded influenza virus vaccine, inactivated 08/08/21 Michael rded influenza virus vaccine, inactivated 1 11/21/20 Gi cris influenza virus vaccine, inactivated 2 08/22/20 Re corded [id number] 12y+ bivalent booster vax 08/31/22 Recorded SARS-CoV-2 mRNA (xczkbyj-agct-hmbds) vax 03/16/22 Recorded SARS-CoV-2 (COVID-19) mRNA BNT-162b2 [...] diphtheria-tetanus toxoids (DT) 02/22/00 Given 1Result Comment: [id number] 2Result Comment: sarabjit SANDHU [facility] primary care 3Result Comment: Unit: Unknown Engineering Leader: [employer] 4Result Comment: Unit: Unknown Engineering Leader: [employer] Injectables Medications atorvastatin 20 mg oral tablet [...] Refills, Maintenance, 02/05/23 15:29:00 EDT, [facility], Partial fill upon patient request if the prescription is for a schedule II opioid drug., 1... Start Date: 02/05/23 Status: Ordered famotidine 20 mg oral tablet 20 mg, 1, tablet, By Mouth, 2 times a day, PRN, # 60 tablet, Refills 5, Tot. Refills 5, Maintenance, Pain , Moderate, 03/03/23 15:46:00 EDT, Route to Pharmacy Electronically, [facility], Partial fill upon patient request if [...] opioid drug. Start Date: 05/09/21 Status: Ordered [place] Tears ophthalmic solution 1 drops, Eyes, Both, 2 times a day, PRN for dry eyes, # 30 each, 0 Refills, Maintenance, 09/15/22 1:54:00 EDT, Solution, Partial fill upon patient request if the prescription is for a schedule II opioid drug. Start Date: 09/15/22 Status: Ordered [place] Tears ophthalmic solution 1 drops, Eyes, Both, [...] oldest [Reference Range]: 1 Height 158 cm (04/08/23 2:42 PM) Weight 70.45 kg (04/08/23 2:42 PM) Oxygen Saturation [94-100 %] 97 % (04/08/23 2:42 PM) Pulse Rate [55-90 bpm] 65 bpm (04/08/23 2:42 PM) Body Mass Index [18.5-24.99 kg/m2] 28.22 kg/m2 *H* (04/08/23 2:42 PM) Blood Pressure [90-138/55-84 mm Hg] 167/ 65mm Hg *H* (04/08/23 2:42 PM) Blood pressure sites Leg, left (04/08/23 2:42 PM) Weight Obtained Via Patient/family state d (04/08/23 2:42 PM) Social History Social History Type Response Tobacco Total pack years: 35 . Started at age: 14 Years. Stopped at age: 49 Years. Sex Patient Care team information Care Team Personnel Name: Nick Alvarado NP Position: [facility] PCO Associate Professional Member Role: PCP Address: Address: [address] [place] [address]- Name: Elvia METZ, Trinh Position: S RN Member Role: Primary Care Nurse Name: Carrol Ta RN Position: S RN Member Role: Primary Care Nurse Name: Crystal Ceron RN Position: S RN Member Role: Primary Care Nurse Care Team Related Persons Name: RADHA MONTOYA Name: BRANDIE MONTOYA Address: [place] [address] Name: TREASURE MONTOYA Address: home [address] [place] [id number] Name: JAI REED Address: home [address] [place] [address]
--- OUTSIDE RECORDS SUMMARY | 2024-07-27 12:04 | XMS_ITS | Continuity of Care Document ---
Author Organization [facility] Address [address] [place] [address]- Care Team Providers Care Operating Table Assembler Name Role Phone Christiano VIDES, Nick Primary Care Physician [place] [facility] 11/09/23 - 12/09/[address] [address]- Attending Physician: Silas Duncan Admitting Physician: AdmSilas [...] virus vaccine, inactivated 2 08/22/20 Re corded [id number] 12y+ bivalent booster vax 08/31/22 Recorded SARS-CoV-2 mRNA (fozgnap-vcnj-ditdo) vax 03/16/22 Recorded SARS-CoV-2 (COVID-19) mRNA BNT-162b2 [...] diphtheria-tetanus toxoids (DT) 02/22/00 Given 1Result Comment: [id number] 2Result Comment: sarabjit SANDHU [facility] primary care 3Result Comment: Unit: Unknown Loss Control Consultant: [employer] 4Result Comment: Unit: Unknown Loss Control Consultant: [employer] Injectables Medications atorvastatin 20 mg oral tablet [...] 08/27/23 21:16:00 EDT, Route to Pharmacy Electronically, [facility], 158, cm, 05/06/23 11:17:00 EDT, Height, 70, kg, 04/02/23 19:36:00 EDT, Dry Weight Start Date: 08/27/23 Status: Ordered hydrOXYzine hydrochloride 25 mg oral tablet 1 tablet, By Mouth, Daily at bedtime, # 30 tablet, 0 Refills, Maintenance, 07/21/23 11:20:00 EDT, [facility], 158, cm, 05/06/23 [...] mL, 0 Refills, Maintenance, 10/28/23 17:05:00 EST, [facility], Partial fill upon patient request if the prescription is for a schedule II opioid drug., 1 sprays Nares, Both Daily at... Start Date: 10/28/23 Status: Ordered levothyroxine 0.05 mg oral tablet 0.5 tablet, By Mouth, Daily, # 45 tablet, 1 Refills, Maintenance, 08/27/23 21:17:00 EDT, [facility], 158, cm, 05/06/23 11:17:00 EDT, Height, 70, kg, 04/02/23 19:36:00 EDT, Dry Weight Start Date: 08/27/23 Status: Ordered Metoprolol Tartrate 25 mg oral tablet 2 tablet = 50 mg, By Mouth, 2 times a day, # 360 tablet, 3 Refills, Maintenance, 12/16/22 13:42:00 EST, [facility], 158, cm, 12/11/22 15:03:00 EST, [...] opioid drug. Start Date: 05/09/21 Status: Ordered [place] Tears ophthalmic solution 1 drops, Eyes, Both, 2 times a day, PRN for dry eyes, # 30 each, 0 Refills, Maintenance, 09/15/22 1:54:00 EDT, Solution, Partial fill upon patient request if the prescription is for a schedule II opioid drug. Start Date: 09/15/22 Status: Ordered [place] Tears ophthalmic solution 1 drops, Eyes, Both, [...] Team Personnel Name: Nick Alvarado NP Position: [facility] PCO Associate Professional Member Role: PCP Address: Address: [address] [place] [id number] Name: Elvia METZ, Trinh Position: S RN Member Role: Primary Care Nurse Name: Carrol Ta RN Position: [facility] RN Member Role: Primary Care Nurse Name: Crystal Ceron RN Position: [facility] RN Member Role: Primary Care Nurse Care Team Related Persons Name: RADHA MONTOYA Address: [place], [place] Name: BRANDIE MONTOYA Address: [place] [address] Name: TREASURE MONTOYA Address: home [address] [place] [address] Name: JAI REED Address: home [address] [place] [address]
--- OUTSIDE RECORDS SUMMARY | 2024-07-27 12:04 | XMS_ITS | Continuity of Care Document ---
Author Organization [facility] Address [address] [place] [address]- Care Team Providers Care Licensing Court Magistrate Name Role Phone Christiano VIDES, Nick Primary Care Physician [phone] Encounter [facility] Date(s): 07/17/23 - 08/16/[address] [address]- Attending Physician: Silas Duncan Admitting Physician: AdmSilas [...] virus vaccine, inactivated 2 08/22/20 Re corded [id number] 12y+ bivalent booster vax 08/31/22 Recorded SARS-CoV-2 mRNA (erhsdyh-liof-venbs) vax 03/16/22 Recorded SARS-CoV-2 (COVID-19) mRNA BNT-162b2 [...] diphtheria-tetanus toxoids (DT) 02/22/00 Given 1Result Comment: [id number] 2Result Comment: sarabjit SANDHU [facility] primary care 3Result Comment: Unit: Unknown 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 Start Date: 03/03/23 Status: Ordered hydrOXYzine hydrochloride 25 mg oral tablet 1 tablet, By Mouth, Daily at bedtime, # 30 tablet, 0 Refills, Maintenance, 07/21/23 11:20:00 EDT, [facility], 158, cm, 05/06/23 [...] tablet, 1 Refills, Maintenance, 05/29/23 15:49:00 EDT, [facility], 158, cm, 05/06/23 11:17:00 EDT, Height, 70, kg, 04/02/23 19:36:00 EDT, Dry Weight Start Date: 05/29/23 Status: Ordered Metoprolol Tartrate 25 mg oral tablet 2 tablet = 50 mg, By Mouth, 2 times a day, # 360 tablet, 3 Refills, Maintenance, 12/16/22 13:42:00 EST, [facility], 158, cm, 12/11/22 [...] opioid drug. Start Date: 05/09/21 Status: Ordered [place] Tears ophthalmic solution 1 drops, Eyes, Both, 2 times a day, PRN for dry eyes, # 30 each, 0 Refills, Maintenance, 09/15/22 1:54:00 EDT, Solution, Partial fill upon patient request if the prescription is for a schedule II opioid drug. Start Date: 09/15/22 Status: Ordered [place] Tears ophthalmic solution 1 drops, Eyes, Both, [...] Team Personnel Name: Nick Alvarado NP Position: [facility] PCO Associate Professional Member Role: PCP Address: Address: [address] [place] [id number] Name: Elvia METZ, Trinh Position: [facility] RN Member Role: Primary Care Nurse Name: Carrol Ta RN Position: [facility] RN Member Role: Primary Care Nurse Name: Crystal Ceron RN Position: [facility] RN Member Role: Primary Care Nurse Care Team Related Persons Name: RADHA MONTOYA Address: [place], [place] Name: BRANDIE MONTOYA Address: [place] [address] Name: TREASURE MONTOYA Address: home [address] [place] [address] Name: JAI REED Address: [address] [place] [address]
--- OUTSIDE RECORDS SUMMARY | 2024-07-27 12:04 | XMS_ITS | Continuity of Care Document ---
Author Organization [facility] Address [address] [place] [address]- Care Team Providers Care Signal And Communications Maintainer Name Role Phone Nick Alvarado NP Primary Care Physician [place] [facility] Date(s): 05/03/24 - 06/02/[address] [address]- Allergies, Adverse Reactions, Alerts Substance Reaction Severity Status Ceftin ? Active Cleocin T BLOODY DIARRHEA Active Immunizations Given and Recorded Vaccine Date Status Refusal Reason SARS-CoV-2(COVID-19)mRNA-LNP vac([id number]) 01/08/24 Given pneumococcal 20-valent conjugate vaccine 01/08/24 Given influenza virus vaccine, inactivated 09/12/22 Michael rded influenza virus vaccine, inactivated 08/08/21 Michael rded influenza virus vaccine, inactivated 1 11/21/20 Gi cris influenza virus vaccine, inactivated 2 08/22/20 Re corded [id number] 12y+ bivalent booster vax 08/31/22 Recorded SARS-CoV-2 mRNA (mxlechx-wolw-uorsy) vax 03/16/22 Recorded SARS-CoV-2 (COVID-19) mRNA BNT-162b2 [...] diphtheria-tetanus toxoids (DT) 02/22/00 Given 1Result Comment: [id number] 2Result Comment: sarabjit SANDHU [facility] primary care 3Result Comment: Unit: Unknown 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 Injectables Medications atorvastatin 20 mg oral [...] Refills, Maintenance, 06/01/24 11:03:00 EDT, [facility], 158, cm, 05/19/24 9:35:00 EDT, [...] team information Care Team Personnel Name: Pam lFoyd RN Position: [facility] RN Member Role: Primary Care Nurse Name: Nick Alvarado NP Position: [facility] PCO Associate Professional Member Role: PCP Address: Address: [address] [place] [address]- Name: Carrol Ta RN Position: [facility] RN Member Role: Primary Care Nurse Name: Crystal Ceron RN Position: S RN Member Role: Primary Care Nurse Care Team Related Persons Name: RADHA MONTOYA Address: [place], [place] Name: BRANDIE MONTOYA Address: [place] [address] Name: TREASURE MONTOYA Address: home [address] [place] [address] Name: JAI REED Address: [address] [place] [address]
--- OUTSIDE RECORDS SUMMARY | 2024-07-27 12:04 | XMS_ITS | Continuity of Care Document ---
Author Organization [facility] oenterology Address Unknown Care Team Providers Care Aircraft Communicator Name Role Phone Christiano VIDES, Nick Primary Care Physician Encounter [facility] [place] [place] Date(s): 08/12/21 - 08/19/21 [facility] Attending Physician: Justyn Singh MD Admitting Physician: Justyn Singh MD Referring Physician: Zara Vargas MD Allergies, [...] diphtheria-tetanus toxoids (DT) 02/22/00 Given 1Result Comment: [id number] 2Result Comment: sarabjit SANDHU [facility] primary care 3Result Comment: Unit: Unknown 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: [employer] 4Result Comment: Unit: Unknown 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: [employer] Injectables Medications Aspirin = 81 mg, By Mouth, Daily before lunch, 0 Refills, Maintenance, 01/09/11 5:04:09 EST Start Date: 01/09/11 Status: Ordered atorvastatin 20 mg oral tablet 1 tablet = 20 mg, By Mouth, Daily at bedtime, # 90 tablet, 3 Refills, Maintenance, 12/12/20 15:31:00 EST, Tablet, [facility] #[id number], 158, cm, 11/21/20 11:06:00 EST, [...] 14:30:00 EST, Route to Pharmacy Electronically, [facility] #[id number], Partial fill upon patient request [...] 113.4 Gm, 3 Refills, Maintenance, [facility], 30, USE DIRECTED, 158, cm, 05/09/21 14:04:00 [...] oldest [Reference Range]: 1 Height 158 cm (08/12/21 4:11 PM) Weight 71.8 kg (08/12/21 4:11 PM) Oxygen Saturation [94-100 %] 98 % (08/12/21 4:11 PM) Pulse Rate [55-90 bpm] 68 bpm (08/12/21 4:11 PM) Body Mass Index [18.5-24.99] 28.76 *H* (08/12/21 4:11 PM) Blood Pressure [90-138/55-84 mm Hg] 142/ 74mm Hg *H* (08/12/21 4:11 PM) Respiratory Rate [16-30 br/min] 18 br/mi n (08/12/21 4:11 PM) Blood pressure sites Arm, right (08/12/21 4:11 PM) Weight Obtained Via Standing scale (08/12/21 4:11 PM) Social History Social History Type Response Tobacco Total pack years: 35 . Started at age: 14 Years. Stopped at age: 49 Years. Sex
--- OUTSIDE RECORDS SUMMARY | 2024-07-27 12:04 | XMS_ITS | Continuity of Care Document ---
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: [employer] 4Result Comment: Unit: Unknown Mill Tender Second Operator: [employer] Injectables Medications Aspirin = 81 mg, By Mouth, Daily before lunch, 0 Refills, Maintenance, 01/09/11 5:04:09 EST Start Date: 01/09/11 Status: Ordered atorvastatin 20 mg oral tablet 1 tablet = 20 mg, By Mouth, Daily at bedtime, # 90 tablet, 3 Refills, Maintenance, 12/12/20 15:31:00 EST, Tablet, [facility] #1095, 158, cm, 11/21/20 11:06:00 EST, Height, 69, kg, 09/13/20 5:27:00 EDT, Dry Weight Start Date: 12/12/20 Status: Ordered atorvastatin 20 mg oral tablet 1 tablet = 20 mg, By Mouth, Daily at bedtime, for 30 days, # 30 tablet, 6 Refills, Hard Stop 01/01/21 15:31:00 EST, 06/05/20 15:31:00 EDT, Tablet, [facility]/pharm[facility] #1095, 158, cm, 06/05/20 [...] 12/05/20 14:30:00 EST, Route to Pharmacy Electronically, [facility]acy #[id number], Partial fill upon patient request if the prescription i... Start Date: 12/05/20 Stop Date: 11/30/21 Status: Ordered olmesartan 20 mg oral tablet 1 tablet = 20 mg, By Mouth, Daily, Dosage has been reduced to 20mg / day, # 30 tablet, 5 Refills, Maintenance, 09/19/20 14:11:00 EDT, Tablet, [facility]/pharmacy #1095, 158, cm, 09/18/20 [...]
--- OUTSIDE RECORDS SUMMARY | 2024-07-27 12:04 | XMS_ITS | Continuity of Care Document ---
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 #[id number], Partial fill upon patient request if [...] 5 Refills, Maintenance, 09/19/20 14:11:00 EDT, Tablet, [facility] #1095, 158, cm, 09/18/20 15:50:00 EDT, Height, [...] oldest [Reference Range]: 1 Height 158 cm (11/05/20 10:09 AM) Weight 68.4 kg (11/05/20 10:09 AM) Oxygen Saturation [94-100 %] 98 % (11/05/20 10:09 AM) Pulse Rate [55-90 bpm] 76 bpm (11/05/20 10:09 AM) Body Mass Index [18.5-24.99] 27.4 *H* (11/05/20 10:09 AM) Blood Pressure [90-138/55-84 mm Hg] 124/ 68mm Hg (11/05/20 10:09 AM) Blood pressure sites Arm, left (11/05/20 10:09 AM) Weight Obtained Via Standing scale (11/05/20 10:09 AM) Social History Social History Type Response Smoking Status Former smoker; Other : Smoked 1PPD from age 14. Quit 33Y ago.; entered on: 09/15/17 Sex
--- OUTSIDE RECORDS SUMMARY | 2024-07-27 12:04 | XMS_ITS | Continuity of Care Document ---
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
--- OUTSIDE RECORDS SUMMARY | 2024-07-27 12:04 | XMS_ITS | Continuity of Care Document ---
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: [employer] 4Result Comment: Unit: Unknown Timber Setter: [employer] Injectables Medications Aspirin = 81 mg, By Mouth, Daily before lunch, 0 Refills, Maintenance, 01/09/11 5:04:09 EST Start Date: 01/09/11 Status: Ordered atorvastatin 20 mg oral tablet 1 tablet = 20 mg, By Mouth, Daily at bedtime, # 90 tablet, 3 Refills, Maintenance, 12/12/20 15:31:00 EST, Tablet, [facility]/pharmacy #[id number], 158, cm, 11/21/20 11:06:00 [...] 5 Refills, Maintenance, 09/19/20 14:11:00 EDT, Tablet, [facility]/pharmacy #1095, 158, cm, 09/18/20 15:50:00 EDT, Height, 69, kg, 09/13/20 5:27:00 EDT, Dry Weight Start Date: 09/19/20 Status: Ordered Trimo-Mcclure 0.025% vaginal gel with applicator See Instructions, USE DIRECTED, # 113.4 Gm, 3 Refills, Maintenance, [facility], 30, USE DIRECTED, 158, cm, 05/09/21 14:04:00 [...] oldest [Reference Range]: 1 Height 158 cm (06/10/21 2:04 PM) Blood Pressure [90-138/55-84 mm Hg] 112/ 60mm Hg (06/10/21 2:04 PM) Blood pressure sites Arm, right (06/10/21 2:04 PM) Social History Social History Type Response Tobacco Total pack years: 35 . Started at age: 14 Years. Stopped at age: 49 Years. Sex
--- OUTSIDE RECORDS SUMMARY | 2024-07-27 12:04 | XMS_ITS | Continuity of Care Document ---
Author Organization [facility] Address [address] [place] [address]- Care Team Providers Care Block Inspector Name Role Phone Christiano VIDES, Nick Primary Care Physician Encounter [facility] [place] Date(s): 12/19/21 - 12/26/21 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 Started at age: 14 Years. Stopped at age: 49 Years. Sex
--- OUTSIDE RECORDS SUMMARY | 2024-07-27 12:05 | XMS_ITS | Continuity of Care Document ---
Author Organization [facility] Address [address] [place] [id number]- Care Team Providers Care Bisque Grader Name Role Phone Christiano VIDES, Nick Primary Care Physician Encounter [facility] Date(s): 03/04/24 - 03/11/[address] [address]- Attending Physician: Josselin WEBER, Rogelio Cason Allergies, Adverse Reactions, Alerts Substance Reaction Severity Status Ceftin ? Active Cleocin T BLOODY DIARRHEA Active Immunizations Given and Recorded Vaccine Date Status Refusal Reason SARS-CoV-2(COVID-19)mRNA-LNP vac([id number]) 01/08/24 Given pneumococcal 20-valent conjugate vaccine 01/08/24 Given influenza virus vaccine, inactivated 09/12/22 Michael rded influenza virus vaccine, inactivated 08/08/21 Michael rded influenza virus vaccine, inactivated 1 11/21/20 Gi cris influenza virus vaccine, inactivated 2 08/22/20 Re corded [id number] 12y+ bivalent booster vax 08/31/22 Recorded SARS-CoV-2 mRNA ([id number]) vax 03/16/22 Recorded SARS-CoV-2 (COVID-19) mRNA BNT-162b2 [...] diphtheria-tetanus toxoids (DT) 02/22/00 Given 1Result Comment: [id number] 2Result Comment: sarabjit SANDHU [facility] 3Result Comment: Unit: Unknown Oral Hygienist: [employer] 4Result Comment: Unit: Unknown Oral Hygienist: Where Injectables Medications atorvastatin 20 mg oral tablet 1 tablet, By Mouth, Daily at bedtime, # 90 tablet, 3 Refills, Maintenance, 01/05/24 11:50:00 EST, [facility], 158, cm, 11/24/23 11:30:00 EST, [...] 08/27/23 21:16:00 EDT, Route to Pharmacy Electronically, [facility], 158, cm, 05/06/23 11:17:00 EDT, Height, 70, kg, 04/02/23 19:36:00 EDT, Dry Weight Start Date: 08/27/23 Status: Ordered fluticasone 50 mcg/inh nasal spray 1 sprays = 50 mcg, Nares, Both, 2 times a day, # 16 Gm, 0 Refills, Maintenance, 01/08/24 11:22:00 EST, [place], [facility], Partial fill upon patient request if the prescription is for a schedule II opioid drug., 1 sprays Nares, Both 2 [place]... Start Date: 01/08/24 Status: Ordered hydrocortisone 1% topical cream 1 application, Topically, 2 times a day, # 15 Gm, 0 Refills, Maintenance, 01/08/24 11:30:00 EST, [place], [facility], Partial fill upon [...] tablet, 3 Refills, Maintenance, 12/14/23 15:43:00 EST, [facility], 158, cm, 11/24/23 11:30:00 EST, [...] opioid drug. Start Date: 05/09/21 Status: Ordered [place] Tears ophthalmic solution 1 drops, Eyes, Both, 3 times a day, PRN for dry eyes, Maintenance, 09/15/22 10:43:00 EDT, Solution,Partial fill upon patient request if the prescription is for a schedule II opioid drug. Start Date: 09/15/22 Status: Ordered olmesartan 20 mg oral tablet 1 tablet, By Mouth, Daily, # 90 tablet, 1 Refills, Maintenance, 11/25/23 6:31:00 EST, [facility], 158, cm, 11/24/23 [...] oldest [Reference Range]: 1 Height 158 cm (03/04/24 3:03 PM) Weight 73.2 kg (03/04/24 3:03 PM) Oxygen Saturation [94-100 %] 99 % (03/04/24 3:03 PM) Pulse Rate [55-90 bpm] 55 bpm (03/04/24 3:03 PM) Body Mass Index [18.5-24.99 kg/m2] 29.32 kg/m2 *H* (03/04/24 3:03 PM) Blood Pressure [90-138/55-84 mm Hg] 130/ 55mm Hg (03/04/24 3:03 PM) Mode of Delivery (Oxygen) Room air (03/04/24 3:03 PM) Blood pressure sites Arm, left (03/04/24 3:03 PM) Weight Obtained Via Bed scale (03/04/24 3:03 PM) Social History Social History Type Response Tobacco Total pack years: 35 . Started at age: 14 Years. Stopped at age: 49 Years. Sex Patient Care team information Care Team Personnel Name: Nick Alvarado NP Position: [facility] PCO Associate Professional Member Role: PCP Address: Address: [address] [place] [id number] Name: Carrol Ta RN Position: [facility] SN RN Member Role: Primary Care Nurse Name: Crystal Ceron RN Position: [facility] RN Member Role: Primary Care Nurse Care Team Related Persons Name: RADHA MONTOYA Address: [place], [place] Name: BRANDIE MONTOYA Address: [place] [address] Name: TREASURE MONTOYA Address: home [address] [place] [id number] Name: JAI REED Address: home [address] [place] [address]
--- OUTSIDE RECORDS SUMMARY | 2024-07-27 12:05 | XMS_ITS | Continuity of Care Document ---
Author Organization [facility] Address [address] [place] [address]- Care Team Providers Care Closing Coordinator Name Role Phone Christiano VIDES, Nick Primary Care Physician Encounter [facility] Date(s): 11/19/23 - 12/19/[address] [address]- Allergies, Adverse Reactions, Alerts Substance Reaction Severity Status Ceftin ? Active Cleocin T BLOODY DIARRHEA Active Immunizations Given and Recorded Vaccine Date Status Refusal Reason influenza virus vaccine, inactivated 09/12/22 Michael rded influenza virus vaccine, inactivated 08/08/21 Michael rded influenza virus vaccine, inactivated 1 11/21/20 Gi cris influenza virus vaccine, inactivated 2 08/22/20 Re corded [id number] 12y+ bivalent booster vax 08/31/22 Recorded SARS-CoV-2 mRNA ([id number]) vax 03/16/22 Recorded SARS-CoV-2 (COVID-19) mRNA BNT-162b2 [...] diphtheria-tetanus toxoids (DT) 02/22/00 Given 1Result Comment: [id number] 2Result Comment: sarabjit SANDHU [facility] 3Result Comment: Unit: Unknown Nitrating Acid Mixer: [employer] 4Result Comment: Unit: Unknown Nitrating Acid Mixer: [employer] Injectables Medications atorvastatin 20 mg oral [...] 08/27/23 21:16:00 EDT, Route to Pharmacy Electronically, [facility], 158, cm, 05/06/23 11:17:00 EDT, Height, 70, kg, 04/02/23 19:36:00 EDT, Dry Weight Start Date: 08/27/23 Status: Ordered hydrOXYzine hydrochloride 25 mg oral tablet 1 tablet, By Mouth, Daily at bedtime, # 30 tablet, 0 Refills, Maintenance, 07/21/23 11:20:00 EDT, [facility] #[facility], 158, cm, 05/06/23 11:17:00 EDT, [...] mL, 0 Refills, Maintenance, 10/28/23 17:05:00 EST, [facility], Partial fill upon patient request if the prescription is for a schedule II opioid drug., 1 sprays Nares, Both Daily at... Start Date: 10/28/23 Status: Ordered levothyroxine 0.05 mg oral tablet 0.5 tablet, By Mouth, Daily, # 45 tablet, 1 Refills, Maintenance, 08/27/23 21:17:00 EDT, [facility], 158, cm, 05/06/23 11:17:00 EDT, Height, 70, kg, 04/02/23 19:36:00 EDT, Dry Weight Start Date: 08/27/23 Status: Ordered Metoprolol Tartrate 25 mg oral tablet 2 tablet = 50 mg, By Mouth, 2 times a day, # 360 tablet, 3 Refills, Maintenance, 12/14/23 15:43:00 EST, [facility], 158, cm, 11/24/23 11:30:00 EST, [...] opioid drug. Start Date: 05/09/21 Status: Ordered [place] Tears ophthalmic solution 1 drops, Eyes, Both, 2 times a day, PRN for dry eyes, # 30 each, 0 Refills, Maintenance, 09/15/22 1:54:00 EDT, Solution, Partial fill upon patient request if the prescription is for a schedule II opioid drug. Start Date: 09/15/22 Status: Ordered [place] Tears ophthalmic solution 1 drops, Eyes, Both, [...] Personnel Name: Nick Alvarado NP Position: [facility] PCO Associate Professional Member Role: PCP Address: Address: [address] [place] [id number]- Name: Keyon RN, Carrol Marie Position: [facility] SN RN Member Role: Primary Care Nurse Name: Crystal Ceron RN Position: S RN Member Role: Primary Care Nurse Care Team Related Persons Name: RADHA MONTOYA Address: [place], [place] Name: BRANDIE MONTOYA Address: [place] [address] Name: TREASURE MONTOYA Address: home [address] [place] [id number] Name: JAI REED Address: home [address] [place] [address]
--- OUTSIDE RECORDS SUMMARY | 2024-07-27 12:05 | XMS_ITS | Continuity of Care Document ---
Author Organization [facility] Address [address] [address]- Care Team Providers Care Forestry Supervisor Name Role Phone Sam WEBER, Zara Jensen Primary Care Physician Encounter [facility] [place] [facility] [id number] Date(s): 06/07/20 - 06/14/20 [facility] [address] [address]- [place] Attending Physician: Andrea Lima MD Admitting Physician: Andrea Lima MD Referring Physician: Andrea Lima MD Allergies, [...] 0, 0, 02/21/06 7:36:57, Print CAMILO Number, [id number], Constant Indicator Start Date: 02/21/06 Status: Ordered [...]
--- OUTSIDE RECORDS SUMMARY | 2024-07-27 12:05 | XMS_ITS | Continuity of Care Document ---
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 Name Role Phone Christiano VIDES, Nick Primary Care Physician Encounter [facility] Date(s): 06/01/23 - 07/25/23 [facility] [address] [place], [place] [address] Attending Physician: Dionicio Gates MD Admitting Physician: [...] virus vaccine, inactivated 2 08/22/20 Re corded [id number] 12y+ bivalent booster vax 08/31/22 Recorded SARS-CoV-2 mRNA (gtfsfkv-[id number]) vax 03/16/22 Recorded SARS-CoV-2 (COVID-19) mRNA BNT-162b2 [...] diphtheria-tetanus toxoids (DT) 02/22/00 Given 1Result Comment: [id number] 2Result Comment: sarabjit SANDHU [facility] 3Result Comment: Unit: Unknown Vehicle Check In Clerk: [employer] 4Result Comment: Unit: Unknown Vehicle Check In Clerk: [employer] Injectables Medications atorvastatin 20 mg oral tablet [...] Refills, Maintenance, 04/28/23 21:41:00 EDT, [facility], 158, cm, 04/15/23 15:03:00 EDT, [...] 03/03/23 15:46:00 EDT, Route to Pharmacy Electronically, [facility], Partial fill upon patient request if the prescript... Start Date: 03/03/23 Status: Ordered hydrOXYzine hydrochloride 25 mg oral tablet 1 tablet, By Mouth, Daily at bedtime, # 30 tablet, 0 Refills, Maintenance, 07/21/23 11:20:00 EDT, [facility], 158, cm, 05/06/23 [...] tablet, 1 Refills, Maintenance, 05/29/23 15:49:00 EDT, [facility], 158, cm, 05/06/23 11:17:00 EDT, Height, 70, kg, 04/02/23 19:36:00 EDT, Dry Weight Start Date: 05/29/23 Status: Ordered Metoprolol Tartrate 25 mg oral tablet 2 tablet = 50 mg, By Mouth, 2 times a day, # 360 tablet, 3 Refills, Maintenance, 12/16/22 13:42:00 EST, [facility], 158, cm, 12/11/22 [...] opioid drug. Start Date: 05/09/21 Status: Ordered [place] Tears ophthalmic solution 1 drops, Eyes, Both, 2 times a day, PRN for dry eyes, # 30 each, 0 Refills, Maintenance, 09/15/22 1:54:00 EDT, Solution, Partial fill upon patient request if the prescription is for a schedule II opioid drug. Start Date: 09/15/22 Status: Ordered [place] Tears ophthalmic solution 1 drops, Eyes, Both, 3 times a day, PRN for dry eyes, Maintenance, 09/15/22 10:43:00 EDT, Solution,Partial fill upon patient request if the prescription is for a schedule II opioid drug. Start Date: 09/15/22 Status: Ordered olmesartan 20 mg oral tablet 1 tablet, By Mouth, Daily, # 90 tablet, 3 Refills, Maintenance, 12/22/22 11:40:00 EST, [facility], 158, cm, 12/18/22 10:17:00 EST, [...] EDT, Route to Pharmacy Electronically, [facility], Partial fill upon patient request [...] Professional Member Role: PCP Address: Address: [address] [place] [id number] Name: Elvia METZ, Trinh Position: [facility] RN Member Role: Primary Care Nurse Name: Carrol Ta RN Position: [facility] RN Member Role: Primary Care Nurse Name: Crystal Ceron RN Position: S RN Member Role: Primary Care Nurse Care Team Related Persons Name: RADHA MONTOYA Address: [place], [place] Name: BRANDIE MONTOYA Address: [place] [address] Name: TREASURE MONTOYA Address: home [address] [place] [id number] Name: JAI REED Address: [address] [place] [address]
[2024-07-27 12:22] LABS: MANUAL DIFF FLAG NO
[2024-07-27 12:25] LABS: Basophils Absolute Auto 0.1 X10*3/uL (0.0-0.2); Basophils Percent Auto 1.3 % (0-2); Eosinophils Absolute Auto 0.1 X10*3/uL (0.0-0.4); Eosinophils Percent Auto 2.4 % (0-4); Hematocrit 36.9 % (37.0-47.0); Hemoglobin 12.6 g/dl (12.0-16.0); Imm Gran Abs Auto 0.02 X10*3/uL (0.00-0.03); Imm Gran Pct Auto 0.4 % (0.0-0.4); Lymphocytes Absolute Auto 1.4 X10*3/uL (1.2-4.9); Lymphocytes Percent Auto 25.5 % (20-40); Mean Corpuscular HGB Conc 34.1 g/dl (31.0-35.0); Mean Corpuscular Hemoglobin 31.4 pg (27.0-33.0); Mean Platelet Volume 9.1 fL (9.4-12.3); Monocytes Absolute Auto 0.9 X10*3/uL (0.1-1.2); Monocytes Percent Auto 16.1 % (2-11); Neutrophils Absolute Auto 2.9 x10*3/uL (2.0-8.3); Neutrophils Percent Auto 54.3 % (45-73); Platelet Count 258 X10*3/uL (160-400); Red Blood Count 4.01 X10*6/uL (4.20-5.50); Red Cell Distribution Width 12.8 % (11.0-16.0); White Blood Count 5.4 X10*3/uL (4.8-10.8)
[2024-07-27 12:31] LABS: INTERNATIONAL NORM RATIO 0.9 (0.9-1.1); Prothrombin Time 10.5 SEC (11.1-13.3)
[2024-07-27 12:38] LABS: Alanine Aminotransferase 26 U/L (0-31); Alkaline Phosphatase 82 U/L (39-117); Anion Gap 10 (12-20); Aspartate Amino Transferase 22 U/L (5-31); Bilirubin Direct 0.2 mg/dL (0.0-0.5); Bilirubin Total 0.4 mg/dL (0.0-1.0); Blood Urea Nitrogen 13 mg/dL (9-16); Calcium 8.9 mg/dL (8.4-10.2); Carbon Dioxide 27 mmol/L (22-29); Chloride 97 mmol/L (96-108); Creatinine Clr Calc Pharmacy 45.1; Estimated Glomerular Filt Rate > 60; Glucose Random 105 mg/dL (60-115); Potassium 4.3 mmol/L (3.3-5.1); Sodium 130 mmol/L (135-145)
[2024-07-27 12:49] LABS: Troponin-I High Sensitivity < 2.7 ng/L (<3.5-17.0)
[2024-07-27 12:50] VITALS: BP 151/55; PULSE 62; RESP 12; TEMP 36.8; O2SAT 98
[2024-07-27 12:59] LABS: Appearance Urine Clear; Color Urine Yellow; Glucose Urine UA Negative (Negative); Leukocyte Esterase Urine Trace (Negative); Nitrite Urine Negative (Negative); Specific Gravity - Urine <= 1.005 (1.005-1.025); UMIC TRIGGER UACC YES; Urine Blood Negative (Negative); Urine Ketones Negative (Negative); Urine Protein Negative (Neg-Trace)
[2024-07-27 13:04] LABS: Bacteria Urine None Seen (None Seen); Hyaline Casts Urine 0-2 /LPF (0-2); RBC Urine 0-2 /HPF (0-2); Squamous Epithelial Cell Urine 0-2 /HPF (0-2); WBC Urine 0-5 /HPF (0-5)
[2024-07-27 14:22] VITALS: BP 124/49; PULSE 60; RESP 20; TEMP 36.8; O2SAT 98
[2024-07-27] MEDS: Acetaminophen 325 MG TABLET 650 MG PO (14:49)
[2024-07-27] MEDS: 0.9 % Sodium Chloride 1,000 ML 999 ML IV (14:49)
[2024-07-27] MEDS: Lidocaine 4 % Patch ADH..PATCH 1 PATCH TRANSDERMA (14:51)
[2024-07-27 16:08] VITALS: BP 120/48; PULSE 56; RESP 16; TEMP 36.2; O2SAT 98
[2024-07-27 16:30] VITALS: BP 130/40; PULSE 55; RESP 14; TEMP 36; O2SAT 99
[2024-07-27 16:35] VITALS: BP 130/40; PULSE 55; RESP 14; TEMP 36; O2SAT 99
== END 2024-07-27 16:49 | disposition home or self-care (01) ==
PROVIDERS: Physician Assistant Medical; Emergency Provider Emergency Medicine; PCP Internal Medicine
DX: R07.9 Chest pain, unspecified (principal); M79.661 Pain in right lower leg; M54.50 Low back pain, unspecified; S09.90XA Unspecified injury of head, initial encounter; W07.XXXA Fall from chair, initial encounter; Y93.89 Activity, other specified; Y92.89 Other specified places as the place of occurrence of the external cause; Y99.9 Unspecified external cause status; I10 Essential (primary) hypertension; E03.9 Hypothyroidism, unspecified
CPT/HCPCS: 36415; 70450; 71046; 72125; 72220; 80048; 80076; 81001; 84484; 85025; 85610; 93005; 93971; 96360; 96361; 99285